=== PATIENT | male | born 1935 | race Two or more races ===

== ENCOUNTER → 2016-08-11 | Outpatient (CLI) | payer MEDICARE ==
[2016-04-01 11:27] VITALS: BP 146/72
[~2016-08-11] MED LIST: BARIUM SULFATE 40% 148 GM PWD PO ONE; GABA-585 PO; GEMF600T3 PO; GLUC1TAB64 PO; HYDR12.53 PO; IBUPROFEN TOP; LEVO500T38 PO; LOSA100T6; LOSA1TAB17 PO; MELO15TA6 PO; OMEG1CAP2 PO; OXYC-250 PO; OXYC1TAB28 PO; PREG50CA PO; RANI300C PO; SITA100T PO; SITA50TA PO; TAMS0.4C2 PO; TRAM50TA PO; VALS320T2 PO; [UNRECOGNIZED DRUG - CODE] TP; [UNRECOGNIZED DRUG - OTHER]; [UNRECOGNIZED DRUG - OTHER]
--- NOTE | 2016-08-11 14:04 | RAD ---
Video dysphasia study, 08/11/2016: History: Dysphasia The swallowing mechanism was examined fluoroscopically in the lateral projection while the patient ingested a variety of food materials mixed with barium. 1.4 minutes of fluoroscopy time was utilized. One fluoroscopic video loop was recorded by a member of the speech Department. There as been a previous anterior spinal fusion and instrumentation at the C3-4 level. The patient demonstrated good oral control of the barium materials. There was prompt initiation of pharyngeal peristalsis. The majority of the barium bolus passed normally through the cervical esophagus. Moderate transient laryngeal penetration occurred anteriorly with the thin liquids. This did not extend down to the vocal focal cords. No vandana aspiration was observed. When ingesting the thicker materials and barium coated solids there was only mild intermittent vallecular residue. The patient utilized a straw without difficulty. IMPRESSION: No evidence of aspiration.
== END | disposition home or self-care (01) ==
LOC: RAD 12:48
PROVIDERS: ATTEND Family Medicine
DX: R13.10 Dysphagia, unspecified (principal)
CPT/HCPCS: 74230; 92611; G8996; G8997; G8998

== ENCOUNTER → 2016-08-18 | Outpatient (CLI) | payer MEDICARE ==
[2016-04-01 11:27] VITALS: BP 146/72
[~2016-08-18] MED LIST changes: -BARIUM SULFATE 40% 148 GM PWD PO ONE
--- NOTE | 2016-08-19 00:36 | PAIN ---
DATE OF SERVICE: 08/18/2016 PROGRESS NOTE FOR PAIN CLINIC DIAGNOSES: Chronic lumbar radiculopathy with post-lumbar laminectomy syndrome, lumbar spinal stenosis with spinal cord stimulator. HISTORY OF PRESENT ILLNESS: The patient is a 81-year-old male who returns should followup status post medication management with oxycodone, Voltaren gel, Mobic and gabapentin. The patient reports he is doing fairly well. Still about a 70-75% improvement with his pain, but has some increased pain in his left low back and left hip over the past several weeks, he was lifting some propane tanks and reports some increased pain in the left hip and leg. The patient reports he is no longer using a spinal cord stimulator as he felt that it was only making things worse and has turned it off. The patient reports his pain is 4 on a scale of 10. The patient reports also some pain in his knees that he has had previously. The patient reports no side effects with his medications. We discussed the regimen and he has had normal urinalysis to date and normal K-TRACS reporting. The patient reports no new motor or sensory deficits. No new bowel or bladder incontinence or other complaints. PHYSICAL EXAMINATION: VITAL SIGNS: The patient's blood pressure is 144/70, pulse 66, respirations 18, temperature 97.5 degrees Fahrenheit, height is 5 feet 9 inches, weight is 195 pounds. GENERAL: The patient is awake, alert, oriented, appropriate, very pleasant demeanor. HEENT: Head shows normocephalic, atraumatic. Extraocular movements are intact and symmetrical. Oral cavity, mucous membranes are moist and pink. Dentition is intact. NECK: Shows anterior throat supple without palpable lymphadenopathy noted. Swallow reflex is symmetrical. CHEST: Shows normal on inspection. Breath sounds are clear to auscultation bilaterally. HEART: Shows S1 and S2 clear. No murmurs auscultated. ABDOMEN: Soft, nontender, nondistended. No palpable organomegaly is noted. No rebound or guarding demonstrated. BACK: Shows spine grossly midline, well-healed surgical scar is noted in the lumbar distribution. Lumbar paraspinous muscle shows some moderate tenderness to palpation, but only diffusely with well-healed surgical scars over the right gluteus with spinal cord stimulator battery easily palpable, but nontender. EXTREMITIES: Lower extremities show deep tendon reflexes at 1+ in the patellar and tendo calcaneus tendons. Motor exam is approximately 4 on a scale of 5, but equal and symmetrical with dorsiflexion, extension, quadriceps and hamstring flexion. PLAN: Options were discussed with the patient. The patient's old chart was reviewed and his current medication regimen updated. Current review of systems updated today as well and we will refill the patient's oxycodone for a 60-day supply. Also, refilled gabapentin at twice a day and the ____ increasing, this may decrease some of his neuropathic pain that he is having. We will refill his Voltaren gel as well as Mobic with instructions, side effects to be aware of discussed with all his medications. The patient will follow up in approximately 2 months as scheduled. NAHUM GRIFFIN MD DR: NATALIA/sami JOB#: [id number] / [id number]
== END | disposition home or self-care (01) ==
LOC: PNCL 09:02
PROVIDERS: ATTEND Anesthesiology
DX: M54.16 Radiculopathy, lumbar region (principal); M96.1 Postlaminectomy syndrome, not elsewhere classified; M48.06 Spinal stenosis, lumbar region
CPT/HCPCS: G0463

== ENCOUNTER → 2016-10-13 | Outpatient (CLI) | payer MEDICARE ==
[2016-04-01 11:27] VITALS: BP 146/72
[~2016-10-13] MED LIST changes: +HYDR4TAB PO
--- NOTE | 2016-10-13 22:40 | PAIN ---
DATE OF SERVICE: PROGRESS NOTE FOR PAIN CLINIC PROGRESS NOTE FOR PAIN CLINIC DIAGNOSES: Chronic lumbar radiculopathy with post-lumbar laminectomy syndrome and spinal stenosis. HISTORY OF PRESENT ILLNESS: The patient is a 81-year-old male, who returns for followup, status post medication management with oxycodone, gabapentin, and Voltaren gel. The patient reports that he is still having significant pain from his knees down to his feet bilaterally in the lower extremities, not very well controlled at this time with the oxycodone. Initially, he did very well at about 70-80% improvement, now it is about a 40-50% improvement. The patient reports that it has been awakening him at night. His knees are burning and aching. Voltaren gel does help over the knees to some extent, but it is only limited by about an hour to two hours. The patient reports that his pain is a 5 on a scale of 10 with the medications - a burning, aching, and sharp pain that is more off and on, but present with standing, walking, and ambulating, wakes him from sleep at least once or twice at night, where he has to get out of bed, re-position. The patient reports no significant side effects with the medication, but not significant decrease in pain. The patient is not using his spinal cord stimulator currently as he reports that it had only helped for a few weeks and then was not very helpful. We discussed multiple times with the patient about reprogramming this and he has not done this to date. PHYSICAL EXAMINATION: VITAL SIGNS: The patient's blood pressure is 152/83, pulse 84, respirations are 18, and temperature is 98.3 degrees Fahrenheit. Weight is 196 pounds. GENERAL: The patient is awake, alert, oriented, and appropriate, very pleasant demeanor. HEENT: Head shows normocephalic, atraumatic. Extraocular movements are intact and symmetrical. Oral cavity, mucous membranes are moist and pink. Dentition is intact. NECK: Shows anterior throat supple without palpable lymphadenopathy noted. Swallow reflex is symmetrical. CHEST: Shows normal on inspection. Breath sounds are clear to auscultation bilaterally. HEART: Shows S1 and S2 clear. ABDOMEN: Soft, nontender, and nondistended. No palpable organomegaly is noted. No rebound or guarding demonstrated. BACK: Shows spine grossly midline. A well-healed surgical scar is noted in the lumbar distribution. Lumbar paraspinous muscles are symmetrical on inspection. Palpation is firm, but with normal muscle girth, diffusely tender throughout the upper, middle, and lower distribution bilaterally, but without radiation. No tenderness over the sacrum or the sacroiliac regions. Lower extremities show deep tendon reflexes at 1+ in the patellar tendons. Motor exam is strong with 5/5 dorsiflexion and extension. Well-healed surgical scar is noted over both the knees. Options were discussed with the patient. The patient's old chart was reviewed, as was his current medication regimen updated. Current review of systems updated today as well. We will change the patient's oxycodone to hydromorphone at 4 mg q. 4-6h. on a p.r.n. basis. The patient was given instruction as well as side effects to be aware of with the medication. Also, increase Neurontin from 100 to 200 mg twice daily and maintain the Voltaren gel applications. The patient was again strongly encouraged to have his spinal cord stimulator adjusted with one of the stimulator representatives - he will consider this. Also, he would like another neurosurgical evaluation. We will make the arrangements for this as well as a new CT scan of the lumbar spine. The patient will follow up, but was asked to call the clinic in the next 1-2 days with report on the new pain medication and we will wait to hear from him on that. NAHUM GRIFFIN MD DR: NATALIA/sami JOB#: [id number] / [id number]
== END | disposition home or self-care (01) ==
LOC: PNCL 10:51
PROVIDERS: ATTEND Anesthesiology
DX: M48.06 Spinal stenosis, lumbar region (principal); M96.1 Postlaminectomy syndrome, not elsewhere classified
CPT/HCPCS: G0463

== ENCOUNTER → 2016-10-21 | Outpatient (CLI) | payer MEDICARE ==
[2016-04-01 11:27] VITALS: BP 146/72
--- NOTE | 2016-10-21 12:35 | RAD ---
Indication low back pain. Axial images through the lumbar spine were obtained and reformatted in the coronal and sagittal planes. Disc cuts were also obtained. Note is made of the lumbar myelogram and postmyelogram CT performed 08/29/2014. The visualized lung bases appear clear. No significant soft tissue finding is seen in the visualized abdomen or pelvis. A neuro stimulating device is noted entering at T 11-12. There are spondylitic changes. Significant facet degenerative changes are noted at multiple levels. An acute bony finding is not seen. Postoperative changes are noted in the lower lumbar spine. There is some slight disc bulging without significant canal narrowing at L1-2. There is some mild foraminal encroachment bilaterally at L1-2. At L2-3 there is slight left neural foraminal encroachment. There is, additionally, moderate lateral recess spinal stenosis. At L3-4 there is significant disc bulging, moderately severe spinal stenosis and moderate bilateral neural foraminal encroachment. No significant foraminal encroachment is seen at L4-5. There is no significant spinal stenosis. Spondylolisthesis is seen at L5-S1. There is some left neural foraminal encroachment. There is no significant spinal stenosis. IMPRESSION: Spondylitic changes in the lumbar spine. Multilevel neural foraminal encroachment as outlined above. Spinal stenosis at L2-3 and L3-4, greatest at L3-4 PQRS Compliance Statement: One or more of the following individualized dose reduction techniques were utilized for this examination: 1. Automated exposure control 2. Adjustment of the mA and/or kV according to patient size 3. Use of iterative reconstruction technique
== END | disposition home or self-care (01) ==
LOC: CT 12:00
PROVIDERS: ATTEND Anesthesiology
DX: M43.16 Spondylolisthesis, lumbar region (principal); M51.36 Other intervertebral disc degeneration, lumbar region; E78.00 Pure hypercholesterolemia, unspecified; I10 Essential (primary) hypertension; K21.9 Gastro-esophageal reflux disease without esophagitis; M19.90 Unspecified osteoarthritis, unspecified site; E11.9 Type 2 diabetes mellitus without complications; F32.9 Major depressive disorder, single episode, unspecified; Z96.653 Presence of artificial knee joint, bilateral; Z87.01 Personal history of pneumonia (recurrent)
CPT/HCPCS: 72131

== ENCOUNTER → 2016-12-08 | Outpatient (CLI) | payer MEDICARE ==
[2016-04-01 11:27] VITALS: BP 146/72
[~2016-12-08] MED LIST changes: +AMLO10TA2 PO; +GLIP5TAB10 PO; -LEVO500T38 PO; +LEVO500T59 PO; -OXYC-250 PO; +OXYC-328 PO
== END | disposition home or self-care (01) ==
LOC: PNCL 11:24
PROVIDERS: ATTEND Anesthesiology
DX: M48.06 Spinal stenosis, lumbar region (principal); M54.16 Radiculopathy, lumbar region; M96.1 Postlaminectomy syndrome, not elsewhere classified
CPT/HCPCS: 99212

== ENCOUNTER → 2016-12-26 | Outpatient (CLI) | payer MEDICARE ==
[~2016-12-26] VITALS: Ht 162.6 cm; Wt 86.2 kg
[~2016-12-26] MED LIST changes: +CONTRAST GIVEN MC PRN; +IOHEXOL 180 MG/ML 10 ML VIAL. IT ONE
[2016-12-26 08:32] LABS: CREATININE 1.8 mg/dL (0.7-1.3); GFR 36.6
[2016-12-26 08:43] VITALS: BP 131/66
--- NOTE | 2016-12-26 10:36 | RAD ---
EXAM: 1. CT myelography lumbar spine with intrathecal contrast. 2. Fluoroscopically guided lumbar puncture for demonstration of intrathecal contrast. HISTORY: Low back pain, spinal stenosis, prior lumbar surgery, spinal stimulator placement. TECHNIQUE: The procedure along with its risks and benefits were explained to the patient. He agreed to proceed. A timeout procedure was performed. The prior study of 10/21/2016 was reviewed. The patient was placed prone and the L5-S1 level localized fluoroscopically. The overlying skin was sterilely prepped and infiltrated with 1% lidocaine for local anesthesia. Under fluoroscopic guidance, a 22-gauge spinal needle was advanced into the thecal sac. There was spontaneous return of cerebrospinal fluid. 10 mL iodinated myelographic contrast was instilled under fluoroscopic control. Instrumentation was withdrawn and a sterile dressing placed. There were no immediate complications. 7 fluoroscopic images were obtained. Fluoroscopy time 1.[address] of the lumbar spine was performed after the intrathecal administration of iodinated contrast. COMPARISON: 10/21/2016, 08/29/2014. FINDINGS: Spinal stimulator electrodes enter the central canal at T11-12 and have their terminus superior to this field of view. There are changes of uninstrumented posterior fusion from L4 through S1. Right hemilaminotomy changes are suspected inferiorly at L3. There are at least partial laminectomy changes at L4 and L5, but these have mostly reossified. There is slight retrolisthesis at L1-2. There is grade 1 anterolisthesis at L5-S1. There is a minimal levocurvature. No fractures are identified. Degenerative disc disease is moderate at L3-4 and mild at other levels. L4-5 disc height is preserved. The conus is at L1 and appears normal. Some of the left nerve roots appear clumped inferiorly, stable. At T12-L1, there is no significant stenosis. At L1-2, there is a moderate posterior disc bulge. Facet and ligamentum flavum hypertrophy is mild. Central canal stenosis is mild. Foraminal stenosis is moderate on the left and moderate to severe on the right. At L2-3, there is a small posterior disc-osteophyte complex. Facet and ligamentum flavum hypertrophy is moderate to severe on the left and moderate on the right. Central canal stenosis is moderate, worse on the left. Foraminal stenosis is moderate to severe on the left and moderate on the right. At L3-4, there is a moderate posterior disc-osteophyte complex. Facet and ligamentum flavum hypertrophy is moderate to severe bilaterally. Central canal stenosis is moderate to severe on the left greater than right with effacement of the CSF space. Foraminal stenosis is moderate bilaterally. At L4-5, there is no significant stenosis. Facet and ligamentum flavum hypertrophy is moderate to severe. At L5-S1, there is a moderate posterior disc-osteophyte complex. The left L5 inferior articular process appears to been resected. The posterior aspects of both neural foramina appear decompressed, but there is some mass effect on both L5 nerve roots from the posterior disc-osteophyte complex along the anterior aspect of both foramina and lateral to the foramina. Mild atherosclerotic calcifications are noted. Sigmoid diverticulosis is at least mild. IMPRESSION: 1. Central canal stenosis is moderate to severe at L3-4, moderate at L2-3 and mild at L1-2. These appear increased since 2015, particular from L1 through L3. 2. Multilevel bilateral moderate to severe foraminal stenosis as detailed above. 3. 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 This is stable. 4. Noninstrumented posterior fusion from L4 through S1. Hemilaminotomy and partial left neck region is from L3 through S1 are mostly reossified. 5. Degenerative disc disease is moderate at L3-4 and mild elsewhere. 6. Grade 1 anterolisthesis at L5-S1. Slight retrolisthesis at L1-2. One or more of the following individualized dose reduction techniques were utilized for this examination: 1. Automated exposure control. 2. Adjustment of the mA and/or kV according to patient size. 3. Use of iterative reconstruction technique.
== END | disposition home or self-care (01) ==
LOC: RAD 08:10
PROVIDERS: ATTEND Neurological Surgery
DX: M48.06 Spinal stenosis, lumbar region (principal); M51.36 Other intervertebral disc degeneration, lumbar region
CPT/HCPCS: 36415; 72132; 72265; 82565

== ENCOUNTER → 2017-01-18 | Outpatient (CLI) | payer MEDICARE ==
[2016-12-26 08:43] VITALS: BP 131/66
[~2017-01-18] MED LIST changes: -CONTRAST GIVEN MC PRN; -IOHEXOL 180 MG/ML 10 ML VIAL. IT ONE
[2017-01-18 10:30] LABS: BASO % 1 % (0-3); EOS % 6 % (0-3); HEMATOCRIT 36.5 % (39.0-53.0); HEMOGLOBIN 12.6 g/dL (13.0-17.5); LYMPH # 1.8 x10^3/uL (1.0-4.8); LYMPH % 28 % (24-48); MEAN CORPUSCULAR HEMOGLOBIN 31 pg (25-35); MEAN CORPUSCULAR HGB CONC 34 g/dL (31-37); MEAN CORPUSCULAR VOLUME 90 fL (79-100); MONO % 12 % (0-9); NEUT % 54 % (31-73); PLATELET COUNT 193 x10^3/uL (140-400); RED BLOOD COUNT 4.04 x10^6/uL (4.30-5.70); RED CELL DISTRIBUTION WIDTH 13.3 % (11.5-14.5); WHITE BLOOD COUNT 6.2 x10^3/uL (4.0-11.0)
[2017-01-18 10:43] LABS: INR 1.2 (0.8-1.1); PROTHROMBIN TIME PATIENT 14.6 SEC (11.7-14.0)
[2017-01-18 10:47] LABS: ALBUMIN/GLOBULIN RATIO 1.1 (1.0-1.7); CALCIUM 9.3 mg/dL (8.5-10.1); CREATININE 1.6 mg/dL (0.7-1.3); GFR 41.9; POTASSIUM 4.2 mmol/L (3.5-5.1); TOTAL BILIRUBIN 0.3 mg/dL (0.2-1.0); TOTAL PROTEIN 7.6 g/dL (6.4-8.2)
--- NOTE | 2017-01-18 12:50 | EKG ---
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
== END | disposition home or self-care (01) ==
LOC: SURGPAT 09:49
PROVIDERS: ATTEND Neurological Surgery
DX: M54.16 Radiculopathy, lumbar region (principal)
CPT/HCPCS: 36415; 80053; 85027; 85610; 85730; 87641; 93005

== ENCOUNTER → 2017-01-23 | Outpatient (CLI) | payer MEDICARE ==
[2016-12-26 08:43] VITALS: BP 131/66
--- NOTE | 2017-01-23 13:15 | PN ---
DATE: 01/23/2017 PROGRESS NOTE FOR PAIN CLINIC DIAGNOSES: Chronic lumbar radiculopathy with post-lumbar laminectomy syndrome and lumbar spinal stenosis. HISTORY OF PRESENT ILLNESS: The patient is a 81-year-old male who returns for followup status post medication management with oxycodone. The patient reports he has been doing fairly well with this about 50-60% improvement with medication alone without significant side effects, but is having still significant pain across the low back and in to the bilateral lower extremities. The patient does have a spinal cord stimulator which he has not been using it as he reports it stopped helping his pain. the patient reports that he is having lumbar decompressive surgery 2 days from now on 01/25/2017 and is looking forward to this as he is hoping for some decrease in pain. The patient reports no new motor or sensory deficits, no new bowel or bladder incontinence. The patient reports it does awaken him from sleep about once every hour. He is to get out of bed and change positions in order to get back to sleep. The patient reports the pain as a 6 on a scale of 10 at its worst and 5 currently. The patient reports it as aching and dull with shooting pain in the lower extremities as well. PHYSICAL EXAMINATION: VITAL SIGNS: The patient's blood pressure is 147/85, pulse 78, respirations 18, temperature is 98.0 degrees Fahrenheit. The patient's weight is 195 pounds. GENERAL: The patient is awake, alert, oriented, appropriate, has a very pleasant demeanor. HEENT: Head shows normocephalic, atraumatic. Extraocular movements are intact, symmetrical. Oral cavity has mucous membranes are moist and pink. Dentition is intact. NECK: Shows anterior throat supple without palpable lymphadenopathy noted. Swallow reflex is symmetrical. CHEST: Shows normal on inspection. Breath sounds are clear to auscultation bilaterally. HEART: Shows S1 and S2 clear. No murmurs auscultated. ABDOMEN: Soft, nontender, nondistended. BACK: The patient's back shows spine grossly in midline with some flattening of lumbar lordotic curvature with well-healed surgical scarring noted, with palpation shows some moderate tenderness to palpation in the middle and lower distribution of paraspinous muscles, but without radiation. EXTREMITIES: Lower extremities showed deep tendon reflexes at 1+ in the patellar and tendo calcaneus tendons. Motor exam is strong with 5/5 dorsiflexion, extension, quadriceps and hamstring flexion. Options were discussed with the patient. The patient's old chart was reviewed as current medication regimen and updated. Current review of systems updated today as well. We will refill the patient's oxycodone 10 mg with instructions and side effects to be aware of discussed. The patient will take hydromorphone for postoperative pain as he has this prescription at home. He reports that he has not been taking it for some time now and/or increased oxycodone use for the postoperative pain. The patient was asked to call the clinic prior to doing this and we will cover his postoperative pain once this occurs if needed. The patient understands and agrees. We will follow up after surgery. NAHUM GRIFFIN MD DR: NATALIA/sami JOB#: [id number] / [id number]
== END | disposition home or self-care (01) ==
LOC: PNCL 11:01
PROVIDERS: ATTEND Anesthesiology
DX: M54.16 Radiculopathy, lumbar region (principal); M48.06 Spinal stenosis, lumbar region; G89.18 Other acute postprocedural pain
CPT/HCPCS: G0463

== ENCOUNTER 2017-01-25 06:57 | Observation (INO) | payer MEDICARE ==
[~2017-01-25] VITALS: Ht 162.6 cm; Wt 89.6 kg
[2017-01-25] VITALS (10 sets, daily range): BP systolic 133–160; BP diastolic 64–74
[~2017-01-25 06:57] MED LIST changes: +BACITRACIN 50,000 UNIT in IV NORMAL SALINE 1000ML BAG 1,000 ML IRR ONE
[2017-01-25] MEDS ORDERED: IV RINGERS,LACTATED 1000ML 1,000 ML IV SCH (07:00)
[2017-01-25] MEDS ORDERED: MORPHINE SULFATE 2 MG/ML DISP.SYRIN. IV PRN (07:00)
[2017-01-25] MEDS ORDERED: LIDOCAINE 1% 1 ML SYRINGE. ID PRN (07:00)
[2017-01-25] MEDS ORDERED: PROCHLORPERAZINE 10 MG/2 ML VIAL. IV PRN (07:00)
[2017-01-25] MEDS ORDERED: ONDANSETRON PF 4 MG/2 ML VIAL. IV PRN ×2 (07:00→13:00)
[2017-01-25] MEDS ORDERED: fentaNYL PF VIAL 100 MCG/2 ML VIAL IV PRN ×3 (07:00→13:00)
[2017-01-25] MEDS ORDERED: PROPOFOL 50 ML IV ONE ×2 (07:33→10:08)
[2017-01-25] MEDS ORDERED: LIDOCAINE 2% PF Vial for OR 5 ML VIAL. ONE (07:33)
[2017-01-25] MEDS ORDERED: PROPOFOL 20 ML IV ONE (07:33)
[2017-01-25] MEDS ORDERED: SUCCINYLCHOLINE 200 MG/10 ML VIAL. ONE (07:34)
[2017-01-25] MEDS ORDERED: fentaNYL PF VIAL 100 MCG/2 ML VIAL ONE ×3 (07:34→13:43)
[2017-01-25] MEDS ORDERED: REMIFENTANIL 2 MG VIAL. IV ONE (07:34)
[2017-01-25] MEDS ORDERED: 0.9 % SODIUM CHLORIDE 50 ML VIAL. IJ ONE (07:36)
[2017-01-25] MEDS ORDERED: BUPIVAC MPF-EPI 0.5%-1:200000 30 ML VIAL. ONE (07:37)
[2017-01-25] MEDS ORDERED: BUPIVACAINE 0.5% 50 ML VIAL. ONE (07:37)
[2017-01-25] MEDS: IV NORMAL SALINE 1000ML BAG 1,000 ML IV SCH ×2 (08:00→19:28)
[2017-01-25] MEDS ORDERED: ONDANSETRON PF 4 MG/2 ML VIAL. ONE (09:13)
[2017-01-25] MEDS ORDERED: DESFLURANE > 120 MINUTES IH ONE (09:13)
[2017-01-25] MEDS ORDERED: DEXAMETHASONE SOD PHOS 20 MG/5 ML VIAL. ONE (09:13)
[2017-01-25] MEDS ORDERED: THROMBIN TOPICAL 20,000 UNIT SPRAY.SYRN KIT TP ONE (12:02)
[2017-01-25] MEDS ORDERED: GELATIN SPONGE SIZE 100. ONE (12:02)
--- NOTE | 2017-01-25 12:48 | PDOC ---
BRIEF OPERATIVE NOTE Date: Jan 25, 2017 Pre-Op Diagnosis lumbar radiculopathy, lumbar stenosis, lumbar spondylosis Post-Op Diagnosis same Procedure Performed bilateral laminectomy L2-3 and L3-4 Surgeon Chucky Data Report Analyst none Anesthesia Type: General Blood Loss 50mL Specimens Obtained decompression Findings severe stenosis due to degenerative changes at L2-3 and L3-4, neuromonitoring potential remained at least baseline throughout the procedure Complications none apparent PAWEL HENNESSY MD Jan 25, 2017 12:48
[2017-01-25] MEDS ORDERED: diphenhydrAMINE 50 MG/ML VIAL IV PRN (13:00)
[2017-01-25] MEDS ORDERED: ZOLPIDEM 5 MG TABLET. PO PRN (13:00)
[2017-01-25] MEDS ORDERED: 0.9 % SODIUM CHLORIDE 10 ML DISP.SYRIN. IV PRN (13:00)
[2017-01-25] MEDS ORDERED: MAGNESIUM HYDROXIDE 2,400 MG/30 ML ORAL.SUSP. PO PRN (13:00)
[2017-01-25] MEDS ORDERED: MAG HYDROX/ALUMINUM HYD/SIMETH 30 ML ORAL.SUSP PO PRN (13:00)
[2017-01-25] MEDS ORDERED: ACETAMINOPHEN 325 MG TABLET. PO PRN (13:00)
[2017-01-25] MEDS ORDERED: oxyCODONE/APAP 5/325 1 TAB TABLET PO PRN (13:00)
[2017-01-25] MEDS ORDERED: NALOXONE 0.4 MG/ML VIAL. IV PRN (13:00)
[2017-01-25] MEDS ORDERED: diphenhydrAMINE HCL 25 MG CAPSULE PO PRN (13:00)
[2017-01-25] MEDS ORDERED: CALCIUM CARBONATE 500 MG TAB.CHEW PO PRN (13:00)
[2017-01-25] MEDS: fentaNYL PF VIAL 100 MCG/2 ML VIAL IV PRN ×4 (13:09→14:15)
[2017-01-25] MEDS ORDERED: HYDROmorphone 2 MG/ML VIAL ONE (13:18)
[2017-01-25] MEDS: HYDROmorphone 2 MG/ML VIAL IV PRN ×4 (13:20→13:53)
[2017-01-25] MEDS ORDERED: INFLUENZA VAX SCREEN BY RX. MC ONE (15:00)
[2017-01-25] MEDS ORDERED: FLU VACC QUAD 2016-17 (36MOS+)/PF 0.5 ML SYRINGE. VAX IM ONE ×2 (15:00→15:30)
[2017-01-25] MEDS: METHOCARBAMOL 750 MG TABLET PO SCH ×2 (15:48→20:32)
[2017-01-25] MEDS: amLODIPine BESYLATE 10 MG TABLET PO SCH (15:49)
--- NOTE | 2017-01-25 15:54 | OP ---
DATE OF SURGERY: 01/25/2017 SURGEON: Tyrese Hennessy MD MEAT HANGER: None. PREOPERATIVE DIAGNOSES: Lumbar stenosis with lumbar radiculopathy, lumbar spondylosis. POSTOPERATIVE DIAGNOSES: Lumbar stenosis with lumbar radiculopathy, lumbar spondylosis. PROCEDURE: Bilateral laminectomy of lumbar 2-3, lumbar 3-4. ANESTHESIA: General. COMPLICATIONS: None intraprocedurally. INDICATIONS FOR THE PROCEDURE: The patient is a 81-year-old gentleman with lumbar radiculopathy localized to a significant stenosis at lumbar 2-3 and lumbar 3-4 who has been refractory to multiple nonsurgical treatments. Please refer to the patient's chart for additional details. DESCRIPTION OF THE PROCEDURE: After informed consent was obtained, the patient was brought into the operating room. He was placed under general anesthesia. Neuromonitoring was instituted and baseline potentials were obtained. The patient was turned prone onto the Dominik table and all pressure points were checked and padded appropriately. Lumbar region was prepped and draped in the usual sterile fashion. The patient had previously midline incision from a prior more caudal decompression as well as prior placement of spinal cord stimulation. Fluoroscopy was utilized to localize an appropriate location for the reopening of this incision and the incision was reopened, centered over the region of spinous processes of lumbar 2, 3 and 4. Near the cephalad portion of the incision, the leads and lead extension collections were identified laterally and these were preserved underneath the adjacent tissue and protected throughout the duration of the procedure. Monopolar electrocautery was utilized to dissect the avascular midline in the spinous processes of lumbar 2, 3 and 4 and bilaterally across the lamina at this location. Level was verified with fluoroscopy prior to the initiation of decompression. A bilateral laminectomy was performed across the junction of lumbar 2-3 and lumbar 3-4. This was done with a Leksell as well as a pneumatic drill and a Kerrison rongeur. The underlying ligament was gently dissected from the thecal sac with a Radford as well as cottonoids and this was gently removed with a Kerrison rongeur. The lateral recesses were decompressed with Kerrison rongeur bilaterally at all the exposed locations. Upon completion of decompression at lumbar 2-3 and lumbar 3-4, the thecal sac and neural elements were noted to be very well decompressed. This was verified with direct visualization as well as gentle palpation with a Radford. Upon completion of decompression, pristine hemostasis was achieved with FloSeal, cottonoids and some use of bipolar electrocautery. The wound was generously irrigated with antibiotic irrigation prior to the final closure. The muscles and fascia were then reapproximated with 0 Vicryl in a simple interrupted fashion. Subcutaneous tissues were reapproximated with 2-0 Vicryl in interrupted inverted fashion with great care to avoid disrupting the adjacent hardware from the spinal cord stimulator, which was preserved and kept underneath tissues throughout the duration of the procedure. The skin was reapproximated with 4-0 Vicryl in a running subcuticular fashion. Mastisol and Steri-Strips were applied. The wound was dressed with Telfa and Tegaderm. At the end of the procedure, all needle and sponge counts were correct x 2. Neuromonitoring potentials remained at least at baseline throughout the entire duration of the procedure. There were no intraprocedural complications apparent. The patient was extubated in the operating room and taken to recovery in a stable condition. TYRESE HENNESSY MD DR: JUDITH/sami JOB#: [id number] / [id number]
[2017-01-25] MEDS: FERROUS SULFATE 325 MG TABLET. PO SCH (17:02)
[2017-01-25] MEDS: CALCIUM CARB/VIT D3 500/200 TABLET. PO SCH (17:02)
[2017-01-25] MEDS: oxyCODONE/APAP 5/325 1 TAB TABLET PO PRN ×2 (17:08→21:03)
[2017-01-25] MEDS: DOCUSATE SODIUM 100 MG CAPSULE. PO SCH (20:32)
[2017-01-25] MEDS: GEMFIBROZIL 600 MG TABLET. PO SCH (20:32)
[2017-01-25] MEDS: OMEGA-3 FATTY ACIDS/FISH OIL 1,000 MG CAPSULE. PO SCH (20:32)
[2017-01-25] MEDS: FAMOTIDINE 20 MG TABLET. PO SCH (20:32)
[2017-01-25] MEDS: GABAPENTIN 100 MG CAPSULE. PO SCH (20:32)
[2017-01-25] MEDS: SENNOSIDES/DOCUSATE 8.6/50MG TABLET. PO SCH (20:33)
[2017-01-26 03:00] VITALS: BP 126/74
[2017-01-26 06:00] VITALS: BP 143/67
[2017-01-26] MEDS ORDERED: glipiZIDE 5 MG TABLET PO SCH (08:00)
[2017-01-26] MEDS: FERROUS SULFATE 325 MG TABLET. PO SCH (08:12)
[2017-01-26] MEDS: DOCUSATE SODIUM 100 MG CAPSULE. PO SCH (08:13)
[2017-01-26] MEDS: CALCIUM CARB/VIT D3 500/200 TABLET. PO SCH (08:13)
[2017-01-26] MEDS: GEMFIBROZIL 600 MG TABLET. PO SCH (08:14)
[2017-01-26] MEDS: OMEGA-3 FATTY ACIDS/FISH OIL 1,000 MG CAPSULE. PO SCH (08:14)
[2017-01-26] MEDS: GABAPENTIN 100 MG CAPSULE. PO SCH (08:15)
[2017-01-26] MEDS: amLODIPine BESYLATE 10 MG TABLET PO SCH (08:15)
[2017-01-26] MEDS: FAMOTIDINE 20 MG TABLET. PO SCH (08:15)
[2017-01-26] MEDS: SENNOSIDES/DOCUSATE 8.6/50MG TABLET. PO SCH (08:16)
[2017-01-26] MEDS: METHOCARBAMOL 750 MG TABLET PO SCH ×2 (08:16→14:38)
--- NOTE | 2017-01-26 08:51 | PDOC ---
SUBJECTIVE Subjective Reports leg pain and numbness significantly improved. Reports present pain regimen is controlling low back pain reasonably well. OBJECTIVE Vital Signs Vital Signs Date Time Temp Pulse Resp B/P (MAP) Pulse Ox O2 Delivery O2 Flow Rate FiO2 01/26/17 08:15 62 143/67 01/26/17 06:45 20 96 Room Air 01/26/17 06:00 62 18 143/67 (92) 98 Room Air 01/26/17 05:34 20 98 Room Air 01/26/17 03:00 60 18 126/74 (91) 100 Room Air 01/25/17 22:58 61 18 147/64 (91) 98 Room Air 01/25/17 22:15 20 95 Room Air 01/25/17 21:03 20 95 Room Air 01/25/17 19:30 Room Air 01/25/17 18:40 60 141/70 (93) 01/25/17 17:58 16 145/69 (94) 94 Room Air 01/25/17 17:10 60 133/65 (87) 01/25/17 17:08 Room Air 01/25/17 16:40 60 135/67 (89) 91 Room Air 01/25/17 16:27 60 16 136/68 (90) 91 Room Air 01/25/17 15:49 60 139/66 01/25/17 15:42 60 139/66 (90) 93 Room Air 01/25/17 15:20 Room Air 01/25/17 15:19 62 160/70 (100) 96 Room Air 01/25/17 14:55 61 155/74 (101) 2.0 01/25/17 14:40 97.9 62 16 147/73 (97) 98 Nasal Cannula 2.0 97.9 01/25/17 14:23 61 14 126/70 95 Nasal Cannula 2 01/25/17 14:15 16 96 Nasal Cannula 2.0 01/25/17 14:08 60 14 148/48 94 Nasal Cannula 2 01/25/17 13:53 60 14 142/71 95 Nasal Cannula 2 01/25/17 13:53 14 96 Nasal Cannula 4.0 01/25/17 13:48 16 96 Nasal Cannula 4.0 01/25/17 13:43 18 95 Nasal Cannula 4.0 01/25/17 13:38 60 18 124/65 96 Nasal Cannula 4 01/25/17 13:30 16 96 Nasal Cannula 4.0 01/25/17 13:23 99.5 59 15 141/69 95 Room Air 10 99.5 01/25/17 13:20 16 98 Nasal Cannula 4.0 01/25/17 13:14 16 98 Simple Mask 10.0 01/25/17 13:09 16 100 Simple Mask 10.0 01/25/17 13:08 99.5 60 15 132/64 96 Simple Mask 10 99.5 01/25/17 13:00 Nasal Cannula 4 01/25/17 12:53 99.5 61 12 156/52 98 Simple Mask 10 99.5 01/25/17 12:53 60 16 142/71 94 Nasal Cannula 2 01/25/17 12:37 99.5 62 18 138/51 98 Simple Mask 10 99.5 I & O Intake and Output 01/26/17 07:00 Intake Total 2970 ml Output Total 2700 ml Balance 270 ml Intake Oral 1420 ml IV Total 1550 ml Output Urine Total 2700 ml PHYSICAL EXAM Physical Exam AAOx4, NAD, PEÑA 5/5, sensation intact LT, dressing saturated with sang fluid, wound flat, some sang fluid expressed but ceased, nursing apply pressure dressing ASSESSMENT/PLAN Assessment/Plan POD1 two level laminectomy -pressure dressing to incision -will recheck - may need dermabond -clinically doing well -potential d/c home today Problems: COMMENT Lab Laboratory Tests Test 01/25/17 12:46 01/25/17 20:59 01/26/17 06:47 Glucose (Fingerstick) 138 mg/dL (70-99) 247 mg/dL (70-99) 150 mg/dL (70-99) PAWEL HENNESSY MD Jan 26, 2017 08:51
[2017-01-26 08:55] VITALS: BP 148/69
[2017-01-26] MEDS ORDERED: MELOXICAM 7.5 MG TABLET PO SCH (09:00)
[2017-01-26] MEDS ORDERED: hydroCHLOROthiazide 25 MG TABLET PO SCH (09:00)
[2017-01-26] MEDS ORDERED: MULTIVITAMIN with MINERAL TABLET. PO SCH (09:00)
[2017-01-26] MEDS: oxyCODONE/APAP 5/325 1 TAB TABLET PO PRN ×2 (11:46→14:38)
[2017-01-26 14:52] VITALS: BP 132/60
--- NOTE | 2017-01-27 14:49 | PATHOLOGY ---
PATHOLOGY REPORT * * * * * * * * FINAL DIAGNOSIS: Segments of fibrocartilaginous tissue and bone, lumbar decompression: - Degenerative changes of fibrocartilaginous tissue. COMMENT: There is no evidence of an acute inflammatory process or malignancy. (JPM:db; 01/27/2017) REPORT ELECTRONICALLY SIGNED BY: Dario Santos M.D. DATE/TIME: 01/27/2017 14:48 * * * * * * * * GROSS PATHOLOGY: Received in formalin labeled "Liudmila Cervantes, lumbar decompression," are multiple segments of nova, rubbery and gritty tissue measuring 8.2 x 7.6 x 2.3 cm with admixed segments of bone. The tissue is submitted representatively in cassette A1, following decalcification. (TSD; 01/26/2017) INITIAL CPT CODE(S): A; 17310, 10662 Professional services performed [place] [place] [address] Technical services performed by [facility] at [address] [place] [address], [facility] [address] [address]. SPECIMEN(S) RECEIVED: A.Lumbar decompression CLINICAL HISTORY: Radiculopathy, lumbar stenosis, spondylosis PATIENT: LIUDMILA CERVANTES /AGE: [id number] 1935 (Age: 81) PATIENT #: [id number] ALT CASE #: SPECIMEN COLLECTION DATE: 01/25/2017 SPECIMEN RECEIVED DATE: 01/25/2017 [facility] - [address] [place] [address] - PHONE: [phone] * * * END OF REPORT * * *
== END 2017-01-26 16:22 | disposition home or self-care (01) ==
LOC: OPSVCIP 06:57 → INTOOBSV 06:57 → EDSTATUS 08:30 → 4 SOUTHEST 12:55
PROVIDERS: ADMIT Neurological Surgery; ATTEND Neurological Surgery
DX: M48.06 Spinal stenosis, lumbar region (principal); M47.26 Other spondylosis with radiculopathy, lumbar region
CPT/HCPCS: 63030; 63035; 76000; 82962; 97110; 97116; 97162; 97166; 97535; G0378; G0379; G8978; G8979; G8980; G8987; G8988; J0330; J0690; J1100; J1170; J2704; J3010; J3490; J7030; J7120; J2405; J2001

== ENCOUNTER 2017-02-20 11:27 | Inpatient (IN) | payer MEDICARE ==
[~2017-02-20] VITALS: Ht 162.6 cm; Wt 88.0 kg
[~2017-02-20 11:27] MED LIST changes: -BACITRACIN 50,000 UNIT in IV NORMAL SALINE 1000ML BAG 1,000 ML IRR ONE; +ERTA1VIA IJ
[2017-02-20 13:04] LABS: BASO # 0.1 x10^3/uL (0.0-0.2); BASO % 1 % (0-3); EOS % 1 % (0-3); HEMATOCRIT 28.7 % (39.0-53.0); LYMPH # 1.3 x10^3/uL (1.0-4.8); LYMPH % 13 % (24-48); MEAN CORPUSCULAR HEMOGLOBIN 31 pg (25-35); MEAN CORPUSCULAR HGB CONC 35 g/dL (31-37); MEAN CORPUSCULAR VOLUME 90 fL (79-100); MONO % 9 % (0-9); NEUT % 76 % (31-73); PLATELET COUNT 288 x10^3/uL (140-400); RED BLOOD COUNT 3.21 x10^6/uL (4.30-5.70); WHITE BLOOD COUNT 10.4 x10^3/uL (4.0-11.0)
[2017-02-20 13:11] LABS: GFR 32.4; POTASSIUM 4.6 mmol/L (3.5-5.1)
[2017-02-20 13:17] LABS: ALBUMIN 2.9 g/dL (3.4-5.0); ALBUMIN/GLOBULIN RATIO 0.7 (1.0-1.7); C-REACTIVE PROTEIN 63.3 mg/L (0-3.3); TOTAL BILIRUBIN 0.2 mg/dL (0.2-1.0); TOTAL PROTEIN 7.1 g/dL (6.4-8.2)
[2017-02-20] MEDS ORDERED: fentaNYL PF VIAL 100 MCG/2 ML VIAL IV PRN (13:30)
--- NOTE | 2017-02-20 14:10 | RAD ---
CT of the lumbar spine without contrast, 02/20/2017: History: Postop back pain Noncontrast scans were obtained and compared to a study from 02/10/2017. There is a mild lumbar scoliosis. There is degenerative disc disease and spurring throughout the lumbar spine. Again noted are changes of an old posterior spinal fusion at L4-5 and L5-S1. There is a partial laminectomy defect on the left at L5-S1. No high-grade central spinal stenosis is evident at these levels. There is moderate bilateral foraminal encroachment at L5-S1. There has been a more recent laminectomy at L2-3 and L3-4. There is loss of definition of the posterior fat planes at the midline at this level on a postsurgical basis, with multiple small gas bubbles present in the posterior soft tissues. There appears to be a small amount of fluid related to some of these air bubbles. Similar findings were present on the 02/10/2017 study. No discrete drainable fluid collection is seen. There are spinal stimulator leads extending through this region into the thoracic spinal canal. The thecal sac through the surgical site is not clearly defined, however, no high-grade central spinal stenosis is seen. Spurring and disc bulging is causing mild to moderate foraminal narrowing bilaterally at L2 2-3 and L3-4. There is disc bulging and posterior ligamentous thickening at L1-2 resulting in borderline central spinal stenosis at that level. Note is made of mild rectal distention with semisolid stool. IMPRESSION: 1. Evidence of recent posterior spinal surgery at L2-3 and L3-4 with residual gas bubbles in the soft tissues at the surgical site. No discrete well-defined abscess is identified. 2. No significant change since 02/10/2017. PQRS Compliance Statement: One or more of the following individualized dose reduction techniques were utilized for this examination: 1. Automated exposure control 2. Adjustment of the mA and/or kV according to patient size 3. Use of iterative reconstruction technique
--- NOTE | 2017-02-20 14:35 | PHYS DOC ---
Past Medical History Past Medical History: Diabetes-Type II, Hypertension Past Surgical History: Knee Replacement, Other Additional Past Surgical Histo: NECK, BACK Alcohol Use: None Drug Use: None Adult General Chief Complaint Chief Complaint: WOUND CHECK HPI HPI Patient is a 81 year old male who presents with ongoing her seen back pain and drainage. Patient had back surgery with Dr. Locke approximately one month ago. He states there is been increased drainage and he said bilateral lower extremity weakness with difficulty walking. He denies any saddle sensory change , no fevers reported. Patient denies bowel or bladder incontinence or retention. He is been getting IV antibiotics, directed by infectious disease, Dr. Pandya Review of Systems Review of Systems Constitutional: Denies fever or chills [] Eyes: Denies change in visual acuity, redness, or eye pain [] HENT: Denies nasal congestion or sore throat [] Respiratory: Denies cough or shortness of breath [] Cardiovascular: No additional information not addressed in HPI [] GI: Denies abdominal pain, nausea, vomiting, bloody stools or diarrhea [] : Denies dysuria or hematuria [] Musculoskeletal: per hpi Integument: Denies rash Neurologic: Denies headache, focal weakness or sensory changes [] Current Medications Current Medications Current Medications Medications (Trade) Dose Ordered Sig/Edd Start Time Stop Time Status Last Admin Dose Admin Fentanyl Citrate (Fentanyl 2ml Vial) 50 mcg PRN Q5MIN PRN 02/21/17 07:00 02/21/17 19:00 Hydromorphone HCl (Dilaudid) 0.5 mg PRN Q10MIN PRN 02/21/17 07:00 02/21/17 19:00 Lidocaine HCl 2 ml PRN 1X PRN 02/21/17 07:00 02/21/17 19:00 Morphine Sulfate 1 mg PRN Q10MIN PRN 02/21/17 07:00 02/21/17 19:00 Ondansetron HCl (Zofran) 4 mg PRN Q6HRS PRN 02/21/17 07:00 02/21/17 19:00 Prochlorperazine Edisylate (Compazine) 5 mg PACU PRN PRN 02/21/17 07:00 02/22/17 06:59 UNV Ringer's Solution 1,000 ml @ 30 mls/hr Q24H 02/21/17 07:00 02/21/17 18:59 Allergies Allergies Allergies Coded Allergies Type Severity Reaction Last Updated Verified No Known Drug Allergies 02/20/17 No Physical Exam Physical Exam Constitutional: Well developed, well nourished, no acute distress, non-toxic appearance. [] HENT: Normocephalic, atraumatic, bilateral external ears normal, oropharynx moist, no oral exudates, nose normal. [] Eyes: PERRLA, EOMI, conjunctiva normal, no discharge. [] Neck: Normal range of motion, no tenderness, supple, no stridor. [] Cardiovascular:Heart rate regular with regular rhythm, no murmur [] Lungs & Thorax: Bilateral breath sounds clear to auscultation [] Abdomen: Bowel sounds normal, soft, no tenderness, no masses, no pulsatile masses. [] Skin: Warm, dry, no erythema, no rash. [] Back: well-healing surgical incision with wound open but no active drainage, dressing is soaked with yellow, no fluctuance, minimal ttp Extremities: No tenderness, no cyanosis, no clubbing, ROM intact, no edema. [] Neurologic: Alert and oriented X 3, normal motor function, normal sensory function, no focal deficits noted, 5/5 left hip flexor strength, R is 4+/5, dp pulse intact, normal distal LE sensory. Psychologic: Affect normal, judgement normal, mood normal. [] Current Patient Data Vital Signs Vital Signs Date Time Temp Pulse Resp B/P (MAP) Pulse Ox O2 Delivery O2 Flow Rate FiO2 02/20/17 14:06 60 16 121/60 (80) Room Air 02/20/17 13:36 94 02/20/17 11:44 98.8 98.8 Lab Values Laboratory Tests Test 02/20/17 12:40 White Blood Count 10.4 x10^3/uL (4.0-11.0) Red Blood Count 3.21 x10^6/uL (4.30-5.70) L Hemoglobin 10.0 g/dL (13.0-17.5) L Hematocrit 28.7 % (39.0-53.0) L Mean Corpuscular Volume 90 fL (79-100) Mean Corpuscular Hemoglobin 31 pg (25-35) Mean Corpuscular Hemoglobin Concent 35 g/dL (31-37) Red Cell Distribution Width 14.0 % (11.5-14.5) Platelet Count 288 x10^3/uL (140-400) Neutrophils (%) (Auto) 76 % (31-73) H Lymphocytes (%) (Auto) 13 % (24-48) L Monocytes (%) (Auto) 9 % (0-9) Eosinophils (%) (Auto) 1 % (0-3) Basophils (%) (Auto) 1 % (0-3) Neutrophils # (Auto) 7.9 x10^3uL (1.8-7.7) H Lymphocytes # (Auto) 1.3 x10^3/uL (1.0-4.8) Monocytes # (Auto) 0.9 x10^3/uL (0.0-1.1) Eosinophils # (Auto) 0.1 x10^3/uL (0.0-0.7) Basophils # (Auto) 0.1 x10^3/uL (0.0-0.2) Platelet Estimate Pending Sodium Level 138 mmol/L (136-145) Potassium Level 4.6 mmol/L (3.5-5.1) Chloride Level 105 mmol/L (98-107) Carbon Dioxide Level 22 mmol/L (21-32) Anion Gap 11 (6-14) Blood Urea Nitrogen 45 mg/dL (8-26) H Creatinine 2.0 mg/dL (0.7-1.3) H Estimated GFR (Cockcroft-Gault) 32.4 BUN/Creatinine Ratio 23 (6-20) H Glucose Level 133 mg/dL (70-99) H Calcium Level 10.0 mg/dL (8.5-10.1) Total Bilirubin 0.2 mg/dL (0.2-1.0) Aspartate Amino Transferase (AST) 36 U/L (15-37) Alanine Aminotransferase (ALT) 34 U/L (16-63) Alkaline Phosphatase 93 U/L (46-116) C-Reactive Protein, Quantitative 63.3 mg/L (0-3.3) H Total Protein 7.1 g/dL (6.4-8.2) Albumin 2.9 g/dL (3.4-5.0) L Albumin/Globulin Ratio 0.7 (1.0-1.7) L Laboratory Tests 02/20/17 12:40 Laboratory Tests 02/20/17 12:40 EKG EKG [] Radiology/Procedures Radiology/Procedures CT lumbar spine: IMPRESSION: 1. Evidence of recent posterior spinal surgery at L2-3 and L3-4 with residual gas bubbles in the soft tissues at the surgical site. No discrete well-defined abscess is identified. 2. No significant change since 02/10/2017. Course & Med Decision Making Course & Med Decision Making Pertinent Labs and Imaging studies reviewed. (See chart for details) Patient with signs of ongoing drainage from a surgical site. I contacted Dr. Locke, who recommended that patient have a noncontrast CT scan of his lumbar spine as he has a back stimulator and cannot get an MRI. Lab work ordered, patient dirty receiving IV antibiotics. He recommends admission. Dr. Yañez accepted. Plans to take the patient to the OR tomorrow L potentially for a washout. ID consult placed as well Dragon Disclaimer Dragon Disclaimer This electronic medical record was generated, in whole or in part, using a voice recognition dictation system. Departure Departure Impression: Primary Impression: Infection Disposition: 09 ADMITTED INPATIENT Admitting Physician: Andrea Garcia Condition: STABLE Referrals: EMILY FIELDS (PCP) CECILIA MORRIS MD Feb 20, 2017 14:35
--- NOTE | 2017-02-20 14:40 | HP ---
ADMIT DATE: 02/20/2017 CHIEF COMPLAINT: Back pain, drainage from his recent surgery on the back. HISTORY OF PRESENT ILLNESS: The patient is a pleasant elderly male who basically had back surgery about a month ago. It appears to have become infected, it is draining. He has got some weakness in his legs. He has got some subjective fevers. I have discussed the case with the ER physician. We are going to go ahead and admit the patient, give him IV antibiotics and consult Infectious Disease and his surgeon, Dr. Locke. Dr. Locke I think plans to take him to surgery again tomorrow to clean up. PAST MEDICAL HISTORY: Recent back surgery, radiculopathy, chronic pain, arthritis, neuropathy, hyperlipidemia, diabetes. ALLERGIES: None. FAMILY HISTORY: Diabetes. SOCIAL HISTORY: Does not drink, smoke or take drugs. MEDICATIONS: Reviewed. REVIEW OF SYSTEMS: GENERAL: No history of weight change, weakness or fevers. SKIN: He complains of back drainage. No bruising, hair changes or rashes. EYES: No blurred, double or loss of vision. NOSE AND THROAT: No history of nosebleeds, hoarseness or sore throat. HEART: No history of palpitations, chest pain or shortness of breath on exertion. LUNGS: Denies cough, hemoptysis, wheezing or shortness of breath. GASTROINTESTINAL: Denies changes in appetite, nausea, vomiting, diarrhea or constipation. GENITOURINARY: No history of frequency, urgency, hesitancy or nocturia. NEUROLOGIC: He complains of weakness. Denies history of numbness, tingling or tremor. PSYCHIATRIC: No history of panic, anxiety or depression. ENDOCRINE: No history of heat or cold intolerance, polyuria or polydipsia. EXTREMITIES: Denies muscle weakness, joint pain, pain on walking or stiffness. PHYSICAL EXAMINATION: VITAL SIGNS: Temperature is afebrile, pulse 80, respirations 20, blood pressure 143/60, O2 sat 96% on room air. GENERAL: He is alert, cooperative, seems a little depressed. HEART: Normal S1, S2 LUNGS: Clear. ABDOMEN: Soft, positive bowel sounds. EXTREMITIES: No edema. SKIN: No rashes. PSYCHIATRIC: He seems a little depressed. VASCULAR: Good capillary refill. ENDOCRINE: No thyromegaly. LYMPHATICS: No cervical nodes. HEMATOPOIETIC: No bruising. ASSESSMENT AND PLAN: Probable back infection after recent surgery. The patient is being started on IV antibiotics. We are consulting Infectious Disease and his surgeon, Dr. Locke. Will need aggressive wound care, continue home medicines, frequent labs. ASIF PLAZA DO DR: LONDON/sami JOB#: [id number] / [id number]
[2017-02-20 14:55] LABS: PLT ESTIMATE ADEQUATE (ADEQUATE); POLYCHROMASIA SLIGHT; TOXIC GRANULATION SLIGHT
[2017-02-20 15:15] VITALS: BP 140/60
--- NOTE | 2017-02-20 16:03 | PDOC ---
SUBJECTIVE Subjective Delayed entry. Pt seen and examined in ED approx 13:00 earlier today. 81M s/p lumbar laminectomy a few weeks ago presented with wound drainage and fever recently. Was hospitalized and is presently being treated with IV abx. Was d/c with continued improvement. More recently, reports increased gait disturbance and increased drainage. Presents to ED. Denies other acute changes. OBJECTIVE Vital Signs Vital Signs Date Time Temp Pulse Resp B/P (MAP) Pulse Ox O2 Delivery O2 Flow Rate FiO2 02/20/17 14:36 60 14 130/62 (84) Room Air 02/20/17 14:06 60 16 121/60 (80) Room Air 02/20/17 13:36 60 20 130/63 (85) 94 Room Air 02/20/17 12:45 60 16 118/65 (82) 93 Room Air 02/20/17 12:15 60 18 122/62 (82) 95 Room Air 02/20/17 11:44 98.8 83 20 143/68 (93) 96 Room Air 98.8 PHYSICAL EXAM Physical Exam AA, NAD, PEÑA with 5/5 resistance, sensation intact LT, DTR symmetrical, incision with approx 5mm dehiscence middle aspect of incision, flat, no erythema , no active drainage at this time but dressing with yellow drainage material. ASSESSMENT/PLAN Assessment/Plan 81M with wound infection on abx with reported increased drainage and increased gait disturbance. Will acquire new imaging of region. ID consultation. May benefit from exploration of wound with I&D and possible removal of adjacent stimulator if any portion of this hardware eroded into the adjacent wound. Problems: COMMENT Lab Laboratory Tests Test 02/20/17 12:40 White Blood Count 10.4 x10^3/uL (4.0-11.0) Red Blood Count 3.21 x10^6/uL (4.30-5.70) Hemoglobin 10.0 g/dL (13.0-17.5) Hematocrit 28.7 % (39.0-53.0) Mean Corpuscular Volume 90 fL (79-100) Mean Corpuscular Hemoglobin 31 pg (25-35) Mean Corpuscular Hemoglobin Concent 35 g/dL (31-37) Red Cell Distribution Width 14.0 % (11.5-14.5) Platelet Count 288 x10^3/uL (140-400) Neutrophils (%) (Auto) 76 % (31-73) Lymphocytes (%) (Auto) 13 % (24-48) Monocytes (%) (Auto) 9 % (0-9) Eosinophils (%) (Auto) 1 % (0-3) Basophils (%) (Auto) 1 % (0-3) Neutrophils # (Auto) 7.9 x10^3uL (1.8-7.7) Lymphocytes # (Auto) 1.3 x10^3/uL (1.0-4.8) Monocytes # (Auto) 0.9 x10^3/uL (0.0-1.1) Eosinophils # (Auto) 0.1 x10^3/uL (0.0-0.7) Basophils # (Auto) 0.1 x10^3/uL (0.0-0.2) Segmented Neutrophils % 76 % (35-66) Band Neutrophils % 4 % (0-9) Lymphocytes % 9 % (24-48) Monocytes % 10 % (0-10) Metamyelocytes % 1 % (0-0) Toxic Granulation Slight Platelet Estimate Adequate (ADEQUATE) Polychromasia Slight Sodium Level 138 mmol/L (136-145) Potassium Level 4.6 mmol/L (3.5-5.1) Chloride Level 105 mmol/L (98-107) Carbon Dioxide Level 22 mmol/L (21-32) Anion Gap 11 (6-14) Blood Urea Nitrogen 45 mg/dL (8-26) Creatinine 2.0 mg/dL (0.7-1.3) Estimated GFR (Cockcroft-Gault) 32.4 BUN/Creatinine Ratio 23 (6-20) Glucose Level 133 mg/dL (70-99) Calcium Level 10.0 mg/dL (8.5-10.1) Total Bilirubin 0.2 mg/dL (0.2-1.0) Aspartate Amino Transf (AST/SGOT) 36 U/L (15-37) Alanine Aminotransferase (ALT/SGPT) 34 U/L (16-63) Alkaline Phosphatase 93 U/L (46-116) C-Reactive Protein, Quantitative 63.3 mg/L (0-3.3) Total Protein 7.1 g/dL (6.4-8.2) Albumin 2.9 g/dL (3.4-5.0) Albumin/Globulin Ratio 0.7 (1.0-1.7) PAWEL HENNESSY MD Feb 20, 2017 16:03
[2017-02-20] MEDS ORDERED: DEXTROSE 50% 25 GM / 50ML DISP.SYRIN. IV PRN (16:30)
[2017-02-20] MEDS: AMINO AC 3%/ELECTROLYTE/GLYCER 1,000 ML IV SCH (17:00)
[2017-02-20] MEDS: INSULIN ASPART 300 UNITS/3 ML INSULN.PEN SQ SCH (17:00)
[2017-02-20 17:54] LABS: BILIRUBIN,URINE NEGATIVE (NEG); GLUCOSE,URINE NEGATIVE (NEG); NITRITE,URINE NEGATIVE (NEG); PH,URINE 5.5; PROTEIN,URINE NEGATIVE (NEG-TRACE); UROBILINOGEN,URINE 0.2 mg/dL (0.2 mg/dL)
[2017-02-20] MEDS: PIPERACILLIN/TAZOBACTAM 2.25 GM in IV NORMAL SALINE 50ML 50 ML IV SCH ×2 (18:00→23:58)
[2017-02-20 18:15] LABS: BACTERIA,URINE 0 /HPF (0-FEW); RBC,URINE 20-40 /HPF (0-2); SQUAMOUS EPITHELIAL CELL,UR FEW /LPF
[2017-02-20 19:00] VITALS: BP 115/46
[2017-02-20 20:10] VITALS: BP 140/60
[2017-02-20] MEDS ORDERED: oxyCODONE/APAP 10/325 1 TAB TABLET PO SCH (21:00)
[2017-02-20] MEDS: FAMOTIDINE 20 MG TABLET. PO SCH (21:38)
[2017-02-20] MEDS: GABAPENTIN 100 MG CAPSULE. PO SCH (21:39)
[2017-02-20] MEDS: GEMFIBROZIL 600 MG TABLET. PO SCH (21:39)
[2017-02-20] MEDS: NORMAL SALINE IV SCH (21:39)
[2017-02-20] MEDS: DAPTOMYCIN IV SCH (21:39)
[2017-02-20 23:31] VITALS: BP 103/64
[2017-02-21] VITALS (13 sets, daily range): BP systolic 113–146; BP diastolic 52–72
[2017-02-21] MEDS: oxyCODONE/APAP 10/325 1 TAB TABLET PO PRN ×2 (00:42→16:37)
[2017-02-21] MEDS: AMINO AC 3%/ELECTROLYTE/GLYCER 1,000 ML IV SCH ×2 (05:18→21:04)
[2017-02-21] MEDS: PIPERACILLIN/TAZOBACTAM 2.25 GM in IV NORMAL SALINE 50ML 50 ML IV SCH ×4 (05:19→23:58)
[2017-02-21 05:53] LABS: BASO # 0.1 x10^3/uL (0.0-0.2); BASO % 1 % (0-3); EOS % 2 % (0-3); HEMATOCRIT 27.4 % (39.0-53.0); HEMOGLOBIN 9.7 g/dL (13.0-17.5); LYMPH # 1.7 x10^3/uL (1.0-4.8); LYMPH % 18 % (24-48); MEAN CORPUSCULAR HEMOGLOBIN 31 pg (25-35); MEAN CORPUSCULAR HGB CONC 35 g/dL (31-37); MEAN CORPUSCULAR VOLUME 88 fL (79-100); MONO % 10 % (0-9); NEUT % 70 % (31-73); PLATELET COUNT 302 x10^3/uL (140-400); RED BLOOD COUNT 3.11 x10^6/uL (4.30-5.70); RED CELL DISTRIBUTION WIDTH 13.7 % (11.5-14.5); WHITE BLOOD COUNT 9.6 x10^3/uL (4.0-11.0)
--- NOTE | 2017-02-21 06:01 | ACF ---
Admission Forms Criteria SKIN AND WOUND CARE ( Place 'X' for any and all applicable criteria): Ongoing inpatient care may be indicated for skin complications with 1 or more of the following [ ]I. Hemodynamic Instability((2)(8)(9)(28)(42)(43)(44) [ ]II. Dehydration that is severe or persistent [ ]III. Severe pain requiring acute inpatient management [ ]IV. Inpatient treatment needed as indicated by 1 or more of the following: Pressure ulcer closure procedures [ ] i. Skin grafting(45) [ ]ii. Opthalmic surgical procedure (eg amniotic membrane grafting) [ ]iii. Serial ocular examinations [ ]iv. Wound debridement [ ]v. Dressing change under general anesthesia [ ]vi. Diverting colostomy [ ]vii. Intravenous immunosuppressant therapy [ ]V. Significant burn as indicated by 1 or more of the following [ ]i. Full thickness burn greater than 10% of body surface area [ ]ii. Any burn greater than 15% of body surface area [ ]iii. Serious burn of hand, foot, genitals, face or joint [ ]iv. Burn accompanied by other significant medical problems or injuries (eg altered mental [ ]v. status, arrhythmia, inability to maintain oral hydration, significant wound) [ ]vi. Serious chemical burn [ ]vii. High voltage (e.g. 1000 volts or more) electrical burn [ ]viii. Circumferential burn [X] . Skin infection requiring inpatient care as indicated by ALL of the following: [X]a) Infection suspected as indicated by 1 or more of the following: [X] i. Excessive drainage [ ]ii. Pus [ ]iii. Increased redness [ ]iv. Foul Odor [ ]v. Fever [X]b) Clinically significant infection as indicated by 1 or more of the following: [ ]i. Vital signs abnormality [ ]ii. Persistantly high temperatures greater than 103.1 degrees F (39.5degrees C)(Oral) [ ]iii. Unexplained metabolic acidosis (eg lactic acidosis) [X]iv. Evidence of end organ dysfunction (eg rising creatinine, myocardial ischemia, liver function tests) [ ]v. Hypoxemia [ ]vi. Tachypnea [ ]vii. Altered mental status [ ]viii. Dehydration that is severe or persistent Extended stay beyond goal length of stay for primary condition may be needed until ALL of the following are present(1)(2)(13)(21)(27): [ ]a) Hemodynamic instability [ ]b) Volume status acceptable [ ]c) Mental status at baseline [ ]d) Tissue necrosis absent or treatment plan manageable at lower level of care [ ]e) Fever absent or temperature as expected for disease process and acceptable for next level of care [ ]f) Hypoxemia present [ ]g) Tachypnea present [ ]h) Fistulas, tunneling, or underlying deep tissue infection absent or treated [ ]i) Purulence and tissue breakdown absent or improved [ ]j) Ulcer surgical repair absent or healing without complications [ ]k) Wound infection absent or manageable at lower level of care [ ]l) Comorbidities absent or manageable at lower level of care The original [facility] content created by [facility] has been revised. The portions of the content which have been revised are identified through the use of italic text, and [facility] has neither reviewed nor approved the modified material. All other unmodified content is copyright [facility]. Please see references footnoted in the original [facility] edition 2015 I'm signing this administratively. I did not complete this note. Admission Criteria Met?: Yes PILO RIVERA Feb 21, 2017 06:01 CECILIA MORRIS MD Feb 21, 2017 07:49
[2017-02-21] MEDS ORDERED: PROCHLORPERAZINE 10 MG/2 ML VIAL. IV PRN (07:00)
[2017-02-21] MEDS ORDERED: fentaNYL PF VIAL 100 MCG/2 ML VIAL IV PRN ×3 (07:00→14:15)
[2017-02-21] MEDS ORDERED: MORPHINE SULFATE 2 MG/ML DISP.SYRIN. IV PRN ×2 (07:00→18:00)
[2017-02-21] MEDS ORDERED: HYDROmorphone 2 MG/ML VIAL IV PRN (07:00)
[2017-02-21] MEDS ORDERED: LIDOCAINE 1% 1 ML SYRINGE. ID PRN (07:00)
[2017-02-21] MEDS ORDERED: ONDANSETRON PF 4 MG/2 ML VIAL. IV PRN ×2 (07:00→14:15)
[2017-02-21] MEDS ORDERED: IV RINGERS,LACTATED 1000ML 1,000 ML IV SCH (07:00)
[2017-02-21] MEDS ORDERED: BACITRACIN 50,000 UNIT in IV NORMAL SALINE 1000ML BAG 1,000 ML IRR ONE (07:38)
[2017-02-21] MEDS ORDERED: LIDOCAINE 1%/EPI 1:100,000 20 ML VIAL. ONE (07:40)
[2017-02-21] MEDS ORDERED: BUPIVACAINE 0.5% 50 ML VIAL. ONE (07:40)
[2017-02-21] MEDS ORDERED: THROMBIN TOPICAL 20,000 UNIT SPRAY.SYRN KIT TP ONE (07:41)
[2017-02-21] MEDS ORDERED: GELATIN SPONGE SIZE 100. ONE (07:41)
[2017-02-21] MEDS: INSULIN ASPART 300 UNITS/3 ML INSULN.PEN SQ SCH ×3 (07:51→17:00)
[2017-02-21] MEDS: GABAPENTIN 100 MG CAPSULE. PO SCH ×2 (08:23→21:03)
[2017-02-21] MEDS: GEMFIBROZIL 600 MG TABLET. PO SCH ×2 (08:23→21:03)
[2017-02-21] MEDS: glipiZIDE 5 MG TABLET PO SCH (08:23)
[2017-02-21] MEDS: MELOXICAM 7.5 MG TABLET PO SCH (08:23)
[2017-02-21] MEDS: hydroCHLOROthiazide 25 MG TABLET PO SCH (08:24)
--- NOTE | 2017-02-21 08:58 | PDOC ---
SUBJECTIVE Subjective -c/o low back pain, denies acute changes OBJECTIVE Vital Signs Vital Signs Date Time Temp Pulse Resp B/P (MAP) Pulse Ox O2 Delivery O2 Flow Rate FiO2 02/21/17 07:00 98.1 60 18 137/62 (87) 93 Room Air 98.1 02/21/17 03:24 97.9 60 18 121/58 (79) 93 Room Air 97.9 02/21/17 01:42 20 97 Room Air 02/21/17 00:42 20 98 Room Air 02/20/17 23:31 98.8 58 18 103/64 (77) 93 Room Air 98.8 02/20/17 20:10 98.6 63 140/60 (86) 96 98.6 02/20/17 20:00 Room Air 02/20/17 19:06 Room Air 02/20/17 19:00 97.5 60 18 115/46 (69) 94 Room Air 97.5 02/20/17 15:15 98.6 63 20 140/60 (86) 96 Room Air 98.6 02/20/17 14:36 60 14 130/62 (84) Room Air 02/20/17 14:06 60 16 121/60 (80) Room Air 02/20/17 13:36 60 20 130/63 (85) 94 Room Air 02/20/17 12:45 60 16 118/65 (82) 93 Room Air 02/20/17 12:15 60 18 122/62 (82) 95 Room Air 02/20/17 11:44 98.8 83 20 143/68 (93) 96 Room Air 98.8 PHYSICAL EXAM Physical Exam AAOx4, NAD, PEÑA, incision with yellowish drainage on dressing ASSESSMENT/PLAN Assessment/Plan wound infection -concern that while stimulator was separate from operative cavity, there may have been erosion into cavity and may need removal -plan for wound exploration with I&D with possible removal of stimulator Problems: COMMENT Lab Laboratory Tests Test 02/20/17 12:40 02/20/17 17:45 02/20/17 20:30 02/20/17 20:53 White Blood Count 10.4 x10^3/uL (4.0-11.0) Red Blood Count 3.21 x10^6/uL (4.30-5.70) Hemoglobin 10.0 g/dL (13.0-17.5) Hematocrit 28.7 % (39.0-53.0) Mean Corpuscular Volume 90 fL (79-100) Mean Corpuscular Hemoglobin 31 pg (25-35) Mean Corpuscular Hemoglobin Concent 35 g/dL (31-37) Red Cell Distribution Width 14.0 % (11.5-14.5) Platelet Count 288 x10^3/uL (140-400) Neutrophils (%) (Auto) 76 % (31-73) Lymphocytes (%) (Auto) 13 % (24-48) Monocytes (%) (Auto) 9 % (0-9) Eosinophils (%) (Auto) 1 % (0-3) Basophils (%) (Auto) 1 % (0-3) Neutrophils # (Auto) 7.9 x10^3uL (1.8-7.7) Lymphocytes # (Auto) 1.3 x10^3/uL (1.0-4.8) Monocytes # (Auto) 0.9 x10^3/uL (0.0-1.1) Eosinophils # (Auto) 0.1 x10^3/uL (0.0-0.7) Basophils # (Auto) 0.1 x10^3/uL (0.0-0.2) Segmented Neutrophils % 76 % (35-66) Band Neutrophils % 4 % (0-9) Lymphocytes % 9 % (24-48) Monocytes % 10 % (0-10) Metamyelocytes % 1 % (0-0) Toxic Granulation Slight Platelet Estimate Adequate (ADEQUATE) Polychromasia Slight Sodium Level 138 mmol/L (136-145) Potassium Level 4.6 mmol/L (3.5-5.1) Chloride Level 105 mmol/L (98-107) Carbon Dioxide Level 22 mmol/L (21-32) Anion Gap 11 (6-14) Blood Urea Nitrogen 45 mg/dL (8-26) Creatinine 2.0 mg/dL (0.7-1.3) Estimated GFR (Cockcroft-Gault) 32.4 BUN/Creatinine Ratio 23 (6-20) Glucose Level 133 mg/dL (70-99) Calcium Level 10.0 mg/dL (8.5-10.1) Total Bilirubin 0.2 mg/dL (0.2-1.0) Aspartate Amino Transf (AST/SGOT) 36 U/L (15-37) Alanine Aminotransferase (ALT/SGPT) 34 U/L (16-63) Alkaline Phosphatase 93 U/L (46-116) C-Reactive Protein, Quantitative 63.3 mg/L (0-3.3) Total Protein 7.1 g/dL (6.4-8.2) Albumin 2.9 g/dL (3.4-5.0) Albumin/Globulin Ratio 0.7 (1.0-1.7) Urine Collection Type Unknown Urine Color Yellow Urine Clarity Clear Urine pH 5.5 Urine Specific Lee 1.010 Urine Protein Negative mg/dL (NEG-TRACE) Urine Glucose (UA) Negative mg/dL (NEG) Urine Ketones (Stick) Negative mg/dL (NEG) Urine Blood Large (NEG) Urine Nitrite Negative (NEG) Urine Bilirubin Negative (NEG) Urine Urobilinogen Dipstick 0.2 mg/dL (0.2 mg/dL) Urine Leukocyte Esterase Trace (NEG) Urine RBC 20-40 /HPF (0-2) Urine WBC 1-4 /HPF (0-4) Urine Squamous Epithelial Cells Few /LPF Urine Bacteria 0 /HPF (0-FEW) Lactic Acid Level 1.3 mmol/L (0.4-2.0) Glucose (Fingerstick) 141 mg/dL (70-99) Test 02/21/17 05:25 02/21/17 07:16 White Blood Count 9.6 x10^3/uL (4.0-11.0) Red Blood Count 3.11 x10^6/uL (4.30-5.70) Hemoglobin 9.7 g/dL (13.0-17.5) Hematocrit 27.4 % (39.0-53.0) Mean Corpuscular Volume 88 fL (79-100) Mean Corpuscular Hemoglobin 31 pg (25-35) Mean Corpuscular Hemoglobin Concent 35 g/dL (31-37) Red Cell Distribution Width 13.7 % (11.5-14.5) Platelet Count 302 x10^3/uL (140-400) Neutrophils (%) (Auto) 70 % (31-73) Lymphocytes (%) (Auto) 18 % (24-48) Monocytes (%) (Auto) 10 % (0-9) Eosinophils (%) (Auto) 2 % (0-3) Basophils (%) (Auto) 1 % (0-3) Neutrophils # (Auto) 6.7 x10^3uL (1.8-7.7) Lymphocytes # (Auto) 1.7 x10^3/uL (1.0-4.8) Monocytes # (Auto) 0.9 x10^3/uL (0.0-1.1) Eosinophils # (Auto) 0.2 x10^3/uL (0.0-0.7) Basophils # (Auto) 0.1 x10^3/uL (0.0-0.2) YE-Rii-E-Type Natriuretic Peptide 177 pg/mL (0-449) Glucose (Fingerstick) 114 mg/dL (70-99) PAWEL HENNESSY MD Feb 21, 2017 08:58
[2017-02-21] MEDS: HYDROcodone/APAP 5/325MG 1 TAB TABLET PO PRN ×2 (09:04→21:03)
[2017-02-21] MEDS: amLODIPine BESYLATE 10 MG TABLET PO SCH (09:04)
--- NOTE | 2017-02-21 09:27 | PDOC ---
Infectious Disease Note Subjective Subjective Known to service. Consult 02/10 reviewed and progress notes This patient is a 81-year-old male with a history of severe spinal stenosis who underwent lumbar laminectomy at L2-L3 and L3-L4 with adjacent spinal cord stimulator on 01/25/2017. He later developed drainage from the surgical site. The dressing was changed about 3 times a day. He used his spinal stimulator a few times without much relief of pain. He was started on oral Keflex outpatient on 02/06 with little improvement. He develop subjective fevers and chills. A lumbar spinal CT showed no abnormal fluid collection. Cultures positive for Enterobacter and was d/cd home on Invanz daily. At home yesterday he felt confused and weak. He lost his balance when his helped him out of bed and they both fell but no trauma. He then felt dizzy getting into his truck and eased himself to the ground holding onto the seat belt. Has had subjective chills. He presented to outpatient yesterday and I was paged and informed that he did not look well. I instructed him to be sent to ER. He has now been admitted. States his wound has been draining since last week and went to the office and saw nurse last week and had the dressign changed. ROS ROS ROS GEN: Denies fevers, sweats HEENT: Denies blurred vision, sore throat CV: Denies chest pain RESP: Denies shortness of air, cough GI: Denies n/v/d Is passsing urine NEURO: Denies confusion, dizziness MSK: Denies weakness, joint pain/swelling Vital Sign Vital Signs Vital Signs Date Time Temp Pulse Resp B/P (MAP) Pulse Ox O2 Delivery O2 Flow Rate FiO2 02/21/17 07:00 98.1 60 18 137/62 (87) 93 Room Air 98.1 Physical Exam PHYSICAL EXAM GENERAL: NAD, Alert HEENT: PERRL, cataracts, OC/OP - lcear NECK: Supple, no JVD, no LN LUNGS: Clear HEART: S1S2, no gallop, no murmur ABD: Soft, NT, no organomegaly, no rebound EXT: No edema, no cyanosis DISASTER RECOVERY SPECIALIST: Alert, oriented x 3, no focal neurologic deficit SKIN: No rash. Back wound draining cloudy fluid IV: PICC RUE clean Labs Lab Laboratory Tests Test 02/20/17 12:40 02/20/17 17:45 02/20/17 20:30 02/20/17 20:53 White Blood Count 10.4 x10^3/uL (4.0-11.0) Red Blood Count 3.21 x10^6/uL (4.30-5.70) Hemoglobin 10.0 g/dL (13.0-17.5) Hematocrit 28.7 % (39.0-53.0) Mean Corpuscular Volume 90 fL (79-100) Mean Corpuscular Hemoglobin 31 pg (25-35) Mean Corpuscular Hemoglobin Concent 35 g/dL (31-37) Red Cell Distribution Width 14.0 % (11.5-14.5) Platelet Count 288 x10^3/uL (140-400) Neutrophils (%) (Auto) 76 % (31-73) Lymphocytes (%) (Auto) 13 % (24-48) Monocytes (%) (Auto) 9 % (0-9) Eosinophils (%) (Auto) 1 % (0-3) Basophils (%) (Auto) 1 % (0-3) Neutrophils # (Auto) 7.9 x10^3uL (1.8-7.7) Lymphocytes # (Auto) 1.3 x10^3/uL (1.0-4.8) Monocytes # (Auto) 0.9 x10^3/uL (0.0-1.1) Eosinophils # (Auto) 0.1 x10^3/uL (0.0-0.7) Basophils # (Auto) 0.1 x10^3/uL (0.0-0.2) Segmented Neutrophils % 76 % (35-66) Band Neutrophils % 4 % (0-9) Lymphocytes % 9 % (24-48) Monocytes % 10 % (0-10) Metamyelocytes % 1 % (0-0) Toxic Granulation Slight Platelet Estimate Adequate (ADEQUATE) Polychromasia Slight Sodium Level 138 mmol/L (136-145) Potassium Level 4.6 mmol/L (3.5-5.1) Chloride Level 105 mmol/L (98-107) Carbon Dioxide Level 22 mmol/L (21-32) Anion Gap 11 (6-14) Blood Urea Nitrogen 45 mg/dL (8-26) Creatinine 2.0 mg/dL (0.7-1.3) Estimated GFR (Cockcroft-Gault) 32.4 BUN/Creatinine Ratio 23 (6-20) Glucose Level 133 mg/dL (70-99) Calcium Level 10.0 mg/dL (8.5-10.1) Total Bilirubin 0.2 mg/dL (0.2-1.0) Aspartate Amino Transf (AST/SGOT) 36 U/L (15-37) Alanine Aminotransferase (ALT/SGPT) 34 U/L (16-63) Alkaline Phosphatase 93 U/L (46-116) C-Reactive Protein, Quantitative 63.3 mg/L (0-3.3) Total Protein 7.1 g/dL (6.4-8.2) Albumin 2.9 g/dL (3.4-5.0) Albumin/Globulin Ratio 0.7 (1.0-1.7) Urine Collection Type Unknown Urine Color Yellow Urine Clarity Clear Urine pH 5.5 Urine Specific Lorman 1.010 Urine Protein Negative mg/dL (NEG-TRACE) Urine Glucose (UA) Negative mg/dL (NEG) Urine Ketones (Stick) Negative mg/dL (NEG) Urine Blood Large (NEG) Urine Nitrite Negative (NEG) Urine Bilirubin Negative (NEG) Urine Urobilinogen Dipstick 0.2 mg/dL (0.2 mg/dL) Urine Leukocyte Esterase Trace (NEG) Urine RBC 20-40 /HPF (0-2) Urine WBC 1-4 /HPF (0-4) Urine Squamous Epithelial Cells Few /LPF Urine Bacteria 0 /HPF (0-FEW) Lactic Acid Level 1.3 mmol/L (0.4-2.0) Glucose (Fingerstick) 141 mg/dL (70-99) Test 02/21/17 05:25 02/21/17 07:16 White Blood Count 9.6 x10^3/uL (4.0-11.0) Red Blood Count 3.11 x10^6/uL (4.30-5.70) Hemoglobin 9.7 g/dL (13.0-17.5) Hematocrit 27.4 % (39.0-53.0) Mean Corpuscular Volume 88 fL (79-100) Mean Corpuscular Hemoglobin 31 pg (25-35) Mean Corpuscular Hemoglobin Concent 35 g/dL (31-37) Red Cell Distribution Width 13.7 % (11.5-14.5) Platelet Count 302 x10^3/uL (140-400) Neutrophils (%) (Auto) 70 % (31-73) Lymphocytes (%) (Auto) 18 % (24-48) Monocytes (%) (Auto) 10 % (0-9) Eosinophils (%) (Auto) 2 % (0-3) Basophils (%) (Auto) 1 % (0-3) Neutrophils # (Auto) 6.7 x10^3uL (1.8-7.7) Lymphocytes # (Auto) 1.7 x10^3/uL (1.0-4.8) Monocytes # (Auto) 0.9 x10^3/uL (0.0-1.1) Eosinophils # (Auto) 0.2 x10^3/uL (0.0-0.7) Basophils # (Auto) 0.1 x10^3/uL (0.0-0.2) YE-Iyw-D-Type Natriuretic Peptide 177 pg/mL (0-449) Glucose (Fingerstick) 114 mg/dL (70-99) Micro 02/10 ANAEROBIC-AEROBIC CULTURE Final Final report ANAEROBIC RES 1 Final Comment No anaerobic growth in 72 hours. AEROBIC CULT Final Final report AEROBIC RES 1 Final Comment Enterobacter cloacae complex Moderate growth ANTIMICROBIAL SUSCEPTIBILITY Final Comment S = Susceptible; I = Intermediate; R = Resistant P = Positive; N = Negative MICS are expressed in micrograms per mL Antibiotic RSLT#1 RSLT#2 RSLT#3 RSLT#4 Amoxicillin/Clavulanic Acid R Cefazolin R Cefepime S Ceftriaxone S Cefuroxime R Ciprofloxacin S Ertapenem S Gentamicin S Imipenem S Levofloxacin S Piperacillin S Tetracycline S Tobramycin S Trimethoprim/Sulfa S Objective Assessment Encephalopathy - better SULEIMAN Recent Enterobacter 02/10 Infected post op lumbar wound. -H/o Keflex since then d/c home with Invanz Back pain. h/o spinal stenosis, s/p Lumbar laminectomy L2-3 and L3-4 with adjacent spinal cord stimulator on Jan 25 Plan Plan of Care Given Encephalopathy I changed to Zosyn to r/o Invnaz as a cause I began Zosyn having checked previous sensitivities of Enetobascter and given his SULEIMAN and PICC - Daptomycin was started F/u labs and cults Await I and D today and ? stimulator removal Previous notes reviewed CELENA BARKER MD Feb 21, 2017 09:27
[2017-02-21] MEDS ORDERED: PROCHLORPERAZINE 10 MG/2 ML VIAL. ONE (13:41)
[2017-02-21] MEDS ORDERED: fentaNYL PF VIAL 100 MCG/2 ML VIAL ONE ×2 (13:42→14:33)
--- NOTE | 2017-02-21 14:03 | PDOC ---
BRIEF OPERATIVE NOTE Date: Feb 21, 2017 Pre-Op Diagnosis lumbar wound infection Post-Op Diagnosis same Procedure Performed exploration of lumbar wound with irrigation and debridement and removal of spinal cord stimulator Surgeon Chucky Diamond Wheel Molder none Anesthesia Type: General Blood Loss 50mL Specimens Obtained swabs and stimulator hardware for cultures Findings clear/mildly cloudy yellow material in wound cavity, granulation tissue, a few mm of stimulator wire was noted to have eroded such that it was exposed to the the wound cavity in the subcutaneous tissue at the most cephalad aspect of the wound Complications none apparent PAWEL HENNESSY MD Feb 21, 2017 14:02
[2017-02-21] MEDS ORDERED: ACETAMINOPHEN 325 MG TABLET. PO PRN (14:15)
[2017-02-21] MEDS ORDERED: diphenhydrAMINE 50 MG/ML VIAL IV PRN (14:15)
[2017-02-21] MEDS ORDERED: diphenhydrAMINE HCL 25 MG CAPSULE PO PRN (14:15)
[2017-02-21] MEDS ORDERED: MAGNESIUM HYDROXIDE 2,400 MG/30 ML ORAL.SUSP. PO PRN (14:15)
[2017-02-21] MEDS ORDERED: MAG HYDROX/ALUMINUM HYD/SIMETH 30 ML ORAL.SUSP PO PRN (14:15)
[2017-02-21] MEDS ORDERED: CALCIUM CARBONATE 500 MG TAB.CHEW PO PRN (14:15)
[2017-02-21] MEDS ORDERED: NALOXONE 0.4 MG/ML VIAL. IV PRN (14:15)
[2017-02-21] MEDS ORDERED: 0.9 % SODIUM CHLORIDE 10 ML DISP.SYRIN. IV PRN (14:15)
[2017-02-21] MEDS: fentaNYL PF VIAL 100 MCG/2 ML VIAL IV PRN ×2 (14:16→14:25)
[2017-02-21] MEDS ORDERED: MORPHINE SULFATE 2 MG/ML DISP.SYRIN. ONE (14:33)
--- NOTE | 2017-02-21 16:12 | OP ---
DATE OF SURGERY: 02/21/2017 DATE OF SERVICE: 02/21/2017 SURGEON: Tyrese Hennessy MD ZIPPER CUTTER: None. PREOPERATIVE DIAGNOSIS: Lumbar wound infection. POSTOPERATIVE DIAGNOSIS: Lumbar wound infection. PROCEDURE: Exploration of lumbar wound with irrigation and debridement of lumbar wound and removal of adjacent spinal cord stimulator, leads, connections and intermittent pulse generator. ANESTHESIA: General. COMPLICATIONS: None intra-procedurally. INDICATIONS FOR THE PROCEDURE: The patient is a 81-year-old gentleman who approximately 1 month ago underwent a lumbar laminectomy for decompression of stenosis. He tolerated this procedure well and was discharged without incident with improvement of preoperative symptoms. He presented with increased drainage from the lumbar wound and he was admitted and treated with antibiotics. He does have an adjacent spinal cord stimulator which had been placed several years prior. This was not exposed to the operative cavity in any way during the initial procedure. The patient did well with antibiotic initially, but after discharge, he presented to the Emergency Department with increased drainage and reported gait disturbance. In light of these things, it was felt that exploration of the wound would be of benefit with irrigation and debridement as well as evaluation for potential erosion/exposure of the adjacent stimulator hardware, which may be seeding the infection at this point. Please refer to the patient's chart for additional detail. DESCRIPTION OF PROCEDURE: After informed consent was obtained, the patient was brought into the operating room. He was placed under general anesthesia and was placed in the prone position on Justo frame. All pressure points were checked and padded appropriately. Lumbar region was prepped and draped in usual sterile fashion including the intermittent pulse generator incision as well as the prior laminectomy incision. Midline incision was reopened with #10 blade scalpel. Clear/slightly cloudy yellowish material was noted within the operative cavity. Swabs were instituted for cultures. The cavity was reopened and granulation tissue was observed with some yellowish material. No large abscesses or large fluid collections were identified. The adjacent granulation tissue was debrided with curettes as well as antibiotic Pulsavac irrigation. The thecal sac was identified and continued to appear well decompressed. At the more cephalad aspect of the operative cavity, a few millimeters of one of the wires from the spinal cord stimulator was noted to have eroded into the same space as the infected operative cavity. The wire connections adjacent to the operative cavity were dissected free and removed first from the cephalad portion to remove the epidural thoracic leads. This was performed without difficulty and fluoroscopy was utilized to verify complete removal. Also, the intermittent pulse generator was removed. This was performed by opening the previously prepped right-sided phuc-lumbar incision where the intermittent pulse generator was located with a 10 blade scalpel. Monopolar electrocautery was utilized to dissect down to the intermittent pulse generator and this was subsequently removed without difficulty. The wires were sectioned and removed through the midline incision. All the instrumentation including the leads, lead extensions, and intermittent pulse generator were sent together for cultures. Pristine hemostasis was achieved with bipolar electrocautery as well as continued irrigation prior to closure after complete pulse evacuation with not less than 1 liter of antibiotic irrigation was performed. A 15-[place]er round FRANNIE drain was instituted into the lumbar wound, tunneled inferior-laterally, and secured to the skin with nylon suture. Once drain placement was complete, hemostasis was complete, and irrigation and debridement was complete, the muscles and fascia were then reapproximated with 0 Vicryl in a simple interrupted fashion. The subcutaneous tissues was reapproximated with 2-0 Vicryl in interrupted inverted fashion. Skin was reapproximated with pauline. The right phuc-lumbar incision which also had received hemostasis and irrigation with antibiotic solution was closed with 2-0 Vicryl in interrupted inverted fashion as well as pauline. The wounds were dressed with Xeroform, Telfa, 4 x 4's, and Tegaderm. At the end the procedure, all needle and sponge counts were correct x 2. The patient was extubated in the operating room and taken to recovery in stable condition. There were no intra-procedural complications apparent. TYRESE HENNESSY MD DR: JUDITH/sami JOB#: [id number] / [id number] GATO
[2017-02-21] MEDS: DAPTOMYCIN IV SCH (18:00)
[2017-02-21] MEDS: NORMAL SALINE IV SCH (18:00)
[2017-02-21] MEDS: SENNOSIDES/DOCUSATE 8.6/50MG TABLET. PO SCH (21:03)
[2017-02-21] MEDS: DOCUSATE SODIUM 100 MG CAPSULE. PO SCH (21:03)
[2017-02-21] MEDS: FAMOTIDINE 20 MG TABLET. PO SCH (21:03)
[2017-02-21] MEDS: METHOCARBAMOL 750 MG TABLET PO SCH (21:03)
[2017-02-22 02:30] VITALS: BP 136/63
[2017-02-22] MEDS: HYDROcodone/APAP 5/325MG 1 TAB TABLET PO PRN (04:09)
[2017-02-22 04:44] LABS: BASO # 0.1 x10^3/uL (0.0-0.2); BASO % 1 % (0-3); EOS % 0 % (0-3); HEMATOCRIT 26.8 % (39.0-53.0); HEMOGLOBIN 9.5 g/dL (13.0-17.5); LYMPH # 1.2 x10^3/uL (1.0-4.8); LYMPH % 10 % (24-48); MEAN CORPUSCULAR HEMOGLOBIN 31 pg (25-35); MEAN CORPUSCULAR HGB CONC 36 g/dL (31-37); MEAN CORPUSCULAR VOLUME 87 fL (79-100); MONO % 8 % (0-9); NEUT % 81 % (31-73); PLATELET COUNT 288 x10^3/uL (140-400); RED BLOOD COUNT 3.08 x10^6/uL (4.30-5.70); RED CELL DISTRIBUTION WIDTH 13.4 % (11.5-14.5); WHITE BLOOD COUNT 12.1 x10^3/uL (4.0-11.0)
[2017-02-22 04:59] LABS: CALCIUM 9.9 mg/dL (8.5-10.1); CREATININE 1.5 mg/dL (0.7-1.3); GFR 45.1; POTASSIUM 4.9 mmol/L (3.5-5.1)
[2017-02-22] MEDS: PIPERACILLIN/TAZOBACTAM 2.25 GM in IV NORMAL SALINE 50ML 50 ML IV SCH (05:11)
[2017-02-22 07:00] VITALS: BP 130/55
[2017-02-22] MEDS: INSULIN ASPART 300 UNITS/3 ML INSULN.PEN SQ SCH ×3 (08:00→16:59)
--- NOTE | 2017-02-22 08:48 | PDOC ---
Infectious Disease Note Subjective Subjective Known to service. Consult 02/10 reviewed and progress notes This patient is a 81-year-old male with a history of severe spinal stenosis who underwent lumbar laminectomy at L2-L3 and L3-L4 with adjacent spinal cord stimulator on 01/25/2017. He later developed drainage from the surgical site. The dressing was changed about 3 times a day. He used his spinal stimulator a few times without much relief of pain. He was started on oral Keflex outpatient on 02/06 with little improvement. He develop subjective fevers and chills. A lumbar spinal CT showed no abnormal fluid collection. Cultures positive for Enterobacter and was d/cd home on Invanz daily. At home yesterday he felt confused and weak. He lost his balance when his helped him out of bed and they both fell but no trauma. He then felt dizzy getting into his truck and eased himself to the ground holding onto the seat belt. Has had subjective chills. He presented to outpatient yesterday and I was paged and informed that he did not look well. I instructed him to be sent to ER. He has now been admitted. States his wound has been draining since last week and went to the office and saw nurse last week and had the dressign changed. Better today. Less pain ROS ROS GEN: Denies fevers, chills, sweats HEENT: Denies blurred vision, sore throat CV: Denies chest pain RESP: Denies shortness of air, cough GI: Denies n/v/d NEURO: Denies confusion, dizziness MSK: Denies weakness, joint pain/swelling. Has incisional pain Vital Sign Vital Signs Vital Signs Date Time Temp Pulse Resp B/P (MAP) Pulse Ox O2 Delivery O2 Flow Rate FiO2 02/22/17 07:00 97.7 61 20 130/55 (80) 98 Room Air 97.7 02/21/17 19:32 2.0 Physical Exam PHYSICAL EXAM GENERAL: NAD, Alert, just finished breakfast. On side of bed HEENT: PERRL, OC/OP- clear NECK: Supple, no JVD, no LN LUNGS: Clear HEART: S1S2, no gallop, no murmur ABD: Soft, NT, no organomegaly, no rebound BACK: FRANNIE in place with sanginous drainage. Clean dressing EXT: No edema, no cyanosis ELECTRICAL AND INSTRUMENTATION MANAGER: Alert, oriented x 3, no focal neurologic deficit SKIN: No rash IV: PICC - clean Labs Lab Laboratory Tests Test 02/21/17 14:26 02/21/17 16:21 02/21/17 20:48 02/22/17 04:25 Glucose (Fingerstick) 101 mg/dL (70-99) 114 mg/dL (70-99) 212 mg/dL (70-99) White Blood Count 12.1 x10^3/uL (4.0-11.0) Red Blood Count 3.08 x10^6/uL (4.30-5.70) Hemoglobin 9.5 g/dL (13.0-17.5) Hematocrit 26.8 % (39.0-53.0) Mean Corpuscular Volume 87 fL (79-100) Mean Corpuscular Hemoglobin 31 pg (25-35) Mean Corpuscular Hemoglobin Concent 36 g/dL (31-37) Red Cell Distribution Width 13.4 % (11.5-14.5) Platelet Count 288 x10^3/uL (140-400) Neutrophils (%) (Auto) 81 % (31-73) Lymphocytes (%) (Auto) 10 % (24-48) Monocytes (%) (Auto) 8 % (0-9) Eosinophils (%) (Auto) 0 % (0-3) Basophils (%) (Auto) 1 % (0-3) Neutrophils # (Auto) 9.9 x10^3uL (1.8-7.7) Lymphocytes # (Auto) 1.2 x10^3/uL (1.0-4.8) Monocytes # (Auto) 0.9 x10^3/uL (0.0-1.1) Eosinophils # (Auto) 0.0 x10^3/uL (0.0-0.7) Basophils # (Auto) 0.1 x10^3/uL (0.0-0.2) Sodium Level 139 mmol/L (136-145) Potassium Level 4.9 mmol/L (3.5-5.1) Chloride Level 107 mmol/L (98-107) Carbon Dioxide Level 23 mmol/L (21-32) Anion Gap 9 (6-14) Blood Urea Nitrogen 31 mg/dL (8-26) Creatinine 1.5 mg/dL (0.7-1.3) Estimated GFR (Cockcroft-Gault) 45.1 Glucose Level 142 mg/dL (70-99) Calcium Level 9.9 mg/dL (8.5-10.1) Test 02/22/17 07:06 Glucose (Fingerstick) 145 mg/dL (70-99) Micro 02/10 ANAEROBIC-AEROBIC CULTURE Final Final report ANAEROBIC RES 1 Final Comment No anaerobic growth in 72 hours. AEROBIC CULT Final Final report AEROBIC RES 1 Final Comment Enterobacter cloacae complex Moderate growth ANTIMICROBIAL SUSCEPTIBILITY Final Comment S = Susceptible; I = Intermediate; R = Resistant P = Positive; N = Negative MICS are expressed in micrograms per mL Antibiotic RSLT#1 RSLT#2 RSLT#3 RSLT#4 Amoxicillin/Clavulanic Acid R Cefazolin R Cefepime S Ceftriaxone S Cefuroxime R Ciprofloxacin S Ertapenem S Gentamicin S Imipenem S Levofloxacin S Piperacillin S Tetracycline S Tobramycin S Trimethoprim/Sulfa S Objective Assessment S/p I and D of back wound and removal of stimulator 02/21 Encephalopathy - better SULEIMAN - better Recent Enterobacter 02/10 Infected post op lumbar wound. -H/o Keflex since then d/c home with Invanz Back pain. h/o spinal stenosis, s/p Lumbar laminectomy L2-3 and L3-4 with adjacent spinal cord stimulator on Jan 25 Plan Plan of Care Cont Zosyn but increase dose. Cont Daptomycin was started F/u labs and cults Previous notes reviewed CELENA BARKER MD Feb 22, 2017 08:48
[2017-02-22] MEDS: DOCUSATE SODIUM 100 MG CAPSULE. PO SCH ×2 (08:58→20:00)
[2017-02-22] MEDS: MELOXICAM 7.5 MG TABLET PO SCH (08:58)
[2017-02-22] MEDS: METHOCARBAMOL 750 MG TABLET PO SCH ×3 (08:58→20:00)
[2017-02-22] MEDS: GEMFIBROZIL 600 MG TABLET. PO SCH ×2 (08:58→20:00)
[2017-02-22] MEDS: amLODIPine BESYLATE 10 MG TABLET PO SCH (08:59)
[2017-02-22] MEDS: glipiZIDE 5 MG TABLET PO SCH (08:59)
[2017-02-22] MEDS: hydroCHLOROthiazide 25 MG TABLET PO SCH (08:59)
[2017-02-22] MEDS: GABAPENTIN 100 MG CAPSULE. PO SCH ×2 (08:59→20:00)
[2017-02-22] MEDS: AMINO AC 3%/ELECTROLYTE/GLYCER 1,000 ML IV SCH ×2 (09:00→20:01)
[2017-02-22] MEDS: SENNOSIDES/DOCUSATE 8.6/50MG TABLET. PO SCH ×2 (09:02→20:00)
--- NOTE | 2017-02-22 10:33 | PDOC ---
SUBJECTIVE Subjective Reports legs feel better. Some incisional pain but feels like "less pressure on back". OBJECTIVE Vital Signs Vital Signs Date Time Temp Pulse Resp B/P (MAP) Pulse Ox O2 Delivery O2 Flow Rate FiO2 02/22/17 08:59 61 130/55 02/22/17 07:30 Room Air 02/22/17 07:00 97.7 61 20 130/55 (80) 98 Room Air 97.7 02/22/17 05:09 20 97 Room Air 02/22/17 04:09 20 97 Room Air 02/22/17 02:30 98.3 77 18 136/63 (87) 97 Room Air 98.3 02/21/17 22:37 98.3 60 16 120/52 (74) 95 Room Air 98.3 02/21/17 21:03 20 97 Room Air 02/21/17 20:00 Room Air 02/21/17 19:32 98.9 73 18 145/57 (86) 97 Nasal Cannula 2.0 98.9 02/21/17 19:23 Nasal Cannula 2.0 02/21/17 18:01 60 20 137/63 (87) 02/21/17 17:00 60 20 146/63 (90) 02/21/17 16:37 94 Room Air 02/21/17 16:30 65 20 146/64 (91) 84 Room Air 02/21/17 16:22 Room Air 02/21/17 16:15 62 20 145/72 (96) 94 Room Air 02/21/17 16:01 60 20 140/62 (88) 02/21/17 15:45 60 20 122/65 (84) Room Air 02/21/17 15:31 66 20 119/62 (81) 85 Room Air 02/21/17 15:27 96.6 60 20 113/62 (79) 94 Room Air 96.6 02/21/17 15:00 97.7 60 20 166/71 94 Room Air 97.7 02/21/17 14:46 60 18 138/45 95 Room Air 02/21/17 14:31 60 16 143/67 94 Room Air 02/21/17 14:25 16 95 Room Air 02/21/17 14:16 65 18 158/71 95 Room Air 02/21/17 14:16 18 99 Simple Mask 10.0 02/21/17 14:01 100.0 60 16 155/65 98 Simple Mask 10 100.0 02/21/17 11:32 97.9 60 15 130/60 93 Room Air 97.9 02/21/17 11:00 97.9 60 20 127/61 (83) 93 Room Air 97.9 PHYSICAL EXAM Physical Exam AA, NAD, PEÑA 5/5, sensation intact LT, dressing c/d/i, FRANNIE intact with sang>ser fluid in bulb - recorded output=60mL ASSESSMENT/PLAN Assessment/Plan POD 1 I&D lumbar wound, removal of spinal cord stimulator -cont abx per ID -cont FRANNIE drain -increase activities as able/PT/OT Problems: COMMENT Lab Laboratory Tests Test 02/21/17 14:26 02/21/17 16:21 02/21/17 20:48 02/22/17 04:25 Glucose (Fingerstick) 101 mg/dL (70-99) 114 mg/dL (70-99) 212 mg/dL (70-99) White Blood Count 12.1 x10^3/uL (4.0-11.0) Red Blood Count 3.08 x10^6/uL (4.30-5.70) Hemoglobin 9.5 g/dL (13.0-17.5) Hematocrit 26.8 % (39.0-53.0) Mean Corpuscular Volume 87 fL (79-100) Mean Corpuscular Hemoglobin 31 pg (25-35) Mean Corpuscular Hemoglobin Concent 36 g/dL (31-37) Red Cell Distribution Width 13.4 % (11.5-14.5) Platelet Count 288 x10^3/uL (140-400) Neutrophils (%) (Auto) 81 % (31-73) Lymphocytes (%) (Auto) 10 % (24-48) Monocytes (%) (Auto) 8 % (0-9) Eosinophils (%) (Auto) 0 % (0-3) Basophils (%) (Auto) 1 % (0-3) Neutrophils # (Auto) 9.9 x10^3uL (1.8-7.7) Lymphocytes # (Auto) 1.2 x10^3/uL (1.0-4.8) Monocytes # (Auto) 0.9 x10^3/uL (0.0-1.1) Eosinophils # (Auto) 0.0 x10^3/uL (0.0-0.7) Basophils # (Auto) 0.1 x10^3/uL (0.0-0.2) Sodium Level 139 mmol/L (136-145) Potassium Level 4.9 mmol/L (3.5-5.1) Chloride Level 107 mmol/L (98-107) Carbon Dioxide Level 23 mmol/L (21-32) Anion Gap 9 (6-14) Blood Urea Nitrogen 31 mg/dL (8-26) Creatinine 1.5 mg/dL (0.7-1.3) Estimated GFR (Cockcroft-Gault) 45.1 Glucose Level 142 mg/dL (70-99) Calcium Level 9.9 mg/dL (8.5-10.1) Test 02/22/17 07:06 Glucose (Fingerstick) 145 mg/dL (70-99) PAWEL HENNESSY MD Feb 22, 2017 10:33
[2017-02-22 11:00] VITALS: BP 135/57
[2017-02-22] MEDS: PIPERACILLIN/TAZOBACTAM 3.375 GM in IV NORMAL SALINE 50ML 50 ML IV SCH ×3 (13:18→23:52)
[2017-02-22 15:00] VITALS: BP 124/64
--- NOTE | 2017-02-22 16:14 | PDOC ---
PROGRESS NOTES Chief Complaint Chief Complaint Back wound infection with Exploration of lumbar wound with irrigation and debridement of lumbar wound and removal of adjacent spinal cord stimulator, leads, connections and intermittent pulse generator. History of Present Illness History of Present Illness Pt is pleasantly confused. FRAN RN Vitals Vitals Vital Signs Date Time Temp Pulse Resp B/P (MAP) Pulse Ox O2 Delivery O2 Flow Rate FiO2 02/22/17 15:00 97.7 61 18 124/64 (84) 92 Room Air 97.7 02/21/17 19:32 2.0 Physical Exam General: Other (confused) Heart: Regular rate, Normal S1, Normal S2 Lungs: Clear Abdomen: Normal bowel sounds, Soft Extremities: No clubbing, No cyanosis Skin: No rashes, No breakdown Labs LABS Laboratory Tests Test 02/21/17 16:21 02/21/17 20:48 02/22/17 04:25 02/22/17 07:06 Glucose (Fingerstick) 114 mg/dL (70-99) 212 mg/dL (70-99) 145 mg/dL (70-99) White Blood Count 12.1 x10^3/uL (4.0-11.0) Red Blood Count 3.08 x10^6/uL (4.30-5.70) Hemoglobin 9.5 g/dL (13.0-17.5) Hematocrit 26.8 % (39.0-53.0) Mean Corpuscular Volume 87 fL (79-100) Mean Corpuscular Hemoglobin 31 pg (25-35) Mean Corpuscular Hemoglobin Concent 36 g/dL (31-37) Red Cell Distribution Width 13.4 % (11.5-14.5) Platelet Count 288 x10^3/uL (140-400) Neutrophils (%) (Auto) 81 % (31-73) Lymphocytes (%) (Auto) 10 % (24-48) Monocytes (%) (Auto) 8 % (0-9) Eosinophils (%) (Auto) 0 % (0-3) Basophils (%) (Auto) 1 % (0-3) Neutrophils # (Auto) 9.9 x10^3uL (1.8-7.7) Lymphocytes # (Auto) 1.2 x10^3/uL (1.0-4.8) Monocytes # (Auto) 0.9 x10^3/uL (0.0-1.1) Eosinophils # (Auto) 0.0 x10^3/uL (0.0-0.7) Basophils # (Auto) 0.1 x10^3/uL (0.0-0.2) Sodium Level 139 mmol/L (136-145) Potassium Level 4.9 mmol/L (3.5-5.1) Chloride Level 107 mmol/L (98-107) Carbon Dioxide Level 23 mmol/L (21-32) Anion Gap 9 (6-14) Blood Urea Nitrogen 31 mg/dL (8-26) Creatinine 1.5 mg/dL (0.7-1.3) Estimated GFR (Cockcroft-Gault) 45.1 Glucose Level 142 mg/dL (70-99) Calcium Level 9.9 mg/dL (8.5-10.1) Test 02/22/17 12:20 02/22/17 12:44 Glucose (Fingerstick) 66 mg/dL (70-99) 98 mg/dL (70-99) Review of Systems Review of Systems co weakness co hunger Assessment and Plan Assessmemt and Plan Problems Medical Problems: (1) Infection Status: Acute Post Op Day #1 Exploration of lumbar wound with irrigation and debridement of lumbar wound and removal of adjacent spinal cord stimulator, leads, connections and intermittent pulse generator. Plan IV antibx PTOT Wound half-way meds Labs Appreciate subspecialist input, Problems: Comment Review of Relevant I have reviewed the following items litzy (where applicable) has been applied. Labs Laboratory Tests Test 02/20/17 17:45 02/20/17 20:30 02/20/17 20:53 02/21/17 05:25 Urine Collection Type Unknown Urine Color Yellow Urine Clarity Clear Urine pH 5.5 Urine Specific [place] 1.010 Urine Protein Negative mg/dL (NEG-TRACE) Urine Glucose (UA) Negative mg/dL (NEG) Urine Ketones (Stick) Negative mg/dL (NEG) Urine Blood Large (NEG) Urine Nitrite Negative (NEG) Urine Bilirubin Negative (NEG) Urine Urobilinogen Dipstick 0.2 mg/dL (0.2 mg/dL) Urine Leukocyte Esterase Trace (NEG) Urine RBC 20-40 /HPF (0-2) Urine WBC 1-4 /HPF (0-4) Urine Squamous Epithelial Cells Few /LPF Urine Bacteria 0 /HPF (0-FEW) Lactic Acid Level 1.3 mmol/L (0.4-2.0) Glucose (Fingerstick) 141 mg/dL (70-99) White Blood Count 9.6 x10^3/uL (4.0-11.0) Red Blood Count 3.11 x10^6/uL (4.30-5.70) Hemoglobin 9.7 g/dL (13.0-17.5) Hematocrit 27.4 % (39.0-53.0) Mean Corpuscular Volume 88 fL (79-100) Mean Corpuscular Hemoglobin 31 pg (25-35) Mean Corpuscular Hemoglobin Concent 35 g/dL (31-37) Red Cell Distribution Width 13.7 % (11.5-14.5) Platelet Count 302 x10^3/uL (140-400) Neutrophils (%) (Auto) 70 % (31-73) Lymphocytes (%) (Auto) 18 % (24-48) Monocytes (%) (Auto) 10 % (0-9) Eosinophils (%) (Auto) 2 % (0-3) Basophils (%) (Auto) 1 % (0-3) Neutrophils # (Auto) 6.7 x10^3uL (1.8-7.7) Lymphocytes # (Auto) 1.7 x10^3/uL (1.0-4.8) Monocytes # (Auto) 0.9 x10^3/uL (0.0-1.1) Eosinophils # (Auto) 0.2 x10^3/uL (0.0-0.7) Basophils # (Auto) 0.1 x10^3/uL (0.0-0.2) Erythrocyte Sedimentation Rate 75 (0-15) KB-Hky-L-Type Natriuretic Peptide 177 pg/mL (0-449) Test 02/21/17 07:16 02/21/17 14:26 02/21/17 16:21 02/21/17 20:48 Glucose (Fingerstick) 114 mg/dL (70-99) 101 mg/dL (70-99) 114 mg/dL (70-99) 212 mg/dL (70-99) Test 02/22/17 04:25 02/22/17 07:06 02/22/17 12:20 02/22/17 12:44 White Blood Count 12.1 x10^3/uL (4.0-11.0) Red Blood Count 3.08 x10^6/uL (4.30-5.70) Hemoglobin 9.5 g/dL (13.0-17.5) Hematocrit 26.8 % (39.0-53.0) Mean Corpuscular Volume 87 fL (79-100) Mean Corpuscular Hemoglobin 31 pg (25-35) Mean Corpuscular Hemoglobin Concent 36 g/dL (31-37) Red Cell Distribution Width 13.4 % (11.5-14.5) Platelet Count 288 x10^3/uL (140-400) Neutrophils (%) (Auto) 81 % (31-73) Lymphocytes (%) (Auto) 10 % (24-48) Monocytes (%) (Auto) 8 % (0-9) Eosinophils (%) (Auto) 0 % (0-3) Basophils (%) (Auto) 1 % (0-3) Neutrophils # (Auto) 9.9 x10^3uL (1.8-7.7) Lymphocytes # (Auto) 1.2 x10^3/uL (1.0-4.8) Monocytes # (Auto) 0.9 x10^3/uL (0.0-1.1) Eosinophils # (Auto) 0.0 x10^3/uL (0.0-0.7) Basophils # (Auto) 0.1 x10^3/uL (0.0-0.2) Sodium Level 139 mmol/L (136-145) Potassium Level 4.9 mmol/L (3.5-5.1) Chloride Level 107 mmol/L (98-107) Carbon Dioxide Level 23 mmol/L (21-32) Anion Gap 9 (6-14) Blood Urea Nitrogen 31 mg/dL (8-26) Creatinine 1.5 mg/dL (0.7-1.3) Estimated GFR (Cockcroft-Gault) 45.1 Glucose Level 142 mg/dL (70-99) Calcium Level 9.9 mg/dL (8.5-10.1) Glucose (Fingerstick) 145 mg/dL (70-99) 66 mg/dL (70-99) 98 mg/dL (70-99) Laboratory Tests Test 02/21/17 16:21 02/21/17 20:48 02/22/17 04:25 02/22/17 07:06 Glucose (Fingerstick) 114 mg/dL (70-99) 212 mg/dL (70-99) 145 mg/dL (70-99) White Blood Count 12.1 x10^3/uL (4.0-11.0) Red Blood Count 3.08 x10^6/uL (4.30-5.70) Hemoglobin 9.5 g/dL (13.0-17.5) Hematocrit 26.8 % (39.0-53.0) Mean Corpuscular Volume 87 fL (79-100) Mean Corpuscular Hemoglobin 31 pg (25-35) Mean Corpuscular Hemoglobin Concent 36 g/dL (31-37) Red Cell Distribution Width 13.4 % (11.5-14.5) Platelet Count 288 x10^3/uL (140-400) Neutrophils (%) (Auto) 81 % (31-73) Lymphocytes (%) (Auto) 10 % (24-48) Monocytes (%) (Auto) 8 % (0-9) Eosinophils (%) (Auto) 0 % (0-3) Basophils (%) (Auto) 1 % (0-3) Neutrophils # (Auto) 9.9 x10^3uL (1.8-7.7) Lymphocytes # (Auto) 1.2 x10^3/uL (1.0-4.8) Monocytes # (Auto) 0.9 x10^3/uL (0.0-1.1) Eosinophils # (Auto) 0.0 x10^3/uL (0.0-0.7) Basophils # (Auto) 0.1 x10^3/uL (0.0-0.2) Sodium Level 139 mmol/L (136-145) Potassium Level 4.9 mmol/L (3.5-5.1) Chloride Level 107 mmol/L (98-107) Carbon Dioxide Level 23 mmol/L (21-32) Anion Gap 9 (6-14) Blood Urea Nitrogen 31 mg/dL (8-26) Creatinine 1.5 mg/dL (0.7-1.3) Estimated GFR (Cockcroft-Gault) 45.1 Glucose Level 142 mg/dL (70-99) Calcium Level 9.9 mg/dL (8.5-10.1) Test 02/22/17 12:20 02/22/17 12:44 Glucose (Fingerstick) 66 mg/dL (70-99) 98 mg/dL (70-99) Microbiology 02/20/17 Blood Culture - Preliminary, Resulted NO GROWTH AFTER 1 DAY 02/20/17 Urine Culture - Preliminary, Resulted 02/20/17 Urine Culture Result 1 (FELI) - Preliminary, Resulted 02/21/17 Gram Stain - Final, Complete Medications Current Medications Fentanyl Citrate (Fentanyl 2ml Vial) 50 mcg PRN Q2HR PRN IV PAIN; Start at 13:30; Stop 02/21/17 at 13:29; Status DC Ondansetron HCl (Zofran) 4 mg PRN Q6HRS PRN IV NAUSEA/VOMITING; Start 02/21/17 at 07:00; Stop 02/21/17 at 19:00; Status DC Fentanyl Citrate (Fentanyl 2ml Vial) 25 mcg PRN Q5MIN PRN IV MILD PAIN; Start 02/21/17 at 07:00; Stop 02/21/17 at 19:00; Status DC Fentanyl Citrate (Fentanyl 2ml Vial) 50 mcg PRN Q5MIN PRN IV MODERATE PAIN Last administered on 02/21/17t 14:25; Start 02/21/17 at 07:00; Stop 02/21/17 at 19:00; Status DC Morphine Sulfate 1 mg PRN Q10MIN PRN IV SEVERE PAIN; Start 02/21/17 at 07:00; Stop 02/21/17 at 19:00; Status DC Ringer's Solution 1,000 ml @ 30 mls/hr Q24H IV Last administered on 02/21/17t 11:38; Start 02/21/17 at 07:00; Stop 02/21/17 at 18:59; Status DC Lidocaine HCl 2 ml PRN 1X PRN ID PRIOR TO IV START; Start 02/21/17 at 07:00; Stop 02/21/17 at 19:00; Status DC Hydromorphone HCl (Dilaudid) 0.5 mg PRN Q10MIN PRN IV SEV PAIN, Second choice; Start 02/21/17 at 07:00; Stop 02/21/17 at 19:00; Status DC Prochlorperazine Edisylate (Compazine) 5 mg PACU PRN PRN IV NAUSEA, MRX1 Last administered on 02/21/17 14:16; Start 02/21/17 at 07:00; Stop 02/21/17 at 19:00 ; Status DC Amlodipine Besylate (Norvasc) 10 mg DAILY PO Last administered on 02/22/17 08: 59; Start 02/21/17 at 09:00 Gabapentin (Neurontin) 100 mg BID PO Last administered on 02/22/17 08:59; Start 02/20/17 at 21:00 Gemfibrozil (Lopid) 600 mg BID PO Last administered on 02/22/17 08:58; Start 02/20/17 at 21:00 Glipizide (Glucotrol) 2.5 mg DAILY PO Last administered on 02/22/17 08:59; Start 02/21/17 at 09:00 Hydrochlorothiazide (Hydrodiuril) 25 mg DAILY PO Last administered on 08:59; Start 02/21/17 at 09:00 Oxycodone/ Acetaminophen (Percocet 10/325) 1 tab TID PO ; Start 02/20/17 at 21: 00; Stop 02/20/17 at 21:00; Status DC Meloxicam (Mobic) 15 mg DAILY PO Last administered on 02/22/17 08:58; Start at 09:00 Famotidine (Pepcid) 20 mg HS PO Last administered on 02/21/17 21:03; Start 04/28 at 21:00 Acetaminophen/ Hydrocodone Bitart (Lortab 5/325) 1 tab PRN Q4HRS PRN PO PAIN Last administered on 02/22/17 04:09; Start 02/20/17 at 16:30 Insulin Aspart (NovoLOG) 0-5 UNITS TIDWMEALS SQ ; Start 02/20/17 at 17:00 Dextrose (Dextrose 50%-Water Syringe) 12.5 gm PRN Q15MIN PRN IV SEE COMMENTS; Start 02/20/17 at 16:30 Amino Acids/ Glycerin/ Electrolytes 1,000 ml @ 75 mls/hr [id number] IV Last administered on 02/22/17 09:00; Start 02/20/17 at 17:00 Oxycodone/ Acetaminophen (Percocet 10/325) 1 tab PRN Q4HRS PRN PO Severe pain Last administered on 02/21/17 16:37; Start 02/20/17 at 21:00 Piperacillin Sod/ Tazobactam Sod 2.25 gm/Sodium Chloride 50 ml @ 100 mls/hr Q6HRS IV Last administered on 02/22/17 05:11; Start 02/20/17 at 18:00; Stop at 08:49; Status DC Daptomycin 530 mg/ Sodium Chloride 50 ml @ 100 mls/hr Q24H IV Last administered on 02/21/17 18:00; Start 02/20/17 at 18:00 Bacitracin 50130 unit/Sodium Chloride 1,000 ml @ 1,000 mls/hr 1X PERIOP ONCE IRR Last administered on 02/21/17 12:35; Start 02/21/17 at 07:38; Stop at 08:37; Status DC Lidocaine/ Epinephrine (Xylocaine 1%-Epi 1:100,000) 20 ml STK-MED ONCE .ROUTE ; Start 02/21/17 at 07:40; Stop 02/21/17 at 07:41; Status DC Bupivacaine HCl (Marcaine 0.5%) 50 ml STK-MED ONCE .ROUTE ; Start 02/21/17 at 07 :40; Stop 02/21/17 at 07:41; Status DC Gelatin (Gelfoam Size 100) 1 each STK-MED ONCE .ROUTE ; Start 02/21/17 at 07:41 ; Stop 02/21/17 at 07:42; Status DC Thrombin 20,000 unit STK-MED ONCE TP ; Start 02/21/17 at 07:41; Stop 02/21/17 at 07:42; Status DC Prochlorperazine Edisylate (Compazine) 10 mg STK-MED ONCE .ROUTE ; Start at 13:41; Stop 02/21/17 at 13:42; Status DC Fentanyl Citrate (Fentanyl 2ml Vial) 100 mcg STK-MED ONCE .ROUTE ; Start at 13:42; Stop 02/21/17 at 13:43; Status DC Acetaminophen (Tylenol) 650 mg PRN Q6HRS PRN PO MILD PAIN / TEMP; Start at 14:15 Al Hydroxide/Mg Hydroxide (Mylanta Plus Xs) 30 ml PRN Q3HRS PRN PO HEARTBURN / GAS; Start 02/21/17 at 14:15 Calcium Carbonate/ Glycine (Tums) 500 mg PRN Q3HRS PRN PO INDIGESTION; Start at 14:15 Diphenhydramine HCl (Benadryl) 25 mg PRN Q6HRS PRN PO ITCHING; Start 02/21/17 at 14:15 Diphenhydramine HCl (Benadryl) 25 mg PRN Q6HRS PRN IV ITCHING; Start 02/21/17 at 14:15 Naloxone HCl (Narcan) 0.1 mg PRN Q2MIN PRN IV ADMIN; Start 02/21/17 at 14:15 Sodium Chloride (Normal Saline Flush) 3 ml QSHIFT PRN IV AFTER MEDS AND BLOOD DRAWS; Start 02/21/17 at 14:15 Methocarbamol (Robaxin) 750 mg TID PO Last administered on 02/22/17 13:18; Start 02/21/17 at 21:00 Senna/Docusate Sodium (Senna Plus) 1 tab BID PO Last administered on 02/22/17 09:02; Start 02/21/17 at 21:00 Docusate Sodium (Colace) 100 mg BID PO Last administered on 02/22/17 08:58; Start 02/21/17 at 21:00 Magnesium Hydroxide (Milk Of Magnesia) 2,400 mg PRN Q12HR PRN PO CONSTIPATION; Start 02/21/17 at 14:15 Ondansetron HCl (Zofran) 4 mg PRN Q6HRS PRN IV NAUESA, 1ST CHOICE; Start at 14:15 Fentanyl Citrate (Fentanyl 2ml Vial) 50 mcg PRN Q1HR PRN IV SEVERE PAIN; Start 02/21/17 at 14:15 Fentanyl Citrate (Fentanyl 2ml Vial) 25 mcg PRN Q1HR PRN IV SEVERE PAIN; Start 02/21/17 at 14:15 Fentanyl Citrate (Fentanyl 2ml Vial) 100 mcg STK-MED ONCE .ROUTE ; Start at 14:33; Stop 02/21/17 at 14:34; Status DC Morphine Sulfate 2 mg STK-MED ONCE .ROUTE ; Start 02/21/17 at 14:33; Stop at 14:34; Status DC Morphine Sulfate 2 mg PRN Q2HR PRN IV PAIN; Start 02/21/17 at 18:00 Piperacillin Sod/ Tazobactam Sod 3.375 gm/Sodium Chloride 50 ml @ 100 mls/hr Q6HRS IV Last administered on 02/22/17t 13:18; Start 02/22/17 at 12:00 Active Scripts Active Invanz (Ertapenem Sodium) 1 Gm Vial 1 Gm IJ DAILY 14 Days Reported Hydrochlorothiazide Capsule (Hydrochlorothiazide) 12.5 Mg Capsule 25 Mg PO DAILY Percocet 10-325 Mg Tablet (Oxycodone/Acetaminophen) 1 Each Tablet 1 Tab PO TID Amlodipine Besylate 10 Mg Tablet 10 Mg PO DAILY Glipizide 5 Mg Tablet 2.5 Mg PO DAILY Gabapentin 100 Mg Capsule 100 Mg PO BID Mobic (Meloxicam) 15 Mg Tablet 1 Tab PO DAILY Lovaza (Jadwin-3 Acid Ethyl Esters) 1 Gm Capsule 1 Gm PO BID Ranitidine Hcl 300 Mg Capsule 300 Mg PO BID Gemfibrozil 600 Mg Tablet 600 Mg PO BID Vitals/I & O Vital Sign - Last 24 Hours 02/21/17 02/21/17 02/21/17 02/21/17 16:15 16:22 16:30 16:37 Pulse 62 65 Resp 20 20 B/P (MAP) 145/72 (96) 146/64 (91) Pulse Ox 94 84 94 O2 Delivery Room Air Room Air Room Air Room Air 02/21/17 02/21/17 02/21/17 02/21/17 17:00 18:01 19:23 19:32 Temp 98.9 98.9 Pulse 60 60 73 Resp 20 20 18 B/P (MAP) 146/63 (90) 137/63 (87) 145/57 (86) Pulse Ox 97 O2 Delivery Nasal Cannula Nasal Cannula O2 Flow Rate 2.0 2.0 02/21/17 02/21/17 02/21/17 02/22/17 20:00 21:03 22:37 02:30 Temp 98.3 98.3 98.3 98.3 Pulse 60 77 Resp 20 16 18 B/P (MAP) 120/52 (74) 136/63 (87) Pulse Ox 97 95 97 O2 Delivery Room Air Room Air Room Air Room Air 02/22/17 02/22/17 02/22/17 02/22/17 04:09 05:09 07:00 07:30 Temp 97.7 97.7 Pulse 61 Resp 20 20 20 B/P (MAP) 130/55 (80) Pulse Ox 97 97 98 O2 Delivery Room Air Room Air Room Air Room Air 02/22/17 02/22/17 02/22/17 08:59 11:00 15:00 Temp 96.6 97.7 96.6 97.7 Pulse 61 66 61 Resp 20 18 B/P (MAP) 130/55 135/57 (83) 124/64 (84) Pulse Ox 97 92 O2 Delivery Room Air Room Air ASIF PLAZA III DO Feb 22, 2017 16:14
[2017-02-22] MEDS: DAPTOMYCIN IV SCH (17:13)
[2017-02-22] MEDS: NORMAL SALINE IV SCH (17:13)
[2017-02-22 19:00] VITALS: BP 117/54
[2017-02-22] MEDS: FAMOTIDINE 20 MG TABLET. PO SCH (20:00)
[2017-02-22 23:00] VITALS: BP 115/49
[2017-02-22] MEDS: oxyCODONE/APAP 10/325 1 TAB TABLET PO PRN (23:52)
[2017-02-23 03:00] VITALS: BP 124/72
[2017-02-23] MEDS: PIPERACILLIN/TAZOBACTAM 3.375 GM in IV NORMAL SALINE 50ML 50 ML IV SCH ×3 (05:24→17:33)
[2017-02-23 07:00] VITALS: BP 142/65
[2017-02-23 07:06] LABS: BASO # 0.1 x10^3/uL (0.0-0.2); BASO % 1 % (0-3); EOS % 3 % (0-3); HEMATOCRIT 26.6 % (39.0-53.0); HEMOGLOBIN 9.2 g/dL (13.0-17.5); LYMPH # 1.6 x10^3/uL (1.0-4.8); LYMPH % 16 % (24-48); MEAN CORPUSCULAR HEMOGLOBIN 31 pg (25-35); MEAN CORPUSCULAR HGB CONC 35 g/dL (31-37); MEAN CORPUSCULAR VOLUME 90 fL (79-100); MONO % 10 % (0-9); NEUT % 71 % (31-73); PLATELET COUNT 289 x10^3/uL (140-400); RED BLOOD COUNT 2.96 x10^6/uL (4.30-5.70)
[2017-02-23 07:17] LABS: CREATININE 1.4 mg/dL (0.7-1.3); GFR 48.8; POTASSIUM 4.4 mmol/L (3.5-5.1)
[2017-02-23] MEDS: INSULIN ASPART 300 UNITS/3 ML INSULN.PEN SQ SCH ×3 (08:00→17:00)
--- NOTE | 2017-02-23 08:54 | PDOC ---
SUBJECTIVE Subjective Denies acute changes. States legs feel good. Some incisional pain. Some confusion reported yesterday. OBJECTIVE Vital Signs Vital Signs Date Time Temp Pulse Resp B/P (MAP) Pulse Ox O2 Delivery O2 Flow Rate FiO2 02/23/17 07:00 95.4 64 18 142/65 (90) 97 Room Air 95.4 02/23/17 03:00 98.2 65 18 124/72 (89) 98 Room Air 98.2 02/22/17 23:00 98.5 65 18 115/49 (71) 96 Room Air 98.5 02/22/17 20:00 Room Air 02/22/17 19:00 98.1 58 18 117/54 (75) 96 Room Air 2.0 98.1 02/22/17 17:52 Room Air 02/22/17 17:13 Room Air 02/22/17 15:00 97.7 61 18 124/64 (84) 92 Room Air 97.7 02/22/17 11:00 96.6 66 20 135/57 (83) 97 Room Air 96.6 02/22/17 08:59 61 130/55 PHYSICAL EXAM Physical Exam AA, NAD, PEÑA 5/5, sensation intact LT, dressing c/d/i, FRANNIE with ss drainage in bulb, 50mL recorded output last 24hr ASSESSMENT/PLAN Assessment/Plan POD 2 lumbar I&D and removal of stimulator hardware -appears to be recovering well thus far -continue FRANNIE another day or two -increase activity as able/PT/OT -abx per ID Problems: COMMENT Lab Laboratory Tests Test 02/22/17 12:20 02/22/17 12:44 02/22/17 16:23 02/22/17 21:03 Glucose (Fingerstick) 66 mg/dL (70-99) 98 mg/dL (70-99) 110 mg/dL (70-99) 131 mg/dL (70-99) Test 02/23/17 06:50 02/23/17 08:06 White Blood Count 10.0 x10^3/uL (4.0-11.0) Red Blood Count 2.96 x10^6/uL (4.30-5.70) Hemoglobin 9.2 g/dL (13.0-17.5) Hematocrit 26.6 % (39.0-53.0) Mean Corpuscular Volume 90 fL (79-100) Mean Corpuscular Hemoglobin 31 pg (25-35) Mean Corpuscular Hemoglobin Concent 35 g/dL (31-37) Red Cell Distribution Width 14.0 % (11.5-14.5) Platelet Count 289 x10^3/uL (140-400) Neutrophils (%) (Auto) 71 % (31-73) Lymphocytes (%) (Auto) 16 % (24-48) Monocytes (%) (Auto) 10 % (0-9) Eosinophils (%) (Auto) 3 % (0-3) Basophils (%) (Auto) 1 % (0-3) Neutrophils # (Auto) 7.1 x10^3uL (1.8-7.7) Lymphocytes # (Auto) 1.6 x10^3/uL (1.0-4.8) Monocytes # (Auto) 1.0 x10^3/uL (0.0-1.1) Eosinophils # (Auto) 0.3 x10^3/uL (0.0-0.7) Basophils # (Auto) 0.1 x10^3/uL (0.0-0.2) Sodium Level 140 mmol/L (136-145) Potassium Level 4.4 mmol/L (3.5-5.1) Chloride Level 108 mmol/L (98-107) Carbon Dioxide Level 22 mmol/L (21-32) Anion Gap 10 (6-14) Blood Urea Nitrogen 35 mg/dL (8-26) Creatinine 1.4 mg/dL (0.7-1.3) Estimated GFR (Cockcroft-Gault) 48.8 Glucose Level 104 mg/dL (70-99) Calcium Level 10.0 mg/dL (8.5-10.1) Glucose (Fingerstick) 103 mg/dL (70-99) PAWEL HENNESSY MD Feb 23, 2017 08:54
--- NOTE | 2017-02-23 09:13 | PDOC ---
Infectious Disease Note Subjective Subjective Known to service. Consult 02/10 reviewed and progress notes This patient is a 81-year-old male with a history of severe spinal stenosis who underwent lumbar laminectomy at L2-L3 and L3-L4 with adjacent spinal cord stimulator on 01/25/2017. He later developed drainage from the surgical site. The dressing was changed about 3 times a day. He used his spinal stimulator a few times without much relief of pain. He was started on oral Keflex outpatient on 02/06 with little improvement. He develop subjective fevers and chills. A lumbar spinal CT showed no abnormal fluid collection. Cultures positive for Enterobacter and was d/cd home on Invanz daily. At home yesterday he felt confused and weak. He lost his balance when his helped him out of bed and they both fell but no trauma. He then felt dizzy getting into his truck and eased himself to the ground holding onto the seat belt. Has had subjective chills. He presented to outpatient yesterday and I was paged and informed that he did not look well. I instructed him to be sent to ER. He has now been admitted. States his wound has been draining since last week and went to the office and saw nurse last week and had the dressign changed. Better today. Less pain ROS ROS GEN: Denies fevers, chills, sweats HEENT: Denies blurred vision, sore throat CV: Denies chest pain RESP: Denies shortness of air, cough GI: Denies n/v/d NEURO: Denies confusion, dizziness MSK: Denies weakness, joint pain/swelling Vital Sign Vital Signs Vital Signs Date Time Temp Pulse Resp B/P (MAP) Pulse Ox O2 Delivery O2 Flow Rate FiO2 02/23/17 07:00 95.4 64 18 142/65 (90) 97 Room Air 95.4 02/22/17 19:00 2.0 Physical Exam PHYSICAL EXAM GENERAL: NAD, Alert HEENT: PERRL, OC/OP NECK: Supple, no JVD, no LN LUNGS: Clear HEART: S1S2, no gallop, no murmur ABD: Soft, NT, no organomegaly, no rebound EXT: No edema, no cyanosis BEHAVIORAL CONSULTANT: Alert, oriented x 3, no focal neurologic deficit SKIN: No rash IV: ok Labs Lab Laboratory Tests Test 02/22/17 12:20 02/22/17 12:44 02/22/17 16:23 02/22/17 21:03 Glucose (Fingerstick) 66 mg/dL (70-99) 98 mg/dL (70-99) 110 mg/dL (70-99) 131 mg/dL (70-99) Test 02/23/17 06:50 02/23/17 08:06 White Blood Count 10.0 x10^3/uL (4.0-11.0) Red Blood Count 2.96 x10^6/uL (4.30-5.70) Hemoglobin 9.2 g/dL (13.0-17.5) Hematocrit 26.6 % (39.0-53.0) Mean Corpuscular Volume 90 fL (79-100) Mean Corpuscular Hemoglobin 31 pg (25-35) Mean Corpuscular Hemoglobin Concent 35 g/dL (31-37) Red Cell Distribution Width 14.0 % (11.5-14.5) Platelet Count 289 x10^3/uL (140-400) Neutrophils (%) (Auto) 71 % (31-73) Lymphocytes (%) (Auto) 16 % (24-48) Monocytes (%) (Auto) 10 % (0-9) Eosinophils (%) (Auto) 3 % (0-3) Basophils (%) (Auto) 1 % (0-3) Neutrophils # (Auto) 7.1 x10^3uL (1.8-7.7) Lymphocytes # (Auto) 1.6 x10^3/uL (1.0-4.8) Monocytes # (Auto) 1.0 x10^3/uL (0.0-1.1) Eosinophils # (Auto) 0.3 x10^3/uL (0.0-0.7) Basophils # (Auto) 0.1 x10^3/uL (0.0-0.2) Sodium Level 140 mmol/L (136-145) Potassium Level 4.4 mmol/L (3.5-5.1) Chloride Level 108 mmol/L (98-107) Carbon Dioxide Level 22 mmol/L (21-32) Anion Gap 10 (6-14) Blood Urea Nitrogen 35 mg/dL (8-26) Creatinine 1.4 mg/dL (0.7-1.3) Estimated GFR (Cockcroft-Gault) 48.8 Glucose Level 104 mg/dL (70-99) Calcium Level 10.0 mg/dL (8.5-10.1) Glucose (Fingerstick) 103 mg/dL (70-99) Micro 02/10 ANAEROBIC-AEROBIC CULTURE Final Final report ANAEROBIC RES 1 Final Comment No anaerobic growth in 72 hours. AEROBIC CULT Final Final report AEROBIC RES 1 Final Comment Enterobacter cloacae complex Moderate growth ANTIMICROBIAL SUSCEPTIBILITY Final Comment S = Susceptible; I = Intermediate; R = Resistant P = Positive; N = Negative MICS are expressed in micrograms per mL Antibiotic RSLT#1 RSLT#2 RSLT#3 RSLT#4 Amoxicillin/Clavulanic Acid R Cefazolin R Cefepime S Ceftriaxone S Cefuroxime R Ciprofloxacin S Ertapenem S Gentamicin S Imipenem S Levofloxacin S Piperacillin S Tetracycline S Tobramycin S Trimethoprim/Sulfa S Objective Assessment S/p I and D of back wound and removal of stimulator 02/21. Heavy growth of GNR on stimulator Leukcoytosis - better Encephalopathy - a little confused last pm ? med SULEIMAN - cont to improve Recent Enterobacter 02/10 Infected post op lumbar wound. -H/o Keflex since then d/c home with Invanz Back pain. h/o spinal stenosis, s/p Lumbar laminectomy L2-3 and L3-4 with adjacent spinal cord stimulator on Jan 25 Plan Plan of Care Cont Zosyn Discont Daptomycin with GNR on stimulator D/c Benadryl. would d/c or decrease doses of other pain meds if possible F/u labs and cults D/w micro this am Previous notes reviewed CELENA BARKER MD Feb 23, 2017 09:13
[2017-02-23 11:00] VITALS: BP 112/62
--- NOTE | 2017-02-23 11:53 | PDOC ---
PROGRESS NOTES Chief Complaint Chief Complaint Back wound infection and removal of adjacent spinal cord stimulator Metabolic encephalopathy History of Present Illness History of Present Illness Pt is pleasantly confused. Pt able to ambulate to bathroom Vitals Vitals Vital Signs Date Time Temp Pulse Resp B/P (MAP) Pulse Ox O2 Delivery O2 Flow Rate FiO2 02/23/17 07:00 95.4 64 18 142/65 (90) 97 Room Air 95.4 02/22/17 19:00 2.0 Physical Exam General: Other (confused) Heart: Regular rate, Normal S1, Normal S2 Lungs: Clear, Other (no acute distress noted) Abdomen: Normal bowel sounds, Soft Extremities: No clubbing, No cyanosis Skin: No rashes, No breakdown Labs LABS Laboratory Tests Test 02/22/17 12:20 02/22/17 12:44 02/22/17 16:23 02/22/17 21:03 Glucose (Fingerstick) 66 mg/dL (70-99) 98 mg/dL (70-99) 110 mg/dL (70-99) 131 mg/dL (70-99) Test 02/23/17 06:50 02/23/17 08:06 White Blood Count 10.0 x10^3/uL (4.0-11.0) Red Blood Count 2.96 x10^6/uL (4.30-5.70) Hemoglobin 9.2 g/dL (13.0-17.5) Hematocrit 26.6 % (39.0-53.0) Mean Corpuscular Volume 90 fL (79-100) Mean Corpuscular Hemoglobin 31 pg (25-35) Mean Corpuscular Hemoglobin Concent 35 g/dL (31-37) Red Cell Distribution Width 14.0 % (11.5-14.5) Platelet Count 289 x10^3/uL (140-400) Neutrophils (%) (Auto) 71 % (31-73) Lymphocytes (%) (Auto) 16 % (24-48) Monocytes (%) (Auto) 10 % (0-9) Eosinophils (%) (Auto) 3 % (0-3) Basophils (%) (Auto) 1 % (0-3) Neutrophils # (Auto) 7.1 x10^3uL (1.8-7.7) Lymphocytes # (Auto) 1.6 x10^3/uL (1.0-4.8) Monocytes # (Auto) 1.0 x10^3/uL (0.0-1.1) Eosinophils # (Auto) 0.3 x10^3/uL (0.0-0.7) Basophils # (Auto) 0.1 x10^3/uL (0.0-0.2) Sodium Level 140 mmol/L (136-145) Potassium Level 4.4 mmol/L (3.5-5.1) Chloride Level 108 mmol/L (98-107) Carbon Dioxide Level 22 mmol/L (21-32) Anion Gap 10 (6-14) Blood Urea Nitrogen 35 mg/dL (8-26) Creatinine 1.4 mg/dL (0.7-1.3) Estimated GFR (Cockcroft-Gault) 48.8 Glucose Level 104 mg/dL (70-99) Calcium Level 10.0 mg/dL (8.5-10.1) Glucose (Fingerstick) 103 mg/dL (70-99) Review of Systems Review of Systems Nurse said pt had confusion c/o fatigue Assessment and Plan Assessmemt and Plan Post Op Day #2 Exploration of lumbar wound with irrigation and debridement of lumbar wound and removal of adjacent spinal cord stimulator, leads, connections and intermittent pulse generator. -Metabolic encephalopathy Plan Continue IV antibx PTOT Wound jail meds Labs AM Appreciate subspecialist input, Problems: Comment Review of Relevant I have reviewed the following items litzy (where applicable) has been applied. Labs Laboratory Tests Test 02/21/17 14:26 02/21/17 16:21 02/21/17 20:48 02/22/17 04:25 Glucose (Fingerstick) 101 mg/dL (70-99) 114 mg/dL (70-99) 212 mg/dL (70-99) White Blood Count 12.1 x10^3/uL (4.0-11.0) Red Blood Count 3.08 x10^6/uL (4.30-5.70) Hemoglobin 9.5 g/dL (13.0-17.5) Hematocrit 26.8 % (39.0-53.0) Mean Corpuscular Volume 87 fL (79-100) Mean Corpuscular Hemoglobin 31 pg (25-35) Mean Corpuscular Hemoglobin Concent 36 g/dL (31-37) Red Cell Distribution Width 13.4 % (11.5-14.5) Platelet Count 288 x10^3/uL (140-400) Neutrophils (%) (Auto) 81 % (31-73) Lymphocytes (%) (Auto) 10 % (24-48) Monocytes (%) (Auto) 8 % (0-9) Eosinophils (%) (Auto) 0 % (0-3) Basophils (%) (Auto) 1 % (0-3) Neutrophils # (Auto) 9.9 x10^3uL (1.8-7.7) Lymphocytes # (Auto) 1.2 x10^3/uL (1.0-4.8) Monocytes # (Auto) 0.9 x10^3/uL (0.0-1.1) Eosinophils # (Auto) 0.0 x10^3/uL (0.0-0.7) Basophils # (Auto) 0.1 x10^3/uL (0.0-0.2) Sodium Level 139 mmol/L (136-145) Potassium Level 4.9 mmol/L (3.5-5.1) Chloride Level 107 mmol/L (98-107) Carbon Dioxide Level 23 mmol/L (21-32) Anion Gap 9 (6-14) Blood Urea Nitrogen 31 mg/dL (8-26) Creatinine 1.5 mg/dL (0.7-1.3) Estimated GFR (Cockcroft-Gault) 45.1 Glucose Level 142 mg/dL (70-99) Calcium Level 9.9 mg/dL (8.5-10.1) Test 02/22/17 07:06 02/22/17 12:20 02/22/17 12:44 02/22/17 16:23 Glucose (Fingerstick) 145 mg/dL (70-99) 66 mg/dL (70-99) 98 mg/dL (70-99) 110 mg/dL (70-99) Test 02/22/17 21:03 02/23/17 06:50 02/23/17 08:06 Glucose (Fingerstick) 131 mg/dL (70-99) 103 mg/dL (70-99) White Blood Count 10.0 x10^3/uL (4.0-11.0) Red Blood Count 2.96 x10^6/uL (4.30-5.70) Hemoglobin 9.2 g/dL (13.0-17.5) Hematocrit 26.6 % (39.0-53.0) Mean Corpuscular Volume 90 fL (79-100) Mean Corpuscular Hemoglobin 31 pg (25-35) Mean Corpuscular Hemoglobin Concent 35 g/dL (31-37) Red Cell Distribution Width 14.0 % (11.5-14.5) Platelet Count 289 x10^3/uL (140-400) Neutrophils (%) (Auto) 71 % (31-73) Lymphocytes (%) (Auto) 16 % (24-48) Monocytes (%) (Auto) 10 % (0-9) Eosinophils (%) (Auto) 3 % (0-3) Basophils (%) (Auto) 1 % (0-3) Neutrophils # (Auto) 7.1 x10^3uL (1.8-7.7) Lymphocytes # (Auto) 1.6 x10^3/uL (1.0-4.8) Monocytes # (Auto) 1.0 x10^3/uL (0.0-1.1) Eosinophils # (Auto) 0.3 x10^3/uL (0.0-0.7) Basophils # (Auto) 0.1 x10^3/uL (0.0-0.2) Sodium Level 140 mmol/L (136-145) Potassium Level 4.4 mmol/L (3.5-5.1) Chloride Level 108 mmol/L (98-107) Carbon Dioxide Level 22 mmol/L (21-32) Anion Gap 10 (6-14) Blood Urea Nitrogen 35 mg/dL (8-26) Creatinine 1.4 mg/dL (0.7-1.3) Estimated GFR (Cockcroft-Gault) 48.8 Glucose Level 104 mg/dL (70-99) Calcium Level 10.0 mg/dL (8.5-10.1) Laboratory Tests Test 02/22/17 12:20 02/22/17 12:44 02/22/17 16:23 02/22/17 21:03 Glucose (Fingerstick) 66 mg/dL (70-99) 98 mg/dL (70-99) 110 mg/dL (70-99) 131 mg/dL (70-99) Test 02/23/17 06:50 02/23/17 08:06 White Blood Count 10.0 x10^3/uL (4.0-11.0) Red Blood Count 2.96 x10^6/uL (4.30-5.70) Hemoglobin 9.2 g/dL (13.0-17.5) Hematocrit 26.6 % (39.0-53.0) Mean Corpuscular Volume 90 fL (79-100) Mean Corpuscular Hemoglobin 31 pg (25-35) Mean Corpuscular Hemoglobin Concent 35 g/dL (31-37) Red Cell Distribution Width 14.0 % (11.5-14.5) Platelet Count 289 x10^3/uL (140-400) Neutrophils (%) (Auto) 71 % (31-73) Lymphocytes (%) (Auto) 16 % (24-48) Monocytes (%) (Auto) 10 % (0-9) Eosinophils (%) (Auto) 3 % (0-3) Basophils (%) (Auto) 1 % (0-3) Neutrophils # (Auto) 7.1 x10^3uL (1.8-7.7) Lymphocytes # (Auto) 1.6 x10^3/uL (1.0-4.8) Monocytes # (Auto) 1.0 x10^3/uL (0.0-1.1) Eosinophils # (Auto) 0.3 x10^3/uL (0.0-0.7) Basophils # (Auto) 0.1 x10^3/uL (0.0-0.2) Sodium Level 140 mmol/L (136-145) Potassium Level 4.4 mmol/L (3.5-5.1) Chloride Level 108 mmol/L (98-107) Carbon Dioxide Level 22 mmol/L (21-32) Anion Gap 10 (6-14) Blood Urea Nitrogen 35 mg/dL (8-26) Creatinine 1.4 mg/dL (0.7-1.3) Estimated GFR (Cockcroft-Gault) 48.8 Glucose Level 104 mg/dL (70-99) Calcium Level 10.0 mg/dL (8.5-10.1) Glucose (Fingerstick) 103 mg/dL (70-99) Microbiology 02/20/17 Blood Culture - Preliminary, Resulted NO GROWTH AFTER 2 DAYS 02/20/17 Urine Culture - Preliminary, Resulted 02/20/17 Urine Culture Result 1 (FELI) - Preliminary, Resulted 02/21/17 Gram Stain - Final, Complete Medications Current Medications Fentanyl Citrate (Fentanyl 2ml Vial) 50 mcg PRN Q2HR PRN IV PAIN; Start at 13:30; Stop 02/21/17 at 13:29; Status DC Ondansetron HCl (Zofran) 4 mg PRN Q6HRS PRN IV NAUSEA/VOMITING; Start 02/21/17 at 07:00; Stop 02/21/17 at 19:00; Status DC Fentanyl Citrate (Fentanyl 2ml Vial) 25 mcg PRN Q5MIN PRN IV MILD PAIN; Start 02/21/17 at 07:00; Stop 02/21/17 at 19:00; Status DC Fentanyl Citrate (Fentanyl 2ml Vial) 50 mcg PRN Q5MIN PRN IV MODERATE PAIN Last administered on 02/21/17 14:25; Start 02/21/17 at 07:00; Stop 02/21/17 at 19:00; Status DC Morphine Sulfate 1 mg PRN Q10MIN PRN IV SEVERE PAIN; Start 02/21/17 at 07:00; Stop 02/21/17 at 19:00; Status DC Ringer's Solution 1,000 ml @ 30 mls/hr Q24H IV Last administered on 02/21/17 11:38; Start 02/21/17 at 07:00; Stop 02/21/17 at 18:59; Status DC Lidocaine HCl 2 ml PRN 1X PRN ID PRIOR TO IV START; Start 02/21/17 at 07:00; Stop 02/21/17 at 19:00; Status DC Hydromorphone HCl (Dilaudid) 0.5 mg PRN Q10MIN PRN IV SEV PAIN, Second choice; Start 02/21/17 at 07:00; Stop 02/21/17 at 19:00; Status DC Prochlorperazine Edisylate (Compazine) 5 mg PACU PRN PRN IV NAUSEA, MRX1 Last administered on 02/21/17 14:16; Start 02/21/17 at 07:00; Stop 02/21/17 at 19:00 ; Status DC Amlodipine Besylate (Norvasc) 10 mg DAILY PO Last administered on 02/22/17 08: 59; Start 02/21/17 at 09:00 Gabapentin (Neurontin) 100 mg BID PO Last administered on 02/22/17 20:00; Start 02/20/17 at 21:00 Gemfibrozil (Lopid) 600 mg BID PO Last administered on 02/22/17 20:00; Start 02/20/17 at 21:00 Glipizide (Glucotrol) 2.5 mg DAILY PO Last administered on 02/22/17 08:59; Start 02/21/17 at 09:00 Hydrochlorothiazide (Hydrodiuril) 25 mg DAILY PO Last administered on 08:59; Start 02/21/17 at 09:00 Oxycodone/ Acetaminophen (Percocet 10/325) 1 tab TID PO ; Start 02/20/17 at 21: 00; Stop 02/20/17 at 21:00; Status DC Meloxicam (Mobic) 15 mg DAILY PO Last administered on 02/22/17 08:58; Start at 09:00 Famotidine (Pepcid) 20 mg HS PO Last administered on 02/22/17 20:00; Start 04/28 at 21:00 Acetaminophen/ Hydrocodone Bitart (Lortab 5/325) 1 tab PRN Q4HRS PRN PO PAIN Last administered on 02/22/17 04:09; Start 02/20/17 at 16:30 Insulin Aspart (NovoLOG) 0-5 UNITS TIDWMEALS SQ ; Start 02/20/17 at 17:00 Dextrose (Dextrose 50%-Water Syringe) 12.5 gm PRN Q15MIN PRN IV SEE COMMENTS; Start 02/20/17 at 16:30 Amino Acids/ Glycerin/ Electrolytes 1,000 ml @ 75 mls/hr [id number] IV Last administered on 02/22/17 20:01; Start 02/20/17 at 17:00 Oxycodone/ Acetaminophen (Percocet 10/325) 1 tab PRN Q4HRS PRN PO Severe pain Last administered on 02/22/17 23:52; Start 02/20/17 at 21:00 Piperacillin Sod/ Tazobactam Sod 2.25 gm/Sodium Chloride 50 ml @ 100 mls/hr Q6HRS IV Last administered on 02/22/17t 05:11; Start 02/20/17 at 18:00; Stop at 08:49; Status DC Daptomycin 530 mg/ Sodium Chloride 50 ml @ 100 mls/hr Q24H IV Last administered on 02/22/17 17:13; Start 02/20/17 at 18:00; Stop 02/23/17 at 09:11 ; Status DC Bacitracin 06315 unit/Sodium Chloride 1,000 ml @ 1,000 mls/hr 1X PERIOP ONCE IRR Last administered on 02/21/17 12:35; Start 02/21/17 at 07:38; Stop at 08:37; Status DC Lidocaine/ Epinephrine (Xylocaine 1%-Epi 1:100,000) 20 ml STK-MED ONCE .ROUTE ; Start 02/21/17 at 07:40; Stop 02/21/17 at 07:41; Status DC Bupivacaine HCl (Marcaine 0.5%) 50 ml STK-MED ONCE .ROUTE ; Start 02/21/17 at 07 :40; Stop 02/21/17 at 07:41; Status DC Gelatin (Gelfoam Size 100) 1 each STK-MED ONCE .ROUTE ; Start 02/21/17 at 07:41 ; Stop 02/21/17 at 07:42; Status DC Thrombin 20,000 unit STK-MED ONCE TP ; Start 02/21/17 at 07:41; Stop 02/21/17 at 07:42; Status DC Prochlorperazine Edisylate (Compazine) 10 mg STK-MED ONCE .ROUTE ; Start at 13:41; Stop 02/21/17 at 13:42; Status DC Fentanyl Citrate (Fentanyl 2ml Vial) 100 mcg STK-MED ONCE .ROUTE ; Start at 13:42; Stop 02/21/17 at 13:43; Status DC Acetaminophen (Tylenol) 650 mg PRN Q6HRS PRN PO MILD PAIN / TEMP; Start at 14:15 Al Hydroxide/Mg Hydroxide (Mylanta Plus Xs) 30 ml PRN Q3HRS PRN PO HEARTBURN / GAS; Start 02/21/17 at 14:15 Calcium Carbonate/ Glycine (Tums) 500 mg PRN Q3HRS PRN PO INDIGESTION; Start at 14:15 Diphenhydramine HCl (Benadryl) 25 mg PRN Q6HRS PRN PO ITCHING; Start 02/21/17 at 14:15; Stop 02/23/17 at 09:12; Status DC Diphenhydramine HCl (Benadryl) 25 mg PRN Q6HRS PRN IV ITCHING; Start 02/21/17 at 14:15; Stop 02/23/17 at 09:12; Status DC Naloxone HCl (Narcan) 0.1 mg PRN Q2MIN PRN IV ADMIN; Start 02/21/17 at 14:15 Sodium Chloride (Normal Saline Flush) 3 ml QSHIFT PRN IV AFTER MEDS AND BLOOD DRAWS; Start 02/21/17 at 14:15 Methocarbamol (Robaxin) 750 mg TID PO Last administered on 02/22/17 20:00; Start 02/21/17 at 21:00 Senna/Docusate Sodium (Senna Plus) 1 tab BID PO Last administered on 02/22/17 20:00; Start 02/21/17 at 21:00 Docusate Sodium (Colace) 100 mg BID PO Last administered on 02/22/17 20:00; Start 02/21/17 at 21:00 Magnesium Hydroxide (Milk Of Magnesia) 2,400 mg PRN Q12HR PRN PO CONSTIPATION; Start 02/21/17 at 14:15 Ondansetron HCl (Zofran) 4 mg PRN Q6HRS PRN IV NAUESA, 1ST CHOICE; Start at 14:15 Fentanyl Citrate (Fentanyl 2ml Vial) 50 mcg PRN Q1HR PRN IV SEVERE PAIN; Start 02/21/17 at 14:15 Fentanyl Citrate (Fentanyl 2ml Vial) 25 mcg PRN Q1HR PRN IV SEVERE PAIN; Start 02/21/17 at 14:15 Fentanyl Citrate (Fentanyl 2ml Vial) 100 mcg STK-MED ONCE .ROUTE ; Start at 14:33; Stop 02/21/17 at 14:34; Status DC Morphine Sulfate 2 mg STK-MED ONCE .ROUTE ; Start 02/21/17 at 14:33; Stop at 14:34; Status DC Morphine Sulfate 2 mg PRN Q2HR PRN IV PAIN Last administered on 02/22/17 17:13 ; Start 02/21/17 at 18:00 Piperacillin Sod/ Tazobactam Sod 3.375 gm/Sodium Chloride 50 ml @ 100 mls/hr Q6HRS IV Last administered on 02/23/17 05:24; Start 02/22/17 at 12:00 Active Scripts Active Invanz (Ertapenem Sodium) 1 Gm Vial 1 Gm IJ DAILY 14 Days Reported Hydrochlorothiazide Capsule (Hydrochlorothiazide) 12.5 Mg Capsule 25 Mg PO DAILY Percocet 10-325 Mg Tablet (Oxycodone/Acetaminophen) 1 Each Tablet 1 Tab PO TID Amlodipine Besylate 10 Mg Tablet 10 Mg PO DAILY Glipizide 5 Mg Tablet 2.5 Mg PO DAILY Gabapentin 100 Mg Capsule 100 Mg PO BID Mobic (Meloxicam) 15 Mg Tablet 1 Tab PO DAILY Lovaza ([place]-3 Acid Ethyl Esters) 1 Gm Capsule 1 Gm PO BID Ranitidine Hcl 300 Mg Capsule 300 Mg PO BID Gemfibrozil 600 Mg Tablet 600 Mg PO BID Vitals/I & O Vital Sign - Last 24 Hours 02/22/17 02/22/17 02/22/17 02/22/17 15:00 17:13 17:52 19:00 Temp 97.7 98.1 97.7 98.1 Pulse 61 58 Resp 18 18 B/P (MAP) 124/64 (84) 117/54 (75) Pulse Ox 92 96 O2 Delivery Room Air Room Air Room Air Room Air O2 Flow Rate 2.0 02/22/17 02/22/17 02/23/17 02/23/17 20:00 23:00 03:00 07:00 Temp 98.5 98.2 95.4 98.5 98.2 95.4 Pulse 65 65 64 Resp 18 18 18 B/P (MAP) 115/49 (71) 124/72 (89) 142/65 (90) Pulse Ox 96 98 97 O2 Delivery Room Air Room Air Room Air Room Air ASIF PLAZA III DO Feb 23, 2017 11:53
[2017-02-23] MEDS: hydroCHLOROthiazide 25 MG TABLET PO SCH (13:04)
[2017-02-23] MEDS: SENNOSIDES/DOCUSATE 8.6/50MG TABLET. PO SCH ×2 (13:04→20:56)
[2017-02-23] MEDS: METHOCARBAMOL 750 MG TABLET PO SCH ×3 (13:04→20:56)
[2017-02-23] MEDS: glipiZIDE 5 MG TABLET PO SCH (13:05)
[2017-02-23] MEDS: DOCUSATE SODIUM 100 MG CAPSULE. PO SCH ×2 (13:05→20:56)
[2017-02-23] MEDS: MELOXICAM 7.5 MG TABLET PO SCH (13:06)
[2017-02-23] MEDS: amLODIPine BESYLATE 10 MG TABLET PO SCH (13:08)
[2017-02-23] MEDS: AMINO AC 3%/ELECTROLYTE/GLYCER 1,000 ML IV SCH (13:12)
[2017-02-23] MEDS: GEMFIBROZIL 600 MG TABLET. PO SCH ×2 (13:12→20:56)
[2017-02-23] MEDS: GABAPENTIN 100 MG CAPSULE. PO SCH ×2 (13:12→20:57)
[2017-02-23] MEDS: HYDROcodone/APAP 5/325MG 1 TAB TABLET PO PRN (13:25)
[2017-02-23 15:00] VITALS: BP 123/55
[2017-02-23 19:45] VITALS: BP 130/58
[2017-02-23] MEDS: FAMOTIDINE 20 MG TABLET. PO SCH (20:57)
[2017-02-23 23:17] VITALS: BP 159/60
[2017-02-24] MEDS: PIPERACILLIN/TAZOBACTAM 3.375 GM in IV NORMAL SALINE 50ML 50 ML IV SCH ×2 (00:08→05:57)
[2017-02-24] MEDS: AMINO AC 3%/ELECTROLYTE/GLYCER 1,000 ML IV SCH ×2 (00:14→15:28)
[2017-02-24 03:47] VITALS: BP 133/57
[2017-02-24 06:34] LABS: CALCIUM 9.8 mg/dL (8.5-10.1); CREATININE 1.5 mg/dL (0.7-1.3); POTASSIUM 4.5 mmol/L (3.5-5.1)
[2017-02-24 07:00] VITALS: BP 132/54
[2017-02-24 07:30] LABS: BASO # 0.1 x10^3/uL (0.0-0.2); BASO % 1 % (0-3); EOS % 3 % (0-3); HEMOGLOBIN 8.9 g/dL (13.0-17.5); LYMPH # 1.4 x10^3/uL (1.0-4.8); LYMPH % 15 % (24-48); MEAN CORPUSCULAR HEMOGLOBIN 31 pg (25-35); MEAN CORPUSCULAR HGB CONC 34 g/dL (31-37); MEAN CORPUSCULAR VOLUME 90 fL (79-100); MONO % 9 % (0-9); NEUT % 73 % (31-73); PLATELET COUNT 275 x10^3/uL (140-400); RED BLOOD COUNT 2.88 x10^6/uL (4.30-5.70); RED CELL DISTRIBUTION WIDTH 13.6 % (11.5-14.5); WHITE BLOOD COUNT 9.5 x10^3/uL (4.0-11.0)
[2017-02-24] MEDS: INSULIN ASPART 300 UNITS/3 ML INSULN.PEN SQ SCH ×3 (08:00→17:00)
--- NOTE | 2017-02-24 08:56 | PDOC ---
Infectious Disease Note Subjective Subjective Known to service. Consult 02/10 reviewed and progress notes This patient is a 81-year-old male with a history of severe spinal stenosis who underwent lumbar laminectomy at L2-L3 and L3-L4 with adjacent spinal cord stimulator on 01/25/2017. He later developed drainage from the surgical site. The dressing was changed about 3 times a day. He used his spinal stimulator a few times without much relief of pain. He was started on oral Keflex outpatient on 02/06 with little improvement. He develop subjective fevers and chills. A lumbar spinal CT showed no abnormal fluid collection. Cultures positive for Enterobacter and was d/cd home on Invanz daily. At home yesterday he felt confused and weak. He lost his balance when his helped him out of bed and they both fell but no trauma. He then felt dizzy getting into his truck and eased himself to the ground holding onto the seat belt. Has had subjective chills. He presented to outpatient yesterday and I was paged and informed that he did not look well. I instructed him to be sent to ER. He has now been admitted. States his wound has been draining since last week and went to the office and saw nurse last week and had the dressign changed. Better today. Less pain. Knows he is in [place] ROS ROS GEN: Denies fevers, chills, sweats HEENT: Denies blurred vision, sore throat CV: Denies chest pain RESP: Denies shortness of air, cough GI: Denies n/v/d NEURO: Denies confusion, dizziness MSK: Denies weakness, joint pain/swelling Vital Sign Vital Signs Vital Signs Date Time Temp Pulse Resp B/P (MAP) Pulse Ox O2 Delivery O2 Flow Rate FiO2 02/24/17 07:00 98.4 64 18 132/54 (80) 96 Room Air 98.4 Physical Exam PHYSICAL EXAM GENERAL: NAD, Alert HEENT: PERRL, OC/OP- clear NECK: Supple, no JVD, no LN LUNGS: Clear HEART: S1S2, no gallop, no murmur ABD: Soft, NT, no organomegaly, no rebound Wound clean and FRANNIE in place EXT: No edema, no cyanosis HUMANITIES COORDINATOR: Alert, oriented x 3, no focal neurologic deficit SKIN: No rash IV: PICc clean Labs Lab Laboratory Tests Test 02/23/17 12:03 02/23/17 16:22 02/23/17 20:52 02/24/17 05:45 Glucose (Fingerstick) 109 mg/dL (70-99) 118 mg/dL (70-99) 148 mg/dL (70-99) White Blood Count 9.5 x10^3/uL (4.0-11.0) Red Blood Count 2.88 x10^6/uL (4.30-5.70) Hemoglobin 8.9 g/dL (13.0-17.5) Hematocrit 26.0 % (39.0-53.0) Mean Corpuscular Volume 90 fL (79-100) Mean Corpuscular Hemoglobin 31 pg (25-35) Mean Corpuscular Hemoglobin Concent 34 g/dL (31-37) Red Cell Distribution Width 13.6 % (11.5-14.5) Platelet Count 275 x10^3/uL (140-400) Neutrophils (%) (Auto) 73 % (31-73) Lymphocytes (%) (Auto) 15 % (24-48) Monocytes (%) (Auto) 9 % (0-9) Eosinophils (%) (Auto) 3 % (0-3) Basophils (%) (Auto) 1 % (0-3) Neutrophils # (Auto) 7.0 x10^3uL (1.8-7.7) Lymphocytes # (Auto) 1.4 x10^3/uL (1.0-4.8) Monocytes # (Auto) 0.8 x10^3/uL (0.0-1.1) Eosinophils # (Auto) 0.2 x10^3/uL (0.0-0.7) Basophils # (Auto) 0.1 x10^3/uL (0.0-0.2) Sodium Level 138 mmol/L (136-145) Potassium Level 4.5 mmol/L (3.5-5.1) Chloride Level 108 mmol/L (98-107) Carbon Dioxide Level 22 mmol/L (21-32) Anion Gap 8 (6-14) Blood Urea Nitrogen 34 mg/dL (8-26) Creatinine 1.5 mg/dL (0.7-1.3) Estimated GFR (Cockcroft-Gault) 45.0 Glucose Level 118 mg/dL (70-99) Calcium Level 9.8 mg/dL (8.5-10.1) Test 02/24/17 07:22 Glucose (Fingerstick) 115 mg/dL (70-99) Micro 02/21 back Enterobacter cloacae complex Heavy growth ANTIMICROBIAL SUSCEPTIBILITY Preliminary Comment S = Susceptible; I = Intermediate; R = Resistant P = Positive; N = Negative MICS are expressed in micrograms per mL Antibiotic RSLT#1 RSLT#2 RSLT#3 RSLT#4 Amoxicillin/Clavulanic Acid R Cefazolin R Cefepime R Ceftriaxone R Cefuroxime R Ciprofloxacin S Gentamicin S Imipenem R Levofloxacin S Piperacillin R Tetracycline R Tobramycin S Trimethoprim/Sulfa S 02/10 ANAEROBIC-AEROBIC CULTURE Final Final report ANAEROBIC RES 1 Final Comment No anaerobic growth in 72 hours. AEROBIC CULT Final Final report AEROBIC RES 1 Final Comment Enterobacter cloacae complex Moderate growth ANTIMICROBIAL SUSCEPTIBILITY Final Comment S = Susceptible; I = Intermediate; R = Resistant P = Positive; N = Negative MICS are expressed in micrograms per mL Antibiotic RSLT#1 RSLT#2 RSLT#3 RSLT#4 Amoxicillin/Clavulanic Acid R Cefazolin R Cefepime S Ceftriaxone S Cefuroxime R Ciprofloxacin S Ertapenem S Gentamicin S Imipenem S Levofloxacin S Piperacillin S Tetracycline S Tobramycin S Trimethoprim/Sulfa S Objective Assessment S/p I and D of back wound and removal of stimulator 02/21. Heavy growth of Enterobacter on stimulator Leukcoytosis - better Encephalopathy - better SULEIMAN - stable Recent Enterobacter 02/10 Infected post op lumbar wound. -H/o Keflex since then d/c home with Invanz Back pain. h/o spinal stenosis, s/p Lumbar laminectomy L2-3 and L3-4 with adjacent spinal cord stimulator on Jan 25 Plan Plan of Care Discont Zosyn - uncertain if effective as only Pip is checked and not Zosyn but begin Cipro po based on sensitivities. will need at least 4 weeks F/u labs and cults await N/S follow up D/w micro this am Needs isolation Previous notes reviewed CELENA BARKER MD Feb 24, 2017 08:56
[2017-02-24] MEDS: CIPROFLOXACIN HCL 250 MG TABLET. PO SCH ×2 (09:00→20:41)
[2017-02-24] MEDS ORDERED: MEROPENEM 1 GM in IV NORMAL SALINE 100ML 100 ML IV SCH (09:00)
[2017-02-24] MEDS: METHOCARBAMOL 750 MG TABLET PO SCH ×3 (09:00→20:43)
[2017-02-24] MEDS: SENNOSIDES/DOCUSATE 8.6/50MG TABLET. PO SCH ×2 (09:03→20:42)
[2017-02-24] MEDS: MELOXICAM 7.5 MG TABLET PO SCH (09:04)
[2017-02-24] MEDS: amLODIPine BESYLATE 10 MG TABLET PO SCH (09:04)
[2017-02-24] MEDS: GABAPENTIN 100 MG CAPSULE. PO SCH ×2 (09:04→20:42)
[2017-02-24] MEDS: GEMFIBROZIL 600 MG TABLET. PO SCH ×2 (09:04→20:41)
[2017-02-24] MEDS: glipiZIDE 5 MG TABLET PO SCH (09:05)
[2017-02-24] MEDS: DOCUSATE SODIUM 100 MG CAPSULE. PO SCH ×2 (09:05→20:41)
[2017-02-24] MEDS: hydroCHLOROthiazide 25 MG TABLET PO SCH (09:05)
[2017-02-24] MEDS: HYDROcodone/APAP 5/325MG 1 TAB TABLET PO PRN (09:47)
--- NOTE | 2017-02-24 10:50 | PDOC ---
SUBJECTIVE Subjective Denies acute complaints. Legs still feel good. Incisional pain appears controlled. Ambulated yesterday. OBJECTIVE Vital Signs Vital Signs Date Time Temp Pulse Resp B/P (MAP) Pulse Ox O2 Delivery O2 Flow Rate FiO2 02/24/17 09:47 Room Air 02/24/17 09:04 64 132/54 02/24/17 08:20 Room Air 02/24/17 07:00 98.4 64 18 132/54 (80) 96 Room Air 98.4 02/24/17 03:47 98.6 56 18 133/57 (82) 95 Room Air 98.6 02/23/17 23:17 98.6 70 18 159/60 (93) 97 Room Air 98.6 02/23/17 19:45 98.4 60 18 130/58 (82) 96 Room Air 98.4 02/23/17 19:30 Room Air 02/23/17 15:00 98.1 60 18 123/55 (77) 95 Room Air 98.1 02/23/17 14:35 94 Room Air 02/23/17 13:25 94 Room Air 02/23/17 13:08 60 112/62 02/23/17 11:00 98.6 60 18 112/62 (79) 94 Room Air 98.6 PHYSICAL EXAM Physical Exam AA, NAD, PEÑA 5/5, sensation intact LT, c/d/i, FRANNIE with 50mL ss (less sang than prev) ASSESSMENT/PLAN Assessment/Plan POD 3 I&D with explant of adjacent spinal cord stimulator -cultures noted, abx per ID -likely d/c FRANNIE tomorrow -continue to increase activities as able/PT Problems: COMMENT Lab Laboratory Tests Test 02/23/17 12:03 02/23/17 16:22 02/23/17 20:52 02/24/17 05:45 Glucose (Fingerstick) 109 mg/dL (70-99) 118 mg/dL (70-99) 148 mg/dL (70-99) White Blood Count 9.5 x10^3/uL (4.0-11.0) Red Blood Count 2.88 x10^6/uL (4.30-5.70) Hemoglobin 8.9 g/dL (13.0-17.5) Hematocrit 26.0 % (39.0-53.0) Mean Corpuscular Volume 90 fL (79-100) Mean Corpuscular Hemoglobin 31 pg (25-35) Mean Corpuscular Hemoglobin Concent 34 g/dL (31-37) Red Cell Distribution Width 13.6 % (11.5-14.5) Platelet Count 275 x10^3/uL (140-400) Neutrophils (%) (Auto) 73 % (31-73) Lymphocytes (%) (Auto) 15 % (24-48) Monocytes (%) (Auto) 9 % (0-9) Eosinophils (%) (Auto) 3 % (0-3) Basophils (%) (Auto) 1 % (0-3) Neutrophils # (Auto) 7.0 x10^3uL (1.8-7.7) Lymphocytes # (Auto) 1.4 x10^3/uL (1.0-4.8) Monocytes # (Auto) 0.8 x10^3/uL (0.0-1.1) Eosinophils # (Auto) 0.2 x10^3/uL (0.0-0.7) Basophils # (Auto) 0.1 x10^3/uL (0.0-0.2) Sodium Level 138 mmol/L (136-145) Potassium Level 4.5 mmol/L (3.5-5.1) Chloride Level 108 mmol/L (98-107) Carbon Dioxide Level 22 mmol/L (21-32) Anion Gap 8 (6-14) Blood Urea Nitrogen 34 mg/dL (8-26) Creatinine 1.5 mg/dL (0.7-1.3) Estimated GFR (Cockcroft-Gault) 45.0 Glucose Level 118 mg/dL (70-99) Calcium Level 9.8 mg/dL (8.5-10.1) Test 02/24/17 07:22 Glucose (Fingerstick) 115 mg/dL (70-99) PAWEL HENNESSY MD Feb 24, 2017 10:50
[2017-02-24 11:00] VITALS: BP 114/50
--- NOTE | 2017-02-24 11:39 | PDOC ---
PROGRESS NOTES Chief Complaint Chief Complaint Back wound infection and removal of adjacent spinal cord stimulator Metabolic encephalopathy History of Present Illness History of Present Illness Pt pleasantly confused. Pt laying in bed Vitals Vitals Vital Signs Date Time Temp Pulse Resp B/P (MAP) Pulse Ox O2 Delivery O2 Flow Rate FiO2 02/24/17 11:02 Room Air 02/24/17 11:00 97.9 60 18 114/50 (71) 95 97.9 Physical Exam General: No acute distress, Other (pleasantly confused) Heart: Regular rate, Normal S1, Normal S2 Lungs: Clear, Other (no acute distress noted) Abdomen: Normal bowel sounds, Soft Extremities: No clubbing, No cyanosis Skin: No rashes, No breakdown Labs LABS Laboratory Tests Test 02/23/17 12:03 02/23/17 16:22 02/23/17 20:52 02/24/17 05:45 Glucose (Fingerstick) 109 mg/dL (70-99) 118 mg/dL (70-99) 148 mg/dL (70-99) White Blood Count 9.5 x10^3/uL (4.0-11.0) Red Blood Count 2.88 x10^6/uL (4.30-5.70) Hemoglobin 8.9 g/dL (13.0-17.5) Hematocrit 26.0 % (39.0-53.0) Mean Corpuscular Volume 90 fL (79-100) Mean Corpuscular Hemoglobin 31 pg (25-35) Mean Corpuscular Hemoglobin Concent 34 g/dL (31-37) Red Cell Distribution Width 13.6 % (11.5-14.5) Platelet Count 275 x10^3/uL (140-400) Neutrophils (%) (Auto) 73 % (31-73) Lymphocytes (%) (Auto) 15 % (24-48) Monocytes (%) (Auto) 9 % (0-9) Eosinophils (%) (Auto) 3 % (0-3) Basophils (%) (Auto) 1 % (0-3) Neutrophils # (Auto) 7.0 x10^3uL (1.8-7.7) Lymphocytes # (Auto) 1.4 x10^3/uL (1.0-4.8) Monocytes # (Auto) 0.8 x10^3/uL (0.0-1.1) Eosinophils # (Auto) 0.2 x10^3/uL (0.0-0.7) Basophils # (Auto) 0.1 x10^3/uL (0.0-0.2) Sodium Level 138 mmol/L (136-145) Potassium Level 4.5 mmol/L (3.5-5.1) Chloride Level 108 mmol/L (98-107) Carbon Dioxide Level 22 mmol/L (21-32) Anion Gap 8 (6-14) Blood Urea Nitrogen 34 mg/dL (8-26) Creatinine 1.5 mg/dL (0.7-1.3) Estimated GFR (Cockcroft-Gault) 45.0 Glucose Level 118 mg/dL (70-99) Calcium Level 9.8 mg/dL (8.5-10.1) Test 02/24/17 07:22 02/24/17 10:44 Glucose (Fingerstick) 115 mg/dL (70-99) 126 mg/dL (70-99) Review of Systems Review of Systems Fatigued pleasantly confused Assessment and Plan Assessmemt and Plan Post Op Day #3 Exploration of lumbar wound with irrigation and debridement of lumbar wound and removal of adjacent spinal cord stimulator, leads, connections and intermittent pulse generator. -Metabolic encephalopathy -Lumbar wound infection Plan Continue IV antibx PTOT Wound detention meds Labs AM Discussed current tx plan w/ neurosurgery Probable d/c to [facility] tomorrow if stable Problems: Comment Review of Relevant I have reviewed the following items litzy (where applicable) has been applied. Labs Laboratory Tests Test 02/22/17 12:20 02/22/17 12:44 02/22/17 16:23 02/22/17 21:03 Glucose (Fingerstick) 66 mg/dL (70-99) 98 mg/dL (70-99) 110 mg/dL (70-99) 131 mg/dL (70-99) Test 02/23/17 06:50 02/23/17 08:06 02/23/17 12:03 02/23/17 16:22 White Blood Count 10.0 x10^3/uL (4.0-11.0) Red Blood Count 2.96 x10^6/uL (4.30-5.70) Hemoglobin 9.2 g/dL (13.0-17.5) Hematocrit 26.6 % (39.0-53.0) Mean Corpuscular Volume 90 fL (79-100) Mean Corpuscular Hemoglobin 31 pg (25-35) Mean Corpuscular Hemoglobin Concent 35 g/dL (31-37) Red Cell Distribution Width 14.0 % (11.5-14.5) Platelet Count 289 x10^3/uL (140-400) Neutrophils (%) (Auto) 71 % (31-73) Lymphocytes (%) (Auto) 16 % (24-48) Monocytes (%) (Auto) 10 % (0-9) Eosinophils (%) (Auto) 3 % (0-3) Basophils (%) (Auto) 1 % (0-3) Neutrophils # (Auto) 7.1 x10^3uL (1.8-7.7) Lymphocytes # (Auto) 1.6 x10^3/uL (1.0-4.8) Monocytes # (Auto) 1.0 x10^3/uL (0.0-1.1) Eosinophils # (Auto) 0.3 x10^3/uL (0.0-0.7) Basophils # (Auto) 0.1 x10^3/uL (0.0-0.2) Sodium Level 140 mmol/L (136-145) Potassium Level 4.4 mmol/L (3.5-5.1) Chloride Level 108 mmol/L (98-107) Carbon Dioxide Level 22 mmol/L (21-32) Anion Gap 10 (6-14) Blood Urea Nitrogen 35 mg/dL (8-26) Creatinine 1.4 mg/dL (0.7-1.3) Estimated GFR (Cockcroft-Gault) 48.8 Glucose Level 104 mg/dL (70-99) Calcium Level 10.0 mg/dL (8.5-10.1) Glucose (Fingerstick) 103 mg/dL (70-99) 109 mg/dL (70-99) 118 mg/dL (70-99) Test 02/23/17 20:52 02/24/17 05:45 02/24/17 07:22 02/24/17 10:44 Glucose (Fingerstick) 148 mg/dL (70-99) 115 mg/dL (70-99) 126 mg/dL (70-99) White Blood Count 9.5 x10^3/uL (4.0-11.0) Red Blood Count 2.88 x10^6/uL (4.30-5.70) Hemoglobin 8.9 g/dL (13.0-17.5) Hematocrit 26.0 % (39.0-53.0) Mean Corpuscular Volume 90 fL (79-100) Mean Corpuscular Hemoglobin 31 pg (25-35) Mean Corpuscular Hemoglobin Concent 34 g/dL (31-37) Red Cell Distribution Width 13.6 % (11.5-14.5) Platelet Count 275 x10^3/uL (140-400) Neutrophils (%) (Auto) 73 % (31-73) Lymphocytes (%) (Auto) 15 % (24-48) Monocytes (%) (Auto) 9 % (0-9) Eosinophils (%) (Auto) 3 % (0-3) Basophils (%) (Auto) 1 % (0-3) Neutrophils # (Auto) 7.0 x10^3uL (1.8-7.7) Lymphocytes # (Auto) 1.4 x10^3/uL (1.0-4.8) Monocytes # (Auto) 0.8 x10^3/uL (0.0-1.1) Eosinophils # (Auto) 0.2 x10^3/uL (0.0-0.7) Basophils # (Auto) 0.1 x10^3/uL (0.0-0.2) Sodium Level 138 mmol/L (136-145) Potassium Level 4.5 mmol/L (3.5-5.1) Chloride Level 108 mmol/L (98-107) Carbon Dioxide Level 22 mmol/L (21-32) Anion Gap 8 (6-14) Blood Urea Nitrogen 34 mg/dL (8-26) Creatinine 1.5 mg/dL (0.7-1.3) Estimated GFR (Cockcroft-Gault) 45.0 Glucose Level 118 mg/dL (70-99) Calcium Level 9.8 mg/dL (8.5-10.1) Laboratory Tests Test 02/23/17 12:03 02/23/17 16:22 02/23/17 20:52 02/24/17 05:45 Glucose (Fingerstick) 109 mg/dL (70-99) 118 mg/dL (70-99) 148 mg/dL (70-99) White Blood Count 9.5 x10^3/uL (4.0-11.0) Red Blood Count 2.88 x10^6/uL (4.30-5.70) Hemoglobin 8.9 g/dL (13.0-17.5) Hematocrit 26.0 % (39.0-53.0) Mean Corpuscular Volume 90 fL (79-100) Mean Corpuscular Hemoglobin 31 pg (25-35) Mean Corpuscular Hemoglobin Concent 34 g/dL (31-37) Red Cell Distribution Width 13.6 % (11.5-14.5) Platelet Count 275 x10^3/uL (140-400) Neutrophils (%) (Auto) 73 % (31-73) Lymphocytes (%) (Auto) 15 % (24-48) Monocytes (%) (Auto) 9 % (0-9) Eosinophils (%) (Auto) 3 % (0-3) Basophils (%) (Auto) 1 % (0-3) Neutrophils # (Auto) 7.0 x10^3uL (1.8-7.7) Lymphocytes # (Auto) 1.4 x10^3/uL (1.0-4.8) Monocytes # (Auto) 0.8 x10^3/uL (0.0-1.1) Eosinophils # (Auto) 0.2 x10^3/uL (0.0-0.7) Basophils # (Auto) 0.1 x10^3/uL (0.0-0.2) Sodium Level 138 mmol/L (136-145) Potassium Level 4.5 mmol/L (3.5-5.1) Chloride Level 108 mmol/L (98-107) Carbon Dioxide Level 22 mmol/L (21-32) Anion Gap 8 (6-14) Blood Urea Nitrogen 34 mg/dL (8-26) Creatinine 1.5 mg/dL (0.7-1.3) Estimated GFR (Cockcroft-Gault) 45.0 Glucose Level 118 mg/dL (70-99) Calcium Level 9.8 mg/dL (8.5-10.1) Test 02/24/17 07:22 02/24/17 10:44 Glucose (Fingerstick) 115 mg/dL (70-99) 126 mg/dL (70-99) Microbiology 02/20/17 Blood Culture - Preliminary, Resulted NO GROWTH AFTER 3 DAYS 02/20/17 Urine Culture - Final, Complete 02/20/17 Urine Culture Result 1 (FELI) - Final, Complete 02/21/17 Gram Stain - Final, Complete Medications Current Medications Fentanyl Citrate (Fentanyl 2ml Vial) 50 mcg PRN Q2HR PRN IV PAIN; Start at 13:30; Stop 02/21/17 at 13:29; Status DC Ondansetron HCl (Zofran) 4 mg PRN Q6HRS PRN IV NAUSEA/VOMITING; Start 02/21/17 at 07:00; Stop 02/21/17 at 19:00; Status DC Fentanyl Citrate (Fentanyl 2ml Vial) 25 mcg PRN Q5MIN PRN IV MILD PAIN; Start 02/21/17 at 07:00; Stop 02/21/17 at 19:00; Status DC Fentanyl Citrate (Fentanyl 2ml Vial) 50 mcg PRN Q5MIN PRN IV MODERATE PAIN Last administered on 02/21/17 14:25; Start 02/21/17 at 07:00; Stop 02/21/17 at 19:00; Status DC Morphine Sulfate 1 mg PRN Q10MIN PRN IV SEVERE PAIN; Start 02/21/17 at 07:00; Stop 02/21/17 at 19:00; Status DC Ringer's Solution 1,000 ml @ 30 mls/hr Q24H IV Last administered on 02/21/17 11:38; Start 02/21/17 at 07:00; Stop 02/21/17 at 18:59; Status DC Lidocaine HCl 2 ml PRN 1X PRN ID PRIOR TO IV START; Start 02/21/17 at 07:00; Stop 02/21/17 at 19:00; Status DC Hydromorphone HCl (Dilaudid) 0.5 mg PRN Q10MIN PRN IV SEV PAIN, Second choice; Start 02/21/17 at 07:00; Stop 02/21/17 at 19:00; Status DC Prochlorperazine Edisylate (Compazine) 5 mg PACU PRN PRN IV NAUSEA, MRX1 Last administered on 02/21/17 14:16; Start 02/21/17 at 07:00; Stop 02/21/17 at 19:00 ; Status DC Amlodipine Besylate (Norvasc) 10 mg DAILY PO Last administered on 02/24/17 09: 04; Start 02/21/17 at 09:00 Gabapentin (Neurontin) 100 mg BID PO Last administered on 02/24/17 09:04; Start 02/20/17 at 21:00 Gemfibrozil (Lopid) 600 mg BID PO Last administered on 02/24/17 09:04; Start 02/20/17 at 21:00 Glipizide (Glucotrol) 2.5 mg DAILY PO Last administered on 02/24/17 09:05; Start 02/21/17 at 09:00 Hydrochlorothiazide (Hydrodiuril) 25 mg DAILY PO Last administered on 09:05; Start 02/21/17 at 09:00 Oxycodone/ Acetaminophen (Percocet 10/325) 1 tab TID PO ; Start 02/20/17 at 21: 00; Stop 02/20/17 at 21:00; Status DC Meloxicam (Mobic) 15 mg DAILY PO Last administered on 02/24/17 09:04; Start at 09:00 Famotidine (Pepcid) 20 mg HS PO Last administered on 02/23/17 20:57; Start 04/28 at 21:00 Acetaminophen/ Hydrocodone Bitart (Lortab 5/325) 1 tab PRN Q4HRS PRN PO PAIN Last administered on 02/24/17 09:47; Start 02/20/17 at 16:30 Insulin Aspart (NovoLOG) 0-5 UNITS TIDWMEALS SQ ; Start 02/20/17 at 17:00 Dextrose (Dextrose 50%-Water Syringe) 12.5 gm PRN Q15MIN PRN IV SEE COMMENTS; Start 02/20/17 at 16:30 Amino Acids/ Glycerin/ Electrolytes 1,000 ml @ 75 mls/hr [id number] IV Last administered on 02/24/17 00:14; Start 02/20/17 at 17:00 Oxycodone/ Acetaminophen (Percocet 10/325) 1 tab PRN Q4HRS PRN PO Severe pain Last administered on 02/22/17 23:52; Start 02/20/17 at 21:00 Piperacillin Sod/ Tazobactam Sod 2.25 gm/Sodium Chloride 50 ml @ 100 mls/hr Q6HRS IV Last administered on 02/22/17 05:11; Start 02/20/17 at 18:00; Stop at 08:49; Status DC Daptomycin 530 mg/ Sodium Chloride 50 ml @ 100 mls/hr Q24H IV Last administered on 02/22/17 17:13; Start 02/20/17 at 18:00; Stop 02/23/17 at 09:11 ; Status DC Bacitracin [id number] unit/Sodium Chloride 1,000 ml @ 1,000 mls/hr 1X PERIOP ONCE IRR Last administered on 02/21/17 12:35; Start 02/21/17 at 07:38; Stop at 08:37; Status DC Lidocaine/ Epinephrine (Xylocaine 1%-Epi 1:100,000) 20 ml STK-MED ONCE .ROUTE ; Start 02/21/17 at 07:40; Stop 02/21/17 at 07:41; Status DC Bupivacaine HCl (Marcaine 0.5%) 50 ml STK-MED ONCE .ROUTE ; Start 02/21/17 at 07 :40; Stop 02/21/17 at 07:41; Status DC Gelatin (Gelfoam Size 100) 1 each STK-MED ONCE .ROUTE ; Start 02/21/17 at 07:41 ; Stop 02/21/17 at 07:42; Status DC Thrombin 20,000 unit STK-MED ONCE TP ; Start 02/21/17 at 07:41; Stop 02/21/17 at 07:42; Status DC Prochlorperazine Edisylate (Compazine) 10 mg STK-MED ONCE .ROUTE ; Start at 13:41; Stop 02/21/17 at 13:42; Status DC Fentanyl Citrate (Fentanyl 2ml Vial) 100 mcg STK-MED ONCE .ROUTE ; Start at 13:42; Stop 02/21/17 at 13:43; Status DC Acetaminophen (Tylenol) 650 mg PRN Q6HRS PRN PO MILD PAIN / TEMP; Start at 14:15 Al Hydroxide/Mg Hydroxide (Mylanta Plus Xs) 30 ml PRN Q3HRS PRN PO HEARTBURN / GAS Last administered on 02/23/17 13:52; Start 02/21/17 at 14:15 Calcium Carbonate/ Glycine (Tums) 500 mg PRN Q3HRS PRN PO INDIGESTION Last administered on 02/23/17 13:52; Start 02/21/17 at 14:15 Diphenhydramine HCl (Benadryl) 25 mg PRN Q6HRS PRN PO ITCHING; Start 02/21/17 at 14:15; Stop 02/23/17 at 09:12; Status DC Diphenhydramine HCl (Benadryl) 25 mg PRN Q6HRS PRN IV ITCHING; Start 02/21/17 at 14:15; Stop 02/23/17 at 09:12; Status DC Naloxone HCl (Narcan) 0.1 mg PRN Q2MIN PRN IV ADMIN; Start 02/21/17 at 14:15 Sodium Chloride (Normal Saline Flush) 3 ml QSHIFT PRN IV AFTER MEDS AND BLOOD DRAWS; Start 02/21/17 at 14:15 Methocarbamol (Robaxin) 750 mg TID PO Last administered on 02/23/17 20:56; Start 02/21/17 at 21:00 Senna/Docusate Sodium (Senna Plus) 1 tab BID PO Last administered on 02/24/17 09:03; Start 02/21/17 at 21:00 Docusate Sodium (Colace) 100 mg BID PO Last administered on 02/24/17 09:05; Start 02/21/17 at 21:00 Magnesium Hydroxide (Milk Of Magnesia) 2,400 mg PRN Q12HR PRN PO CONSTIPATION; Start 02/21/17 at 14:15 Ondansetron HCl (Zofran) 4 mg PRN Q6HRS PRN IV NAUESA, 1ST CHOICE; Start at 14:15 Fentanyl Citrate (Fentanyl 2ml Vial) 50 mcg PRN Q1HR PRN IV SEVERE PAIN; Start 02/21/17 at 14:15 Fentanyl Citrate (Fentanyl 2ml Vial) 25 mcg PRN Q1HR PRN IV SEVERE PAIN; Start 02/21/17 at 14:15 Fentanyl Citrate (Fentanyl 2ml Vial) 100 mcg STK-MED ONCE .ROUTE ; Start at 14:33; Stop 02/21/17 at 14:34; Status DC Morphine Sulfate 2 mg STK-MED ONCE .ROUTE ; Start 02/21/17 at 14:33; Stop at 14:34; Status DC Morphine Sulfate 2 mg PRN Q2HR PRN IV PAIN Last administered on 02/22/17 17:13 ; Start 02/21/17 at 18:00 Piperacillin Sod/ Tazobactam Sod 3.375 gm/Sodium Chloride 50 ml @ 100 mls/hr Q6HRS IV Last administered on 02/24/17 05:57; Start 02/22/17 at 12:00; Stop at 08:20; Status DC Meropenem 1 gm/ Sodium Chloride 100 ml @ 200 mls/hr Q12HR IV ; Start 02/24/17 at 09:00; Stop 02/24/17 at 09:00; Status Cancel Ciprofloxacin (Cipro) 500 mg BID PO Last administered on 02/24/17 09:00; Start 02/24/17 at 09:00 Active Scripts Active Invanz (Ertapenem Sodium) 1 Gm Vial 1 Gm IJ DAILY 14 Days Reported Hydrochlorothiazide Capsule (Hydrochlorothiazide) 12.5 Mg Capsule 25 Mg PO DAILY Percocet 10-325 Mg Tablet (Oxycodone/Acetaminophen) 1 Each Tablet 1 Tab PO TID Amlodipine Besylate 10 Mg Tablet 10 Mg PO DAILY Glipizide 5 Mg Tablet 2.5 Mg PO DAILY Gabapentin 100 Mg Capsule 100 Mg PO BID Mobic (Meloxicam) 15 Mg Tablet 1 Tab PO DAILY Lovaza ([place]-3 Acid Ethyl Esters) 1 Gm Capsule 1 Gm PO BID Ranitidine Hcl 300 Mg Capsule 300 Mg PO BID Gemfibrozil 600 Mg Tablet 600 Mg PO BID Vitals/I & O Vital Sign - Last 24 Hours 02/23/17 02/23/17 02/23/17 02/23/17 13:08 13:25 14:35 15:00 Temp 98.1 98.1 Pulse 60 60 Resp 18 B/P (MAP) 112/62 123/55 (77) Pulse Ox 94 94 95 O2 Delivery Room Air Room Air 9/14/02/23/17 02/23/17 02/24/17 19:30 19:45 23:17 03:47 Temp 98.4 98.6 98.6 98.4 98.6 98.6 Pulse 60 70 56 Resp 18 18 18 B/P (MAP) 130/58 (82) 159/60 (93) 133/57 (82) Pulse Ox 96 97 95 O2 Delivery Room Air Room Air Room Air Room Air 02/24/17 02/24/17 02/24/17 02/24/17 07:00 08:20 09:04 09:47 Temp 98.4 98.4 Pulse 64 64 Resp 18 B/P (MAP) 132/54 (80) 132/54 Pulse Ox 96 O2 Delivery Room Air Room Air Room Air 02/24/17 02/24/17 11:00 11:02 Temp 97.9 97.9 Pulse 60 Resp 18 B/P (MAP) 114/50 (71) Pulse Ox 95 O2 Delivery Room Air Room Air ASIF PLAZA III DO Feb 24, 2017 11:39
[2017-02-24 15:00] VITALS: BP 118/50
[2017-02-24 19:00] VITALS: BP 135/56
[2017-02-24] MEDS: FAMOTIDINE 20 MG TABLET. PO SCH (20:42)
[2017-02-24 23:00] VITALS: BP 147/69
[2017-02-25] MEDS: HYDROcodone/APAP 5/325MG 1 TAB TABLET PO PRN ×3 (02:00→22:36)
[2017-02-25 03:16] VITALS: BP 112/53
[2017-02-25 06:11] LABS: BASO # 0.1 x10^3/uL (0.0-0.2); BASO % 1 % (0-3); EOS % 3 % (0-3); HEMATOCRIT 27.3 % (39.0-53.0); HEMOGLOBIN 9.5 g/dL (13.0-17.5); LYMPH # 1.8 x10^3/uL (1.0-4.8); LYMPH % 20 % (24-48); MEAN CORPUSCULAR HEMOGLOBIN 31 pg (25-35); MEAN CORPUSCULAR HGB CONC 35 g/dL (31-37); MEAN CORPUSCULAR VOLUME 89 fL (79-100); MONO % 8 % (0-9); NEUT % 68 % (31-73); PLATELET COUNT 298 x10^3/uL (140-400); RED BLOOD COUNT 3.07 x10^6/uL (4.30-5.70); RED CELL DISTRIBUTION WIDTH 13.7 % (11.5-14.5); WHITE BLOOD COUNT 8.9 x10^3/uL (4.0-11.0)
[2017-02-25 06:37] LABS: CREATININE 1.6 mg/dL (0.7-1.3); GFR 41.8; POTASSIUM 4.7 mmol/L (3.5-5.1)
[2017-02-25 07:00] VITALS: BP 123/56
[2017-02-25] MEDS: INSULIN ASPART 300 UNITS/3 ML INSULN.PEN SQ SCH ×3 (08:00→16:21)
[2017-02-25] MEDS: GEMFIBROZIL 600 MG TABLET. PO SCH ×2 (08:45→20:18)
[2017-02-25] MEDS: MELOXICAM 7.5 MG TABLET PO SCH (08:45)
[2017-02-25] MEDS: CIPROFLOXACIN HCL 250 MG TABLET. PO SCH ×2 (08:45→20:18)
[2017-02-25] MEDS: METHOCARBAMOL 750 MG TABLET PO SCH ×3 (08:46→20:17)
[2017-02-25] MEDS: amLODIPine BESYLATE 10 MG TABLET PO SCH (08:46)
[2017-02-25] MEDS: glipiZIDE 5 MG TABLET PO SCH (08:46)
[2017-02-25] MEDS: GABAPENTIN 100 MG CAPSULE. PO SCH ×2 (08:46→20:18)
[2017-02-25] MEDS: hydroCHLOROthiazide 25 MG TABLET PO SCH (08:46)
[2017-02-25] MEDS: SENNOSIDES/DOCUSATE 8.6/50MG TABLET. PO SCH ×2 (09:00→20:19)
[2017-02-25] MEDS: DOCUSATE SODIUM 100 MG CAPSULE. PO SCH ×4 (09:00→21:00)
[2017-02-25 11:00] VITALS: BP 123/64
--- NOTE | 2017-02-25 11:34 | PDOC ---
SUBJECTIVE Subjective Reports some knee pain. Denies acute changes. OBJECTIVE Vital Signs Vital Signs Date Time Temp Pulse Resp B/P (MAP) Pulse Ox O2 Delivery O2 Flow Rate FiO2 02/25/17 08:46 60 123/56 02/25/17 07:50 Room Air 02/25/17 07:00 97.9 60 16 123/56 (78) 95 Room Air 97.9 02/25/17 03:16 98.6 60 24 112/53 (72) 95 Room Air 98.6 02/25/17 03:05 95 Room Air 02/25/17 02:00 95 Room Air 02/24/17 23:00 98.8 80 24 147/69 (95) 95 Room Air 98.8 02/24/17 19:30 Room Air 02/24/17 19:00 97.5 60 20 135/56 (82) 92 Room Air 97.5 02/24/17 15:00 98.1 60 18 118/50 (72) 96 Room Air 98.1 PHYSICAL EXAM Physical Exam AA, NAD, FRANNIE intact 60mL more serous, PEÑA 5/5, incisions c/d/i, flat with pauline ASSESSMENT/PLAN Assessment/Plan POD 4 I&D with stimulator removal -neurologically stable, appears to be recovering well thus far -d/c FRANNIE -continue to increase activities with standard post-op precautions/ambulation/PT -abx per ID -may d/c to appropriate venue from NS standpoint, when otherwise meets criteria/ clear to do so by all other services -will need f/u with [facility] approx 2 weeks for staple removal [phone] Problems: COMMENT Lab Laboratory Tests Test 02/24/17 16:23 02/24/17 21:10 02/25/17 05:45 02/25/17 07:34 Glucose (Fingerstick) 109 mg/dL (70-99) 135 mg/dL (70-99) 104 mg/dL (70-99) White Blood Count 8.9 x10^3/uL (4.0-11.0) Red Blood Count 3.07 x10^6/uL (4.30-5.70) Hemoglobin 9.5 g/dL (13.0-17.5) Hematocrit 27.3 % (39.0-53.0) Mean Corpuscular Volume 89 fL (79-100) Mean Corpuscular Hemoglobin 31 pg (25-35) Mean Corpuscular Hemoglobin Concent 35 g/dL (31-37) Red Cell Distribution Width 13.7 % (11.5-14.5) Platelet Count 298 x10^3/uL (140-400) Neutrophils (%) (Auto) 68 % (31-73) Lymphocytes (%) (Auto) 20 % (24-48) Monocytes (%) (Auto) 8 % (0-9) Eosinophils (%) (Auto) 3 % (0-3) Basophils (%) (Auto) 1 % (0-3) Neutrophils # (Auto) 6.1 x10^3uL (1.8-7.7) Lymphocytes # (Auto) 1.8 x10^3/uL (1.0-4.8) Monocytes # (Auto) 0.7 x10^3/uL (0.0-1.1) Eosinophils # (Auto) 0.2 x10^3/uL (0.0-0.7) Basophils # (Auto) 0.1 x10^3/uL (0.0-0.2) Sodium Level 140 mmol/L (136-145) Potassium Level 4.7 mmol/L (3.5-5.1) Chloride Level 108 mmol/L (98-107) Carbon Dioxide Level 22 mmol/L (21-32) Anion Gap 10 (6-14) Blood Urea Nitrogen 37 mg/dL (8-26) Creatinine 1.6 mg/dL (0.7-1.3) Estimated GFR (Cockcroft-Gault) 41.8 Glucose Level 103 mg/dL (70-99) Calcium Level 10.0 mg/dL (8.5-10.1) Test 02/25/17 10:51 Glucose (Fingerstick) 156 mg/dL (70-99) PAWEL HENNESSY MD Feb 25, 2017 11:34
--- NOTE | 2017-02-25 11:46 | PDOC ---
PROGRESS NOTES Chief Complaint Chief Complaint Back wound infection and removal of adjacent spinal cord stimulator Metabolic encephalopathy History of Present Illness History of Present Illness No acute overnight events. Pt pleasantly confused and laying in bed w/NAD. Spoke w/Dr. Locke today and agreed on DC to SNU today. Vitals Vitals Vital Signs Date Time Temp Pulse Resp B/P (MAP) Pulse Ox O2 Delivery O2 Flow Rate FiO2 02/25/17 08:46 60 123/56 02/25/17 07:50 Room Air 02/25/17 07:00 97.9 16 95 97.9 Physical Exam General: No acute distress, Other (pleasantly confused) Heart: Regular rate, Normal S1, Normal S2 Lungs: Clear, Other (no acute distress noted) Abdomen: Normal bowel sounds, Soft Extremities: No clubbing, No cyanosis Skin: No rashes, No breakdown Labs LABS Laboratory Tests Test 02/24/17 16:23 02/24/17 21:10 02/25/17 05:45 02/25/17 07:34 Glucose (Fingerstick) 109 mg/dL (70-99) 135 mg/dL (70-99) 104 mg/dL (70-99) White Blood Count 8.9 x10^3/uL (4.0-11.0) Red Blood Count 3.07 x10^6/uL (4.30-5.70) Hemoglobin 9.5 g/dL (13.0-17.5) Hematocrit 27.3 % (39.0-53.0) Mean Corpuscular Volume 89 fL (79-100) Mean Corpuscular Hemoglobin 31 pg (25-35) Mean Corpuscular Hemoglobin Concent 35 g/dL (31-37) Red Cell Distribution Width 13.7 % (11.5-14.5) Platelet Count 298 x10^3/uL (140-400) Neutrophils (%) (Auto) 68 % (31-73) Lymphocytes (%) (Auto) 20 % (24-48) Monocytes (%) (Auto) 8 % (0-9) Eosinophils (%) (Auto) 3 % (0-3) Basophils (%) (Auto) 1 % (0-3) Neutrophils # (Auto) 6.1 x10^3uL (1.8-7.7) Lymphocytes # (Auto) 1.8 x10^3/uL (1.0-4.8) Monocytes # (Auto) 0.7 x10^3/uL (0.0-1.1) Eosinophils # (Auto) 0.2 x10^3/uL (0.0-0.7) Basophils # (Auto) 0.1 x10^3/uL (0.0-0.2) Sodium Level 140 mmol/L (136-145) Potassium Level 4.7 mmol/L (3.5-5.1) Chloride Level 108 mmol/L (98-107) Carbon Dioxide Level 22 mmol/L (21-32) Anion Gap 10 (6-14) Blood Urea Nitrogen 37 mg/dL (8-26) Creatinine 1.6 mg/dL (0.7-1.3) Estimated GFR (Cockcroft-Gault) 41.8 Glucose Level 103 mg/dL (70-99) Calcium Level 10.0 mg/dL (8.5-10.1) Test 02/25/17 10:51 Glucose (Fingerstick) 156 mg/dL (70-99) Review of Systems Review of Systems Pt complains of back pain Acute issues resolving Assessment and Plan Assessmemt and Plan Problems Medical Problems: (1) Infection Status: Acute Post Op Day #4 Exploration of lumbar wound with irrigation and debridement of lumbar wound and removal of adjacent spinal cord stimulator, leads, connections and intermittent pulse generator. -Metabolic encephalopathy -Lumbar wound infection Moderate malnutrition POA: Albumin 2.9 Plan Continue IV antibx PTOT [facility] meds Labs AM Discussed current tx plan w/ neurosurgery Dispo: D/c to SNU today Problems: Comment Review of Relevant I have reviewed the following items litzy (where applicable) has been applied. Labs Laboratory Tests Test 02/23/17 12:03 02/23/17 16:22 02/23/17 20:52 02/24/17 05:45 Glucose (Fingerstick) 109 mg/dL (70-99) 118 mg/dL (70-99) 148 mg/dL (70-99) White Blood Count 9.5 x10^3/uL (4.0-11.0) Red Blood Count 2.88 x10^6/uL (4.30-5.70) Hemoglobin 8.9 g/dL (13.0-17.5) Hematocrit 26.0 % (39.0-53.0) Mean Corpuscular Volume 90 fL (79-100) Mean Corpuscular Hemoglobin 31 pg (25-35) Mean Corpuscular Hemoglobin Concent 34 g/dL (31-37) Red Cell Distribution Width 13.6 % (11.5-14.5) Platelet Count 275 x10^3/uL (140-400) Neutrophils (%) (Auto) 73 % (31-73) Lymphocytes (%) (Auto) 15 % (24-48) Monocytes (%) (Auto) 9 % (0-9) Eosinophils (%) (Auto) 3 % (0-3) Basophils (%) (Auto) 1 % (0-3) Neutrophils # (Auto) 7.0 x10^3uL (1.8-7.7) Lymphocytes # (Auto) 1.4 x10^3/uL (1.0-4.8) Monocytes # (Auto) 0.8 x10^3/uL (0.0-1.1) Eosinophils # (Auto) 0.2 x10^3/uL (0.0-0.7) Basophils # (Auto) 0.1 x10^3/uL (0.0-0.2) Sodium Level 138 mmol/L (136-145) Potassium Level 4.5 mmol/L (3.5-5.1) Chloride Level 108 mmol/L (98-107) Carbon Dioxide Level 22 mmol/L (21-32) Anion Gap 8 (6-14) Blood Urea Nitrogen 34 mg/dL (8-26) Creatinine 1.5 mg/dL (0.7-1.3) Estimated GFR (Cockcroft-Gault) 45.0 Glucose Level 118 mg/dL (70-99) Calcium Level 9.8 mg/dL (8.5-10.1) Test 02/24/17 07:22 02/24/17 10:44 02/24/17 16:23 02/24/17 21:10 Glucose (Fingerstick) 115 mg/dL (70-99) 126 mg/dL (70-99) 109 mg/dL (70-99) 135 mg/dL (70-99) Test 02/25/17 05:45 02/25/17 07:34 02/25/17 10:51 White Blood Count 8.9 x10^3/uL (4.0-11.0) Red Blood Count 3.07 x10^6/uL (4.30-5.70) Hemoglobin 9.5 g/dL (13.0-17.5) Hematocrit 27.3 % (39.0-53.0) Mean Corpuscular Volume 89 fL (79-100) Mean Corpuscular Hemoglobin 31 pg (25-35) Mean Corpuscular Hemoglobin Concent 35 g/dL (31-37) Red Cell Distribution Width 13.7 % (11.5-14.5) Platelet Count 298 x10^3/uL (140-400) Neutrophils (%) (Auto) 68 % (31-73) Lymphocytes (%) (Auto) 20 % (24-48) Monocytes (%) (Auto) 8 % (0-9) Eosinophils (%) (Auto) 3 % (0-3) Basophils (%) (Auto) 1 % (0-3) Neutrophils # (Auto) 6.1 x10^3uL (1.8-7.7) Lymphocytes # (Auto) 1.8 x10^3/uL (1.0-4.8) Monocytes # (Auto) 0.7 x10^3/uL (0.0-1.1) Eosinophils # (Auto) 0.2 x10^3/uL (0.0-0.7) Basophils # (Auto) 0.1 x10^3/uL (0.0-0.2) Sodium Level 140 mmol/L (136-145) Potassium Level 4.7 mmol/L (3.5-5.1) Chloride Level 108 mmol/L (98-107) Carbon Dioxide Level 22 mmol/L (21-32) Anion Gap 10 (6-14) Blood Urea Nitrogen 37 mg/dL (8-26) Creatinine 1.6 mg/dL (0.7-1.3) Estimated GFR (Cockcroft-Gault) 41.8 Glucose Level 103 mg/dL (70-99) Calcium Level 10.0 mg/dL (8.5-10.1) Glucose (Fingerstick) 104 mg/dL (70-99) 156 mg/dL (70-99) Laboratory Tests Test 02/24/17 16:23 02/24/17 21:10 02/25/17 05:45 02/25/17 07:34 Glucose (Fingerstick) 109 mg/dL (70-99) 135 mg/dL (70-99) 104 mg/dL (70-99) White Blood Count 8.9 x10^3/uL (4.0-11.0) Red Blood Count 3.07 x10^6/uL (4.30-5.70) Hemoglobin 9.5 g/dL (13.0-17.5) Hematocrit 27.3 % (39.0-53.0) Mean Corpuscular Volume 89 fL (79-100) Mean Corpuscular Hemoglobin 31 pg (25-35) Mean Corpuscular Hemoglobin Concent 35 g/dL (31-37) Red Cell Distribution Width 13.7 % (11.5-14.5) Platelet Count 298 x10^3/uL (140-400) Neutrophils (%) (Auto) 68 % (31-73) Lymphocytes (%) (Auto) 20 % (24-48) Monocytes (%) (Auto) 8 % (0-9) Eosinophils (%) (Auto) 3 % (0-3) Basophils (%) (Auto) 1 % (0-3) Neutrophils # (Auto) 6.1 x10^3uL (1.8-7.7) Lymphocytes # (Auto) 1.8 x10^3/uL (1.0-4.8) Monocytes # (Auto) 0.7 x10^3/uL (0.0-1.1) Eosinophils # (Auto) 0.2 x10^3/uL (0.0-0.7) Basophils # (Auto) 0.1 x10^3/uL (0.0-0.2) Sodium Level 140 mmol/L (136-145) Potassium Level 4.7 mmol/L (3.5-5.1) Chloride Level 108 mmol/L (98-107) Carbon Dioxide Level 22 mmol/L (21-32) Anion Gap 10 (6-14) Blood Urea Nitrogen 37 mg/dL (8-26) Creatinine 1.6 mg/dL (0.7-1.3) Estimated GFR (Cockcroft-Gault) 41.8 Glucose Level 103 mg/dL (70-99) Calcium Level 10.0 mg/dL (8.5-10.1) Test 9/16/17 10:51 Glucose (Fingerstick) 156 mg/dL (70-99) Microbiology 02/20/17 Blood Culture - Preliminary, Resulted NO GROWTH AFTER 4 DAYS 02/20/17 Urine Culture - Final, Complete 02/20/17 Urine Culture Result 1 (FELI) - Final, Complete 02/21/17 Gram Stain - Final, Complete Medications Current Medications Fentanyl Citrate (Fentanyl 2ml Vial) 50 mcg PRN Q2HR PRN IV PAIN; Start at 13:30; Stop 02/21/17 at 13:29; Status DC Ondansetron HCl (Zofran) 4 mg PRN Q6HRS PRN IV NAUSEA/VOMITING; Start 02/21/17 at 07:00; Stop 02/21/17 at 19:00; Status DC Fentanyl Citrate (Fentanyl 2ml Vial) 25 mcg PRN Q5MIN PRN IV MILD PAIN; Start 02/21/17 at 07:00; Stop 02/21/17 at 19:00; Status DC Fentanyl Citrate (Fentanyl 2ml Vial) 50 mcg PRN Q5MIN PRN IV MODERATE PAIN Last administered on 02/21/17 14:25; Start 02/21/17 at 07:00; Stop 02/21/17 at 19:00; Status DC Morphine Sulfate 1 mg PRN Q10MIN PRN IV SEVERE PAIN; Start 02/21/17 at 07:00; Stop 02/21/17 at 19:00; Status DC Ringer's Solution 1,000 ml @ 30 mls/hr Q24H IV Last administered on 02/21/17 11:38; Start 02/21/17 at 07:00; Stop 02/21/17 at 18:59; Status DC Lidocaine HCl 2 ml PRN 1X PRN ID PRIOR TO IV START; Start 02/21/17 at 07:00; Stop 02/21/17 at 19:00; Status DC Hydromorphone HCl (Dilaudid) 0.5 mg PRN Q10MIN PRN IV SEV PAIN, Second choice; Start 02/21/17 at 07:00; Stop 02/21/17 at 19:00; Status DC Prochlorperazine Edisylate (Compazine) 5 mg PACU PRN PRN IV NAUSEA, MRX1 Last administered on 02/21/17 14:16; Start 02/21/17 at 07:00; Stop 02/21/17 at 19:00 ; Status DC Amlodipine Besylate (Norvasc) 10 mg DAILY PO Last administered on 02/25/17 08: 46; Start 02/21/17 at 09:00 Gabapentin (Neurontin) 100 mg BID PO Last administered on 02/25/17 08:46; Start 02/20/17 at 21:00 Gemfibrozil (Lopid) 600 mg BID PO Last administered on 02/25/17 08:45; Start 02/20/17 at 21:00 Glipizide (Glucotrol) 2.5 mg DAILY PO Last administered on 02/25/17 08:46; Start 02/21/17 at 09:00 Hydrochlorothiazide (Hydrodiuril) 25 mg DAILY PO Last administered on 08:46; Start 02/21/17 at 09:00 Oxycodone/ Acetaminophen (Percocet 10/325) 1 tab TID PO ; Start 02/20/17 at 21: 00; Stop 02/20/17 at 21:00; Status DC Meloxicam (Mobic) 15 mg DAILY PO Last administered on 02/25/17 08:45; Start at 09:00 Famotidine (Pepcid) 20 mg HS PO Last administered on 02/24/17 20:42; Start 04/28 at 21:00 Acetaminophen/ Hydrocodone Bitart (Lortab 5/325) 1 tab PRN Q4HRS PRN PO PAIN Last administered on 02/25/17 02:00; Start 02/20/17 at 16:30 Insulin Aspart (NovoLOG) 0-5 UNITS TIDWMEALS SQ ; Start 02/20/17 at 17:00 Dextrose (Dextrose 50%-Water Syringe) 12.5 gm PRN Q15MIN PRN IV SEE COMMENTS; Start 02/20/17 at 16:30 Amino Acids/ Glycerin/ Electrolytes 1,000 ml @ 75 mls/hr [id number] IV Last administered on 02/24/17 15:28; Start 02/20/17 at 17:00; Stop 02/24/17 at 23:05 ; Status DC Oxycodone/ Acetaminophen (Percocet 10/325) 1 tab PRN Q4HRS PRN PO Severe pain Last administered on 02/22/17 23:52; Start 02/20/17 at 21:00 Piperacillin Sod/ Tazobactam Sod 2.25 gm/Sodium Chloride 50 ml @ 100 mls/hr Q6HRS IV Last administered on 02/22/17 05:11; Start 02/20/17 at 18:00; Stop at 08:49; Status DC Daptomycin 530 mg/ Sodium Chloride 50 ml @ 100 mls/hr Q24H IV Last administered on 02/22/17 17:13; Start 02/20/17 at 18:00; Stop 02/23/17 at 09:11 ; Status DC Bacitracin 90147 unit/Sodium Chloride 1,000 ml @ 1,000 mls/hr 1X PERIOP ONCE IRR Last administered on 02/21/17 12:35; Start 02/21/17 at 07:38; Stop at 08:37; Status DC Lidocaine/ Epinephrine (Xylocaine 1%-Epi 1:100,000) 20 ml STK-MED ONCE .ROUTE ; Start 02/21/17 at 07:40; Stop 02/21/17 at 07:41; Status DC Bupivacaine HCl (Marcaine 0.5%) 50 ml STK-MED ONCE .ROUTE ; Start 02/21/17 at 07 :40; Stop 02/21/17 at 07:41; Status DC Gelatin (Gelfoam Size 100) 1 each STK-MED ONCE .ROUTE ; Start 02/21/17 at 07:41 ; Stop 02/21/17 at 07:42; Status DC Thrombin 20,000 unit STK-MED ONCE TP ; Start 02/21/17 at 07:41; Stop 02/21/17 at 07:42; Status DC Prochlorperazine Edisylate (Compazine) 10 mg STK-MED ONCE .ROUTE ; Start at 13:41; Stop 02/21/17 at 13:42; Status DC Fentanyl Citrate (Fentanyl 2ml Vial) 100 mcg STK-MED ONCE .ROUTE ; Start at 13:42; Stop 02/21/17 at 13:43; Status DC Acetaminophen (Tylenol) 650 mg PRN Q6HRS PRN PO MILD PAIN / TEMP; Start at 14:15 Al Hydroxide/Mg Hydroxide (Mylanta Plus Xs) 30 ml PRN Q3HRS PRN PO HEARTBURN / GAS Last administered on 02/23/17 13:52; Start 02/21/17 at 14:15 Calcium Carbonate/ Glycine (Tums) 500 mg PRN Q3HRS PRN PO INDIGESTION Last administered on 02/23/17 13:52; Start 02/21/17 at 14:15 Diphenhydramine HCl (Benadryl) 25 mg PRN Q6HRS PRN PO ITCHING; Start 02/21/17 at 14:15; Stop 02/23/17 at 09:12; Status DC Diphenhydramine HCl (Benadryl) 25 mg PRN Q6HRS PRN IV ITCHING; Start 02/21/17 at 14:15; Stop 02/23/17 at 09:12; Status DC Naloxone HCl (Narcan) 0.1 mg PRN Q2MIN PRN IV ADMIN; Start 02/21/17 at 14:15 Sodium Chloride (Normal Saline Flush) 3 ml QSHIFT PRN IV AFTER MEDS AND BLOOD DRAWS; Start 02/21/17 at 14:15 Methocarbamol (Robaxin) 750 mg TID PO Last administered on 02/25/17 08:46; Start 02/21/17 at 21:00 Senna/Docusate Sodium (Senna Plus) 1 tab BID PO Last administered on 02/24/17 20:42; Start 02/21/17 at 21:00 Docusate Sodium (Colace) 100 mg BID PO Last administered on 02/24/17 20:41; Start 02/21/17 at 21:00 Magnesium Hydroxide (Milk Of Magnesia) 2,400 mg PRN Q12HR PRN PO CONSTIPATION; Start 02/21/17 at 14:15 Ondansetron HCl (Zofran) 4 mg PRN Q6HRS PRN IV NAUESA, 1ST CHOICE; Start at 14:15 Fentanyl Citrate (Fentanyl 2ml Vial) 50 mcg PRN Q1HR PRN IV SEVERE PAIN; Start 02/21/17 at 14:15 Fentanyl Citrate (Fentanyl 2ml Vial) 25 mcg PRN Q1HR PRN IV SEVERE PAIN; Start 02/21/17 at 14:15 Fentanyl Citrate (Fentanyl 2ml Vial) 100 mcg STK-MED ONCE .ROUTE ; Start at 14:33; Stop 02/21/17 at 14:34; Status DC Morphine Sulfate 2 mg STK-MED ONCE .ROUTE ; Start 02/21/17 at 14:33; Stop at 14:34; Status DC Morphine Sulfate 2 mg PRN Q2HR PRN IV PAIN Last administered on 02/22/17 17:13 ; Start 02/21/17 at 18:00 Piperacillin Sod/ Tazobactam Sod 3.375 gm/Sodium Chloride 50 ml @ 100 mls/hr Q6HRS IV Last administered on 02/24/17 05:57; Start 02/22/17 at 12:00; Stop at 08:20; Status DC Meropenem 1 gm/ Sodium Chloride 100 ml @ 200 mls/hr Q12HR IV ; Start 02/24/17 at 09:00; Stop 02/24/17 at 09:00; Status Cancel Ciprofloxacin (Cipro) 500 mg BID PO Last administered on 02/25/17 08:45; Start 02/24/17 at 09:00 Active Scripts Active Invanz (Ertapenem Sodium) 1 Gm Vial 1 Gm IJ DAILY 14 Days Reported Hydrochlorothiazide Capsule (Hydrochlorothiazide) 12.5 Mg Capsule 25 Mg PO DAILY Percocet 10-325 Mg Tablet (Oxycodone/Acetaminophen) 1 Each Tablet 1 Tab PO TID Amlodipine Besylate 10 Mg Tablet 10 Mg PO DAILY Glipizide 5 Mg Tablet 2.5 Mg PO DAILY Gabapentin 100 Mg Capsule 100 Mg PO BID Mobic (Meloxicam) 15 Mg Tablet 1 Tab PO DAILY Lovaza (Topsham-3 Acid Ethyl Esters) 1 Gm Capsule 1 Gm PO BID Ranitidine Hcl 300 Mg Capsule 300 Mg PO BID Gemfibrozil 600 Mg Tablet 600 Mg PO BID Vitals/I & O Vital Sign - Last 24 Hours 02/24/17 02/24/17 02/24/17 02/24/17 15:00 19:00 19:30 23:00 Temp 98.1 97.5 98.8 98.1 97.5 98.8 Pulse 60 60 80 Resp 18 20 24 B/P (MAP) 118/50 (72) 135/56 (82) 147/69 (95) Pulse Ox 96 92 95 O2 Delivery Room Air Room Air Room Air Room Air 02/25/17 02/25/17 02/25/17 02/25/17 02:00 03:05 03:16 07:00 Temp 98.6 97.9 98.6 97.9 Pulse 60 60 Resp 24 16 B/P (MAP) 112/53 (72) 123/56 (78) Pulse Ox 95 95 95 95 O2 Delivery Room Air Room Air Room Air Room Air 02/25/17 02/25/17 07:50 08:46 Pulse 60 B/P (MAP) 123/56 O2 Delivery Room Air ASIF PLAZA III DO Feb 25, 2017 11:45
--- NOTE | 2017-02-25 11:51 | PDOC ---
Infectious Disease Note Subjective Subjective Comfortable, denies pain Wants to go home Denies weakness, numbness/tingling in legs Denies loss of bowel/bladder control ROS ROS GEN: Denies fevers, chills, sweats CV: Denies chest pain RESP: Denies shortness of air, cough GI: Denies n/v/d NEURO: Denies confusion, dizziness Vital Sign Vital Signs Vital Signs Date Time Temp Pulse Resp B/P (MAP) Pulse Ox O2 Delivery O2 Flow Rate FiO2 02/25/17 08:46 60 123/56 02/25/17 07:50 Room Air 02/25/17 07:00 97.9 16 95 97.9 Physical Exam PHYSICAL EXAM GENERAL: Propped up in bed, relaxed appearance LUNGS: Clear HEART: S1 ad S2 ABD: Soft, NT EXT: No edema, no cyanosis SOFTWARE INTEGRATOR: Alert, oriented x 3, no focal neurologic deficit SKIN: No rash. Back incision well approx w/ stables. No drainage, redness or swelling noted RUE-PICC.clean Labs Lab Laboratory Tests Test 02/24/17 16:23 02/24/17 21:10 02/25/17 05:45 02/25/17 07:34 Glucose (Fingerstick) 109 mg/dL (70-99) 135 mg/dL (70-99) 104 mg/dL (70-99) White Blood Count 8.9 x10^3/uL (4.0-11.0) Red Blood Count 3.07 x10^6/uL (4.30-5.70) Hemoglobin 9.5 g/dL (13.0-17.5) Hematocrit 27.3 % (39.0-53.0) Mean Corpuscular Volume 89 fL (79-100) Mean Corpuscular Hemoglobin 31 pg (25-35) Mean Corpuscular Hemoglobin Concent 35 g/dL (31-37) Red Cell Distribution Width 13.7 % (11.5-14.5) Platelet Count 298 x10^3/uL (140-400) Neutrophils (%) (Auto) 68 % (31-73) Lymphocytes (%) (Auto) 20 % (24-48) Monocytes (%) (Auto) 8 % (0-9) Eosinophils (%) (Auto) 3 % (0-3) Basophils (%) (Auto) 1 % (0-3) Neutrophils # (Auto) 6.1 x10^3uL (1.8-7.7) Lymphocytes # (Auto) 1.8 x10^3/uL (1.0-4.8) Monocytes # (Auto) 0.7 x10^3/uL (0.0-1.1) Eosinophils # (Auto) 0.2 x10^3/uL (0.0-0.7) Basophils # (Auto) 0.1 x10^3/uL (0.0-0.2) Sodium Level 140 mmol/L (136-145) Potassium Level 4.7 mmol/L (3.5-5.1) Chloride Level 108 mmol/L (98-107) Carbon Dioxide Level 22 mmol/L (21-32) Anion Gap 10 (6-14) Blood Urea Nitrogen 37 mg/dL (8-26) Creatinine 1.6 mg/dL (0.7-1.3) Estimated GFR (Cockcroft-Gault) 41.8 Glucose Level 103 mg/dL (70-99) Calcium Level 10.0 mg/dL (8.5-10.1) Test 02/25/17 10:51 Glucose (Fingerstick) 156 mg/dL (70-99) Micro Surgical spec AEROBIC RES 1 Final Enterobacter cloacae complex Heavy growth Antibiotic RSLT#1 Amoxicillin/Clavulanic Acid R Cefazolin R Cefepime R Ceftriaxone R Cefuroxime R Ciprofloxacin S Gentamicin S Imipenem R Levofloxacin S Piperacillin R Tetracycline R Tobramycin S Trimethoprim/Sulfa S Back wound AEROBIC RES 1 Final Enterobacter cloacae complex Scant growth Antibiotic RSLT#1 Amoxicillin/Clavulanic Acid R Cefazolin R Cefepime S Ceftriaxone S Cefuroxime R Ciprofloxacin S Ertapenem S Gentamicin S Imipenem S Levofloxacin S Piperacillin S Tetracycline S Tobramycin S Trimethoprim/Sulfa S Objective Assessment S/p I and D of back wound and removal of stimulator 02/21. 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 -H/o Keflex since then d/c home with Invanz Back pain. h/o spinal stenosis, s/p Lumbar laminectomy L2-3 and L3-4 with adjacent spinal cord stimulator on Jan 25 Plan Plan of Care Cipro po based on sensitivities. will need at least 4 weeks f/u in our office 1-2 weeks. weekly CBC, Cr and sed rate faxed to [phone] Contact isolation D/w family Hold discharge until Dr. Migdalia Chan sees patient Attending Co-Sign The patient was seen and interviewed as well as examined at the bedside. The chart was reviewed. The case was discussed. Agree with the plan of care. CHIKIS GIBBS APRN Feb 25, 2017 11:50 AMPARO CHAN MD Feb 25, 2017 14:28
[2017-02-25 15:00] VITALS: BP 123/56
[2017-02-25 19:00] VITALS: BP 134/62
[2017-02-25] MEDS: FAMOTIDINE 20 MG TABLET. PO SCH (20:18)
[2017-02-25 23:16] VITALS: BP 121/53
[2017-02-26 03:06] VITALS: BP 124/60
[2017-02-26] MEDS: HYDROcodone/APAP 5/325MG 1 TAB TABLET PO PRN ×2 (06:08→20:49)
[2017-02-26 06:23] LABS: BASO # 0.1 x10^3/uL (0.0-0.2); BASO % 1 % (0-3); EOS % 3 % (0-3); HEMATOCRIT 28.4 % (39.0-53.0); HEMOGLOBIN 9.8 g/dL (13.0-17.5); LYMPH % 23 % (24-48); MEAN CORPUSCULAR HEMOGLOBIN 31 pg (25-35); MEAN CORPUSCULAR HGB CONC 35 g/dL (31-37); MEAN CORPUSCULAR VOLUME 89 fL (79-100); MONO % 9 % (0-9); NEUT % 65 % (31-73); PLATELET COUNT 293 x10^3/uL (140-400); RED CELL DISTRIBUTION WIDTH 13.8 % (11.5-14.5); WHITE BLOOD COUNT 8.8 x10^3/uL (4.0-11.0)
[2017-02-26 06:29] LABS: CALCIUM 8.9 mg/dL (8.5-10.1); CREATININE 1.1 mg/dL (0.7-1.3); GFR 64.4; POTASSIUM 4.1 mmol/L (3.5-5.1)
[2017-02-26 07:00] VITALS: BP 119/64
[2017-02-26] MEDS: INSULIN ASPART 300 UNITS/3 ML INSULN.PEN SQ SCH ×3 (08:00→16:19)
[2017-02-26] MEDS: GEMFIBROZIL 600 MG TABLET. PO SCH ×2 (08:17→20:48)
[2017-02-26] MEDS: CIPROFLOXACIN HCL 250 MG TABLET. PO SCH ×2 (08:20→20:48)
[2017-02-26] MEDS: hydroCHLOROthiazide 25 MG TABLET PO SCH (08:20)
[2017-02-26] MEDS: amLODIPine BESYLATE 10 MG TABLET PO SCH (08:20)
[2017-02-26] MEDS: glipiZIDE 5 MG TABLET PO SCH (08:20)
[2017-02-26] MEDS: METHOCARBAMOL 750 MG TABLET PO SCH ×3 (08:20→20:48)
[2017-02-26] MEDS: GABAPENTIN 100 MG CAPSULE. PO SCH ×2 (08:20→20:48)
[2017-02-26] MEDS: MELOXICAM 7.5 MG TABLET PO SCH (08:21)
[2017-02-26] MEDS: DOCUSATE SODIUM 100 MG CAPSULE. PO SCH ×2 (08:25→20:49)
[2017-02-26] MEDS: SENNOSIDES/DOCUSATE 8.6/50MG TABLET. PO SCH ×2 (08:26→20:49)
[2017-02-26 11:00] VITALS: BP 132/69
--- NOTE | 2017-02-26 11:43 | PDOC ---
SUBJECTIVE Subjective Denies acute complaints this AM. Reports legs "feel good". Back pain continues to improve. OBJECTIVE Vital Signs Vital Signs Date Time Temp Pulse Resp B/P (MAP) Pulse Ox O2 Delivery O2 Flow Rate FiO2 02/26/17 11:00 97.9 61 16 132/69 (90) 96 Room Air 97.9 02/26/17 08:20 60 119/64 02/26/17 07:35 Room Air 02/26/17 07:09 94 Room Air 02/26/17 07:00 98.1 60 16 119/64 (82) 93 Room Air 98.1 02/26/17 06:08 94 Room Air 02/26/17 03:06 97.9 60 20 124/60 (81) 94 Room Air 97.9 02/25/17 23:16 98.8 67 20 121/53 (75) 95 Room Air 98.8 02/25/17 22:36 95 Room Air 02/25/17 19:30 Room Air 02/25/17 19:00 97.9 60 24 134/62 (86) 95 Room Air 97.9 02/25/17 17:57 20 02/25/17 16:57 18 02/25/17 15:00 97.9 61 16 123/56 (78) 96 Room Air 97.9 PHYSICAL EXAM Physical Exam AA, NAD, sitting in chair, PEÑA 5/5, sensation intact LT, incisions c/d/i flat with pauline ASSESSMENT/PLAN Assessment/Plan POD 5 I&D with stimulator removal -neurologically stable, doing well clinically -continue to increase activities with standard post-op precautions/ambulation/PT -abx per -october d/c to appropriate venue from NS standpoint, when otherwise meets criteria/ clear to do so by all other services -will need f/u with NS/Kle[facility] approx 2 weeks for staple removal [phone] Problems: COMMENT Lab Laboratory Tests Test 02/25/17 15:55 02/25/17 20:50 02/26/17 06:00 02/26/17 07:39 Glucose (Fingerstick) 111 mg/dL (70-99) 113 mg/dL (70-99) 106 mg/dL (70-99) White Blood Count 8.8 x10^3/uL (4.0-11.0) Red Blood Count 3.20 x10^6/uL (4.30-5.70) Hemoglobin 9.8 g/dL (13.0-17.5) Hematocrit 28.4 % (39.0-53.0) Mean Corpuscular Volume 89 fL (79-100) Mean Corpuscular Hemoglobin 31 pg (25-35) Mean Corpuscular Hemoglobin Concent 35 g/dL (31-37) Red Cell Distribution Width 13.8 % (11.5-14.5) Platelet Count 293 x10^3/uL (140-400) Neutrophils (%) (Auto) 65 % (31-73) Lymphocytes (%) (Auto) 23 % (24-48) Monocytes (%) (Auto) 9 % (0-9) Eosinophils (%) (Auto) 3 % (0-3) Basophils (%) (Auto) 1 % (0-3) Neutrophils # (Auto) 5.7 x10^3uL (1.8-7.7) Lymphocytes # (Auto) 2.0 x10^3/uL (1.0-4.8) Monocytes # (Auto) 0.8 x10^3/uL (0.0-1.1) Eosinophils # (Auto) 0.2 x10^3/uL (0.0-0.7) Basophils # (Auto) 0.1 x10^3/uL (0.0-0.2) Sodium Level 140 mmol/L (136-145) Potassium Level 4.1 mmol/L (3.5-5.1) Chloride Level 102 mmol/L (98-107) Carbon Dioxide Level 36 mmol/L (21-32) Anion Gap 2 (6-14) Blood Urea Nitrogen 26 mg/dL (8-26) Creatinine 1.1 mg/dL (0.7-1.3) Estimated GFR (Cockcroft-Gault) 64.4 Glucose Level 179 mg/dL (70-99) Calcium Level 8.9 mg/dL (8.5-10.1) Test 02/26/17 10:40 Glucose (Fingerstick) 159 mg/dL (70-99) PAWEL HENNESSY MD Feb 26, 2017 11:43
--- NOTE | 2017-02-26 14:52 | PDOC ---
PROGRESS NOTES Chief Complaint Chief Complaint Back wound infection and removal of adjacent spinal cord stimulator Metabolic encephalopathy History of Present Illness History of Present Illness No acute overnight events. Pt pleasantly confused and laying in bed w/NAD. Awaiting on SNU eval for placement. Vitals Vitals Vital Signs Date Time Temp Pulse Resp B/P (MAP) Pulse Ox O2 Delivery O2 Flow Rate FiO2 02/26/17 11:00 97.9 61 16 132/69 (90) 96 Room Air 97.9 Physical Exam General: No acute distress, Other (pleasantly confused) Heart: Regular rate, Normal S1, Normal S2 Lungs: Clear, Other (no acute distress noted) Abdomen: Normal bowel sounds, Soft Extremities: No clubbing, No cyanosis Skin: No rashes, No breakdown Labs LABS Laboratory Tests Test 02/25/17 15:55 02/25/17 20:50 02/26/17 06:00 02/26/17 07:39 Glucose (Fingerstick) 111 mg/dL (70-99) 113 mg/dL (70-99) 106 mg/dL (70-99) White Blood Count 8.8 x10^3/uL (4.0-11.0) Red Blood Count 3.20 x10^6/uL (4.30-5.70) Hemoglobin 9.8 g/dL (13.0-17.5) Hematocrit 28.4 % (39.0-53.0) Mean Corpuscular Volume 89 fL (79-100) Mean Corpuscular Hemoglobin 31 pg (25-35) Mean Corpuscular Hemoglobin Concent 35 g/dL (31-37) Red Cell Distribution Width 13.8 % (11.5-14.5) Platelet Count 293 x10^3/uL (140-400) Neutrophils (%) (Auto) 65 % (31-73) Lymphocytes (%) (Auto) 23 % (24-48) Monocytes (%) (Auto) 9 % (0-9) Eosinophils (%) (Auto) 3 % (0-3) Basophils (%) (Auto) 1 % (0-3) Neutrophils # (Auto) 5.7 x10^3uL (1.8-7.7) Lymphocytes # (Auto) 2.0 x10^3/uL (1.0-4.8) Monocytes # (Auto) 0.8 x10^3/uL (0.0-1.1) Eosinophils # (Auto) 0.2 x10^3/uL (0.0-0.7) Basophils # (Auto) 0.1 x10^3/uL (0.0-0.2) Sodium Level 140 mmol/L (136-145) Potassium Level 4.1 mmol/L (3.5-5.1) Chloride Level 102 mmol/L (98-107) Carbon Dioxide Level 36 mmol/L (21-32) Anion Gap 2 (6-14) Blood Urea Nitrogen 26 mg/dL (8-26) Creatinine 1.1 mg/dL (0.7-1.3) Estimated GFR (Cockcroft-Gault) 64.4 Glucose Level 179 mg/dL (70-99) Calcium Level 8.9 mg/dL (8.5-10.1) Test 02/26/17 10:40 Glucose (Fingerstick) 159 mg/dL (70-99) Review of Systems Review of Systems Pt complains of back pain Acute issues resolving Assessment and Plan Assessmemt and Plan Problems Medical Problems: (1) Infection Status: Acute Post Op Day #5 Exploration of lumbar wound with irrigation and debridement of lumbar wound and removal of adjacent spinal cord stimulator, leads, connections and intermittent pulse generator. -Metabolic encephalopathy -Lumbar wound infection Moderate malnutrition POA: Albumin 2.9 Plan Continue IV antibx PTOT Wound half-way meds Labs AM Discussed current tx plan w/ neurosurgery Dispo: Probable DC to SNU tomorrow Problems: Comment Review of Relevant I have reviewed the following items litzy (where applicable) has been applied. Labs Laboratory Tests Test 02/24/17 16:23 02/24/17 21:10 02/25/17 05:45 02/25/17 07:34 Glucose (Fingerstick) 109 mg/dL (70-99) 135 mg/dL (70-99) 104 mg/dL (70-99) White Blood Count 8.9 x10^3/uL (4.0-11.0) Red Blood Count 3.07 x10^6/uL (4.30-5.70) Hemoglobin 9.5 g/dL (13.0-17.5) Hematocrit 27.3 % (39.0-53.0) Mean Corpuscular Volume 89 fL (79-100) Mean Corpuscular Hemoglobin 31 pg (25-35) Mean Corpuscular Hemoglobin Concent 35 g/dL (31-37) Red Cell Distribution Width 13.7 % (11.5-14.5) Platelet Count 298 x10^3/uL (140-400) Neutrophils (%) (Auto) 68 % (31-73) Lymphocytes (%) (Auto) 20 % (24-48) Monocytes (%) (Auto) 8 % (0-9) Eosinophils (%) (Auto) 3 % (0-3) Basophils (%) (Auto) 1 % (0-3) Neutrophils # (Auto) 6.1 x10^3uL (1.8-7.7) Lymphocytes # (Auto) 1.8 x10^3/uL (1.0-4.8) Monocytes # (Auto) 0.7 x10^3/uL (0.0-1.1) Eosinophils # (Auto) 0.2 x10^3/uL (0.0-0.7) Basophils # (Auto) 0.1 x10^3/uL (0.0-0.2) Sodium Level 140 mmol/L (136-145) Potassium Level 4.7 mmol/L (3.5-5.1) Chloride Level 108 mmol/L (98-107) Carbon Dioxide Level 22 mmol/L (21-32) Anion Gap 10 (6-14) Blood Urea Nitrogen 37 mg/dL (8-26) Creatinine 1.6 mg/dL (0.7-1.3) Estimated GFR (Cockcroft-Gault) 41.8 Glucose Level 103 mg/dL (70-99) Calcium Level 10.0 mg/dL (8.5-10.1) Test 02/25/17 10:51 02/25/17 15:55 02/25/17 20:50 02/26/17 06:00 Glucose (Fingerstick) 156 mg/dL (70-99) 111 mg/dL (70-99) 113 mg/dL (70-99) White Blood Count 8.8 x10^3/uL (4.0-11.0) Red Blood Count 3.20 x10^6/uL (4.30-5.70) Hemoglobin 9.8 g/dL (13.0-17.5) Hematocrit 28.4 % (39.0-53.0) Mean Corpuscular Volume 89 fL (79-100) Mean Corpuscular Hemoglobin 31 pg (25-35) Mean Corpuscular Hemoglobin Concent 35 g/dL (31-37) Red Cell Distribution Width 13.8 % (11.5-14.5) Platelet Count 293 x10^3/uL (140-400) Neutrophils (%) (Auto) 65 % (31-73) Lymphocytes (%) (Auto) 23 % (24-48) Monocytes (%) (Auto) 9 % (0-9) Eosinophils (%) (Auto) 3 % (0-3) Basophils (%) (Auto) 1 % (0-3) Neutrophils # (Auto) 5.7 x10^3uL (1.8-7.7) Lymphocytes # (Auto) 2.0 x10^3/uL (1.0-4.8) Monocytes # (Auto) 0.8 x10^3/uL (0.0-1.1) Eosinophils # (Auto) 0.2 x10^3/uL (0.0-0.7) Basophils # (Auto) 0.1 x10^3/uL (0.0-0.2) Sodium Level 140 mmol/L (136-145) Potassium Level 4.1 mmol/L (3.5-5.1) Chloride Level 102 mmol/L (98-107) Carbon Dioxide Level 36 mmol/L (21-32) Anion Gap 2 (6-14) Blood Urea Nitrogen 26 mg/dL (8-26) Creatinine 1.1 mg/dL (0.7-1.3) Estimated GFR (Cockcroft-Gault) 64.4 Glucose Level 179 mg/dL (70-99) Calcium Level 8.9 mg/dL (8.5-10.1) Test 02/26/17 07:39 02/26/17 10:40 Glucose (Fingerstick) 106 mg/dL (70-99) 159 mg/dL (70-99) Laboratory Tests Test 02/25/17 15:55 02/25/17 20:50 02/26/17 06:00 02/26/17 07:39 Glucose (Fingerstick) 111 mg/dL (70-99) 113 mg/dL (70-99) 106 mg/dL (70-99) White Blood Count 8.8 x10^3/uL (4.0-11.0) Red Blood Count 3.20 x10^6/uL (4.30-5.70) Hemoglobin 9.8 g/dL (13.0-17.5) Hematocrit 28.4 % (39.0-53.0) Mean Corpuscular Volume 89 fL (79-100) Mean Corpuscular Hemoglobin 31 pg (25-35) Mean Corpuscular Hemoglobin Concent 35 g/dL (31-37) Red Cell Distribution Width 13.8 % (11.5-14.5) Platelet Count 293 x10^3/uL (140-400) Neutrophils (%) (Auto) 65 % (31-73) Lymphocytes (%) (Auto) 23 % (24-48) Monocytes (%) (Auto) 9 % (0-9) Eosinophils (%) (Auto) 3 % (0-3) Basophils (%) (Auto) 1 % (0-3) Neutrophils # (Auto) 5.7 x10^3uL (1.8-7.7) Lymphocytes # (Auto) 2.0 x10^3/uL (1.0-4.8) Monocytes # (Auto) 0.8 x10^3/uL (0.0-1.1) Eosinophils # (Auto) 0.2 x10^3/uL (0.0-0.7) Basophils # (Auto) 0.1 x10^3/uL (0.0-0.2) Sodium Level 140 mmol/L (136-145) Potassium Level 4.1 mmol/L (3.5-5.1) Chloride Level 102 mmol/L (98-107) Carbon Dioxide Level 36 mmol/L (21-32) Anion Gap 2 (6-14) Blood Urea Nitrogen 26 mg/dL (8-26) Creatinine 1.1 mg/dL (0.7-1.3) Estimated GFR (Cockcroft-Gault) 64.4 Glucose Level 179 mg/dL (70-99) Calcium Level 8.9 mg/dL (8.5-10.1) Test 02/26/17 10:40 Glucose (Fingerstick) 159 mg/dL (70-99) Microbiology 02/20/17 Blood Culture - Final, Complete NO GROWTH AFTER 5 DAYS 02/20/17 Urine Culture - Final, Complete 02/20/17 Urine Culture Result 1 (FELI) - Final, Complete 02/21/17 Gram Stain - Final, Complete Medications Current Medications Fentanyl Citrate (Fentanyl 2ml Vial) 50 mcg PRN Q2HR PRN IV PAIN; Start at 13:30; Stop 02/21/17 at 13:29; Status DC Ondansetron HCl (Zofran) 4 mg PRN Q6HRS PRN IV NAUSEA/VOMITING; Start 02/21/17 at 07:00; Stop 02/21/17 at 19:00; Status DC Fentanyl Citrate (Fentanyl 2ml Vial) 25 mcg PRN Q5MIN PRN IV MILD PAIN; Start 02/21/17 at 07:00; Stop 02/21/17 at 19:00; Status DC Fentanyl Citrate (Fentanyl 2ml Vial) 50 mcg PRN Q5MIN PRN IV MODERATE PAIN Last administered on 02/21/17 14:25; Start 02/21/17 at 07:00; Stop 02/21/17 at 19:00; Status DC Morphine Sulfate 1 mg PRN Q10MIN PRN IV SEVERE PAIN; Start 02/21/17 at 07:00; Stop 02/21/17 at 19:00; Status DC Ringer's Solution 1,000 ml @ 30 mls/hr Q24H IV Last administered on 02/21/17 11:38; Start 02/21/17 at 07:00; Stop 02/21/17 at 18:59; Status DC Lidocaine HCl 2 ml PRN 1X PRN ID PRIOR TO IV START; Start 02/21/17 at 07:00; Stop 02/21/17 at 19:00; Status DC Hydromorphone HCl (Dilaudid) 0.5 mg PRN Q10MIN PRN IV SEV PAIN, Second choice; Start 02/21/17 at 07:00; Stop 02/21/17 at 19:00; Status DC Prochlorperazine Edisylate (Compazine) 5 mg PACU PRN PRN IV NAUSEA, MRX1 Last administered on 02/21/17 14:16; Start 02/21/17 at 07:00; Stop 02/21/17 at 19:00 ; Status DC Amlodipine Besylate (Norvasc) 10 mg DAILY PO Last administered on 02/26/17 08: 20; Start 02/21/17 at 09:00 Gabapentin (Neurontin) 100 mg BID PO Last administered on 02/26/17 08:20; Start 02/20/17 at 21:00 Gemfibrozil (Lopid) 600 mg BID PO Last administered on 02/26/17 08:17; Start 02/20/17 at 21:00 Glipizide (Glucotrol) 2.5 mg DAILY PO Last administered on 02/26/17 08:20; Start 02/21/17 at 09:00 Hydrochlorothiazide (Hydrodiuril) 25 mg DAILY PO Last administered on 08:20; Start 02/21/17 at 09:00 Oxycodone/ Acetaminophen (Percocet 10/325) 1 tab TID PO ; Start 02/20/17 at 21: 00; Stop 02/20/17 at 21:00; Status DC Meloxicam (Mobic) 15 mg DAILY PO Last administered on 02/26/17 08:21; Start at 09:00 Famotidine (Pepcid) 20 mg HS PO Last administered on 02/25/17 20:18; Start 04/28 at 21:00 Acetaminophen/ Hydrocodone Bitart (Lortab 5/325) 1 tab PRN Q4HRS PRN PO MODERATE PAIN Last administered on 02/26/17 06:08; Start 02/20/17 at 16:30 Insulin Aspart (NovoLOG) 0-5 UNITS TIDWMEALS SQ Last administered on 02/26/17 12:14; Start 02/20/17 at 17:00 Dextrose (Dextrose 50%-Water Syringe) 12.5 gm PRN Q15MIN PRN IV SEE COMMENTS; Start 02/20/17 at 16:30 Amino Acids/ Glycerin/ Electrolytes 1,000 ml @ 75 mls/hr [id number] IV Last administered on 02/24/17 15:28; Start 02/20/17 at 17:00; Stop 02/24/17 at 23:05 ; Status DC Oxycodone/ Acetaminophen (Percocet 10/325) 1 tab PRN Q4HRS PRN PO Severe pain Last administered on 02/22/17 23:52; Start 02/20/17 at 21:00 Piperacillin Sod/ Tazobactam Sod 2.25 gm/Sodium Chloride 50 ml @ 100 mls/hr Q6HRS IV Last administered on 02/22/17 05:11; Start 02/20/17 at 18:00; Stop at 08:49; Status DC Daptomycin 530 mg/ Sodium Chloride 50 ml @ 100 mls/hr Q24H IV Last administered on 02/22/17 17:13; Start 02/20/17 at 18:00; Stop 02/23/17 at 09:11 ; Status DC Bacitracin 86583 unit/Sodium Chloride 1,000 ml @ 1,000 mls/hr 1X PERIOP ONCE IRR Last administered on 02/21/17 12:35; Start 02/21/17 at 07:38; Stop at 08:37; Status DC Lidocaine/ Epinephrine (Xylocaine 1%-Epi 1:100,000) 20 ml STK-MED ONCE .ROUTE ; Start 02/21/17 at 07:40; Stop 02/21/17 at 07:41; Status DC Bupivacaine HCl (Marcaine 0.5%) 50 ml STK-MED ONCE .ROUTE ; Start 02/21/17 at 07 :40; Stop 02/21/17 at 07:41; Status DC Gelatin (Gelfoam Size 100) 1 each STK-MED ONCE .ROUTE ; Start 02/21/17 at 07:41 ; Stop 02/21/17 at 07:42; Status DC Thrombin 20,000 unit STK-MED ONCE TP ; Start 02/21/17 at 07:41; Stop 02/21/17 at 07:42; Status DC Prochlorperazine Edisylate (Compazine) 10 mg STK-MED ONCE .ROUTE ; Start at 13:41; Stop 02/21/17 at 13:42; Status DC Fentanyl Citrate (Fentanyl 2ml Vial) 100 mcg STK-MED ONCE .ROUTE ; Start at 13:42; Stop 02/21/17 at 13:43; Status DC Acetaminophen (Tylenol) 650 mg PRN Q6HRS PRN PO MILD PAIN / TEMP; Start at 14:15 Al Hydroxide/Mg Hydroxide (Mylanta Plus Xs) 30 ml PRN Q3HRS PRN PO HEARTBURN / GAS Last administered on 02/23/17 13:52; Start 02/21/17 at 14:15 Calcium Carbonate/ Glycine (Tums) 500 mg PRN Q3HRS PRN PO INDIGESTION Last administered on 02/23/17 13:52; Start 02/21/17 at 14:15 Diphenhydramine HCl (Benadryl) 25 mg PRN Q6HRS PRN PO ITCHING; Start 02/21/17 at 14:15; Stop 02/23/17 at 09:12; Status DC Diphenhydramine HCl (Benadryl) 25 mg PRN Q6HRS PRN IV ITCHING; Start 02/21/17 at 14:15; Stop 02/23/17 at 09:12; Status DC Naloxone HCl (Narcan) 0.1 mg PRN Q2MIN PRN IV ADMIN; Start 02/21/17 at 14:15 Sodium Chloride (Normal Saline Flush) 3 ml QSHIFT PRN IV AFTER MEDS AND BLOOD DRAWS; Start 02/21/17 at 14:15 Methocarbamol (Robaxin) 750 mg TID PO Last administered on 02/26/17 13:27; Start 02/21/17 at 21:00 Senna/Docusate Sodium (Senna Plus) 1 tab BID PO Last administered on 02/24/17 20:42; Start 02/21/17 at 21:00 Docusate Sodium (Colace) 100 mg BID PO Last administered on 02/24/17 20:41; Start 02/21/17 at 21:00 Magnesium Hydroxide (Milk Of Magnesia) 2,400 mg PRN Q12HR PRN PO CONSTIPATION; Start 02/21/17 at 14:15 Ondansetron HCl (Zofran) 4 mg PRN Q6HRS PRN IV NAUESA, 1ST CHOICE; Start at 14:15 Fentanyl Citrate (Fentanyl 2ml Vial) 50 mcg PRN Q1HR PRN IV SEVERE PAIN; Start 02/21/17 at 14:15 Fentanyl Citrate (Fentanyl 2ml Vial) 25 mcg PRN Q1HR PRN IV MODERATE PAIN; Start 02/21/17 at 14:15 Fentanyl Citrate (Fentanyl 2ml Vial) 100 mcg STK-MED ONCE .ROUTE ; Start at 14:33; Stop 02/21/17 at 14:34; Status DC Morphine Sulfate 2 mg STK-MED ONCE .ROUTE ; Start 02/21/17 at 14:33; Stop at 14:34; Status DC Morphine Sulfate 2 mg PRN Q2HR PRN IV SEVERE PAIN, 2ND CHOICE Last administered on 02/22/17 17:13; Start 02/21/17 at 18:00 Piperacillin Sod/ Tazobactam Sod 3.375 gm/Sodium Chloride 50 ml @ 100 mls/hr Q6HRS IV Last administered on 02/24/17 05:57; Start 02/22/17 at 12:00; Stop at 08:20; Status DC Meropenem 1 gm/ Sodium Chloride 100 ml @ 200 mls/hr Q12HR IV ; Start 02/24/17 at 09:00; Stop 02/24/17 at 09:00; Status Cancel Ciprofloxacin (Cipro) 500 mg BID PO Last administered on 02/26/17 08:20; Start 02/24/17 at 09:00 Active Scripts Active Invanz (Ertapenem Sodium) 1 Gm Vial 1 Gm IJ DAILY 14 Days Reported Hydrochlorothiazide Capsule (Hydrochlorothiazide) 12.5 Mg Capsule 25 Mg PO DAILY Percocet 10-325 Mg Tablet (Oxycodone/Acetaminophen) 1 Each Tablet 1 Tab PO TID Amlodipine Besylate 10 Mg Tablet 10 Mg PO DAILY Glipizide 5 Mg Tablet 2.5 Mg PO DAILY Gabapentin 100 Mg Capsule 100 Mg PO BID Mobic (Meloxicam) 15 Mg Tablet 1 Tab PO DAILY Lovaza (Sula-3 Acid Ethyl Esters) 1 Gm Capsule 1 Gm PO BID Ranitidine Hcl 300 Mg Capsule 300 Mg PO BID Gemfibrozil 600 Mg Tablet 600 Mg PO BID Vitals/I & O Vital Sign - Last 24 Hours 02/25/17 02/25/17 02/25/17 02/25/17 15:00 16:57 17:57 19:00 Temp 97.9 97.9 97.9 97.9 Pulse 61 60 Resp 16 18 20 24 B/P (MAP) 123/56 (78) 134/62 (86) Pulse Ox 96 95 O2 Delivery Room Air Room Air 02/25/17 02/25/17 02/25/17 02/26/17 19:30 22:36 23:16 03:06 Temp 98.8 97.9 98.8 97.9 Pulse 67 60 Resp 20 20 B/P (MAP) 121/53 (75) 124/60 (81) Pulse Ox 95 95 94 O2 Delivery Room Air Room Air Room Air Room Air 02/26/17 02/26/17 02/26/17 02/26/17 06:08 07:00 07:09 07:35 Temp 98.1 98.1 Pulse 60 Resp 16 B/P (MAP) 119/64 (82) Pulse Ox 94 93 94 O2 Delivery Room Air Room Air Room Air Room Air 02/26/17 02/26/17 08:20 11:00 Temp 97.9 97.9 Pulse 60 61 Resp 16 B/P (MAP) 119/64 132/69 (90) Pulse Ox 96 O2 Delivery Room Air ASIF PLAZA III DO Feb 26, 2017 14:52
[2017-02-26 15:00] VITALS: BP 124/62
[2017-02-26 19:00] VITALS: BP 123/53
[2017-02-26] MEDS: FAMOTIDINE 20 MG TABLET. PO SCH (20:48)
[2017-02-26 23:00] VITALS: BP 137/61
[2017-02-27] MEDS: HYDROcodone/APAP 5/325MG 1 TAB TABLET PO PRN ×3 (02:40→14:20)
[2017-02-27 05:01] LABS: BASO # 0.1 x10^3/uL (0.0-0.2); BASO % 1 % (0-3); EOS % 3 % (0-3); HEMATOCRIT 27.4 % (39.0-53.0); HEMOGLOBIN 9.6 g/dL (13.0-17.5); LYMPH # 1.9 x10^3/uL (1.0-4.8); LYMPH % 20 % (24-48); MEAN CORPUSCULAR HEMOGLOBIN 31 pg (25-35); MEAN CORPUSCULAR HGB CONC 35 g/dL (31-37); MEAN CORPUSCULAR VOLUME 89 fL (79-100); MONO % 11 % (0-9); NEUT % 66 % (31-73); PLATELET COUNT 282 x10^3/uL (140-400); RED BLOOD COUNT 3.08 x10^6/uL (4.30-5.70); WHITE BLOOD COUNT 9.6 x10^3/uL (4.0-11.0)
[2017-02-27 05:24] LABS: CALCIUM 10.1 mg/dL (8.5-10.1); CREATININE 1.8 mg/dL (0.7-1.3); GFR 36.5; POTASSIUM 4.2 mmol/L (3.5-5.1)
[2017-02-27 07:00] VITALS: BP 122/64
[2017-02-27] MEDS: GEMFIBROZIL 600 MG TABLET. PO SCH (07:57)
[2017-02-27] MEDS: INSULIN ASPART 300 UNITS/3 ML INSULN.PEN SQ SCH ×2 (07:57→12:57)
[2017-02-27] MEDS: DOCUSATE SODIUM 100 MG CAPSULE. PO SCH (07:57)
[2017-02-27] MEDS: GABAPENTIN 100 MG CAPSULE. PO SCH (07:57)
[2017-02-27] MEDS: METHOCARBAMOL 750 MG TABLET PO SCH ×2 (07:58→14:19)
[2017-02-27] MEDS: CIPROFLOXACIN HCL 250 MG TABLET. PO SCH (07:58)
[2017-02-27] MEDS: SENNOSIDES/DOCUSATE 8.6/50MG TABLET. PO SCH (07:58)
[2017-02-27] MEDS: glipiZIDE 5 MG TABLET PO SCH (07:58)
[2017-02-27] MEDS: amLODIPine BESYLATE 10 MG TABLET PO SCH (07:59)
[2017-02-27] MEDS: hydroCHLOROthiazide 25 MG TABLET PO SCH (07:59)
[2017-02-27] MEDS: MELOXICAM 7.5 MG TABLET PO SCH (08:01)
--- NOTE | 2017-02-27 08:56 | PDOC ---
Infectious Disease Note Subjective Subjective Comfortable, denies pain Wants to go home Denies weakness, numbness/tingling in legs Denies loss of bowel/bladder control ROS ROS GEN: Denies fevers, chills, sweats HEENT: Denies blurred vision, sore throat CV: Denies chest pain RESP: Denies shortness of air, cough GI: Denies n/v/d NEURO: Denies confusion, dizziness MSK: Denies weakness, joint pain/swelling Vital Sign Vital Signs Vital Signs Date Time Temp Pulse Resp B/P (MAP) Pulse Ox O2 Delivery O2 Flow Rate FiO2 02/27/17 07:59 60 122/64 02/27/17 07:57 Room Air 02/27/17 07:00 98.8 18 95 98.8 Physical Exam PHYSICAL EXAM GENERAL: NAD, Alert HEENT: PERRL, OC/OP NECK: Supple, no JVD, no LN LUNGS: Clear HEART: S1S2, no gallop, no murmur ABD: Soft, NT, no organomegaly, no rebound EXT: No edema, no cyanosis GUINEA P[employer]: Alert, oriented x 3, no focal neurologic deficit SKIN: No rash IV: ok Labs Lab Laboratory Tests Test 02/26/17 10:40 02/26/17 16:17 02/26/17 20:42 02/27/17 04:40 Glucose (Fingerstick) 159 mg/dL (70-99) 93 mg/dL (70-99) 190 mg/dL (70-99) White Blood Count 9.6 x10^3/uL (4.0-11.0) Red Blood Count 3.08 x10^6/uL (4.30-5.70) Hemoglobin 9.6 g/dL (13.0-17.5) Hematocrit 27.4 % (39.0-53.0) Mean Corpuscular Volume 89 fL (79-100) Mean Corpuscular Hemoglobin 31 pg (25-35) Mean Corpuscular Hemoglobin Concent 35 g/dL (31-37) Red Cell Distribution Width 14.0 % (11.5-14.5) Platelet Count 282 x10^3/uL (140-400) Neutrophils (%) (Auto) 66 % (31-73) Lymphocytes (%) (Auto) 20 % (24-48) Monocytes (%) (Auto) 11 % (0-9) Eosinophils (%) (Auto) 3 % (0-3) Basophils (%) (Auto) 1 % (0-3) Neutrophils # (Auto) 6.4 x10^3uL (1.8-7.7) Lymphocytes # (Auto) 1.9 x10^3/uL (1.0-4.8) Monocytes # (Auto) 1.0 x10^3/uL (0.0-1.1) Eosinophils # (Auto) 0.3 x10^3/uL (0.0-0.7) Basophils # (Auto) 0.1 x10^3/uL (0.0-0.2) Sodium Level 140 mmol/L (136-145) Potassium Level 4.2 mmol/L (3.5-5.1) Chloride Level 107 mmol/L (98-107) Carbon Dioxide Level 21 mmol/L (21-32) Anion Gap 12 (6-14) Blood Urea Nitrogen 45 mg/dL (8-26) Creatinine 1.8 mg/dL (0.7-1.3) Estimated GFR (Cockcroft-Gault) 36.5 Glucose Level 107 mg/dL (70-99) Calcium Level 10.1 mg/dL (8.5-10.1) Test 02/27/17 07:50 Glucose (Fingerstick) 92 mg/dL (70-99) Objective Assessment S/p I and D of back wound and removal of stimulator 02/21. 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 -H/o Keflex since then d/c home with Invanz Back pain. h/o spinal stenosis, s/p Lumbar laminectomy L2-3 and L3-4 with adjacent spinal cord stimulator on Jan 25 Plan Plan of Care Cipro po based on sensitivities. will need at least 4 weeks f/u in our office 1-2 weeks. weekly CBC, Cr and sed rate faxed to [phone] Contact isolation ok to d/c probiotics every day AMPARO CHAN MD Feb 27, 2017 08:56
[2017-02-27] MEDS ORDERED: HYDR-2758 PO (09:23)
[2017-02-27] MEDS ORDERED: CIPR250T30 PO (09:23)
[2017-02-27 11:00] VITALS: BP 113/67
--- NOTE | 2017-02-27 11:42 | PDOC ---
SUBJECTIVE Subjective Denies acute complaints this AM. OBJECTIVE Vital Signs Vital Signs Date Time Temp Pulse Resp B/P (MAP) Pulse Ox O2 Delivery O2 Flow Rate FiO2 02/27/17 11:00 98.4 63 16 113/67 (82) 98 Room Air 98.4 02/27/17 09:12 Room Air 02/27/17 07:59 60 122/64 02/27/17 07:57 Room Air 02/27/17 07:35 Room Air 02/27/17 07:00 98.8 60 18 122/64 (83) 95 Room Air 98.8 02/27/17 03:42 93 02/27/17 02:40 93 Room Air 02/26/17 23:00 98.6 61 18 137/61 (86) 93 Room Air 98.6 02/26/17 20:49 96 Room Air 02/26/17 19:50 Room Air 02/26/17 19:00 97.9 60 17 123/53 (76) 96 Room Air 97.9 02/26/17 15:00 98.1 61 16 124/62 (82) 95 Room Air 98.1 PHYSICAL EXAM Physical Exam AA, NAD, PEÑA 5/5, sensation intact LT, incisions c/d/i with pauline ASSESSMENT/PLAN Assessment/Plan POD 6 I&D with stimulator removal -neurologically stable, doing well clinically -continue to increase activities with standard post-op precautions/ambulation/PT -abx per ID -may d/c to appropriate venue from NS standpoint, when otherwise meets criteria/ clear to do so by all other services -will need f/u with NS/Klemp approx 2 weeks for staple removal [phone] Problems: COMMENT Lab Laboratory Tests Test 02/26/17 16:17 02/26/17 20:42 02/27/17 04:40 02/27/17 07:50 Glucose (Fingerstick) 93 mg/dL (70-99) 190 mg/dL (70-99) 92 mg/dL (70-99) White Blood Count 9.6 x10^3/uL (4.0-11.0) Red Blood Count 3.08 x10^6/uL (4.30-5.70) Hemoglobin 9.6 g/dL (13.0-17.5) Hematocrit 27.4 % (39.0-53.0) Mean Corpuscular Volume 89 fL (79-100) Mean Corpuscular Hemoglobin 31 pg (25-35) Mean Corpuscular Hemoglobin Concent 35 g/dL (31-37) Red Cell Distribution Width 14.0 % (11.5-14.5) Platelet Count 282 x10^3/uL (140-400) Neutrophils (%) (Auto) 66 % (31-73) Lymphocytes (%) (Auto) 20 % (24-48) Monocytes (%) (Auto) 11 % (0-9) Eosinophils (%) (Auto) 3 % (0-3) Basophils (%) (Auto) 1 % (0-3) Neutrophils # (Auto) 6.4 x10^3uL (1.8-7.7) Lymphocytes # (Auto) 1.9 x10^3/uL (1.0-4.8) Monocytes # (Auto) 1.0 x10^3/uL (0.0-1.1) Eosinophils # (Auto) 0.3 x10^3/uL (0.0-0.7) Basophils # (Auto) 0.1 x10^3/uL (0.0-0.2) Sodium Level 140 mmol/L (136-145) Potassium Level 4.2 mmol/L (3.5-5.1) Chloride Level 107 mmol/L (98-107) Carbon Dioxide Level 21 mmol/L (21-32) Anion Gap 12 (6-14) Blood Urea Nitrogen 45 mg/dL (8-26) Creatinine 1.8 mg/dL (0.7-1.3) Estimated GFR (Cockcroft-Gault) 36.5 Glucose Level 107 mg/dL (70-99) Calcium Level 10.1 mg/dL (8.5-10.1) PAWEL HENNESSY MD Feb 27, 2017 11:42
[2017-02-27 15:00] VITALS: BP 114/53
--- NOTE | 2017-02-27 15:04 | PDOC3 ---
Discharge Summary [facility] Date of Admission: Feb 20, 2017 Discharge Date: Feb 27, 2017 Admitting Diagnosis spinal wound, S/p I and D of back wound and removal of stimulator 02/21. 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 -H/o Keflex since then d/c home with Invanz Back pain. h/o spinal stenosis, s/p Lumbar laminectomy L2-3 and L3-4 with adjacent spinal cord stimulator on Jan 25 DM2 HLD anemia, 2/2 chronic dz Problems: Final Diagnosis CONSULTS dr. Locke Brief Hospital Course Mr. Galeana is a 82 old M, who got back stimulator insertion for lower back pain , comes for pain and was found infected. The stimulator is removed. wound cx is + for MDR Enterobacter , resistent to many meds, but sensitive to cipro. pt feels good now, incision looks ok, cont cipro x4 weeks, fu with id, and neurosx dc time 35min General: No acute distress, Other (pleasantly confused) Heart: Regular rate, Normal S1, Normal S2 Lungs: Clear, Other (no acute distress noted) Abdomen: Normal bowel sounds, Soft Extremities: No clubbing, No cyanosis Skin: No rashes, No breakdown Patient History: FH: diabetes mellitus G8 BROTHER 32 MOTHER FH: heart attack G8 BROTHER Problems: Disposition rehab CONDITION AT DISCHARGE: Improved Diet regular Scheduled Amlodipine Besylate (Amlodipine Besylate), 10 MG PO DAILY, (Reported) Ciprofloxacin Hcl (Cipro), 500 MG PO BID Gabapentin (Gabapentin), 100 MG PO BID, (Reported) Gemfibrozil (Gemfibrozil), 600 MG PO BID, (Reported) Glipizide (Glipizide), 2.5 MG PO DAILY, (Reported) [place]-3 Acid Ethyl Esters (Lovaza), 1 GM PO BID, (Reported) Ranitidine Hcl (Ranitidine Hcl), 300 MG PO BID, (Reported) Scheduled PRN Hydrocodone Bit/Acetaminophen (Hydrocodone-Apap 5-325 ), 1 TAB PO PRN Q4HRS PRN for MODERATE PAIN Follow Up neurosx in 2 weeks CHRISTIANO HAMLIN MD Feb 27, 2017 15:04
== END 2017-02-27 15:13 | DRG 856 ==
LOC: ER 11:27 → 4 NORTH 13:17
PROVIDERS: ADMIT Internal Medicine; ATTEND Internal Medicine
PROC: 00PV0MZ Removal of Neurostimulator Lead from Spinal Cord, Open Approach (ICD-10-PCS; 2017-02-21)
PROC: 0JPT0MZ Removal of Stimulator Generator from Trunk Subcutaneous Tissue and Fascia, Open Approach (ICD-10-PCS; 2017-02-21)
PROC: 0JB70ZZ Excision of Back Subcutaneous Tissue and Fascia, Open Approach (ICD-10-PCS; 2017-02-21)
PROC: 00D20ZZ Extraction of Dura Mater, Open Approach (ICD-10-PCS; principal; 2017-02-21 12:15)
DX: T81.4XXA Infection following a procedure, initial encounter (principal); E43 Unspecified severe protein-calorie malnutrition; N17.0 Acute kidney failure with tubular necrosis; G93.41 Metabolic encephalopathy; E44.0 Moderate protein-calorie malnutrition; E11.22 Type 2 diabetes mellitus with diabetic chronic kidney disease; E11.40 Type 2 diabetes mellitus with diabetic neuropathy, unspecified; R65.10 Systemic inflammatory response syndrome (SIRS) of non-infectious origin without acute organ dysfunction; N17.9 Acute kidney failure, unspecified; W01.0XXA Fall on same level from slipping, tripping and stumbling without subsequent striking against object, initial encounter; D63.8 Anemia in other chronic diseases classified elsewhere; D72.829 Elevated white blood cell count, unspecified; E78.5 Hyperlipidemia, unspecified; I12.9 Hypertensive chronic kidney disease with stage 1 through stage 4 chronic kidney disease, or unspecified chronic kidney disease; M48.06 Spinal stenosis, lumbar region; N18.3 Chronic kidney disease, stage 3 (moderate); Z96.659 Presence of unspecified artificial knee joint; G89.29 Other chronic pain; M19.90 Unspecified osteoarthritis, unspecified site; M54.10 Radiculopathy, site unspecified; Z83.3 Family history of diabetes mellitus; Z68.33 Body mass index [BMI] 33.0-33.9, adult
CPT/HCPCS: 36415; 72131; 76000; 80048; 80053; 81001; 82962; 83605; 83880; 85007; 85025; 85651; 86140; 87040; 87071; 87075; 87086; 87186; 87205; J0780; J0878; J1815; J2270; J2543; J3010; J3490; J7030; J7120; 97110; 97116; 97530; 97535; 99285-25

== ENCOUNTER → 2017-03-20 | Outpatient (CLI) | payer MEDICARE ==
[2017-02-25 23:16] VITALS: BP 121/53
[~2017-03-20] MED LIST changes: +CIPR250T30 PO; +HYDR-2758 PO; +HYDR25TA9 PO; -LOSA1TAB17 PO; +LOSA1TAB22 PO; +MELO15TA23 PO; +OXYC1TAB9 PO
--- NOTE | 2017-03-20 13:16 | PAIN ---
DATE OF SERVICE: 03/20/2017 DIAGNOSES: Chronic lumbar radiculopathy with post-lumbar laminectomy syndrome and lumbar spinal stenosis. HISTORY OF PRESENT ILLNESS: The patient is an 82-year-old male who returns for followup status post medication management with oxycodone as well as Meloxicam, gabapentin, and Voltaren gel for significant right greater than left knee pain. The patient reports he has recently had back surgery with lumbar laminectomy and diskectomy performed with complications of postoperative infection. Spinal cord stimulator was then removed, and patient healed up fairly well after this, still significant right knee pain, however, as well as some moderate left knee pain, much worse on the right side, however. The patient reports the back surgery has not helped the extremity and knee pain, and his stimulator is now out as well. The patient reports it is a 4 on a scale of 10 at all times, tingling, burning, sometimes sharp, alternating with dull and tight feeling, it became somewhat severe in the right knee, worse with weightbearing and better with sitting down, resting and has not been waking up from sleep as frequently since his surgery. The patient reports no new motor or sensory deficits, no new other changes or concerns. The patient reports no significant side effects with his medications, maintaining his hydration as well. PHYSICAL EXAMINATION: VITAL SIGNS: The patient's blood pressure 131/47, pulse 90, respirations 18, temperature 98.1 degrees Fahrenheit, height is 5 feet 4 inches, weighs 190 pounds. GENERAL: The patient is awake, alert, oriented, appropriate, very pleasant demeanor. HEENT: Head shows normocephalic, atraumatic. Extraocular movements are intact and symmetrical. Oral cavity, mucous membranes moist and pink. Dentition is intact. NECK: Shows anterior throat supple without palpable lymphadenopathy noted. Swallow reflex is symmetrical. CHEST: Shows normal on inspection. Breath sounds clear to auscultation bilaterally. HEART: Shows S1 and S2 clear. No murmurs auscultated. ABDOMEN: Obese, soft, nontender, nondistended. No palpable organomegaly. No rebound or guarding demonstrated. BACK: The patient's back shows spine grossly midline, well-healed surgical scars noted in the lumbar distribution with some mild tenderness with palpation in the paraspinous musculature bilaterally, but only diffusely without radiation, without atrophy, hypertrophy. The patient shows good rotational motion of lumbar spine, both laterally as well as extension and flexion without difficulty or pain reported. EXTREMITIES: Lower extremities showed deep tendon reflexes 1+ in the patellar and tendo calcaneus tendons. Motor exam is strong with 5/5 dorsiflexion, extension, quadriceps and hamstring flexion. The patient's peripheral pulses are 1+ posterior tibial and dorsalis pedis pulses. No peripheral edema is noted. No clubbing, no cyanosis. Options were discussed with the patient and the patient's old chart was reviewed as his current medication regimen updated. Current review of systems updated today as well. We will refill the patient's oxycodone as well as Meloxicam, gabapentin and Voltaren gel with instructions, side effects to be aware of discussed with each of the medications. The patient will return to clinic in approximately 2 months or sooner if necessary, was counseled as to activity levels. 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 NAHUM GRIFFIN MD DR: NATALIA/sami JOB#: [id number] / [id number]
== END | disposition home or self-care (01) ==
LOC: PNCL 11:23
PROVIDERS: ATTEND Anesthesiology
DX: M54.16 Radiculopathy, lumbar region (principal); M25.562 Pain in left knee; M25.561 Pain in right knee
CPT/HCPCS: G0463

== ENCOUNTER → 2017-05-16 | Outpatient (CLI) | payer MEDICARE ==
[~2017-05-16] MED LIST changes: +LISI10TA2 PO
--- NOTE | 2017-05-16 12:55 | PAIN ---
DATE OF SERVICE: 05/16/2017 DIAGNOSES: 1. Chronic lumbar radiculopathy with post-lumbar laminectomy syndrome, spinal stenosis. 2. Bilateral knee joint pain. HISTORY OF PRESENT ILLNESS: The patient is an 82-year-old male who returns for followup status post medication management with oxycodone 10 mg, also taking meloxicam and Voltaren gel. The patient reports he had been doing fairly well on a very stable regimen with the medications with about a 60% improvement overall without significant side effects. 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 The patient will discontinue that and also he is taking care of some blood pressure issues that he has been having as well. The patient reports his pain is in the bilateral knees and his legs "give out" on him. The right knee feels just as it did prior to his knee replacement, which has been a few years now. The patient reports it is aching pain, dull, sharp, shooting pain occasionally into the lower extremities, mostly in the anterior calves and posterior calves as well. The patient reports it is a 5 on a scale of 10 at its worst, average and at its least and is a 5 today. The patient reports no new motor or sensory deficits, no new bowel or bladder incontinence or other complaints. The patient reports it awakens him from sleep occasionally, but not every night. He can reposition, get out of bed and get back to sleep. Usually, the pain medication does help with this as well. Again, no side effects to his medication and the pain is somewhat manageable during the day, but again much worse with walking, standing, changing positions, especially with climbing stairs, putting all his weight on one leg or the other, right side greater than left with the pain. PHYSICAL EXAMINATION: VITAL SIGNS: The patient's blood pressure 130/71, pulse 56, respirations 18, temperature 97.9 degrees Fahrenheit, weighs 190 pounds. GENERAL: The patient is awake, alert, oriented, appropriate, very pleasant demeanor. HEENT: Head shows normocephalic, atraumatic. The patient wears eyeglasses. Extraocular movements are intact, symmetrical. Oral cavity: Mucous membranes moist and pink. Dentition is intact. NECK: Shows anterior throat supple without palpable lymphadenopathy noted. Swallow reflex is symmetrical. Neck shows full rotational motion of the cervical spine without difficulty or tenderness. CHEST: Shows normal on inspection. Breath sounds are clear to auscultation bilaterally. HEART: Shows S1, S2 clear. No murmurs auscultated. ABDOMEN: Soft, nontender, nondistended. No palpable organomegaly is noted. No rebound or guarding demonstrated. BACK: The patient's back shows spine grossly in midline. A well-healed surgical scarring noted in the lumbar distribution from previous surgery and spinal cord stimulator placement and then removal. The patient's back shows flattening lumbar lordotic curvature with palpation shows some moderate tenderness in the lumbar paraspinous muscles bilaterally, but only diffusely without radiation. The patient has good rotational motion of the lumbar spine, both laterally as well as extension and flexion without significant difficulty. EXTREMITIES: The patient's lower extremities show deep tendon reflexes at 1+ in the patellar and tendo calcaneus tendons. Motor exam is strong with 5/5 dorsiflexion and extension. The patient has well-healed surgical scarring noted in both of the knees anteriorly. Peripheral pulses are 1+ posterior tibia. No peripheral edema is noted. Options discussed with the patient. The patient's old chart was reviewed as his current medication regimen and updated. Current review of systems is updated today as well and we will refill the patient's oxycodone as well as gabapentin. We will not refill his meloxicam per his Nephrology physician's instructions and recommendations: The patient was given instructions as well as side effects to be aware of each of the medications. The patient has had appropriate urinalysis as well as appropriate K-TRACS reporting to date and we will continue medications on a 2-month supply basis. The patient will follow up in approximately 2 months as scheduled and was warned as to side effects to be aware of with each of the medications. NAHUM GRIFFIN MD DR: NATALIA/sami JOB#: [id number] / [id number]
== END | disposition home or self-care (01) ==
LOC: PNCL 10:31
PROVIDERS: ATTEND Anesthesiology
DX: M54.16 Radiculopathy, lumbar region (principal); M25.561 Pain in right knee; M25.562 Pain in left knee
CPT/HCPCS: G0463

== ENCOUNTER → 2017-05-29 | Outpatient (CLI) | payer MEDICARE ==
[2017-05-29 11:53] LABS: BASO % 1 % (0-3); EOS % 6 % (0-3); HEMATOCRIT 38.1 % (39.0-53.0); HEMOGLOBIN 12.7 g/dL (13.0-17.5); LYMPH # 1.7 x10^3/uL (1.0-4.8); LYMPH % 26 % (24-48); MEAN CORPUSCULAR HEMOGLOBIN 30 pg (25-35); MEAN CORPUSCULAR HGB CONC 33 g/dL (31-37); MEAN CORPUSCULAR VOLUME 88 fL (79-100); MONO % 13 % (0-9); NEUT % 55 % (31-73); PLATELET COUNT 208 x10^3/uL (140-400); RED BLOOD COUNT 4.31 x10^6/uL (4.30-5.70); RED CELL DISTRIBUTION WIDTH 15.4 % (11.5-14.5); WHITE BLOOD COUNT 6.8 x10^3/uL (4.0-11.0)
== END | disposition home or self-care (01) ==
LOC: LAB 10:53
PROVIDERS: ATTEND Nurse Practitioner Gerontology
DX: M25.561 Pain in right knee (principal)
CPT/HCPCS: 36415; 85025; 85651; 86141

== ENCOUNTER → 2017-07-11 | Outpatient (CLI) | payer MEDICARE | END | disposition home or self-care (01) | LOC: PNCL 11:29 | DX: M48.061 Spinal stenosis, lumbar region without neurogenic claudication (principal); M54.16 Radiculopathy, lumbar region; M17.0 Bilateral primary osteoarthritis of knee | CPT/HCPCS: G0463 ==

== ENCOUNTER → 2017-09-11 | Outpatient (CLI) | payer MEDICARE | END | disposition home or self-care (01) | LOC: KCIC US 12:05 | DX: I70.293 Other atherosclerosis of native arteries of extremities, bilateral legs (principal) | CPT/HCPCS: 93925 ==

== ENCOUNTER → 2017-10-03 | Outpatient (CLI) | payer MEDICARE | END | disposition home or self-care (01) | LOC: PNCL 11:27 | DX: M17.0 Bilateral primary osteoarthritis of knee (principal); M54.16 Radiculopathy, lumbar region; M48.061 Spinal stenosis, lumbar region without neurogenic claudication | CPT/HCPCS: G0463 ==

== ENCOUNTER → 2017-11-28 | Outpatient (CLI) | payer MEDICARE | END | disposition home or self-care (01) | LOC: PNCL 10:57 | DX: M54.16 Radiculopathy, lumbar region (principal); M48.061 Spinal stenosis, lumbar region without neurogenic claudication; M96.1 Postlaminectomy syndrome, not elsewhere classified; M17.0 Bilateral primary osteoarthritis of knee | CPT/HCPCS: G0463 ==

== ENCOUNTER → 2018-01-16 | Outpatient (CLI) | payer MEDICARE | END | disposition home or self-care (01) | LOC: PNCL 10:23 | DX: M48.061 Spinal stenosis, lumbar region without neurogenic claudication (principal); I12.9 Hypertensive chronic kidney disease with stage 1 through stage 4 chronic kidney disease, or unspecified chronic kidney disease; E11.22 Type 2 diabetes mellitus with diabetic chronic kidney disease; N18.4 Chronic kidney disease, stage 4 (severe); K21.9 Gastro-esophageal reflux disease without esophagitis; E78.00 Pure hypercholesterolemia, unspecified; Z96.653 Presence of artificial knee joint, bilateral; Z82.49 Family history of ischemic heart disease and other diseases of the circulatory system | CPT/HCPCS: G0463 ==

== ENCOUNTER → 2018-03-13 | Outpatient (CLI) | payer MEDICARE ==
[~2018-03-13] MED LIST changes: -AMLO10TA2 PO; +AMLO10TA6 PO; -GEMF600T3 PO; +GEMF600T4 PO; -LOSA100T6; +LOSA100T7; +OXYC-411 PO; -OXYC1TAB9 PO
--- NOTE | 2018-03-14 00:24 | PAIN ---
DATE OF SERVICE: 03/13/2018 PROGRESS NOTE FOR PAIN CLINIC DIAGNOSES: 1. Chronic lumbar radiculopathy with post-lumbar laminectomy syndrome and lumbar spinal stenosis. 2. Bilateral knee joint pain with primary osteoarthritis, bilateral knee joints. HISTORY OF PRESENT ILLNESS: The patient is an 83-year-old male who returns for followup status post medication management with gabapentin as well as oxycodone and Voltaren gel to the knees. The patient reports he has been doing fairly well with this, still has some significant pain decreased by about 65% or so and the patient reports most recently he feels he has slept wrong on his neck and his bilateral shoulder, pain radiating to the upper extremities, worse on the left than the right without any specific injury. He woke up one morning and he fell asleep in a reclining chair laid on his right side, but his left neck and shoulder has been hurting since that time with radiating pain into the arms and hands. The patient reports it is aching, burning, radiating and shooting. The pain in the knees is also burning and cramping and stabbing as well with weightbearing, better with sitting or lying down. The patient reports that the shoulder and arm pain has been worse with activity, even getting dressed in the morning or driving a car. The patient reports the pain is 7 on a scale of 10 at its worse, 5 on average and a 4 at its least and is a 4 today in the back but a 7 on the shoulders, especially on the left. The patient reports no new motor or sensory deficits and no bowel or bladder incontinence. PHYSICAL EXAMINATION: VITAL SIGNS: The patient's blood pressure 129/73, pulse 89, respirations 18, temperature 97.9 degrees Fahrenheit and weight is 204 pounds. GENERAL: The patient is awake, alert, oriented, appropriate and very pleasant demeanor. HEENT: Head shows normocephalic and atraumatic. Extraocular movements are intact and symmetrical. Oral cavity: Mucous membranes are moist and pink. Dentition is intact. NECK: Shows anterior throat supple without palpable lymphadenopathy noted. Swallow reflex symmetrical. CHEST: Shows normal on inspection. Breath sounds clear to auscultation bilaterally. HEART: Shows S1 and S2 clear. No murmurs auscultated. ABDOMEN: Soft, nontender and nondistended. No palpable organomegaly is noted. No rebound or guarding demonstrated. BACK: Shows spine grossly in the midline. The patient's normal appearing thoracic kyphosis, lumbar lordotic curvature is flattened with well-healed surgical scarring. Lumbar paraspinous muscle shows symmetrical but with diffuse tenderness bilaterally without radiation. EXTREMITIES: The patient's lower extremities show deep tendon reflexes 1+ in the patellar and tendo-calcaneus tendons. Motor exam is strong with 5/5 dorsiflexion and extension. Peripheral pulses are 1+ posterior tibia. No peripheral edema is noted. The patient's knees show good rotation motion, good hinge motion without significant ratcheting or significant pain without weightbearing. Options were discussed with the patient. The patient's old chart was reviewed as well as his current medication regimen updated. Current review of systems updated today as well. We will refill the patient's medication for 2-month prescription. The patient has had appropriate K-TRACS reporting as well as appropriate urinalysis to date. The patient was also given Medrol Dosepak, this may help the neck, the shoulders, upper extremities, has not significantly improved. We did discuss possibly an MRI scan of the cervical spine, differentiated radicular etiologies of the pain. It does travel in a radicular pattern in both the arms, left greater than right. The patient was also given a Flector patch prescription to see if this may be covered with insurance providers. We gave him some samples on his last visit and this did help more than Voltaren gel by his report. The patient was given instructions as well as side effects to be aware of each of the medication. We will follow up after the Medrol Dosepak if the MRI is needed at that time for the cervical radicular quality pain. NAHUM GRIFFIN MD DR: NATALIA/sami JOB#: [id number] / [id number]
== END | disposition home or self-care (01) ==
LOC: PNCL 11:51
PROVIDERS: ATTEND Anesthesiology
DX: M54.16 Radiculopathy, lumbar region (principal); M48.061 Spinal stenosis, lumbar region without neurogenic claudication; M17.0 Bilateral primary osteoarthritis of knee
CPT/HCPCS: G0463

== ENCOUNTER → 2018-05-08 | Outpatient (CLI) | payer MEDICARE ==
[~2018-05-08] MED LIST changes: +HYDR-2145 PO; -HYDR-2758 PO; +HYDR-2761 PO; -HYDR12.53 PO; +HYDR12.575 PO; -HYDR25TA9 PO; -OXYC-328 PO; +OXYC1TAB22 PO
--- NOTE | 2018-05-09 00:39 | PAIN ---
DATE OF SERVICE: 05/08/2018 PROGRESS NOTE FOR PAIN CLINIC DIAGNOSES: 1. Chronic lumbar radiculopathy with post lumbar laminectomy syndrome, lumbar spinal stenosis. 2. Bilateral knee joint pain with primary osteoarthritis of bilateral knees. HISTORY OF PRESENT ILLNESS: The patient is an 83-year-old male who returns for followup status post medication management with both oxycodone, Voltaren gel, gabapentin with good and stable results. The patient reports his pain is still significant in his knees as well as in his low back to some extent. It has been more frequently in his low back. Recently, he has been doing some vacuuming and increased work at home. He reports in general, he sleeps well, feels better with sitting or lying down, especially when he is off of his knees and off of his back. The patient reports no new motor or sensory deficits. He rates his pain as a 5 on a scale of 10 at all times, worst, average and at its least and is a 5 today. The patient reports it is an aching pain in the knees, dull pain in the back as well with recent vacuuming he was doing at home, also some cramping and stabbing pain, tight at times in the back and the knees and becoming more constant with walking and standing, better with sitting or lying down. The patient reports no new motor or sensory deficits, no side effects of the medication. Reports about an 80% improvement overall with the medication at this time. PHYSICAL EXAMINATION: VITAL SIGNS: Today, the patient's blood pressure is 155/75, pulse is 74, respirations 18, temperature 97.7 degrees Fahrenheit. Height is 5 feet 9 inches, weight is 202 pounds. GENERAL: The patient is awake, alert, oriented, appropriate, very pleasant demeanor. HEENT: Head shows normocephalic, atraumatic. Extraocular movements are intact, symmetrical. The patient is wearing eye glasses. Oral cavity: Mucous membranes moist and pink. Dentition is intact. NECK: Shows anterior throat supple without palpable lymphadenopathy noted. Swallow reflex is symmetrical. CHEST: Shows normal on inspection. Breath sounds clear to auscultation bilaterally. HEART: Shows S1, S2 clear. No murmurs auscultated. ABDOMEN: Flat, soft, nontender, nondistended. No palpable organomegaly is noted. No rebound or guarding demonstrated. BACK: Shows spine grossly in the midline. Normal appearing thoracic kyphosis and lumbar lordotic curvature. Lumbar paraspinous muscle shows symmetrical on inspection, on palpation shows some moderate tenderness, but only diffusely without significant radiation. EXTREMITIES: The patient's lower extremities show deep tendon reflexes at 1+ in the patellar and tendo calcaneus tendons are equal. Motor exam is strong with 5/5 dorsiflexion and extension. Peripheral pulses are 1+ posterior tibia. No peripheral edema is noted bilaterally. Options were discussed with the patient. The patient's old chart was reviewed as his current medication regimen updated. Current review of systems updated today as well. We will refill the patient's medication for 2-month prescription. The patient has had appropriate K-TRACS reporting as well as appropriate urinalysis to date. The patient was given instructions as well as side effects to be aware with each of these medications and will follow up in approximately 2 months or sooner if necessary. We also discussed possibly using [id number] Aleve, naproxen as he is having some increased back pain recently to see if this may help, the patient was given instructions with this as well. Will follow up as scheduled. NAHUM GRIFFIN MD DR: NATALIA/sami JOB#: [id number] / [id number]
== END | disposition home or self-care (01) ==
LOC: PNCL 11:04
PROVIDERS: ATTEND Anesthesiology
DX: M96.1 Postlaminectomy syndrome, not elsewhere classified (principal); M54.16 Radiculopathy, lumbar region; M48.061 Spinal stenosis, lumbar region without neurogenic claudication; M17.0 Bilateral primary osteoarthritis of knee
CPT/HCPCS: G0463

== ENCOUNTER → 2018-07-03 | Outpatient (CLI) | payer MEDICARE ==
[~2018-07-03] MED LIST changes: -GEMF600T4 PO; +GEMF600T8 PO; +LOSA100T14; -LOSA100T7
--- NOTE | 2018-07-03 12:41 | PAIN ---
DATE OF SERVICE: 07/03/2018 DIAGNOSES: 1. Chronic lumbar radiculopathy with lumbar post-laminectomy syndrome and spinal stenosis. 2. Bilateral knee joint pain with primary osteoarthritis, bilateral knee joint. HISTORY OF PRESENT ILLNESS: The patient is an 83-year-old male who returns for followup status post medication management with oxycodone, gabapentin, and Voltaren gel. The patient reports he has been doing fairly stable with this, still has significant pain mostly in the knees as his chief complaint today, but also low back pain. The patient reports it is tingling, burning, aching, dull, sharp, worse with walking and standing, especially in the knees, but his back pain has been becoming more noticeable over the past 2-3 weeks. The patient reports the pain is 5 on a scale of 10 at all times, worst, average and at its least and is 5 today. The patient reports again aching and dull, burning pain in the knees as well with walking, standing, becoming more severe with activity, better with sitting or resting. It does not awaken him from sleep at night, feels better with sitting or lying down, worse with ambulation. The patient reports no new motor or sensory deficits, no side effects with medication. Reports overall about 80% improvement with the medication where he is able to function on a very high level with good activity as well as no excessive sedation, constipation or nausea. The patient does get some sedation he reports some gabapentin and that is why we have kept him on a fairly low dose as he does not tolerate it very well, but feels it may help the pain to a moderate extent. PHYSICAL EXAMINATION: VITAL SIGNS: The patient's blood pressure is 131/69, pulse 79, respirations 18, temperature 98.2 degrees Fahrenheit. Height is 5 feet 9 inches, weighs 197 pounds. GENERAL: The patient is awake, alert, oriented, appropriate, very pleasant demeanor. HEENT: Head shows normocephalic, atraumatic. Extraocular movements intact and symmetrical. Oral cavity, mucous membranes moist and pink. Dentition is intact. NECK: Shows anterior throat supple without palpable lymphadenopathy noted. Swallow reflex symmetrical. Neck shows full rotational motion of cervical spine, both laterally as well as extension and flexion without difficulty. CHEST: Shows normal on inspection. Breath sounds are clear to auscultation bilaterally. HEART: Shows S1, S2 clear. No murmurs auscultated. ABDOMEN: Soft, nontender, nondistended. No palpable organomegaly is noted. No rebound or guarding demonstrated. BACK: Shows spine grossly in the midline. Normal-appearing thoracic kyphosis and lumbar lordotic curvature is slightly flattened. Lumbar paraspinous muscle shows symmetrical on inspection, well-healed surgical scar is noted; palpation shows some moderate tenderness, but only diffusely bilaterally in the low lumbar distribution without atrophy, hypertrophy, no trigger points. The patient has good rotational motion without significant pain with extension, flexion, right and left lateral rotation at 10 degrees. EXTREMITIES: Lower extremities show deep tendon reflexes 1+ in the patellar and tendo calcaneus tendons. Motor exam is approximately 5/5 with dorsiflexion and extension. Peripheral pulses are 1+ posterior tibia. No peripheral edema is noted. ASSESSMENT AND PLAN: Options were discussed with the patient. The patient's old chart was reviewed as was his current medication regimen updated. Current review of systems updated today as well. We will proceed with refill of the patient's medications. He has had appropriate K-TRACS reporting as well as appropriate urinalysis to date. We will refill the patient's medication for 2-month period of oxycodone as well as gabapentin and Voltaren gel. The patient was given instruction as well as side effects to be aware of each of medications and will follow up in approximately 2 months or sooner if necessary. NAHUM GRIFIFN MD DR: NATALIA/sami JOB#: [id number] / [id number]
== END | disposition home or self-care (01) ==
LOC: PNCL 11:12
PROVIDERS: ATTEND Anesthesiology
DX: M54.16 Radiculopathy, lumbar region (principal); M48.061 Spinal stenosis, lumbar region without neurogenic claudication; M96.1 Postlaminectomy syndrome, not elsewhere classified; M17.0 Bilateral primary osteoarthritis of knee; G89.29 Other chronic pain
CPT/HCPCS: G0463

== ENCOUNTER 2018-08-26 13:53 | Emergency (ER) | payer MEDICARE ==
[~2018-08-26] VITALS: Ht 162.6 cm; Wt 88.0 kg
[~2018-08-26 13:53] MED LIST changes: -AMLO10TA6 PO; +AMLO10TA8 PO
[2018-08-26] MEDS ORDERED: IV NORMAL SALINE 1000ML BAG 1,000 ML IV SCH (14:21)
--- NOTE | 2018-08-26 14:25 | PHYS DOC ---
Past Medical History Past Medical History: Diabetes-Type II, Hypertension, Other Additional Past Medical Histor: CHRONIC PAIN Past Surgical History: Knee Replacement, Pacemaker, Other Additional Past Surgical Histo: NECK, BACK Alcohol Use: None Drug Use: None Adult General Chief Complaint Chief Complaint: FLANK PAIN [facility] HPI Patient is an 83-year-old male who presents to the emergency department for evaluation. He states he has "kidney problems", although is uncertain exactly what type of kidney problems he has. The patient states that yesterday, he began expressing shaking chills and subjective fevers, and developed right flank pain. He has had 2-3 days of urinary frequency and hesitancy, as well as dysuria. He has not had any hematuria. He denies any nausea, vomiting, chest pain or abdominal pain. There are no alleviating, or exacerbating factors to his symptoms otherwise. Review of Systems Review of Systems Constitutional: Denies weight loss.[] Eyes: Denies change in visual acuity, redness, or eye pain [] HENT: Denies nasal congestion or sore throat [] Respiratory: Denies cough or shortness of breath [] Cardiovascular: The patient denies any shortness of breath, chest pain, palpitations, or orthopnea[] GI: Denies abdominal pain, nausea, vomiting, bloody stools or diarrhea [] : No additional information not addressed in HPI [] Musculoskeletal: Denies back pain or joint pain [] Integument: Denies rash or skin lesions [] Neurologic: Denies headache, focal weakness or sensory changes [] Endocrine: Denies polyuria or polydipsia [] All other systems were reviewed and found to be within normal limits, except as documented in this note. Current Medications Current Medications Current Medications Medications (Trade) Dose Ordered Sig/Edd Start Time Stop Time Status Last Admin Dose Admin Ceftriaxone Sodium (Rocephin) 1 gm 1X ONCE 08/26/18 15:15 08/26/18 15:21 DC 08/26/18 15:40 1 GM Sodium Chloride 1,000 ml @ 1,000 mls/hr Q1H 08/26/18 14:21 08/26/18 15:20 DC 08/26/18 15:08 1,000 MLS/HR Allergies Allergies Allergies Coded Allergies Type Severity Reaction Last Updated Verified I S O L A T I O N *CONTACT* Allergy Unknown 02/24/17 Yes No Known Medication Allergies Allergy Unknown 02/24/17 Yes Physical Exam Physical Exam PHYSICAL EXAM: CONSTITUTIONAL: Well developed, well nourished HEAD: normocephalic, atraumatic EENT: PERRL, EOMI. Conjunctivae normal color, sclerae non-icteric; moist mucous membranes. NECK: Supple, non-tender; no meningismus. LUNGS: Lungs CTA, breathing even and unlabored. Normal air movement. HEART: Regular rate and rhythm, no murmur CHEST: No deformity; non-tender ABDOMEN: The abdomen is soft, and non-tender, no masses or bruits. EXTREM: Normal ROM; no deformity, no calf tenderness. Normal pulses palpable in all extremities. There is no pedal edema. SKIN: No rash; no diaphoresis NEURO: Alert; normal speech and cognition; CN's grossly intact; strength grossly intact without focal deficit. BACK: There is mild right-sided CVA TTP. There is no left-sided CVA tenderness to palpation. Current Patient Data Vital Signs Vital Signs Date Time Temp Pulse Resp B/P (MAP) Pulse Ox O2 Delivery O2 Flow Rate FiO2 08/26/18 15:46 62 16 133/60 (84) 100 Room Air 08/26/18 14:05 99.4 99.4 Lab Values Laboratory Tests Test 08/26/18 14:25 08/26/18 14:50 White Blood Count 17.8 x10^3/uL (4.0-11.0) H Red Blood Count 3.71 x10^6/uL (4.30-5.70) L Hemoglobin 11.7 g/dL (13.0-17.5) L Hematocrit 34.7 % (39.0-53.0) L Mean Corpuscular Volume 94 fL (79-100) Mean Corpuscular Hemoglobin 32 pg (25-35) Mean Corpuscular Hemoglobin Concent 34 g/dL (31-37) Red Cell Distribution Width 13.9 % (11.5-14.5) Platelet Count 196 x10^3/uL (140-400) Neutrophils (%) (Auto) 84 % (31-73) H Lymphocytes (%) (Auto) 5 % (24-48) L Monocytes (%) (Auto) 10 % (0-9) H Eosinophils (%) (Auto) 0 % (0-3) Basophils (%) (Auto) 1 % (0-3) Neutrophils # (Auto) 14.9 x10^3uL (1.8-7.7) H Lymphocytes # (Auto) 1.0 x10^3/uL (1.0-4.8) Monocytes # (Auto) 1.8 x10^3/uL (0.0-1.1) H Eosinophils # (Auto) 0.0 x10^3/uL (0.0-0.7) Basophils # (Auto) 0.1 x10^3/uL (0.0-0.2) Segmented Neutrophils % 83 % (35-66) H Band Neutrophils % 3 % (0-9) Lymphocytes % 4 % (24-48) L Monocytes % 10 % (0-10) Platelet Estimate Adequate (ADEQUATE) Large Platelets Occ Sodium Level 138 mmol/L (136-145) Potassium Level 4.8 mmol/L (3.5-5.1) Chloride Level 103 mmol/L (98-107) Carbon Dioxide Level 22 mmol/L (21-32) Anion Gap 13 (6-14) Blood Urea Nitrogen 33 mg/dL (8-26) H Creatinine 2.0 mg/dL (0.7-1.3) H Estimated GFR (Cockcroft-Gault) 32.2 BUN/Creatinine Ratio 17 (6-20) Glucose Level 210 mg/dL (70-99) H Lactic Acid Level 1.7 mmol/L (0.4-2.0) Calcium Level 10.5 mg/dL (8.5-10.1) H Total Bilirubin 0.7 mg/dL (0.2-1.0) Aspartate Amino Transferase (AST) 20 U/L (15-37) Alanine Aminotransferase (ALT) 26 U/L (16-63) Alkaline Phosphatase 95 U/L (46-116) Total Protein 6.9 g/dL (6.4-8.2) Albumin 3.5 g/dL (3.4-5.0) Albumin/Globulin Ratio 1.0 (1.0-1.7) Lipase 109 U/L (73-393) Urine Collection Type Unknown Urine Color Lo Urine Clarity Cloudy Urine pH 5.5 Urine Specific Bison 1.025 Urine Protein 100 mg/dL (NEG-TRACE) Urine Glucose (UA) Negative mg/dL (NEG) Urine Ketones (Stick) Negative mg/dL (NEG) Urine Blood Large (NEG) Urine Nitrite Negative (NEG) Urine Bilirubin Small (NEG) Urine Urobilinogen Dipstick 1.0 mg/dL (0.2 mg/dL) Urine Leukocyte Esterase Moderate (NEG) Urine RBC >40 /HPF (0-2) Urine WBC Tntc /HPF (0-4) Urine Bacteria Moderate /HPF (0-FEW) Urine Hyaline Casts Occasional /HPF Urine Mucus Slight /LPF Laboratory Tests 08/26/18 14:25 Laboratory Tests 08/26/18 14:25 EKG EKG [] Radiology/Procedures Radiology/Procedures [PROCEDURE: CT ABDOMEN PELVIS WO CONTRAST CT abdomen and pelvis without contrast: Reason for examination: Right flank pain. Helical images were obtained through the abdomen pelvis with no intravenous or oral contrast administered. Reconstruction was performed in sagittal and coronal planes. Exposure: One or more of the following individualized dose reduction techniques were utilized for this examination: 1. Automated exposure control 2. Adjustment of the mA and/or kV according to patient size 3. Use of iterative reconstruction technique. There is some linear density at the lung bases consistent with atelectasis bilaterally. The heart size is normal with no pericardial effusion. No focal abnormality seen at the liver, spleen, adrenal glands or pancreas. The gallbladder is somewhat contracted but contains no stones and there is a large amount of gastric content so the patient has not been nothing by mouth. The abdominal aorta and inferior vena cava show no acute abnormalities. The kidneys bilaterally show no masses, renal calculi, hydronephrosis or evidence of obstructive uropathy. No abnormality seen at the appendix. There is a large amount of gastric content in the stomach with no evidence of obstruction. The small intestinal tract shows no abnormally dilated or thickened bowel and no bowel obstruction. There are diverticuli in the sigmoid colon without evidence of diverticulitis. No abnormality seen at the bladder. The prostate gland is enlarged at 5.9 cm. Seminal vesicles and vas deferens are unremarkable. No abnormal fluid collections or free air are seen in the abdomen or pelvis. There are degenerative changes in the spine. No acute bony abnormalities are seen. IMPRESSION: No evidence of renal calculi or obstructive uropathy. 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 Enlarged prostate gland at 5.9 cm. Contracted gallbladder however the patient has not been nothing by mouth with a large amount of gastric content present. Degenerative changes in the spine.] Course & Med Decision Making Course & Med Decision Making Pertinent Labs and Imaging studies reviewed. (See chart for details) [4:50 PM:Patient remains stable. I discussed test results, the need for close follow-up, and return precautions.] I discussed the hematuria noted in the patient's blood, and while this could be related to the underlying infection, follow-up with urology was stressed. Patient's creatinine is not significantly different compared to his prior values. Dragon Disclaimer Dragon Disclaimer This electronic medical record was generated, in whole or in part, using a voice recognition dictation system. Departure Departure Impression: Primary Impression: UTI (urinary tract infection) Disposition: 01 HOME, SELF-CARE Condition: STABLE Referrals: EMILY FIELDS (PCP) LONG NAYLOR MD Patient Instructions: Hematuria, Adult, Urinary Tract Infection Scripts Sulfamethoxazole/Trimethoprim (BACTRIM DS TABLET) 1 Each Tablet 1 TAB PO BID, #14 TAB Prov: TRISH LAYNE MD 08/26/18 TRISH LAYNE MD Aug 26, 2018 14:25
[2018-08-26 14:42] LABS: BASO # 0.1 x10^3/uL (0.0-0.2); BASO % 1 % (0-3); EOS % 0 % (0-3); HEMATOCRIT 34.7 % (39.0-53.0); HEMOGLOBIN 11.7 g/dL (13.0-17.5); LYMPH % 5 % (24-48); MEAN CORPUSCULAR HEMOGLOBIN 32 pg (25-35); MEAN CORPUSCULAR HGB CONC 34 g/dL (31-37); MEAN CORPUSCULAR VOLUME 94 fL (79-100); MONO # 1.8 x10^3/uL (0.0-1.1); MONO % 10 % (0-9); NEUT # 14.9 x10^3uL (1.8-7.7); NEUT % 84 % (31-73); PLATELET COUNT 196 x10^3/uL (140-400); RED BLOOD COUNT 3.71 x10^6/uL (4.30-5.70); RED CELL DISTRIBUTION WIDTH 13.9 % (11.5-14.5); WHITE BLOOD COUNT 17.8 x10^3/uL (4.0-11.0)
[2018-08-26 14:49] LABS: CALCIUM 10.5 mg/dL (8.5-10.1); GFR 32.2; POTASSIUM 4.8 mmol/L (3.5-5.1)
[2018-08-26 14:54] LABS: ALBUMIN 3.5 g/dL (3.4-5.0); TOTAL BILIRUBIN 0.7 mg/dL (0.2-1.0); TOTAL PROTEIN 6.9 g/dL (6.4-8.2)
[2018-08-26] MEDS ORDERED: cefTRIAXone IV Push 1 GM VIAL. IVP ONE (15:15)
[2018-08-26 15:17] LABS: % BANDS 3 % (0-9); % LYMPHS 4 % (24-48); % MONOS 10 % (0-10); % SEGS 83 % (35-66); PLT ESTIMATE ADEQUATE (ADEQUATE)
[2018-08-26 15:18] LABS: BILIRUBIN,URINE SMALL (NEG); CLARITY,URINE CLOUDY; COLOR,URINE AMBER; NITRITE,URINE NEGATIVE (NEG); PH,URINE 5.5; PROTEIN,URINE 100 mg/dL (NEG-TRACE)
[2018-08-26 15:48] LABS: BACTERIA,URINE MODERATE /HPF (0-FEW); RBC,URINE >40 /HPF (0-2); WBC,URINE TNTC /HPF (0-4)
[2018-08-26 15:49] LABS: HYALINE CASTS, URINE OCCASIONAL /HPF
--- NOTE | 2018-08-26 16:25 | RAD ---
CT abdomen and pelvis without contrast: Reason for examination: Right flank pain. Helical images were obtained through the abdomen pelvis with no intravenous or oral contrast administered. Reconstruction was performed in sagittal and coronal planes. Exposure: One or more of the following individualized dose reduction techniques were utilized for this examination: 1. Automated exposure control 2. Adjustment of the mA and/or kV according to patient size 3. Use of iterative reconstruction technique. There is some linear density at the lung bases consistent with atelectasis bilaterally. The heart size is normal with no pericardial effusion. No focal abnormality seen at the liver, spleen, adrenal glands or pancreas. The gallbladder is somewhat contracted but contains no stones and there is a large amount of gastric content so the patient has not been nothing by mouth. The abdominal aorta and inferior vena cava show no acute abnormalities. The kidneys bilaterally show no masses, renal calculi, hydronephrosis or evidence of obstructive uropathy. No abnormality seen at the appendix. There is a large amount of gastric content in the stomach with no evidence of obstruction. The small intestinal tract shows no abnormally dilated or thickened bowel and no bowel obstruction. There are diverticuli in the sigmoid colon without evidence of diverticulitis. No abnormality seen at the bladder. The prostate gland is enlarged at 5.9 cm. Seminal vesicles and vas deferens are unremarkable. No abnormal fluid collections or free air are seen in the abdomen or pelvis. There are degenerative changes in the spine. No acute bony abnormalities are seen. IMPRESSION: No evidence of renal calculi or obstructive uropathy. 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 Enlarged prostate gland at 5.9 cm. Contracted gallbladder however the patient has not been nothing by mouth with a large amount of gastric content present. Degenerative changes in the spine. Electronically signed by: Ju Salgado MD (08/26/2018 4:22 PM) [facility] [place]
[2018-08-26] MEDS ORDERED: SULF1TAB24 PO (16:56)
[2018-08-26 17:09] VITALS: BP 131/61
== END 2018-08-26 17:16 | disposition home or self-care (01) ==
LOC: ER 13:53
DX: N39.0 Urinary tract infection, site not specified (principal); E11.9 Type 2 diabetes mellitus without complications; I10 Essential (primary) hypertension; G89.29 Other chronic pain; Z95.0 Presence of cardiac pacemaker; Z91.041 Radiographic dye allergy status
CPT/HCPCS: 36415; 74176; 80053; 81001; 83605; 83690; 85007; 85025; 87040; 87086; 87186; 96374; 99284; J0696; J7030; 96361

== ENCOUNTER → 2018-08-29 | Outpatient (CLI) | payer MEDICARE ==
[2018-08-26 17:09] VITALS: BP 131/61
[~2018-08-29] MED LIST changes: +SULF1TAB24 PO
--- NOTE | 2018-08-29 23:34 | PAIN ---
DATE OF SERVICE: 08/29/2018 PROGRESS NOTE FOR PAIN CLINIC DIAGNOSES: 1. Chronic lumbar radiculopathy with lumbar spinal stenosis and post-lumbar laminectomy syndrome. 2. Chronic bilateral knee joint pain with osteoarthritis. HISTORY OF PRESENT ILLNESS: The patient is an 83-year-old male who returns for followup status post medication management with oxycodone as well as gabapentin and Voltaren gel. The patient reports he has been on fairly stable regimen with this, although the pain is still not well controlled in his knees. He also is having some increased back pain recently. The patient did have a spinal cord stimulator in the past, which he reports did not really work well and was taken out prior to his last lumbar surgery as well. The patient reports his pain is in the back and the legs, especially the knees, rated it as a 5 on a scale of 5 with average, worst and least and is a 5 on a scale of 10 that is today. The patient reports it is aching and dull in the knees as well as in the low back, worse with walking, standing, changing positions, better with sitting or lying down and almost no pain with sitting and no pain with lying down in the knees or the back. It does not awaken him from sleep at night. The patient reports no new motor or sensory deficits and no new changes or other complaints. The patient reports he is getting by with the medications he is on now, has no side effects. PHYSICAL EXAMINATION: VITAL SIGNS: The patient's blood pressure 126/63, pulse 83, respirations 18 and temperature 98.2 degrees Fahrenheit. Height is 5 feet 4 inches and weight is 199 pounds. GENERAL: The patient is awake, alert, oriented, appropriate and very pleasant demeanor. HEENT: Head shows normocephalic and atraumatic. Extraocular movements are intact and symmetrical. Oral cavity: Mucous membranes moist and pink. Dentition is intact. NECK: Shows anterior throat supple without palpable lymphadenopathy noted. Swallow reflex symmetrical. CHEST: Shows normal with inspection. Breath sounds clear to auscultation bilaterally. HEART: Shows S1 and S2 clear. No murmurs auscultated. ABDOMEN: Soft, nontender and nondistended. No palpable organomegaly is noted. No rebound or guarding demonstrated. BACK: Shows spine grossly in the midline. Normal appearing thoracic kyphosis and some minor flattening of lumbar lordotic curvature with well-healed surgical scar noted in the lumbar distribution. Paraspinous muscle shows symmetrical on inspection and on palpation shows some moderate tenderness diffusely but only diffusely with palpation without radiation. The patient has good rotational motion of the lumbar spine, both laterally as well as extension and flexion without significant increase in pain. EXTREMITIES: The patient's lower extremities show deep tendon reflexes 1+ in the patella and tendo-calcaneus tendons. Motor exam is strong with 4 on a scale of 5, but equal and symmetrical with dorsiflexion, extension, quadriceps and hamstring flexion. Peripheral pulses are 1+ posterior tibia. No peripheral edema is noted. The patient's knees show a good range of motion without crepitus or ratcheting. Options were discussed with the patient. The patient's old chart was reviewed as well as current medication regimen updated. Current review of systems updated today as well and we will refill the patient's medications, both oxycodone as well as Voltaren gel and gabapentin. The patient was given instructions as well as side effects to be aware of with each of the medications. The patient has had appropriate K-TRACS reporting as well as appropriate urinalysis to date. We will refill this for 2-month period. The patient will return to the clinic in approximately 2 months or prior to that if necessary. NAHUM GRIFFIN MD DR: NATALIA/sami JOB#: [id number] / [id number]
== END | disposition home or self-care (01) ==
LOC: PNCL 10:28
PROVIDERS: ATTEND Anesthesiology
DX: M48.061 Spinal stenosis, lumbar region without neurogenic claudication (principal); M54.16 Radiculopathy, lumbar region; M96.1 Postlaminectomy syndrome, not elsewhere classified; M17.0 Bilateral primary osteoarthritis of knee
CPT/HCPCS: G0463

== ENCOUNTER → 2018-10-24 | Outpatient (CLI) | payer MEDICARE ==
--- NOTE | 2018-10-24 15:59 | RAD ---
Pelvis with both hips, 5 views, 10/24/2018: HISTORY: Right hip pain No fracture or dislocation is identified. There is mild narrowing at both hip joints with mild marginal spurring. Moderate degenerative changes are noted in the lower lumbar spine. IMPRESSION: 1. Mild degenerative change at both hip joints. 2. No acute bony abnormality is detected. Electronically signed by: Varun Holloway MD (10/24/2018 3:57 PM) [facility]
--- NOTE | 2018-10-24 20:25 | PAIN ---
DATE OF SERVICE: 10/24/2018 PROGRESS NOTE FOR PAIN CLINIC DIAGNOSES: 1. Chronic lumbar radiculopathy with post-lumbar laminectomy syndrome and lumbar spinal stenosis. 2. Bilateral knee joint pain with primary osteoarthritis. 3. Right hip joint pain with osteoarthritis. HISTORY OF PRESENT ILLNESS: The patient is an 83-year-old male who returns for followup status post medication management with both oxycodone as well as gabapentin and Voltaren gel for his knees. The patient reports he is doing fairly well and the pain in his back is still significant and fairly well controlled with the medications by about 70% or so. The patient reports no side effects with the medications, still significant pain in the back and his chief complaint today is his right hip has been hurting more when walking and standing, putting weight on it, which is new for him, radiating into the posterior buttock as well as into the right groin with walking, standing and putting all his weight on his right side, especially when he is standing on stairs or steps. The patient reports his pain is a 5 on a scale of 10 at its worst, 5 on average, 5 at its least over the past week and is a 5 today. The patient reports it is aching, dull, shooting in the legs at times and has significant pain in the right hip and groin as noted as well as the knees. The patient reports it is better with being off his feet, sitting does not hurt, lying down does not hurt. It does not awaken him from sleep at night. PHYSICAL EXAMINATION: VITAL SIGNS: The patient's blood pressure is 140/78, pulse 87, respirations 18, temperature 98.2 degrees Fahrenheit, height is 5 feet 4 inches, weight is 197 pounds. GENERAL: The patient is awake, alert, oriented, appropriate, very pleasant demeanor. HEENT: Head shows normocephalic, atraumatic. Extraocular movements are intact and symmetrical. Oral cavity, mucous membranes are moist and pink. Dentition is intact. NECK: Shows anterior throat supple without palpable lymphadenopathy noted. Swallow reflex is symmetrical. CHEST: Shows normal on inspection. Breath sounds are clear to auscultation bilaterally. HEART: Shows S1, S2 clear. No murmurs auscultated. ABDOMEN: Soft, nontender, nondistended. No palpable organomegaly is noted. No rebound or guarding demonstrated. BACK: Shows spine grossly in the midline. Normal appearing thoracic kyphosis and some slight flattening of lumbar lordotic curvature. Well healed surgical scar in the lumbar distribution. Lumbar paraspinous muscle shows symmetrical on inspection. With palpation, shows some moderate tenderness diffusely bilaterally, but only diffusely without radiation. EXTREMITIES: The patient's lower extremities show deep tendon reflexes at 1+ in the patellar and tendo-calcaneus tendons. Motor exam is approximately 4 on a scale of 5, but equal and symmetrical with dorsiflexion, extension, quadriceps and hamstring flexion. Peripheral pulses are 1+ posterior tibia. No peripheral edema is noted. The patient does have a positive Shay sign on the right with external rotation with knee flexion. The right hip is very significantly tender in the hip itself, but negative on the left. Options were discussed with the patient. The patient's old chart was reviewed as his current medication regimen updated. Current review of systems updated today as well. We will obtain x-rays of the right and left hips for comparison. Also, refill the patient's medication oxycodone as well as gabapentin and Voltaren gel. The patient has had appropriate K-TRACS reporting as well as appropriate urinalysis to date. We will refill this for a 2-month period. The patient will return to the clinic in approximately 2 months or sooner if necessary. NAHUM GRIFFIN MD DR: NATALIA/sami JOB#: [id number] / [id number]
== END | disposition home or self-care (01) ==
LOC: PNCL 11:35
PROVIDERS: ATTEND Anesthesiology
DX: M54.16 Radiculopathy, lumbar region (principal); M48.061 Spinal stenosis, lumbar region without neurogenic claudication; M17.0 Bilateral primary osteoarthritis of knee; M16.11 Unilateral primary osteoarthritis, right hip; M96.1 Postlaminectomy syndrome, not elsewhere classified
CPT/HCPCS: 73521; G0463

== ENCOUNTER → 2018-12-19 | Outpatient (CLI) | payer MEDICARE ==
--- NOTE | 2018-12-19 17:13 | PAIN ---
DATE OF SERVICE: 12/19/2018 DIAGNOSES: 1. Chronic lumbar radiculopathy with post-lumbar laminectomy syndrome and lumbar spinal stenosis. 2. Bilateral knee joint pain with primary osteoarthritis. 3. Right hip joint pain with osteoarthritis. HISTORY OF PRESENT ILLNESS: The patient is an 83-year-old male who returns for followup status post medication management with both gabapentin, oxycodone and Voltaren gel. 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 The patient reports his pain is in the back and the knees, rates a 5 on a scale of 10 at its worst, average and at its least and is a 5 today. The patient did have some hip pain on his last visit. We had x-rayed his right hip which only showed some mild degenerative changes of both hips with some moderate degenerative change in the lumbar spine that were noted as well, but no significant finding in the hips themselves. The patient reports the pain is worse with standing, walking, changing positions, helping his , lifting her, moving her, helping her transfer with sitting, standing positions, etc. The patient reports it awakens him from sleep at night, does not have any increased ability to increase his activity secondary to the pain, but he is still getting by, and the pain medicine does reduce it by about 70-75% without significant side effects. The patient reports no new changes. No new complaints. PHYSICAL EXAMINATION: VITAL SIGNS: The patient's blood pressure 140/75, pulse 85, respirations 18, temperature 97.8 degrees Fahrenheit, height is 5 feet 4 inches, weight is 200 pounds. GENERAL: The patient is awake, alert, oriented, appropriate, very pleasant demeanor. HEENT: Head is normocephalic, atraumatic. Extraocular movements are intact and symmetrical. Oral cavity: Mucous membranes moist and pink. Dentition intact. NECK: Shows anterior throat supple without palpable lymphadenopathy noted. Swallow reflex symmetrical. CHEST: Shows normal on inspection. Breath sounds clear to auscultation bilaterally. HEART: Shows S1, S2 clear. No murmurs auscultated. ABDOMEN: Soft, nontender, nondistended. No palpable organomegaly is noted. No rebound or guarding demonstrated. BACK: Shows spine grossly in the midline. Normal appearing thoracic kyphosis and lumbar lordotic curvature. The patient's lumbar paraspinous muscle shows symmetrical on inspection, on palpation shows some moderate tenderness diffusely with well-healed surgical scar noted in the lumbar spine itself. The patient's back shows good rotational motion with some moderate tenderness with extension, but not forward flexion, not with right and left lateral rotation. EXTREMITIES: Lower extremities show deep tendon reflexes 1+ in the patellar and tendo calcaneus tendons. Motor exam is strong with 4 on a scale of 5, but equal and symmetrical dorsiflexion, extension, quadriceps and hamstring flexion. Peripheral pulses are 1+ posterior tibial. No peripheral edema is noted bilaterally. Options were discussed with the patient. The patient's old chart was reviewed as his current medication regimen updated. Current review of systems updated today as well. We will refill the patient's oxycodone as well as Voltaren gel and gabapentin. The patient was given instruction as well as side effects to be aware of with each of these medications. The patient will follow up in approximately 2 months or sooner if necessary. The patient had appropriate K-TRACS placed as well as appropriate urinalysis to date. We will have the patient return in approximately 2-month period or sooner if necessary. NAHUM GRIFFIN MD DR: NATALIA/sami JOB#: [id number] / [id number]
== END | disposition home or self-care (01) ==
LOC: PNCL 10:51
PROVIDERS: ATTEND Anesthesiology
DX: M17.0 Bilateral primary osteoarthritis of knee (principal); M16.11 Unilateral primary osteoarthritis, right hip; M54.16 Radiculopathy, lumbar region; M48.061 Spinal stenosis, lumbar region without neurogenic claudication; M96.1 Postlaminectomy syndrome, not elsewhere classified; Z79.891 Long term (current) use of opiate analgesic
CPT/HCPCS: G0463

== ENCOUNTER → 2019-02-13 | Outpatient (CLI) | payer MEDICARE ==
[~2019-02-13] MED LIST changes: +DICL100G18 TP
--- NOTE | 2019-02-13 21:44 | PAIN ---
DATE OF SERVICE: 02/13/2019 PROGRESS NOTE FOR PAIN CLINIC DIAGNOSES: 1. Chronic lumbar radiculopathy with post-lumbar laminectomy syndrome and lumbar spinal stenosis. 2. Bilateral knee joint pain with primary osteoarthritis. 3. Right hip joint pain with osteoarthritis. HISTORY OF PRESENT ILLNESS: The patient 83-year-old male who returns for followup status post medication management with oxycodone, gabapentin, and Voltaren gel. The patient reports he is doing fairly good on his stable regimen with these medications, but still has significant pain especially across the low back. The patient reports it is a 5 on a scale of 10 at all times, it is average, worst and at least over the past week and is a 5 today. The patient reports it is aching and dull, worse with walking, standing and some in the knees as well with some significant pain, better with Voltaren gel to the knees. The patient reports he is up every 2 hours at night secondary to pain mostly in his back. The patient has had multiple procedures in the past including spinal cord stimulators without long-term success, lumbar surgery as well as cervical surgeries and knee surgeries, all with only limited decrease in pain. The patient reports he has some dizziness, has headaches as well as forearms have been aching lately as well with no side effects from his medications significantly. PHYSICAL EXAMINATION: VITAL SIGNS: The patient's blood pressure 132/71, pulse 87, respirations 16, temperature 97.7 degrees Fahrenheit, height is 5 feet 4 inches, weight is 198 pounds. GENERAL: The patient is awake, alert, oriented, appropriate, very pleasant demeanor. HEENT: Shows normocephalic, atraumatic. Extraocular movements are intact and symmetrical. Oral cavity: Mucous membranes moist and pink. Dentition is intact. NECK: Shows anterior throat supple without palpable lymphadenopathy noted. Swallow reflex symmetrical. CHEST: Shows normal on inspection. Breath sounds clear to auscultation bilaterally. HEART: Shows S1, S2 clear. No murmurs auscultated. ABDOMEN: Soft, nontender, nondistended. No palpable organomegaly is noted. No rebound or guarding demonstrated. BACK: Shows spine grossly in the midline. Well-healed surgical scarring is noted in the lumbar distribution, some flattening of lumbar lordotic curvature, some mild increase in kyphotic curvature with palpation shows some moderate tenderness diffusely in the lumbar distribution of the paraspinous muscles bilaterally, but only diffusely without radiation. The patient has good rotational motion of lumbar spine without significant increase in pain, both laterally as well as extension and flexion. EXTREMITIES: The patient's upper extremities show deep tendon reflexes 2+ in the biceps and triceps tendons. Securities Adviser strength is strong with 5/5 and as is bicep and tricep flexion. Lower extremities show deep tendon reflexes 1+ patellar and tendo calcaneus tendons. Motor exam is approximately 4 on a scale of 5, but symmetrical dorsiflexion, extension, quadriceps and hamstring flexion. Peripheral pulses are 2+ radial, 1+ posterior tibial. Options were discussed with the patient. The patient's old chart was reviewed as his current medication regimen updated. Current review of systems updated today as well. We will refill the patient's oxycodone as well as gabapentin and Voltaren gel for 2-month period. The patient had appropriate K-TRACS reporting as well as appropriate urinalysis to date and we will refill this for 2-month period with instructions, side effects to be aware of each of the medications. The patient will follow up in approximately 2 months or sooner as necessary. NAHUM GRIFFIN MD DR: ANTALIA/sami JOB#: [id number] / [id number]
== END | disposition home or self-care (01) ==
LOC: PNCL 11:33
PROVIDERS: ATTEND Anesthesiology
DX: M54.16 Radiculopathy, lumbar region (principal); M48.061 Spinal stenosis, lumbar region without neurogenic claudication; M17.0 Bilateral primary osteoarthritis of knee; M16.11 Unilateral primary osteoarthritis, right hip; R51 Headache; R42 Dizziness and giddiness
CPT/HCPCS: G0463

== ENCOUNTER → 2019-04-10 | Outpatient (CLI) | payer MEDICARE ==
--- NOTE | 2019-04-10 16:06 | PAIN ---
DATE OF SERVICE: 04/10/2019 PROGRESS NOTE FOR PAIN CLINIC DIAGNOSES: 1. Chronic lumbar radiculopathy with post-lumbar laminectomy syndrome and lumbar spinal stenosis. 2. Cervical radiculopathy with post-cervical laminectomy syndrome. 3. Bilateral knee joint pain with primary osteoarthritis. HISTORY OF PRESENT ILLNESS: The patient is an 84-year-old male who returns for followup status post medication management with Voltaren gel, gabapentin, and oxycodone. The patient reports he is doing fairly well with this, has been on a very stable regimen. Still has significant pain, especially in the knees bilaterally as well as in the left hand and wrist. The patient reports some tingling and numbness in the left hand, which takes several hours sometimes to resolve, this is happening at night as well as during the day using the upper extremity or not using it. The patient reports his pain is a 5 on a scale of 10 at its worst, average and at its least over the past week and is a 5 at all times and is 5 today. The patient reports it is aching and dull, again tingling and numbness in the left hand and wrist, pain in the knees with walking, standing, changing positions, better with sitting or lying down, does awaken him from sleep about every 6 hours, especially with the wrist and the knees. The patient reports no new motor or sensory deficits, no new bowel or bladder incontinence or changes. PHYSICAL EXAMINATION: VITAL SIGNS: The patient's blood pressure 147/78, pulse 87, respirations 18, temperature 98.1 degrees Fahrenheit, height is 5 feet 4 inches, weight is 193 pounds. GENERAL: The patient is awake, alert, oriented, appropriate, very pleasant demeanor. HEENT: Head shows normocephalic, atraumatic. Extraocular movements are intact and symmetrical. Oral cavity: Mucous membranes moist and pink. Dentition is intact. NECK: Shows anterior throat supple without palpable lymphadenopathy noted. Swallow reflex symmetrical. CHEST: Normal on inspection. Breath sounds are clear bilaterally. HEART: Shows S1, S2 clear. No murmurs auscultated. ABDOMEN: Soft, nontender, nondistended. No palpable organomegaly is noted. No rebound or guarding demonstrated. BACK: Shows spine grossly in the midline. Normal appearing thoracic kyphosis and lumbar lordotic curvature is slightly flattened. Well-healed surgical scar is noted. Lumbar paraspinous muscle shows symmetrical on inspection, on palpation shows some moderate tenderness diffusely bilaterally throughout the upper, middle and lower distribution of paraspinous muscles. Cervical paraspinous muscle shows symmetrical as well with tenderness as well in the upper, middle and lower distribution of the cervical paraspinous muscles, especially into the left trapezius musculature, again without trigger points. The patient has good rotational motion of the cervical spine, both laterally as well as extension and flexion. Lumbar spine shows good rotation as well as laterally, right and left extension and flexion without significant increase in pain. EXTREMITIES: The patient's upper extremities show deep tendon reflexes 2+ in the biceps, triceps tendons. Motor exam is strong with optician manager strength rated at 5/5 bilaterally. Some slight reproduction of tenderness and tingling in the left hand with pressure over the carpal tunnel in the median nerve, but not on the right side. Peripheral pulses are 2+ radial distribution bilaterally. Lower extremities show deep tendon reflexes 1+ in the patellar and tendo calcaneus tendons. Motor exam is strong with 5/5 dorsiflexion, extension and equal bilaterally as well. Peripheral pulses are 1+ posterior tibia and equal. No peripheral edema is noted upper or lower extremities bilaterally. Options were discussed with the patient. The patient's old chart was reviewed as his current medication regimen updated. Current review of systems updated today as well. We will refill the patient's medication for a 2-month period, oxycodone, gabapentin, and Voltaren gel, as he has had appropriate K-TRACS reporting as well as appropriate urinalysis to date. We will refill the patient's medications for 2 months. The patient was given instruction as well as side effects to be aware of each of the medications and will follow up in 2 months or sooner if necessary. NAHUM GRIFFIN MD DR: NATALIA/sami JOB#: [id number] / [id number]
== END | disposition home or self-care (01) ==
LOC: PNCL 11:45
PROVIDERS: ATTEND Anesthesiology
DX: M54.16 Radiculopathy, lumbar region (principal); M54.12 Radiculopathy, cervical region; M17.0 Bilateral primary osteoarthritis of knee; M96.1 Postlaminectomy syndrome, not elsewhere classified
CPT/HCPCS: G0463

== ENCOUNTER → 2019-06-03 | Outpatient (CLI) | payer MEDICARE ==
--- NOTE | 2019-06-03 23:39 | PAIN ---
DATE OF SERVICE: 06/03/2019 PROGRESS NOTE FOR PAIN CLINIC DIAGNOSES: 1. Chronic lumbar radiculopathy with post-lumbar laminectomy syndrome, lumbar spinal stenosis. 2. Bilateral knee joint pain with primary osteoarthritis. 3. Right hip joint pain with osteoarthritis. HISTORY OF PRESENT ILLNESS: The patient is an 84-year-old male, who returns for followup status post medication management with oxycodone, Voltaren gel and gabapentin. The patient reports that he is fairly stable on the regimen, but his pain is still fairly significant as well; especially, in the bilateral knees, which is his chief complaint. The patient also reports some pain in the left wrist and arm with some numbness and tingling at times as well and has an appointment coming up with Neurology for EMG of his upper extremities. The patient rates his pain in the knees, specifically is a 5 on a scale of 10 at all times, average, worst and least and is a 5 today. The patient reports it is worse with walking, standing, changing positions, better with sitting or lying down, does not hurt significantly with lying down, does not awaken him from sleep at night. Reports no loss of motor function, but still significant pain with the knees with ambulation and weightbearing, especially climbing stairs or stepping up on a curb when walking. The patient reports no side effects with the medication. Reports about a 60-70% improvement with the medication overall and again without side effects. The patient describes the pain as aching and dull in the knees, specifically, and also some pain in the left arm as noted. PHYSICAL EXAMINATION: VITAL SIGNS: The patient's blood pressure is 137/74, pulse 93, respirations 18, temperature 97.9 degrees Fahrenheit, height is 5 feet 4 inches. GENERAL: The patient is awake, alert, oriented, appropriate, very pleasant demeanor. HEENT: Shows normocephalic, atraumatic. The patient wears eyeglasses. Extraocular movements are intact and symmetrical. Oral cavity: Mucous membranes moist and pink; dentition is intact. NECK: Shows anterior throat supple without palpable lymphadenopathy noted. Swallow reflex symmetrical. The patient has a well-healed surgical scar from previous cervical diskectomy and fusion anteriorly. Posterior cervical musculature is symmetrical with some mild tenderness in the base of the neck with deep palpation, but only mildly. The patient has good rotational motion of the cervical spine, both laterally greater than 45 degrees as well as extension and flexion without significant pain reported. CHEST: Shows normal on inspection. Breath sounds are clear bilaterally. HEART: Shows S1, S2 clear. No murmurs auscultated. ABDOMEN: Obese, but soft, nontender, nondistended. BACK: Shows spine grossly in the midline. Normal-appearing thoracic kyphosis and lumbar lordotic curvature, also slightly flattened with well-healed surgical scar noted in the lumbar distribution. Lumbar paraspinous musculature shows mild tenderness throughout the upper, middle and lower distributions of paraspinous muscles, but only diffusely without radiation. EXTREMITIES: The patient's lower extremities show deep tendon reflexes are 1+ patellar and tendo-calcaneus tendons. Motor exam is approximately 4 on a scale of 5, but equal and symmetrical with dorsiflexion, extension, quadriceps and hamstring flexion. Upper extremities show deep tendon reflexes are 2+ in the biceps and triceps tendons. Motor exam is strong with equip maint eng strength rated at 5/5 as is bicep and tricep flexion bilaterally. Peripheral pulses are 2+ radial and 1+ posterior tibial. No peripheral edema is noted in any of the extremities. Options were discussed with the patient. The patient's old chart was reviewed as was his current medication regimen updated. Current review of systems updated today as well. We will refill the patient's medications, oxycodone as well as gabapentin and Voltaren gel. The patient has been doing well with this, has been on a very stable regimen, has had appropriate K-TRACS reporting as well as appropriate urinalysis to date. We will have a urinalysis drawn today as well for routine screening and renewed narcotic contract. The patient was given a copy as well. The patient was given instruction as well as side effects to be aware of each of the medications. We will follow up in approximately 2 months or sooner as necessary. NAHUM GRIFFIN MD DR: NATALIA/sami JOB#: [id number] / [id number]
== END | disposition home or self-care (01) ==
LOC: PNCL 11:44
PROVIDERS: ATTEND Anesthesiology
DX: M48.061 Spinal stenosis, lumbar region without neurogenic claudication (principal); M54.16 Radiculopathy, lumbar region; M96.1 Postlaminectomy syndrome, not elsewhere classified; M17.0 Bilateral primary osteoarthritis of knee; M16.11 Unilateral primary osteoarthritis, right hip
CPT/HCPCS: G0463

== ENCOUNTER → 2019-07-29 | Outpatient (CLI) | payer MEDICARE ==
[~2019-07-29] MED LIST changes: +BUPIVACAINE MPF 0.25% 10 ML VIAL. ONE; +IOHEXOL 180 MG/ML 10 ML VIAL. ONE; +methylPREDNISolone ACETATE 80 MG/ML VIAL. ONE
--- NOTE | 2019-07-29 12:09 | PAIN ---
DATE OF SERVICE: 07/29/2019 PROGRESS NOTE FOR PAIN CLINIC DIAGNOSES: 1. Chronic lumbar radiculopathy with post-lumbar laminectomy syndrome and spinal stenosis. 2. Bilateral knee joint pain with primary osteoarthritis. 3. Right hip joint pain. 4. Left sacroiliitis. HISTORY OF PRESENT ILLNESS: The patient is an 84-year-old male who returns for followup status post medication management with oxycodone as well as gabapentin and Voltaren gel for the knees. The patient reports he is doing fairly well on this, but lately has had significant pain increasing in the low back on the left posterior hip. The patient reports it occasionally radiates into the gluteus, but generally not radiating, worse with walking and standing, especially more than about 10-15 minutes. The patient reports it is better with sitting or lying down, but it does awaken him from sleep, especially if he lies on his left side. This has come up over the past 2-3 weeks without any specific injury or action that he is aware of, but it is in the left posterior buttock and hip. The patient reports it is a 5 on a scale of 10 at all times, average, worst and least and is a 5 today. The patient reports no loss of motor function. He describes the pain as aching and sharp at times, can be debilitating that it "hurts so bad in the left hip." PHYSICAL EXAMINATION: VITAL SIGNS: The patient's blood pressure is 141/80, pulse 63, respirations 18, temperature 97.3 degrees Fahrenheit, height is 5 feet 4 inches, weight is 199 pounds. GENERAL: The patient is awake, alert, oriented, appropriate, very pleasant demeanor. HEENT: Shows normocephalic, atraumatic. Extraocular movements are intact and symmetrical. Oral cavity: Mucous membranes moist and pink. Dentition is intact. NECK: Shows anterior throat is supple without palpable lymphadenopathy noted. Swallow reflex symmetrical. CHEST: Shows normal on inspection. Breath sounds are clear to auscultation bilaterally. HEART: Shows S1, S2 clear. No murmurs auscultated. ABDOMEN: Soft, nontender, nondistended. No palpable organomegaly is noted. No rebound or guarding demonstrated. BACK: Shows spine grossly in the midline. Normal-appearing thoracic kyphosis and some flattening of lumbar lordotic curvature with well-healed surgical scarring noted in the lumbar distribution. Lumbar paraspinous muscle shows symmetrical on inspection. On palpation, it shows some moderate tenderness throughout bilaterally with palpation over the sacroiliac regions. The right side shows no significant tenderness on the left side, very significant tenderness over the left posterior superior iliac spine as well as the left sacroiliac joint itself and superior medial aspect of the joint. The patient reports no radiation of pain with palpation. EXTREMITIES: The patient's lower extremities show deep tendon reflexes 1+ in the patellar and tendo-calcaneus tendons. Motor exam is intact bilaterally with approximately 4 on a scale of 5, but intact with dorsiflexion, extension, quadriceps and hamstring flexion bilaterally. Options were discussed with the patient. The patient's old chart was reviewed as his current medication regimen updated. Current review of systems updated today as well and we will proceed with the left sacroiliac joint injection today with fluoroscopic guidance. Risks were discussed including but not limited to bleeding, infection, possibility of intravascular injection sequelae, spread of local anesthetic and numbness, side effects of steroid medication and poor results regarding pain control. The patient understands and wished to proceed. The patient will return to clinic in approximately 2 weeks for followup. He was counseled on return appointment, activity level and side effects to be aware of. The patient was also given refill prescription for oxycodone as well as Voltaren gel and gabapentin. The patient has had appropriate K-TRACS reporting as well as appropriate urinalysis to date and we will make this for a 2-month prescription, although the patient will follow up prior to this as necessary for the left sacroiliac region. DIAGNOSIS: Left sacroiliitis. PROCEDURE: Left sacroiliac joint injection using C-arm fluoroscopic guidance under sterile prep and drape using local anesthetic. MEDICATION INJECTED: Total of 3 mL of 0.25% bupivacaine, 80 mg of Depo-Medrol and 1.5 mL of contrast. CONDITION AT DISCHARGE: Stable. The patient tolerated procedure well and had no complications. NAHUM GRIFFIN MD DR: NATALIA/sami JOB#: [id number] / [id number]
== END | disposition home or self-care (01) ==
LOC: PNCL 10:48
PROVIDERS: ATTEND Anesthesiology
DX: M46.1 Sacroiliitis, not elsewhere classified (principal); M17.0 Bilateral primary osteoarthritis of knee; M54.16 Radiculopathy, lumbar region; M96.1 Postlaminectomy syndrome, not elsewhere classified; M48.061 Spinal stenosis, lumbar region without neurogenic claudication
CPT/HCPCS: G0260; J1040; J3490; Q9965; 77002; 27096

== ENCOUNTER → 2019-09-23 | Outpatient (CLI) | payer MEDICARE ==
--- NOTE | 2019-09-23 13:13 | PAIN ---
DATE OF SERVICE: 09/23/2019 PROGRESS NOTE FOR PAIN CLINIC DIAGNOSES: 1. Chronic lumbar radiculopathy with post-lumbar laminectomy syndrome, lumbar spinal stenosis. 2. Bilateral knee joint pain with primary osteoarthritis. 3. Right hip joint pain. 4. Left sacroiliitis. HISTORY OF PRESENT ILLNESS: The patient is an 84-year-old male who returns for followup status post medication management with both gabapentin as well as oxycodone and Voltaren gel for his knees. The patient reports he has been doing very stable with this and has been on very stable regimen, and good results and decreased pain by about 60-70% with the knee pain and the back pain. We did a left sacroiliac joint injection with him on his last visit on 07/29 and the patient reports he did do well with this with about a 50% improvement for about 3 weeks following the injection. He was walking with much better ease and comfort, greater distances, walking, doing household activities as well as traveling easier. The patient reports the pain returned after about 3 weeks, but only gradually and is still present, more on the left low back and left hip, but not as severe. The patient reports his pain is a 5 on a scale of 10 at all times, average, worst and least and is a 5 today. The patient reports it is an aching pain in the back and also significant pain that is more tight and shooting, and sharp in the knees with ambulation and standing. The patient reports no new motor or sensory deficits, no side effects with his medication. PHYSICAL EXAMINATION: VITAL SIGNS: The patient's blood pressure 169/71, pulse 87, respirations 16, temperature 98.3 degrees Fahrenheit, height is 5 feet 4 inches, weight is 204 pounds. GENERAL: The patient is awake, alert, oriented, appropriate, very pleasant demeanor. HEENT: Head shows normocephalic, atraumatic. Extraocular movements are intact and symmetrical. Oral cavity, mucous membranes are moist and pink. Dentition is intact. NECK: Shows anterior throat supple without palpable lymphadenopathy noted. Swallow reflex symmetrical. CHEST: Shows normal on inspection. Breath sounds are clear to auscultation bilaterally. HEART: Shows S1, S2 clear. No murmurs auscultated. ABDOMEN: Soft, obese, nontender, nondistended. No palpable organomegaly is noted. BACK: Shows spine grossly in the midline. Normal appearing thoracic kyphosis and cervical lordotic curvature. Significant flattening of lumbar lordotic curvature with well-healed extensive surgical scarring in the lumbar distribution. Lumbar paraspinous muscle shows symmetrical on inspection, with palpation shows some moderate tenderness diffusely bilaterally throughout the upper, middle and lower distribution of paraspinous muscles, but without significant atrophy, hypertrophy without trigger points. The patient does have some moderate tenderness over the left posterior superior iliac spine and the left sacroiliac joint, only very mild tenderness on the right. The patient has good rotational motion of lumbar spine, both laterally greater than 10 degrees right and left as well as extension and forward flexion with somewhat limited, but not secondary to pain. EXTREMITIES: The patient's lower extremities show deep tendon reflexes 1+ in the patellar and tendo calcaneus tendons. Motor exam is approximately 4 on a scale of 5 with dorsiflexion, extension, but equal and symmetrical bilaterally. The patient's knee shows good range of motion both actively and passively, but only with pain reported with weightbearing. Options were discussed with the patient. The patient's old chart was reviewed as his current medication regimen updated. Current review of systems updated today as well. We will proceed with a repeat left sacroiliac joint injection today with fluoroscopic guidance. Risks were again discussed including, but not limited to bleeding, infection, possibility of intravascular injection sequelae, spread of local anesthetic and numbness, side effects of steroid medication, exposure to fluoroscopy and poor results regarding pain control. The patient understands and wished to proceed. The patient will return to clinic in approximately 4 weeks for followup. He was also given refill medication for his oxycodone as well as gabapentin and Voltaren gel with instructions, side effects to be aware of each of these medications. The patient has been on appropriate K-TRACS reporting and had appropriate urinalysis to date. We will make a 2-month refill on his oxycodone. The patient will follow up as scheduled. DIAGNOSIS: Left sacroiliitis. PROCEDURE: Left sacroiliac joint injection using C-arm fluoroscopic guidance under sterile prep and drape using local anesthetic. MEDICATION INJECTED: Total of 80 mg Depo-Medrol plus 3 mL of 0.25% bupivacaine and 2 mL of contrast. CONDITION AT DISCHARGE: Stable. The patient tolerated the procedure well, had no complications. NAHUM GRIFFIN MD DR: NATALIA/sami JOB#: [id number] / [id number]
== END ==
LOC: PNCL 11:28
PROVIDERS: ATTEND Anesthesiology
DX: M46.1 Sacroiliitis, not elsewhere classified (principal); M54.16 Radiculopathy, lumbar region; M48.061 Spinal stenosis, lumbar region without neurogenic claudication; M96.1 Postlaminectomy syndrome, not elsewhere classified; M17.0 Bilateral primary osteoarthritis of knee; M16.11 Unilateral primary osteoarthritis, right hip
CPT/HCPCS: G0260; J1040; J3490; Q9965; 27096; 77002

== ENCOUNTER → 2019-11-18 | Outpatient (CLI) | payer MEDICARE ==
[~2019-11-18] MED LIST changes: -DICL100G18 TP; +DICL100G54 TP; -ERTA1VIA IJ; +ERTA1VIA16 IJ; +FAMO40TA4 PO; -PREG50CA PO; +PREG50CA91 PO
--- NOTE | 2019-11-18 12:48 | PAIN ---
DATE OF SERVICE: 11/18/2019 PROGRESS NOTE FOR PAIN CLINIC DIAGNOSES: 1. Chronic lumbar radiculopathy with post-lumbar laminectomy syndrome, lumbar spinal stenosis. 2. Bilateral knee joint pain with osteoarthritis. 3. Right hip joint pain. 4. Left sacroiliitis. HISTORY OF PRESENT ILLNESS: The patient is an 84-year-old male who returns for followup status post left sacroiliac joint injection also medication management with oxycodone, gabapentin, and Voltaren gel. The patient reports he is doing fairly well, was on a fairly stable regimen with medication, but his pain is only down about 50-60% with the medications. The patient reports the oxycodone does decrease the pain better than any other medication. He tried gabapentin, which made him feel very dizzy and he has only been taking it at night recently. The patient reports his pain is a 5 on a scale of 10 at all times, worst, least and average and is a 5 today. The patient reports his knees are worse. He has had bilateral knee joint replacements, but still has chronic pain from after the replacements. The patient reports no new motor or sensory deficits, no new side effects. It does awaken him from sleep from the pain in the knees about every 5-6 hours, most every night. The patient reports no new changes. PHYSICAL EXAMINATION: VITAL SIGNS: The patient's blood pressure 152/79, pulse 88, respirations 18, temperature 98.2 degrees Fahrenheit, height is 5 feet 4 inches, weight is 201 pounds. GENERAL: The patient is awake, alert, oriented, appropriate, very pleasant demeanor. HEENT: Shows normocephalic, atraumatic. Extraocular movements are intact and symmetrical. Oral cavity shows mucous membranes moist and pink. Dentition is intact. NECK: Shows anterior throat supple without palpable lymphadenopathy noted. Swallow reflex symmetrical. CHEST: Shows normal on inspection. Breath sounds clear bilaterally. No rales, rhonchi or wheezes auscultated. ABDOMEN: Soft, nontender, nondistended. HEART: Shows S1, S2 clear. No murmurs auscultated. BACK: Shows spine grossly in the midline, normal-appearing cervical lordotic curvature and thoracic kyphotic curvature, minor flattening of lumbar lordotic curvature with palpation over the sacroiliac region shows significant tenderness over the left sacroiliac region and the posterior superior iliac spine on the left as well, but without specific radiation. The patient has good rotational motion of lumbar spine, both laterally as well as extension and flexion without significant increase in pain or difficulty. EXTREMITIES: Lower extremities show deep tendon reflexes at 1+ in the patellar and tendo calcaneus tendons. Motor exam is approximately 4 on a scale of 5, but symmetrical with dorsiflexion, extension, quadriceps and hamstring flexion. The patient has surgical scars noted on the knees bilaterally as well. Peripheral pulses are 1+. No peripheral edema is noted. Options were discussed with the patient. The patient's old chart was reviewed as his current medication regimen updated. Current review of systems updated today as well. We will proceed with a left sacroiliac joint injection as he has done very well with these in the past. The patient reported about 2-3 weeks period of 75-80% improvement then the pain returning in the left sacroiliac joint. Risks were discussed including but not limited to bleeding, infection, possibility of intravascular injection sequelae, spread of local anesthetic and numbness, side effects of steroid medication, exposure to fluoroscopy and poor results regarding pain control. The patient understands and wished to proceed. The patient will return to clinic in approximately 8 weeks or sooner if necessary. The patient was given refill prescription for oxycodone as well as gabapentin and Voltaren gel with instructions, side effects to be aware of each of the medications. The patient has been on very stable regimen, has had appropriate K-TRACS reporting as well as appropriate urinalysis to date and will return in approximately 2 months or sooner as necessary. DIAGNOSIS: Left sacroiliitis. PROCEDURE: Left sacroiliac joint injection using C-arm fluoroscopic guidance under sterile prep and drape using local anesthetic. MEDICATION INJECTED: Total of 80 mg Depo-Medrol plus a total of 3 mL of 0.25% bupivacaine and 2 mL of contrast. CONDITION AT DISCHARGE: Stable. The patient tolerated procedure well, had no complications. NAHUM GRIFFIN MD DR: NATALIA/sami JOB#: [id number] / [id number]
== END ==
LOC: PNCL 11:18
PROVIDERS: ATTEND Anesthesiology
DX: M46.1 Sacroiliitis, not elsewhere classified (principal); M51.16 Intervertebral disc disorders with radiculopathy, lumbar region; M96.1 Postlaminectomy syndrome, not elsewhere classified; M48.061 Spinal stenosis, lumbar region without neurogenic claudication; M17.0 Bilateral primary osteoarthritis of knee
CPT/HCPCS: G0260; J1040; J3490; Q9965; 27096

== ENCOUNTER → 2020-01-13 | Outpatient (CLI) | payer MEDICARE ==
[~2020-01-13] MED LIST changes: -OXYC-411 PO; +OXYC1TAB20 PO; +methylPREDNISolone ACETATE 40 MG/ML VIAL. ONE
--- NOTE | 2020-01-13 13:13 | PAIN ---
DATE OF SERVICE: 01/13/2020 PROGRESS NOTE FOR PAIN CLINIC DIAGNOSES: 1. Chronic lumbar radiculopathy with post-lumbar laminectomy syndrome and lumbar spinal stenosis. 2. Bilateral knee joint pain with osteoarthritis. 3. Right hip joint pain with osteoarthritis. 4. Left sacroiliitis. HISTORY OF PRESENT ILLNESS: The patient is an 84-year-old male, who returns for followup, status post medication management as well as left sacroiliac joint injections. The patient reports he is doing better with these about 50% for several weeks following the injection. The patient reports there is still some pain in the low back on the left posterior hip region. He also has some pain in the upper neck and back and shoulders that he feels that he slept on wrong a few nights ago. The patient reports otherwise still significant pain in the knees, which is very chronic with any weightbearing at all, better with sitting or lying down, generally it does not awaken him from sleep at night, but lately over the past week or two, the left posterior hip has been waking him from sleep about every 4-5 hours. The patient reports it is an aching pain that is in the low back, left side. He also has some pain that is tight in the knees with severe pain in the knees as well, that can be dull and sharp or with weightbearing or standing, especially with climbing stairs or walking up on a curb with putting all his weight on one leg or the other. PHYSICAL EXAMINATION: VITAL SIGNS: The patient's blood pressure 157/71, pulse 75, respirations are 18, temperature is 98.2 degrees Fahrenheit, height is 5 feet 5 inches, weight is 203 pounds. GENERAL: The patient is awake, alert, oriented, appropriate, has very pleasant demeanor. HEENT: Shows normocephalic, atraumatic. Extraocular movements are intact and symmetrical. Oral cavity: Mucous membranes are moist and pink. Dentition is intact. NECK: Shows anterior throat supple without palpable lymphadenopathy noted. Swallow reflex is symmetrical. CHEST: Shows normal on inspection. Breath sounds are clear bilaterally. No rales, rhonchi, or wheezes auscultated. HEART: Shows S1, S2 clear. No murmurs auscultated. ABDOMEN: Soft, nontender, nondistended. BACK: Shows spine grossly in the midline. Normal-appearing thoracic kyphosis and minor flattening of lumbar lordotic curvature with well-healed surgical scar noted. The patient's left sacroiliac joint shows significant tenderness over the joint itself in the posterior superior iliac spine. Right side is nontender. The patient's back shows good rotational motion; however, both laterally as well as extension and flexion without significant increase in pain. EXTREMITIES: The patient's lower extremities show deep tendon reflexes 1+ to patellar and tendo-calcaneus tendons. Motor exam is approximately 4 on a scale of 5, but equal and symmetrical with dorsiflexion and extension, right and left bilaterally. The patient's knees show moderate tenderness with palpation both medial and lateral aspect of the knee itself, but with good passive motion and hinged joint motion without crepitus or ratcheting. Options were discussed with the patient. The patient's old chart was reviewed as his current medication regimen updated. Current review of systems updated today as well. The patient has had appropriate K-TRACS reporting as well as appropriate urinalysis to date. We will refill the patient's medication, oxycodone, and Voltaren gel and gabapentin with instructions and side effects to be aware of for a 2-month period. The patient will have urinalysis today as routine screening as well. Also, we will plan on the left sacroiliac joint injection today under fluoroscopic guidance. Risks were discussed, including but not limited to bleeding, infection, possibility of intravascular injection sequelae, spread of local anesthetic and numbness, side effects of steroid medication, exposure to fluoroscopy and poor results regarding pain control. The patient understands and wished to proceed. The patient will return to the clinic in approximately 2 months or sooner as necessary, given instruction as well as side effects to be aware of with the medication. Once again, we will have UA done today. DIAGNOSIS: Left sacroiliitis. PROCEDURE: Left sacroiliac joint injection using C-arm fluoroscopic guidance under sterile prep and drape using local anesthetic. MEDICATION INJECTED: A total of 80 mg Depo-Medrol plus 3 mL of 0.25% bupivacaine, 1.5 mL of contrast. CONDITION AT DISCHARGE: Stable. The patient tolerated procedure well, had no complications. NAHUM GRIFFIN MD DR: NATALIA/sami JOB#: [id number] / [id number]
== END | disposition home or self-care (01) ==
LOC: PNCL 11:18
PROVIDERS: ATTEND Anesthesiology
DX: M48.061 Spinal stenosis, lumbar region without neurogenic claudication (principal); M17.0 Bilateral primary osteoarthritis of knee; M46.1 Sacroiliitis, not elsewhere classified; M54.16 Radiculopathy, lumbar region; Z87.891 Personal history of nicotine dependence; Z79.899 Other long term (current) drug therapy; Z88.8 Allergy status to other drugs, medicaments and biological substances
CPT/HCPCS: G0260; J1040; J3490; Q9965; 77002; J1030; 27096

== ENCOUNTER → 2020-03-09 | Outpatient (CLI) | payer MEDICARE ==
--- NOTE | 2020-03-09 12:35 | PDOC ---
Progress Note - Pain Clinic Date of Service: DOS: DATE: 03/09/20 TIME: 12:29 Diagnosis: Dx: Chronic lumbar radiculopathy with post lumbar laminectomy syndrome and lumbar spinal stenosis Bilateral knee joint pain with osteoarthritis Right hip joint pain with osteoarthritis Left sacroiliitis History or Present Illness: HPI: 85-year-old male returns follow-up status post left sacroiliac joint injection as well as medication management with oxycodone gabapentin and Voltaren gel. Patient reports he is doing fairly well with about a 50% improvement after his last sacroiliac joint injection on the left side patient reports the pain is returning down the left posterior hip however with some radiation into the gluteus but only minimally patient reports is worse with walking standing changing position especially getting up from a seated position. Patient reports it generally does not awaken him from sleep at night but occasionally has over the last few days patient reports otherwise he is doing very well prior with increased activity walking doing household exercises and activities as well as travel with greater ease and comfort pain returning over the past 1 to 2 weeks. Patient still complains of pain in the bilateral knees but with the oxycodone and gabapentin Voltaren gel is manageable by his estimate by about 60 to 70% improvement overall with the medications without significant side effects. Physical Exam: VS: Blood pressure is 158/78 pulse 84 respirations 18 temperature 98.2 F weight is 202 pounds PE: PHYSICAL EXAMINATION: GENERAL: The patient is awake, alert, oriented, appropriate, very pleasant demeanor HEENT: Shows normocephalic, atraumatic. Extraocular movements are intact and symmetrical, patient wearing eyeglasses. NECK: Shows anterior throat supple without palpable lymphadenopathy noted. Swallow reflex symmetrical. CHEST: Shows normal on inspection. Breath sounds are clear bilaterally. HEART: Shows S1, S2 clear. No murmurs auscultated. ABDOMEN: Soft, nontender, nondistended. No palpable organomegaly is noted. No rebound or guarding demonstrated. BACK: Shows spine grossly in the midline. Normal-appearing cervical lordotic curvature. There is slightly increased thoracic kyphosis, some minor flattening of the lumbar lordotic curvature with well-healed surgical scarring in the midline noted. Lumbar paraspinous muscles show symmetrical on inspection, on palpation shows some moderate tenderness diffusely throughout the upper, middle and lower distribution of the paraspinous muscles bilaterally without specific trigger points, without radiation of pain. The patient has good rotational motion of the lumbar spine, both laterally as well as extension and flexion without significant difficulty. No tenderness over the spinous processes, sacrum or sacroiliac regions. EXTREMITIES: Lower extremities show deep tendon reflexes 1+ in the patellar and tendo calcaneus tendons. Motor exam is 4 on a scale of 5 with right dorsiflexion, extension, quadriceps and hamstring flexion and 4/5 on the left. Peripheral pulses are 1+ posterior tibial. No peripheral edema is noted bilaterally. Lower extremities are warm and dry to touch, equal in color and appearance. SKIN: Shows warm and dry, good turgor. No edema. No sores, rashes or bruising throughout. Procedure: Procedure: Options were discussed with the patient. Patient's old chart was reviewed his his current medication regimen updated current review of systems updated today as well. We will refill patient's oxycodone as well as gabapentin and Voltaren gel with instructions side effects to be aware discussed with each. Patient is had appropriate K tract report as well as appropriate urinalyses to date and we will refill this for 2-month period. Also will proceed with left sacroiliac joint repeat injection today. Risks were discussed including but not limited to bleeding infection possibility of intravascular injection sequelae spread local anesthetic numbness side effects of steroid medication exposure fluoroscopy and poor results chronic pain control. Patient understands wished to proceed. Patient return to clinic in approximately 4 weeks for follow-up was counseled as to return appointment activity level and side effects to be aware of. Medication Injected: Med Injected: Under sterile prep and drape using C-arm fluoroscopic guidance, left sacroiliac joint injected using 3 cc 0.25% bupivacaine +80 mg Depo-Medrol +2 cc contrast. Condition at discharge is stable, patient tolerated procedure well and had no complications. Condition at Discharge: Condition at Discharge: Condition at discharge stable patient tolerated procedure well had no complications. ANHUM GRIFFIN MD Mar 09, 2020 12:35
== END | disposition home or self-care (01) ==
LOC: PNCL 11:50
PROVIDERS: ATTEND Anesthesiology
DX: M46.1 Sacroiliitis, not elsewhere classified (principal); M17.0 Bilateral primary osteoarthritis of knee; M16.11 Unilateral primary osteoarthritis, right hip; M54.16 Radiculopathy, lumbar region; I10 Essential (primary) hypertension; E11.9 Type 2 diabetes mellitus without complications; M96.1 Postlaminectomy syndrome, not elsewhere classified; M48.061 Spinal stenosis, lumbar region without neurogenic claudication; Z98.890 Other specified postprocedural states; Z79.899 Other long term (current) drug therapy; Z88.8 Allergy status to other drugs, medicaments and biological substances; Z87.891 Personal history of nicotine dependence
CPT/HCPCS: 27096; J1040; J3490; Q9965; J1030; G0260

== ENCOUNTER → 2020-05-20 | Outpatient (CLI) | payer MEDICARE ==
[~2020-05-20] MED LIST changes: +AMLO-187 PO; -AMLO10TA8 PO; -IOHEXOL 180 MG/ML 10 ML VIAL. ONE; -methylPREDNISolone ACETATE 80 MG/ML VIAL. ONE
--- NOTE | 2020-05-20 11:59 | PDOC ---
Progress Note - Pain Clinic Date of Service: DOS: DATE: 05/20/20 TIME: 11:53 Diagnosis: Dx: Chronic lumbar radiculopathy with post lumbar laminectomy syndrome lumbar spinal stenosis Cervical radiculopathy with post cervical laminectomy syndrome and cervical degenerative disc disease Bilateral knee joint pain with osteoarthritis Right hip joint pain with osteoarthritis Left sacroiliitis Myofascial pain History or Present Illness: HPI: 85-year-old male returns follow-up status post right sacroiliac joint injections and medication management with oxycodone and Voltaren gel. Reports is doing fairly well with this his knees are still painful but his chief complaint today is his right neck and shoulder. Patient reports his left hip is doing much better after his last sacroiliac joint injection but his shoulder is the most painful area at this time. Patient reports no recent injury to the shoulder no increased activity or overuse of the shoulder that he is aware of. Reports it wakes him from sleep at least 2-3 times a night is worse with weightbearing repetitive motions lifting items with the right arm or shoulder reaching over his head. Patient reports it is an aching pain that is also stabbing and cramping radiating to the right arm and with some tingling and numbness in the right hand as well. Patient reports most the time the numbness is at night but lately has been staying numb in the arm and hand during the day as well. Patient rates pain is a 5 on a scale 10 is worst 5 on average for its least and is a 5 today. Physical Exam: VS: Blood pressure is 148/78 pulse 84 respirations are 16 temperature 90.0 F height is 5 feet 4 inches weight is 200 pounds PE: PHYSICAL EXAMINATION: GENERAL: The patient is awake, alert, oriented, appropriate, very pleasant demeanor HEENT: Shows normocephalic, atraumatic. Extraocular movements are intact and symmetrical. Oral cavity: Mucous membranes moist and pink. Dentition is intact. NECK: Shows anterior throat supple without palpable lymphadenopathy noted. Swallow reflex symmetrical. CHEST: Shows normal on inspection. Breath sounds are clear bilaterally, no r ales rhonchi or wheezes. HEART: Shows S1, S2 clear. No murmurs auscultated. ABDOMEN: Soft, nontender, nondistended, obese. No palpable organomegaly is noted. No rebound or guarding demonstrated. BACK: Shows spine grossly in the midline. Normal-appearing cervical lordotic curvature. Neck shows good rotation motion cervical spine with some minor guarding with far right lateral rotation also some mild pain reported with extension but not with forward flexion. Paraspinous posterior shows symmetrical inspection on palpation some very firm very severely tender areas of ropelike musculature in the bilateral trapezius much more significant on the right than the left consistent with trigger point areas of musculature but without radiation on palpation. There is slightly increased thoracic kyphosis, some minor flattening of the lumbar lordotic curvature. Well-healed surgical scar in the lumbar distribution again noted. Lumbar paraspinous muscles show symmetrical on inspection, on palpation shows some moderate tenderness diffusely throughout the upper, middle and lower distribution of the paraspinous muscles bilaterally and also into the lower thoracic paraspinous musculature, firm and tender, without radiation of pain. The patient has good rotational motion of the lumbar spine, both laterally as well as extension and flexion without significant difficulty. Mild tenderness with palpation over the left sacroiliac joint and the posterior superior iliac spine but not the right. EXTREMITIES: Lower extremities show deep tendon reflexes 1+ in the patellar and tendo calcaneus tendons. Motor exam is 4 on a scale of 5 with right dorsiflexion, extension, quadriceps and hamstring flexion and 4/5 on the left. Peripheral pulses are 1+ posterior tibial. No peripheral edema is noted bilaterally. Lower extremities are warm and dry to touch, equal in color and appearance. Upper extremities show deep tendon reflexes 2+ in the bicep and triceps tendons motor exam is strong with ultrasound technologist strength rated 5 out of 5 as is bicep and tricep flexion. Peripheral pulses are 2+ radial no peripheral edema is noted bilaterally patient's right shoulder shows moderate tenderness with palpation trapezius once again but full rotation motion both abduction and adduction as well as forward and rearward extension without significant pain with resistance. SKIN: Shows warm and dry, good turgor. No edema. No sores, rashes or bruising throughout. Procedure: Procedure: Options were discussed with the patient. Patient chart was reviewed as her current medication regimen updated current review of systems updated today as well. We will proceed with trigger point injections of the bilateral trapezius wrist were discussed including but not limited to bleeding infection possibility of spread of local anesthetic and numbness pneumothorax as well as side effects steroid medication and portal scarring pain control. Patient understands wished to proceed. Patient will return to clinic in approximately 2 months for follow- up or sooner as necessary. Also will order MRI scan of the cervical spine as patient has had anterior cervical fusion and has some radicular symptoms in the right shoulder and arm to better assess this. Medication Injected: Med Injected: Under sterile prep and drape right and left trapezius were prepped and trigger point areas identified using a 25-gauge 1-1/2 inch needle were injected after negative aspiration each injection site total of 5 cc 0.25% Vivacaine and total of 40 mg Depo-Medrol. Patient tolerated the procedure well and had no complications. Condition at Discharge: Condition at Discharge: Condition at discharge stable, patient tolerated procedure well and had no complications. NAHUM GRIFFIN MD May 20, 2020 11:58
== END | disposition home or self-care (01) ==
LOC: PNCL 10:58
PROVIDERS: ATTEND Anesthesiology
DX: M48.061 Spinal stenosis, lumbar region without neurogenic claudication (principal); M50.10 Cervical disc disorder with radiculopathy, unspecified cervical region; M96.1 Postlaminectomy syndrome, not elsewhere classified; M17.0 Bilateral primary osteoarthritis of knee; M16.11 Unilateral primary osteoarthritis, right hip; M46.1 Sacroiliitis, not elsewhere classified; M79.18 Myalgia, other site; I10 Essential (primary) hypertension; E78.00 Pure hypercholesterolemia, unspecified; K21.9 Gastro-esophageal reflux disease without esophagitis; E66.9 Obesity, unspecified; E11.9 Type 2 diabetes mellitus without complications; F32.9 Major depressive disorder, single episode, unspecified; Z87.891 Personal history of nicotine dependence; Z79.84 Long term (current) use of oral hypoglycemic drugs; Z79.899 Other long term (current) drug therapy; Z98.890 Other specified postprocedural states; Z88.8 Allergy status to other drugs, medicaments and biological substances; Z82.49 Family history of ischemic heart disease and other diseases of the circulatory system; Z83.3 Family history of diabetes mellitus
CPT/HCPCS: 20552; J1030; J3490

== ENCOUNTER → 2020-07-15 | Outpatient (CLI) | payer MEDICARE ==
[~2020-07-15] MED LIST changes: -BUPIVACAINE MPF 0.25% 10 ML VIAL. ONE; +GEMF600T20 PO; -GEMF600T8 PO; +IOHEXOL 180 MG/ML 10 ML VIAL. ONE; +LISI10TA16 PO; -LISI10TA2 PO; +methylPREDNISolone ACETATE 80 MG/ML VIAL. ONE
--- NOTE | 2020-07-15 13:05 | PDOC4 ---
PROCEDURE Procedure Patient was consented for cervical epidural steroid injection. Risks were d iscussed including but not limited to: Bleeding, infection, possibility of epidural hematoma and subsequent neurological compromise, dural puncture, headaches, spinal cord and/or nerve damage, side effects of steroid medication, and poor results regarding pain control. Patient understands and wished to proceed. Procedure cervical epidural steroid injection at the C6-7 level, using local anesthetic under sterile prep and drape using C-arm fluoroscopic guidance under local anesthesia medications injected ; 120 mg Depo-Medrol + 5 mL normal saline and 2 mL contrast; condition at discharge is stable patient tolerated procedure well. and had no complications NAHUM GRIFFIN MD Jul 15, 2020 13:05
--- NOTE | 2020-07-15 13:05 | PDOC ---
Progress Note - Pain Clinic Date of Service: DOS: DATE: 07/15/20 TIME: 12:57 Diagnosis: Dx: Cervical radiculopathy with cervical degenerative disc disease and cervical postlaminectomy syndrome Lumbar radiculopathy with lumbar spinal stenosis and post lumbar laminectomy syndrome Bilateral knee joint pain with osteoarthritis Myofascial pain Right hip joint pain with osteoarthritis Left sacroiliitis History or Present Illness: HPI: 85-year-old male returns follow-up status post medication management with oxycodone as well as Voltaren gel. Patient reports he been doing fairly well with this but recently has had significant pain in the base the neck and right upper extremity. We had ordered a CT scan for the cervical spine as patient does have a pacemaker, however this was not schedule and not done ordered on May 20, 2020. Patient ports still significant pain the base the neck reports he did have some plain films taken at his primary care office with showing degenerative disc disease and changes in the cervical spine with i ncreased radiculopathy in the right upper extremity. Patient has gone to physical therapy for the past few weeks and has not been helpful. Patient reports no motor function but significant fatigability of the right upper extremity with pain radiating biceps deltoid as well as the forearm and the hand. No radicular symptoms on the left side. Patient reports his medication has been helping fairly well but is not controlling the pain in the right shoulder and arm. Patient reports no side effects with medication. Physical Exam: VS: Blood pressure is 157/77 pulse 81 respirations 16 temperature is 98.5 F height is 5 feet 4 inches weight is 198 pounds PE: PHYSICAL EXAMINATION: GENERAL: The patient is awake, alert, oriented, appropriate, very pleasant demeanor HEENT: Shows normocephalic, atraumatic. Extraocular movements are intact and symmetrical. NECK: Shows anterior throat supple without palpable lymphadenopathy noted. Swallow reflex symmetrical. CHEST: Shows normal on inspection. Breath sounds are clear bilaterally, no rales rhonchi wheezes auscultated. HEART: Shows S1, S2 clear. No murmurs auscultated. ABDOMEN: Soft, nontender, nondistended, obese. No palpable organomegaly is noted. No rebound or guarding demonstrated. BACK: Shows spine grossly in the midline. Normal-appearing cervical lordotic curvature. Cervical paraspinous muscles show significant tenderness with palpation but symmetrical on inspection. Tender in the inferior aspect of the cervical paraspinous culture on the right into the superior medial trapezius but without specific trigger points. Patient does show good rotation motion both laterally as well as extension flexion without significant increase in pain in the cervical spine. There is slightly increased thoracic kyphosis, some minor flattening of the lumbar lordotic curvature. Well-healed midline surgical scar is again noted. Lumbar paraspinous muscles show symmetrical on inspection, on palpation shows some moderate tenderness diffusely throughout the upper, middle and lower distribution of the paraspinous muscles, but without specific trigger points, without radiation of pain. The patient has good rotational motion of the lumbar spine, both laterally as well as extension and flexion without significant difficulty. No tenderness over the spinous processes, sacrum or sacroiliac regions. 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 Peripheral pulses are 2+ radial. Lower extremities show deep tendon reflexes 1+ in the patellar and tendo calcaneus tendons. Motor exam is 4 on a scale of 5 with right dorsiflexion, extension, quadriceps and hamstring flexion and 4/5 on the left. Peripheral pulses are 1+ posterior tibial. No peripheral edema is noted bilaterally. Lower extremities are warm and dry to touch, equal in color and appearance. SKIN: Shows warm and dry, good turgor. No edema. No sores, rashes or bruising throughout. Procedure: Procedure: Options were discussed with the patient. Patient chart reviews his current medication regimen updated current review of systems updated today as well. We will proceed with a cervical epidural steroid ejections today with fluoroscopic guidance. Risks were discussed including but not limited to: Bleeding, infection, possibility of epidural hematoma and subsequent neurological compromise, dural puncture, headaches, spinal cord and/or nerve damage, side effects of steroid medication, and poor results regarding pain control. Patient understands and wished to proceed. Patient will return to clinic in approximate 2 weeks for follow-up, was counseled as return appointment activity level and side effects to be aware of. Patient also be given refill prescription for his oxycodone as well as Voltaren gel with instructions side effects aware of discussed each medication. Patient has had appropriate K tracks report as well as appropriate urinalysis to date. We will make this for a 2-month refill. Patient will have UA today done as routine screening as well as renewal of narcotic contract which he was given a signed copy of. Medication Injected: Med Injected: Procedure cervical epidural steroid injection at the C6-7 level, using local an esthetic under sterile prep and drape using C-arm fluoroscopic guidance under local anesthesia medications injected ; 120 mg Depo-Medrol + 5 mL normal saline and 2 mL contrast; condition at discharge is stable patient tolerated procedure well. and had no complications Condition at Discharge: Condition at Discharge: Condition at discharge stable, patient letter the procedure well and had no complications. NAHUM GRIFFIN MD Jul 15, 2020 13:05
== END | disposition home or self-care (01) ==
LOC: PNCL 11:33
PROVIDERS: ATTEND Anesthesiology
DX: M50.10 Cervical disc disorder with radiculopathy, unspecified cervical region (principal); M96.1 Postlaminectomy syndrome, not elsewhere classified; M48.061 Spinal stenosis, lumbar region without neurogenic claudication; M17.0 Bilateral primary osteoarthritis of knee; M79.10 Myalgia, unspecified site; M16.11 Unilateral primary osteoarthritis, right hip; M46.1 Sacroiliitis, not elsewhere classified; E78.00 Pure hypercholesterolemia, unspecified; I10 Essential (primary) hypertension; K21.9 Gastro-esophageal reflux disease without esophagitis; E11.9 Type 2 diabetes mellitus without complications; F32.9 Major depressive disorder, single episode, unspecified; E66.9 Obesity, unspecified; Z87.891 Personal history of nicotine dependence; Z79.82 Long term (current) use of aspirin; Z79.4 Long term (current) use of insulin; Z79.899 Other long term (current) drug therapy; Z98.890 Other specified postprocedural states; Z82.49 Family history of ischemic heart disease and other diseases of the circulatory system; Z83.3 Family history of diabetes mellitus
CPT/HCPCS: 62321; J1030; J1040; Q9965

== ENCOUNTER → 2020-07-16 | Outpatient (CLI) | payer MEDICARE ==
[~2020-07-16] MED LIST changes: -IOHEXOL 180 MG/ML 10 ML VIAL. ONE; -methylPREDNISolone ACETATE 40 MG/ML VIAL. ONE; -methylPREDNISolone ACETATE 80 MG/ML VIAL. ONE
--- NOTE | 2020-07-16 16:50 | RAD ---
PQRS Compliance Statement: One or more of the following individualized dose reduction techniques were utilized for this examinat ion: 1. Automated exposure control 2. Adjustment of the mA and/or kV according to patient size 3. Use of iterative reconstruction technique CT CERVICAL SPINE WO 07/16/2020 9:29 AM Indication: Cervical radiculopathy COMPARISON: None available. TECHNIQUE: Multiple axial CT images of the cervical spine were obtained without intravenous contrast. Coronal and sagittal reformats are provided. FINDINGS: Anterior cervical discectomy and fusion is identified at C3-C4 with complete incorporation. Vertebral body heights are maintained. Acute fractures identified. Skull base is intact. There is no preverteb ral soft tissue swelling. Atlantoaxial articulation is intact. Craniocervical junction is normal. CT C3: There is a posterior disc osteophyte complex. Severe right and moderate left facet arthropathy . Mild uncovertebral joint disease. Severe right neuroforaminal stenosis. No spinal canal stenosis. C3-C4: This level is fused. There is a posteriorly projecting osteophyte resulting in moderate osseou s spinal canal stenosis with deformity of the ventral cord. C4-C5: There is a posterior disc osteophyte complex. Severe right and moderate left facet arthropathy . Moderate right and mild left osseous neuroforaminal stenosis. Mild spinal canal stenosis. C5-C6: There is a posterior disc osteophyte complex with moderate right and mild left facet arthropat hy. Mild uncovertebral joint disease. Mild/moderate right neural foraminal stenosis. Mild left neurof oraminal stenosis. No spinal canal stenosis. C6-C7: There is a posterior disc osteophyte complex asymmetric to the right. Minimal gas identified a long the left lateral thecal sac. Mild facet arthropathy. Moderate right and mild left uncovertebral joint disease. Moderate bilateral neural foraminal stenosis. Mild/moderate osseous spinal canal steno sis. IMPRESSION: Mild to moderate cervical spondylosis as described in detail above. Anterior cervical discectomy and fusion hardware is identified at C3-C4 with complete osseous fusion. There is a posterior osteophyte at C3-C4 resulting in mild to moderate spinal canal stenosis with deformity of the cord. Electronically signed by: Daphnie Miranda MD (07/16/2020 4:48 PM) [facility]
== END | disposition home or self-care (01) ==
LOC: CT 09:17
PROVIDERS: ATTEND Anesthesiology
DX: M47.22 Other spondylosis with radiculopathy, cervical region (principal); M48.02 Spinal stenosis, cervical region; E78.00 Pure hypercholesterolemia, unspecified; I10 Essential (primary) hypertension; E66.9 Obesity, unspecified; K21.9 Gastro-esophageal reflux disease without esophagitis; M19.90 Unspecified osteoarthritis, unspecified site; E11.9 Type 2 diabetes mellitus without complications; F32.9 Major depressive disorder, single episode, unspecified; Z87.891 Personal history of nicotine dependence; Z79.84 Long term (current) use of oral hypoglycemic drugs; Z79.899 Other long term (current) drug therapy; Z98.890 Other specified postprocedural states; Z88.8 Allergy status to other drugs, medicaments and biological substances; Z82.49 Family history of ischemic heart disease and other diseases of the circulatory system; Z83.3 Family history of diabetes mellitus
CPT/HCPCS: 72125

== ENCOUNTER → 2020-09-09 | Outpatient (CLI) | payer MEDICARE ==
--- NOTE | 2020-09-09 13:28 | PDOC ---
Progress Note - Pain Clinic Date of Service: DOS: DATE: 09/09/20 TIME: 13:24 Diagnosis: Dx: Chronic lumbar radiculopathy with lumbar spinal stenosis and postlaminectomy syndrome Cervical radiculopathy with cervical degenerative disease and cervical postlaminectomy syndrome Bilateral knee joint pain with osteoarthritis Right hip joint pain with osteoarthritis Left sacroiliitis Myofascial pain History or Present Illness: HPI: 85-year-old male returns follow-up status post cervical epidural steroid injection x1. Patient reports about 50% improvement after the last injection which was July 15, 2020 patient reports still some pain in the neck but much improved his main complaint is bilateral knee joint pain right greater than left. Patient reports he is doing well with his medication of oxycodone also using Voltaren gel to the knees 3 times daily which has been helpful as well increasing pain. Patient reports especially his right knee is more painful with walking standing patient is noted to be status post bilateral total knee replacements. Patient reports no loss of motor function but significant pain with standing and walking especially on the right knee compared to the left. Patient reports no side effects with medication and reports overall about a 70% improvement with the medication currently. Physical Exam: VS: Blood pressure is 154/74 pulse 96 respirations are 18 temperature is 98.7 F height is 5 feet 4 inches weight is 199 pounds PE: PHYSICAL EXAMINATION: GENERAL: The patient is awake, alert, oriented, appropriate, very pleasant demeanor HEENT: Shows normocephalic, atraumatic. Extraocular movements are intact and symmetrical. NECK: Shows anterior throat supple without palpable lymphadenopathy noted. Swallow reflex symmetrical. CHEST: Shows normal on inspection. Breath sounds are clear bilaterally, no rales rhonchi or wheezes auscultated. HEART: Shows S1, S2 clear. No murmurs auscultated. ABDOMEN: Soft, nontender, nondistended, obese. No palpable organomegaly is noted. No rebound or guarding demonstrated. BACK: Shows spine grossly in the midline. Normal-appearing cervical lordotic curvature. Cervical paraspinous muscles show symmetrical on inspection on palpation some moderate tenderness diffusely bilaterally diffusely without significant radiation. Range of motion is complete with right and left lateral as well as full extension full forward flexion without significant pain as well. There is increased thoracic kyphosis, some flattening of the lumbar lordotic curvature, with well-healed midline surgical scarring noted. Lumbar paraspinous muscles show symmetrical on inspection, on palpation shows some moderate tenderness diffusely throughout the upper, middle and lower distribution of the paraspinous muscles bilaterally and also into the lower thoracic paraspinous musculature, firm and tender, but without specific trigger points, without radiation of pain. The patient has good rotational motion of the lumbar spine, both laterally as well as extension and flexion without significant difficulty. EXTREMITIES: Lower extremities show deep tendon reflexes 1+ in the patellar and tendo calcaneus tendons. Motor exam is 4 on a scale of 5 with right dorsiflexion, extension, quadriceps and hamstring flexion and 4/5 on the left. Peripheral pulses are 1+ posterior tibial. No peripheral edema is noted bilaterally. Lower extremities are warm and dry to touch, equal in color and appearance. Upper extremity show deep tendon reflexes 2+ in the bicep and triceps tendons motor exam is positive for scale 5 on the right and 5 out of 5 on the left with elephant tamer strength bicep and tricep flexion. Peripheral pulses are 2+ radial no peripheral edema is noted bilaterally. SKIN: Shows warm and dry, good turgor. No edema. No sores, rashes or bruising throughout. Procedure: Procedure: Options were discussed with the patient. Patient's old chart was reviewed his current medication regimen updated current review of systems updated today as well. We will hold on any further injections at this time as patient is doing much better with his neck and upper extremity pain. We did discuss possible genicular blocks of the bilateral knees in the future but patient would like to consider this and we will visit this at another time in the future. Will be given refill prescription of oxycodone as well as Voltaren gel with instructions side effects aware of discussed each of medications once again. Patient's been on very stable regimen has had appropriate K tracts reporting as well as appropriate urinalyses to date and we will make this a 2-month refill for his prescriptions patient return to clinic approximate 2 months or sooner if necessary.. Medication Injected: Med Injected: None Condition at Discharge: Condition at Discharge: Condition at discharge is stable. NAHUM GRIFFIN MD Sep 09, 2020 13:28
== END | disposition home or self-care (01) ==
LOC: PNCL 12:54
PROVIDERS: ATTEND Anesthesiology
DX: M50.10 Cervical disc disorder with radiculopathy, unspecified cervical region (principal); M48.061 Spinal stenosis, lumbar region without neurogenic claudication; M96.1 Postlaminectomy syndrome, not elsewhere classified; M17.0 Bilateral primary osteoarthritis of knee; M16.11 Unilateral primary osteoarthritis, right hip; M46.1 Sacroiliitis, not elsewhere classified; M79.18 Myalgia, other site; I10 Essential (primary) hypertension; E78.00 Pure hypercholesterolemia, unspecified; K21.9 Gastro-esophageal reflux disease without esophagitis; E66.9 Obesity, unspecified; E11.9 Type 2 diabetes mellitus without complications; F32.9 Major depressive disorder, single episode, unspecified; Z87.891 Personal history of nicotine dependence; Z79.899 Other long term (current) drug therapy; Z79.84 Long term (current) use of oral hypoglycemic drugs; Z98.890 Other specified postprocedural states; Z88.8 Allergy status to other drugs, medicaments and biological substances
CPT/HCPCS: G0463

== ENCOUNTER → 2020-11-04 | Outpatient (CLI) | payer MEDICARE ==
[~2020-11-04] MED LIST changes: +BUPIVACAINE MPF 0.25% 10 ML VIAL. ONE; +IOHEXOL 180 MG/ML 10 ML VIAL. ONE; +methylPREDNISolone ACETATE 40 MG/ML VIAL. ONE; +methylPREDNISolone ACETATE 80 MG/ML VIAL. ONE
--- NOTE | 2020-11-04 14:18 | PDOC ---
Progress Note - Pain Clinic Date of Service: DOS: DATE: 11/04/20 TIME: 14:13 Diagnosis: Dx: Chronic lumbar radiculopathy with post lumbar laminectomy syndrome lumbar spinal stenosis Cervical radiculopathy with cervical degenerative disc disease and postlaminectomy syndrome Bilateral knee joint pain with osteoarthritis status post bilateral total knee arthroplasties Right hip joint pain with osteoarthritis Left sacroiliitis History or Present Illness: HPI: 85-year-old male returns for follow-up status post bilateral knee joint pain managed with Voltaren gel and oxycodone. Patient has been on very stable regimen of the oxycodone but still reports significant pain and only about a 50 to 60% improvement with the medication. Patient reports that initially he is doing much better with the medication but now much worse pain with walking standing any weightbearing on the lower extremities also wakes him from sleep fairly often patient reports no new motor or sensory deficits no side effects with the medications but significant pain in the knees themselves medial lateral and inferior posteriorly as well with weightbearing. Patient reports is a 5 scale 10 at all times average least and worst is a 5 today described as aching and dull can be severe with standing. Patient recently had cataract surgery and reports that is much so significant improvement in his vision. Physical Exam: VS: Blood pressure is 154/71 pulse 85 respiration 16 temperature 98.6 F height is 5 foot 4 inches weight is 201 pounds PE: PHYSICAL EXAMINATION: GENERAL: The patient is awake, alert, oriented, appropriate, very pleasant demeanor HEENT: Shows normocephalic, atraumatic. Extraocular movements are intact and symmetrical. Oral cavity: Mucous membranes moist and pink. NECK: Shows anterior throat supple without palpable lymphadenopathy noted. Swallow reflex symmetrical. CHEST: Shows normal on inspection. Breath sounds are clear bilaterally, no rales or rhonchi. HEART: Shows S1, S2 clear. No murmurs auscultated. ABDOMEN: Soft, nontender, nondistended, obese. No palpable organomegaly is noted. BACK: Shows spine grossly in the midline. Normal-appearing cervical lordotic curvature. There is increased thoracic kyphosis, some flattening of the lumbar lordotic curvature, with well-healed surgical scarring noted. Lumbar paraspinous muscles show symmetrical on inspection, on palpation shows some moderate tenderness diffusely throughout the upper, middle and lower distribution of the paraspinous muscles, but without specific trigger points, without radiation of pain. The patient has good rotational motion of the lumbar spine, both laterally as well as extension and flexion without significant difficulty. EXTREMITIES: Lower extremities show deep tendon reflexes 1+ in the patellar and tendo calcaneus tendons. Motor exam is 4 on a scale of 5 with right dorsiflexion, extension, quadriceps and hamstring flexion and 5/5 on the left. Peripheral pulses are 1+ posterior tibial. No peripheral edema is noted bilaterally. Lower extremities are warm and dry. Bilateral knees show well- healed surgical scarring on the anterior aspect from total knee arthroplasties, range of motion is full without specific ratcheting or crepitus. SKIN: Shows warm and dry, good turgor. No edema. No sores, rashes or bruising throughout. Procedure: Procedure: Options were discussed with the patient. Patient chart was reviewed his his current medication regimen updated current review of systems updated today as well. We will proceed with bilateral genicular nerve blocks today with fluoroscopic guidance. Risks were discussed including but not limited to bleeding infection possibility of intravascular injection and sequelae spread local anesthetic numbness side effects steroid medications post fluoroscopy and portals regarding pain control. Patient understands wished to proceed. Patient return to clinic in approximately 1 week for follow-up was asked to call with a progress report at that time. Patient is given refill prescriptions for oxycodone as well as Voltaren gel. Patient is had appropriate K tracks reporting as well as appropriate urinalyses to date and will make this for a 2- month period on his prescriptions. Patient was given instructions well side ef fects aware of each of the medications. Medication Injected: Med Injected: Patient supine position under sterile prep and drape bilateral knees were identified and using C-arm fluoroscopic guidance in both AP and lateral views using 22-gauge needle x3 for genicular block superior medial and superior lateral genicular nerves and inferior medial genicular nerve. Stylets were removed negative aspiration was confirmed and using 1 cc of contrast at each of the 3 injection sites showed good local spread without washout for all 3, bilaterally. At this time bupivacaine 0.25%(12cc total- 2 cc/site) and total of 120 mg Depo-Medrol. [place] were removed and sterile bandages were applied. Patient tolerated procedure well had no complications. Condition at Discharge: Condition at Discharge: Condition at discharge stable, patient tolerated procedure well and had no complications. NAHUM GRIFFIN MD November 04, 2020 14:18
--- NOTE | 2020-11-04 14:19 | PDOC4 ---
PROCEDURE Procedure Patient was consented for bilateral genicular nerve blocks with fluoroscopy. Risk were discussed including but not limited to bleeding infection possibility of intravascular injection sequelae spread local acetic numbness side effects steroid medications post fluoroscopy and poor results regarding pain control. Patient understands wished to proceed. Patient supine position under sterile prep and drape bilateral knees were identified and using C-arm fluoroscopic guidance in both AP and lateral views using 22-gauge needle x3 for genicular block superior medial and superior lateral genicular nerves and inferior medial genicular nerve. Stylets were removed negative aspiration was confirmed and using 1 cc of contrast at each of the 3 injection sites showed good local spread without washout for all 3, bilaterally. At this time bupivacaine 0.25%(12cc total- 2 cc/site) and total of 120 mg Depo-Medrol. [place] were removed and sterile bandages were applied. Patient tolerated procedure well had no complications. NAHUM GRIFFIN MD November 04, 2020 14:19
== END | disposition home or self-care (01) ==
LOC: PNCL 13:01
PROVIDERS: ATTEND Anesthesiology
DX: M17.0 Bilateral primary osteoarthritis of knee (principal); M16.11 Unilateral primary osteoarthritis, right hip; M46.1 Sacroiliitis, not elsewhere classified; M50.10 Cervical disc disorder with radiculopathy, unspecified cervical region; M48.061 Spinal stenosis, lumbar region without neurogenic claudication; M96.1 Postlaminectomy syndrome, not elsewhere classified; Z96.653 Presence of artificial knee joint, bilateral; I10 Essential (primary) hypertension; E78.00 Pure hypercholesterolemia, unspecified; K21.9 Gastro-esophageal reflux disease without esophagitis; E66.9 Obesity, unspecified; E11.9 Type 2 diabetes mellitus without complications; F32.9 Major depressive disorder, single episode, unspecified; Z87.891 Personal history of nicotine dependence; Z79.899 Other long term (current) drug therapy; Z98.890 Other specified postprocedural states
CPT/HCPCS: 64454; J1030; J1040; J3490; Q9965

== ENCOUNTER → 2020-12-30 | Outpatient (CLI) | payer MEDICARE ==
[~2020-12-30] MED LIST changes: -BUPIVACAINE MPF 0.25% 10 ML VIAL. ONE; +FLAX10003 PO; +FURO20TA3 PO; -IOHEXOL 180 MG/ML 10 ML VIAL. ONE; -methylPREDNISolone ACETATE 40 MG/ML VIAL. ONE; -methylPREDNISolone ACETATE 80 MG/ML VIAL. ONE
--- NOTE | 2020-12-30 13:40 | PDOC ---
Progress Note - Pain Clinic Date of Service: DOS: DATE: 12/30/20 TIME: 13:36 Diagnosis: Dx: Chronic lumbar radiculopathy with lumbar postlaminectomy syndrome lumbar spinal stenosis Cervical radiculopathy with cervical degenerative disease and cervical postlaminectomy syndrome Bilateral knee joint pain with osteoarthritis status post bilateral total knee arthroplasties Right hip joint pain with osteoarthritis Left sacroiliitis Myofascial pain History or Present Illness: HPI: 85-year-old male returns for follow-up status post right lateral genicular blocks. Patient reports he did well for a few days but the pain returned very quickly and actually feels like it is worse than it was prior to the blocks. Patient reports still pain in the bilateral knees with walking standing changing positions better with sitting or laying down generally is not awakening from sleep at night but can sometimes when he is laying on his side about every 3-4 hours patient reports this medication is doing well however he is using Voltaren gel also taking oxycodone which he has been on for a extended period with very good results and no side effects. Patient reports the medication alone decrease the pain by about 60 to 75% patient rates his pain as a 5 on a scale of 10 at all times average least and is worst is a 5 today. Patient reports is aching and dull again worse with weightbearing better with sitting or laying down but does awaken her from sleep. Patient reports no new motor or sensory deficits no bowel or bladder or other complaints. Physical Exam: VS: Blood pressure is 124/66 pulse 76 respirations 20 temperature 98.2 F weight is 201 pounds PE: PHYSICAL EXAMINATION: GENERAL: The patient is awake, alert, oriented, appropriate, very pleasant in demeanor. HEENT: Shows normocephalic, atraumatic. Extraocular movements are intact and symmetrical. NECK: Shows anterior throat supple without palpable lymphadenopathy noted. CHEST: Shows normal on inspection. Breath sounds are clear bilaterally, distant but no rales or rhonchi. HEART: Shows S1, S2 clear. No murmurs auscultated. ABDOMEN: Soft, nontender, nondistended, obese. BACK: Shows spine grossly in the midline. Normal-appearing cervical lordotic curvature. Cervical paraspinous muscles show symmetrical inspection, on palpation some moderate tenderness diffusely in the inferior aspect cervical paraspinous musculature but with full rotation motion cervical spine with some slight tenderness with extension but not with forward flexion. There is slightly increased thoracic kyphosis, some minor flattening of the lumbar lordotic curvature. Lumbar paraspinous muscles show symmetrical on inspection, on palpation shows some moderate tenderness diffusely throughout the upper, middle and lower distribution of the paraspinous muscles, but without specific trigger points, without radiation of pain. The patient has good rotational motion of the lumbar spine, both laterally as well as extension and flexion without significant difficulty. EXTREMITIES: Lower extremities show deep tendon reflexes 1+ in the patellar and tendo calcaneus tendons. Motor exam is 4 on a scale of 5 with right dorsiflexion, extension, quadriceps and hamstring flexion and 5/5 on the left. Peripheral pulses are 1+ posterior tibial. No peripheral edema is noted bilaterally. Lower extremities are warm and dry to touch, equal in color and appearance. 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 Peripheral pulses are 2+ radial. SKIN: Shows warm and dry, good turgor. No edema. No sores, rashes or bruising throughout. Procedure: Procedure: Options discussed with patient. Patient chart reviews his current medication regimen updated current review of systems updated today as well. We will refill patient's oxycodone with instructions side effects aware with the medication. Patient had appropriate K tracks report as well as appropriate urinalyses to date, and we make this a 2-month prescription refill. Patient follow-up in approxi-2 months or sooner as necessary. Medication Injected: Med Injected: None Condition at Discharge: Condition at Discharge: Condition at discharge is stable. NAHUM GRIFFIN MD Dec 30, 2020 13:40
== END | disposition home or self-care (01) ==
LOC: PNCL 13:05
PROVIDERS: ATTEND Anesthesiology
DX: M50.10 Cervical disc disorder with radiculopathy, unspecified cervical region (principal); M96.1 Postlaminectomy syndrome, not elsewhere classified; M17.0 Bilateral primary osteoarthritis of knee; M16.11 Unilateral primary osteoarthritis, right hip; M79.18 Myalgia, other site; M46.1 Sacroiliitis, not elsewhere classified; I10 Essential (primary) hypertension; E78.00 Pure hypercholesterolemia, unspecified; E66.9 Obesity, unspecified; K21.9 Gastro-esophageal reflux disease without esophagitis; F41.9 Anxiety disorder, unspecified; Z79.899 Other long term (current) drug therapy; Z98.890 Other specified postprocedural states; Z96.653 Presence of artificial knee joint, bilateral; Z87.891 Personal history of nicotine dependence; Z82.49 Family history of ischemic heart disease and other diseases of the circulatory system; Z83.3 Family history of diabetes mellitus
CPT/HCPCS: 99212; G0463

== ENCOUNTER → 2021-02-24 | Outpatient (CLI) | payer MEDICARE ==
--- NOTE | 2021-02-24 13:21 | PDOC ---
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 lumbar spinal stenosis Cervical radiculopathy with cervical degenerative disc disease and post cervical laminectomy syndrome Bilateral knee joint pain with osteoarthritis status post bilateral total knee arthroplasties Right hip joint pain with osteoarthritis Left sacroiliitis Myofascial pain History or Present Illness: HPI: 86-year-old male returns for follow-up status post cervical epidural steroid injection as well as trigger point injections and genicular blocks patient did well with a cervical epidural steroid injection as well as SI joint injection but the genicular blocks were not helpful with his knee pain. Patient is doing fairly well however on his medication regimen currently and is taking oxycodone 10 mg every 6 hours as needed Voltaren gel on the knees 3 times daily. Patient reports that this regimen is doing fairly well and even with increased activit ies fairly stable with his reduction in pain about 60 to 70%. Patient reports no side effects with the medications. Patient reports increased pain in the left arm and shoulder radiating to the forearm and the hand with numbness and tingling in the hand all the fingers as well. Patient reports is not dependent on a certain position or activity it just comes and goes during the day does not generally awaken him from sleep at night. Patient did report that he is using a brace on his left arm for carpal tunnel however this made the pain worse so he stopped using it. Patient reports no new motor or sensory deficits patient rates his pain as a 5 on a scale of 10 at all times worst least and average is a 5 today. Physical Exam: VS: Blood pressure is 135/69 pulse 85 respirations 18 temperature 90.9 F weight is 202 pounds PE: PHYSICAL EXAMINATION: GENERAL: The patient is awake, alert, oriented, appropriate, very pleasant in demeanor. HEENT: Shows normocephalic, atraumatic. Extraocular movements are intact and symmetrical. Oral cavity: Mucous membranes moist and pink. NECK: Shows anterior throat supple without palpable lymphadenopathy noted. Swallow reflex symmetrical. CHEST: Shows normal on inspection. Breath sounds are clear bilaterally, no rales rhonchi or wheezes auscultated. HEART: Shows S1, S2 clear. No murmurs auscultated. ABDOMEN: Soft, nontender, nondistended, obese. No palpable organomegaly is noted. BACK: Shows spine grossly in the midline. Normal-appearing cervical lordotic curvature. There is slightly increased thoracic kyphosis, some minor flattening of the lumbar lordotic curvature. Lumbar paraspinous muscles show symmetrical on inspection, on palpation shows some moderate tenderness diffusely throughout the upper, middle and lower distribution of the paraspinous muscles, but without specific trigger points, without radiation of pain. The patient has good rotational motion of the lumbar spine, both laterally as well as extension and flexion with moderate tenderness with extension but not with forward flexion. EXTREMITIES: Lower extremities show deep tendon reflexes 1+ in the patellar and tendo calcaneus tendons. Motor exam is 4 on a scale of 5 with right dorsiflexion, extension, quadriceps and hamstring flexion and 5/5 on the left. Peripheral pulses are 1+ posterior tibial. No peripheral edema is noted bilater ally. Lower extremities are warm and dry to touch, equal in color and appearance. Upper extremity show deep tendon reflexes 2+ in the bicep tricep tendons, motor exam strong with 5 out of 5 speech language pathologist assistant strength bicep and tricep flexion bilaterally. Shoulder shrug is strong and intact with some moderate pain with resistance on the left but not the right but without loss of strength on resistance history with abduction at 90 degrees as well. SKIN: Shows warm and dry, good turgor. No edema. No sores, rashes or bruising throughout. Procedure: Procedure: Options were discussed with the patient. Patient chart was reviewed his current medication regimen updated current review of systems updated today as well. We will refill patient's oxycodone and Voltaren gel as patient has had appropriate K tracks reporting as well as appropriate urinalyses to date. Prescriptions will be sent in via electronic prescription. Patient was given instructions well side effects aware with the medications and will follow up in approximately 4 weeks as scheduled. Medication Injected: Med Injected: None Condition at Discharge: Condition at Discharge: Condition at discharge is stable. NAHUM GRIFFIN MD Feb 24, 2021 13:21
== END ==
LOC: PNCL 12:53
PROVIDERS: ATTEND Anesthesiology
DX: M48.061 Spinal stenosis, lumbar region without neurogenic claudication (principal); M96.1 Postlaminectomy syndrome, not elsewhere classified; M50.10 Cervical disc disorder with radiculopathy, unspecified cervical region; M46.1 Sacroiliitis, not elsewhere classified; M17.11 Unilateral primary osteoarthritis, right knee; M17.12 Unilateral primary osteoarthritis, left knee; M16.11 Unilateral primary osteoarthritis, right hip; M16.12 Unilateral primary osteoarthritis, left hip
CPT/HCPCS: 99212; G0463

== ENCOUNTER → 2021-04-22 | Outpatient (CLI) | payer MEDICARE ==
--- NOTE | 2021-04-22 13:31 | PDOC ---
Progress Note - Pain Clinic Date of Service: DOS: DATE: 04/22/21 TIME: 13:27 Diagnosis: Dx: Chronic pain syndrome Chronic lumbar radiculopathy with post lumbar laminectomy syndrome spinal stenosis Cervical radiculopathy Bilateral knee joint pain with osteoarthritis status post total knee arthroplasties bilaterally with chronic postoperative pain Left sacroiliitis Myofascial pain History or Present Illness: HPI: 86-year-old male returns in follow-up status post medication management with oxycodone 10 mg as well as Voltaren gel for his knees. Patient reports he is doing fairly well for some fairly well controlled pain with about 60 to 70% improvement still pain with weightbearing on his knees when he sitting it is not significant painful although does awaken him from sleep occasionally patient uses the Voltaren gel at nighttime as well which does help him sleep some patient reports the pain is a 5 on a scale of 10 is worst average and least as a 5 today. Patient comes as aching and dull mostly in the knees also some pain in the base of the neck and shoulders and upper extremities. Patient reports no significant side effects with the medication has had appropriate K tracks reporting as well as appropriate urinalyses to date. Physical Exam: VS: Blood pressure is 143/70 pulse 91 respirations 18 temperature 98.6 3 Fahrenheit weight is 201 pounds PE: PHYSICAL EXAMINATION: GENERAL: The patient is awake, alert, oriented, appropriate, very pleasant in demeanor HEENT: Shows normocephalic, atraumatic. Extraocular movements are intact and symmetrical. Patient wearing eyeglasses. Oral cavity: Mucous membranes moist and pink. NECK: Shows anterior throat supple without palpable lymphadenopathy noted. Swallow reflex symmetrical. CHEST: Shows normal on inspection. Breath sounds are clear bilaterally, distant but no rales or rhonchi. HEART: Shows S1, S2 clear. No murmurs are auscultated. ABDOMEN: Soft, nontender, nondistended, obese. No palpable organomegaly is noted. BACK: Shows spine grossly in the midline. Normal-appearing cervical lordotic curvature. There is slightly increased thoracic kyphosis, some flattening of the lumbar lordotic curvature. Lumbar paraspinous muscles show symmetrical on inspection, on palpation shows some moderate tenderness diffusely throughout the upper, middle and lower distribution of the paraspinous muscles, but without specific trigger points, without radiation of pain. The patient has good rotational motion of the lumbar spine, both laterally as well as extension and flexion without significant difficulty. EXTREMITIES: Lower extremities show deep tendon reflexes 1+ in the patellar and tendo calcaneus tendons. Motor exam is 4 on a scale of 5 with right dorsiflexion, extension, quadriceps and hamstring flexion and 4/5 on the left. Peripheral pulses are 1 posterior tibial. No peripheral edema is noted bilaterally. Lower extremities are warm and dry. Upper extremity show deep tendon reflexes 2+ in the bicep tricep tendons, motor exam strong with 5 out of 5 senior director strength as well as bicep and tricep flexion, peripheral pulses are 2+ radial no peripheral edema is noted bilaterally. Shoulder shrug strong and intact without loss of strength on resistance bilaterally. SKIN: Shows warm and dry, good turgor. No edema. No sores, rashes or bruising throughout. Procedure: Procedure: Options were discussed with the patient. Patient chart reviews his current medication regimen updated current review of systems updated today as well. Patient has had appropriate K tracks report as well as appropriate urinalyses to date. We will refill patient's oxycodone for a 60-day supply, patient was given instructions well side effects beware with the medication. Patient will follow up in approximately 2 months as scheduled. Medication Injected: Med Injected: None Condition at Discharge: Condition at Discharge: Condition at discharge is stable. NAHUM GRIFFIN MD Apr 22, 2021 13:31
== END | disposition home or self-care (01) ==
LOC: PNCL 12:51
PROVIDERS: ATTEND Anesthesiology
DX: G89.4 Chronic pain syndrome (principal); M54.16 Radiculopathy, lumbar region; M54.12 Radiculopathy, cervical region; M17.0 Bilateral primary osteoarthritis of knee; M46.1 Sacroiliitis, not elsewhere classified; M79.18 Myalgia, other site; M96.1 Postlaminectomy syndrome, not elsewhere classified; I10 Essential (primary) hypertension; E78.00 Pure hypercholesterolemia, unspecified; E66.9 Obesity, unspecified; K21.9 Gastro-esophageal reflux disease without esophagitis; M19.90 Unspecified osteoarthritis, unspecified site; E11.9 Type 2 diabetes mellitus without complications; F32.9 Major depressive disorder, single episode, unspecified; Z87.891 Personal history of nicotine dependence; Z79.899 Other long term (current) drug therapy; Z98.890 Other specified postprocedural states
CPT/HCPCS: 99212; G0463

== ENCOUNTER → 2021-06-24 | Outpatient (CLI) | payer MEDICARE ==
--- NOTE | 2021-06-24 13:25 | PDOC ---
Progress Note - Pain Clinic Date of Service: DOS: DATE: 06/24/21 TIME: 13:19 Diagnosis: Dx: Chronic pain syndrome Chronic lumbar radiculopathy with lumbar postlaminectomy syndrome and lumbar spinal stenosis Cervical radiculopathy with cervical degenerative disease and cervical postlaminectomy syndrome Bilateral knee joint pain with osteoarthritis and chronic postoperative pain Left elbow joint pain History or Present Illness: HPI: 86-year-old male returns for follow-up status post medication management with oxycodone 10/325. Patient reports this is controlling his pain in his knees fairly well by about 70% most times. Patient's chief complaint today is left elbow pain as he reports he was on vacation in [place] about 2 weeks ago and noticed a large swelling on his posterior aspect of his left elbow without injury patient was given antibiotics at a local urgent care center there and has come home now is been about 2 weeks since the antibiotics were started and he finished them about a week ago patient reports it is a 5 out of scale 10 at all times average worst and least in his knees and lower extremities but also 5 in his left elbow which she reports is improved but still significantly swelling and pain with any movement rotation or any contact of the left elbow make it dif ficult for him to sleep. Patient reports no side effects with the medication patient has had appropriate K tracks report as well as appropriate urinalyses as well to date. Physical Exam: VS: Blood pressure is 155/72 pulse 91 respirations 20 temperature 98.5 F height 5 feet 4 inches weight is 196 pounds PE: PHYSICAL EXAMINATION: GENERAL: The patient is awake, alert, oriented, appropriate, very pleasant in demeanor HEENT: Shows normocephalic, atraumatic. Extraocular movements intact and symmetrical. Oral cavity: Mucous membranes moist and pink. NECK: Shows anterior throat supple without palpable lymphadenopathy noted. Swallow reflex symmetrical. CHEST: Shows normal on inspection. Breath sounds are clear bilaterally, no rales or rhonchi. HEART: Shows S1, S2 clear. No murmurs auscultated. ABDOMEN: Soft, nontender, nondistended, obese. No palpable organomegaly is noted. BACK: Shows spine grossly in the midline. Normal-appearing cervical lordotic cu rvature. There is mildly increased thoracic kyphosis, some moderate flattening of the lumbar lordotic curvature, with well-healed surgical scar. Lumbar paraspinous muscles show symmetrical on inspection, on palpation shows some moderate tenderness diffusely throughout the upper, middle and lower distribution of the paraspinous muscles without specific trigger points, without radiation of pain. The patient has good rotational motion of the lumbar spine, both laterally as well as extension and flexion without significant difficulty. No tenderness over the spinous processes, sacrum or sacroiliac regions. EXTREMITIES: Lower extremities show deep tendon reflexes 1+ in the patellar and tendo calcaneus tendons. Motor exam is 4 on a scale of 5 with right dorsif lexion, extension, quadriceps and hamstring flexion and 4/5 on the left. Peripheral pulses are 1+ posterior tibial. No peripheral edema is noted bilaterally. Lower extremities are warm and dry to touch, equal in color and appearance. Upper extremities show deep tendon reflexes 2+ bicep tricep tendons patient's left elbow shows significant swelling over the olecranon process bobby thematous in appearance without obvious drainage but fluctuant with palpation and tender with palpation as well no streaking noted superiorly or inferiorly. SKIN: Shows warm and dry, good turgor. No edema. No sores, rashes or bruising throughout. Procedure: Procedure: Options were discussed with the patient. Patient's old chart reviews his curren t medication regimen updated current review of systems updated today as well. We will refill patient's oxycodone 10/325 for a 60-day supply, with instructions side effects beware discussed. Patient has had appropriate K tracks reporting as well as appropriate urinalyses to date as well. Patient was given instruction as well as side effects beware with the medication. Also will refer for orthopedic evaluation of patient's left elbow and further work-up and treatment. Patient will return to clinic in approximately 2 months as scheduled. Medication Injected: Med Injected: None Condition at Discharge: Condition at Discharge: Condition at discharge stable. NAHUM GRIFFIN MD Jun 24, 2021 13:25
== END | disposition home or self-care (01) ==
LOC: PNCL 13:07
PROVIDERS: ATTEND Anesthesiology
DX: G89.4 Chronic pain syndrome (principal); M50.10 Cervical disc disorder with radiculopathy, unspecified cervical region; M96.1 Postlaminectomy syndrome, not elsewhere classified; M48.061 Spinal stenosis, lumbar region without neurogenic claudication; M17.0 Bilateral primary osteoarthritis of knee; M25.522 Pain in left elbow; I10 Essential (primary) hypertension; E78.00 Pure hypercholesterolemia, unspecified; E66.9 Obesity, unspecified; K21.9 Gastro-esophageal reflux disease without esophagitis; E11.9 Type 2 diabetes mellitus without complications; F32.9 Major depressive disorder, single episode, unspecified; Z87.891 Personal history of nicotine dependence; Z79.899 Other long term (current) drug therapy; Z98.890 Other specified postprocedural states; Z88.8 Allergy status to other drugs, medicaments and biological substances
CPT/HCPCS: 99212; G0463

== ENCOUNTER → 2021-09-01 | Outpatient (CLI) | payer MEDICARE ==
--- NOTE | 2021-09-01 09:21 | PDOC ---
Progress Note - Pain Clinic Date of Service: DOS: DATE: 09/01/21 TIME: 09:15 Diagnosis: Dx: Chronic pain syndrome Chronic lumbar radiculopathy with post lumbar laminectomy syndrome and spinal stenosis Cervical radiculopathy with cervical degenerative disease and cervical postlaminectomy syndrome Bilateral knee joint pain with osteoarthritis and chronic postop pain Bilateral shoulder joint pain with osteoarthritis History or Present Illness: HPI: 86-year-old male returns for follow-up status post medication management with oxycodone as well as Voltaren gel patient has recently seen his orthopedist regarding his left elbow and was given more Voltaren gel which she reports does help but only small amounts still significant pain in the wrists fingers thumbs with some tingling as well as both the shoulder especially on the left side as well as bilateral knee pain as well as low back pain and neck pain patient reports is medication is very well about 70 to 75% improvement with the oxycodone decreasing the pain but still has some tingling and numbness in the fingers and thumb as well as aching pain in the shoulders bilaterally. Patient reports his knees are still painful with standing walking weightbearing specially stepping or putting weight on 1 leg at a time but is manageable with the medication by his report. Patient reports no side effects once again has had appropriate K tracks report as well as appropriate urinalyses as well to date. Patient rates his pain as a 5 on a scale of 10 at its worst average and at its least and is a 5 today. Physical Exam: VS: Blood pressure is 142/72 pulse 90 respirations 18 temperature 98.3 F weight is 201 pounds height is 5 feet 4 inches. PE: PHYSICAL EXAMINATION: GENERAL: The patient is awake, alert, oriented, appropriate, very pleasant in demeanor HEENT: Shows normocephalic, atraumatic. Extraocular movements are intact and symmetrical. NECK: Shows anterior throat supple without palpable lymphadenopathy noted. Swallow reflex symmetrical. CHEST: Shows normal on inspection. Breath sounds are clear bilaterally. HEART: Shows S1, S2 clear. No murmurs auscultated. ABDOMEN: Soft, nontender, nondistended. No palpable organomegaly is noted. BACK: Shows spine grossly in the midline. Normal-appearing cervical lordotic curvature. Cervical paraspinous muscles show symmetrical with inspection, on palpation shows moderate tenderness diffusely throughout the upper middle lower decrease the paraspinous muscles bilaterally but without radiation without trigger points or asymmetry. There is mildly increased thoracic kyphosis, some flattening of the lumbar lordotic curvature with well-healed surgical scar. Lumbar paraspinous muscles show symmetrical on inspection, on palpation shows some moderate tenderness diffusely throughout the upper, middle and lower distribution of the paraspinous muscles without specific trigger points, without radiation of pain. The patient has good rotational motion of the lumbar spine, both laterally as well as extension and flexion without significant difficulty. EXTREMITIES: Lower extremities show deep tendon reflexes 1 in the patellar and tendo calcaneus tendons. Motor exam is 4 on a scale of 5 with right dorsiflexion, extension, quadriceps and hamstring flexion and 4/5 on the left. Peripheral pulses are 1 to posterior tibial. No peripheral edema is noted bilaterally. Lower extremities are warm and dry to touch, equal in color and appearance. Upper extremity show deep tendon reflexes 2+ in the bicep triceps tendons, motor exam is 4 to scale 5 with wood setter strength bicep tricep flexion but symmetrical and equal. Peripheral pulses are 2+ radial. SKIN: Shows warm and dry, good turgor. No edema. No sores, rashes or bruising throughout. Procedure: Procedure: Options were discussed with patient. Patient chart was reviewed his current medication regimen updated current review of systems updated today as well. We will refill patient's oxycodone 10/325 with instructions and side effects aware discussed with the medication. Patient has had good consistent relief with the medication without side effects and appropriate K tracks reporting as well as appropriate urinalyses to date. We will also prescribe new medication of meloxicam, 15 mg daily. Patient given instructions as well as side effects aware of each of the medications and will follow up in approximately 2 months or sooner if necessary. Medication Injected: Med Injected: None Condition at Discharge: Condition at Discharge: Condition at discharge stable NAHUM GRIFFIN MD Sep 01, 2021 09:21
== END | disposition home or self-care (01) ==
LOC: PNCL 08:42
PROVIDERS: ATTEND Anesthesiology
DX: G89.4 Chronic pain syndrome (principal); M50.10 Cervical disc disorder with radiculopathy, unspecified cervical region; M96.1 Postlaminectomy syndrome, not elsewhere classified; M17.0 Bilateral primary osteoarthritis of knee; M19.011 Primary osteoarthritis, right shoulder; M19.012 Primary osteoarthritis, left shoulder; I10 Essential (primary) hypertension; E78.00 Pure hypercholesterolemia, unspecified; E66.9 Obesity, unspecified; K21.9 Gastro-esophageal reflux disease without esophagitis; E11.9 Type 2 diabetes mellitus without complications; F41.9 Anxiety disorder, unspecified; F32.9 Major depressive disorder, single episode, unspecified; Z87.891 Personal history of nicotine dependence; Z79.899 Other long term (current) drug therapy; Z98.890 Other specified postprocedural states
CPT/HCPCS: 99212; G0463

== ENCOUNTER → 2021-10-27 | Outpatient (CLI) | payer MEDICARE ==
[~2021-10-27] MED LIST changes: +BUME1TAB3 PO; +MELO7.5T29 PO
--- NOTE | 2021-10-27 13:20 | PDOC ---
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 Patient reports doing very well with this has a good decrease in pain with medication although only about 70% improved patient reports his chief complaint today however is bilateral hand pain patient is started having pain in both of his hands for the past month or so and has been enrolled in physical therapy by his primary care physician for the hands although is not helping thus far patient reports pain is a 4 to scale 10 at all times worst least and average is a 4 today patient was aching burning stabbing in the hands and some in the left forearm as well patient reports pain in the low back and the knees especially with weightbearing walking and standing. Patient reports medication does decrease the pain where he can function fairly effectively and fairly comfortably but still has significant pain at all times patient reports is better with sitting or laying down does not generally awaken from sleep at night. Reports no side effects with medication or sensory deficits no bowel or bladder incontinence. Physical Exam: VS: Blood pressure is 149/68 pulse 97 respirations 18 temperature 98.2 F height is 5 feet 6 inches weight is 199 pounds. PE: PHYSICAL EXAMINATION: GENERAL: The patient is awake, alert, oriented, appropriate, very pleasant in demeanor HEENT: Shows normocephalic, atraumatic. Extraocular movements are intact and symmetrical. Patient wearing eyeglasses. NECK: Shows anterior throat supple without palpable lymphadenopathy noted. Swallow reflex symmetrical. CHEST: Shows normal on inspection. Breath sounds are clear bilaterally, no rales rhonchi or wheezes auscultated. HEART: Shows S1, S2 clear. No murmurs auscultated. ABDOMEN: Soft, nontender, nondistended. No palpable organomegaly is noted. BACK: Shows spine grossly in the midline. Normal-appearing cervical lordotic curvature. There is slightly increased thoracic kyphosis, some flattening of the lumbar lordotic curvature, with well-healed surgical scarring noted. Lumbar paraspinous muscles show symmetrical on inspection, on palpation shows some moderate tenderness diffusely throughout the upper, middle and lower d istribution of the paraspinous muscles without specific trigger points, without radiation of pain. The patient has good rotational motion of the lumbar spine, both laterally as well as extension and flexion without significant difficulty. EXTREMITIES: Lower extremities show deep tendon reflexes 1+ in the patellar and tendo calcaneus tendons. Motor exam is 4 on a scale of 5 with right dorsiflexion, extension, quadriceps and hamstring flexion and 4/5 on the left. Peripheral pulses are 1+ posterior tibial. No peripheral edema is noted bilaterally. Lower extremities are warm and dry to touch, equal in color and appearance. Upper extremities show deep tendon reflexes 2+ in the bicep tricep tendons motor exam is positive for scale 5 and equal with inspector metal fabricating strength bicep tricep flexion. Patient has a decreased sensitivity to sharp and dull discrimination in all the fingers and thumb on the palmar and posterior aspect of the hand in a glove distribution bilaterally.. SKIN: Shows warm and dry, good turgor. No edema. No sores, rashes or bruising throughout. Procedure: Procedure: Options were discussed with patient. Patient chart was reviewed his his current medication regimen updated current review of systems updated today as well. We will refill patient's oxycodone 10 mg with instructions side effects aware of discussed. Patient will be given a 60-day supply he has had appropriate K tracks report as well as appropriate urinalyses to date as well. Also, will add gabapentin 300 mg nightly, with instructions and side effects aware discussed as well. Patient will follow up in approximate 60 days, or sooner if necessary. Medication Injected: Med Injected: None Condition at Discharge: Condition at Discharge: Condition at discharge is stable. NAHUM GRIFFIN MD October 27, 2021 13:20
== END | disposition home or self-care (01) ==
LOC: PNCL 12:45
PROVIDERS: ATTEND Anesthesiology
DX: G89.4 Chronic pain syndrome (principal); M96.1 Postlaminectomy syndrome, not elsewhere classified; M48.061 Spinal stenosis, lumbar region without neurogenic claudication; M50.10 Cervical disc disorder with radiculopathy, unspecified cervical region; M17.0 Bilateral primary osteoarthritis of knee; I10 Essential (primary) hypertension; E78.00 Pure hypercholesterolemia, unspecified; E11.9 Type 2 diabetes mellitus without complications; K21.9 Gastro-esophageal reflux disease without esophagitis; Z79.899 Other long term (current) drug therapy; Z98.890 Other specified postprocedural states
CPT/HCPCS: 99212; G0463